=== PATIENT | female | born 1980 | race Caucasian/White ===

== ENCOUNTER 2016-06-03 19:12 | Emergency (ER) | payer OTHER ==
[~2016-06-03] VITALS: Ht 167.6 cm; Wt 104.8 kg
[~2016-06-03 19:12] MED LIST: CIPR-255 PO; PREN-83 PO
[2016-06-03 19:28] VITALS: TEMP 37; Ht 167.6 cm; Wt 104.8 kg
[2016-06-03] MEDS ORDERED: KETOROLAC TROMETHAMINE 30 MG/ML VIAL IV STA (19:43)
[2016-06-03] MEDS ORDERED: SODIUM CHLORIDE 0.9% 1000ML 1,000 ML IV STA (19:43)
[2016-06-03] MEDS ORDERED: HYDROmorphone INJ 1 MG/ML SYR IV STA (19:43)
[2016-06-03] MEDS ORDERED: ONDANSETRON INJ 2 MG/ML 2 ML VIAL IV STA ×2 (19:43→23:02)
--- NOTE | 2016-06-03 19:45 | EMERGENCY ROOM VISIT NOTE ---
History Report prepared by Renan: Sal Davis Under the Supervision of: Dr. David Mason M.D. First contact with patient: 19:36 Chief Complaint: PELVIC PAIN Stated Complaint: PELVIC PAIN History of Present Illness The patient is a 35 year old female who presents to the Emergency Room with complaints of waxing and waning pelvic pain that began 2 hours ago. She rates her pain a 7/10 in severity. She states that "she feels like shit." The patient' s menstrual cycle ended four days ago. She has a past medical history of a tubal ligation, 3 c-sections, an appendectomy, and a cholecystectomy. Due to the pain, the patient is nauseated. She denies any other abnormal symptoms. Source of History: patient Onset: 2 hours ago Position: other (pelvis) Symptom Intensity: 7/10 Quality: sharp Timing: waxes/wanes Associated Symptoms: + nausea Note: She denies any other abnormal symptoms. Review of Systems See HPI for pertinent positives & negatives. A total of 10 systems reviewed and were otherwise negative. Past Medical & Surgical Medical Problems: (1) 35 weeks gestation of (2) Abdominal pain (3) Corneal abrasion (4) Cough (5) Diarrhea (6) Diarrhea (7) Gastroenteritis (8) Gestational diabetes (9) Gestational hypertension w/o significant proteinuria in 3rd trimester (10) Hamstring muscle strain (11) Headache (12) Hematuria (13) Hematuria (14) Hypomagnesemia (15) Insulin controlled gestational diabetes mellitus during (16) Left flank pain (17) Maternal care for (suspected) abnormality and damage, unspecified, fetus 1 (18) Mild pre-eclampsia in third trimester (19) Mild preeclampsia (20) Rectal prolapse (21) Rectal prolapse (22) Right flank pain (23) Sinusitis, acute (24) Supervision of high risk in third trimester (25) Tachycardia (26) Urinary tract infection (27) Vomiting (28) Vomiting during Surgical Problems: (1) Appendectomy (2) section (3) Cholecystectomy (4) H/O: section (5) History of appendectomy (6) Previous delivery, antepartum condition or complication (7) Previous section Family History Diabetes mellitus FH: cancer FH: heart disease Hypertension Kidney disease Kidney stones Social History Smoking Status: Never Smoker Alcohol Use: none Drug Use: none Marital Status: Occupation Status: employed Current/Historical Medications Scheduled Bupropion Hcl (Bupropion Hcl Xl), 150 MG PO DAILY Lisdexamfetamine Dimesylate (Vyvanse), 40 MG PO DAILY Vit W/ Ferrous Fumara (), 1 TAB PO QAM Scheduled PRN Oxycodone/Acetaminophen 5MG/325MG (Percocet 5MG/325MG), 1-2 TAB PO Q4H PRN for Pain Allergies Coded Allergies: Penicillins (Verified Allergy, Severe, ANAPHYLAXIS, 09/09/15) Codeine (Unverified Allergy, Unknown, FULL BODY ITCHING, 09/09/15) Promethazine (Verified Allergy, Unknown, TORTICOLIS, 09/09/15) Cefaclor (Verified Adverse Reaction, Mild, N,V,D, 09/09/15) Physical Exam Vital Signs Date Time Temp Pulse Resp B/P Pulse Ox O2 Delivery O2 Flow Rate FiO2 06/04/16 01:05 68 18 118/81 98 06/03/16 23:14 65 18 123/76 96 Room Air 06/03/16 22:14 71 18 153/91 97 Room Air 06/03/16 21:39 68 06/03/16 21:14 76 18 135/86 97 Room Air 06/03/16 19:28 37.0 118 18 134/93 99 Room Air Physical Exam GENERAL: Patient is a healthy-appearing well-nourished HEAD: Normocephalic atraumatic EYES: Ocular movements intact pupils equal and react to light OROPHARYNX mucous membranes are moist no exudates present no erythema or edema present NECK: Supple no nuchal rigidity CHEST: Good equal expansion LUNGS: Clear and equal to auscultation CARDIAC: Normal S1 and S2 ABDOMEN: Soft, tenderness to the right suprapubic area, no guarding BACK: No CVA tenderness EXTREMITIES: No pain upon palpation normal muscle strength in all groups no clubbing cyanosis or edema NEURO: Patient is following commands is answering questions appropriately. Alert and oriented x3 Cranial Nerves 2-12 grossly intact Medical Decision & Procedures ER Provider Diagnostic Interpretation: Radiology results as stated below per my review and radiologist interpretation: US PELVIC/ENDOVA mm endometrial stripe Left ovary within limits with small follicles and evidence of vascular flow Right ovary not identified No evidence of adnexal mass or free fluid Radiologist: Carl Fox M.D. CT ABDOMEN & PELVIS: Comparison 09/10/2015 A few small punctate nonobstructing intrarenal stones Symmetric nephrograms without hydronephrosis or perinephric stranding Other solid organs appear within limits Status post cholecystectomy No bowel dilation or free air Suggestion 1.7 cm cyst right ovary axial 362 No free fluid No evidence of ureteral or bladder stone Radiologist: Carl Fox M.D. Laboratory Results 06/03/16 20:20 Red Blood Count 4.55, Mean Corpuscular Volume 85.1, Mean Corpuscular Hemoglobin 29.7, Mean Corpuscular Hemoglobin Concent 34.9, Mean Platelet Volume 10.4, Neutrophils (%) (Auto) 52.5, Lymphocytes (%) (Auto) 41.2, Monocytes (%) (Auto) 4.4, Eosinophils (%) (Auto) 1.6, Basophils (%) (Auto) 0.2, Neutrophils # (Auto) 5.35, Lymphocytes # (Auto) 4.19, Monocytes # (Auto) 0.45, Eosinophils # (Auto) 0.16, Basophils # (Auto) 0.02 06/03/16 20:20 Test 06/03/16 19:57 06/03/16 20:20 Urine Color YELLOW Urine Appearance CLEAR (CLEAR) Urine pH 5.0 (4.5-7.5) Urine Specific Center 1.024 (1.000-1.030) Urine Protein NEG (NEG) Urine Glucose (UA) NEG (NEG) Urine Ketones NEG (NEG) Urine Occult Blood NEG (NEG) Urine Nitrite NEG (NEG) Urine Bilirubin NEG (NEG) Urine Urobilinogen NEG (NEG) Urine Leukocyte Esterase NEG (NEG) Urine Test NEG (NEG) White Blood Count 10.18 K/uL (4.8-10.8) Red Blood Count 4.55 M/uL (4.2-5.4) Hemoglobin 13.5 g/dL (12.0-16.0) Hematocrit 38.7 % (37-47) Mean Corpuscular Volume 85.1 fL (80-100) Mean Corpuscular Hemoglobin 29.7 pg (25-34) Mean Corpuscular Hemoglobin Concent 34.9 g/dl (32-36) Platelet Count 239 K/uL (130-400) Mean Platelet Volume 10.4 fL (7.4-10.4) Neutrophils (%) (Auto) 52.5 % Lymphocytes (%) (Auto) 41.2 % Monocytes (%) (Auto) 4.4 % Eosinophils (%) (Auto) 1.6 % Basophils (%) (Auto) 0.2 % Neutrophils # (Auto) 5.35 K/uL (1.4-6.5) Lymphocytes # (Auto) 4.19 K/uL (1.2-3.4) Monocytes # (Auto) 0.45 K/uL (0.11-0.59) Eosinophils # (Auto) 0.16 K/uL (0-0.5) Basophils # (Auto) 0.02 K/uL (0-0.2) RDW Standard Deviation 40.4 fL (36.4-46.3) RDW Coefficient of Variation 13.0 % (11.5-14.5) Immature Granulocyte % (Auto) 0.1 % Immature Granulocyte # (Auto) 0.01 K/uL (0.00-0.02) Anion Gap 10.0 mmol/L (3-11) Est Creatinine Clear Calc Drug Dose 138.5 ml/min Estimated GFR () 131.0 Estimated GFR (Non- 113.0 BUN/Creatinine Ratio 27.3 (10-20) Calcium Level 9.2 mg/dl (8.5-10.1) Total Bilirubin 0.2 mg/dl (0.2-1) Direct Bilirubin < 0.1 mg/dl (0-0.2) Aspartate Amino Transf (AST/SGOT) 13 U/L (15-37) Alanine Aminotransferase (ALT/SGPT) 42 U/L (12-78) Alkaline Phosphatase 86 U/L (45-117) Total Protein 7.3 gm/dl (6.4-8.2) Albumin 3.7 gm/dl (3.4-5.0) Lipase 114 U/L (73-393) Labs reviewed by ED physician. Medications Administered Medications (Trade) Dose Ordered Sig/Tasia Route Start Time Stop Time Status Last Admin Dose Admin Sodium Chloride (Nss 1000ml) 1,000 ml @ 999 mls/hr Q1H1M STAT IV 06/03/16 19:43 06/03/16 20:43 DC 06/03/16 21:07 999 MLS/HR Ketorolac Tromethamine (Toradol Inj) 30 mg NOW STAT IV 06/03/16 19:43 06/03/16 19:46 DC 06/03/16 21:10 30 MG Hydromorphone HCl (Dilaudid Inj) 1 mg NOW STAT IV 06/03/16 19:43 06/03/16 19:47 DC 06/03/16 21:13 1 MG Ondansetron HCl (Zofran Inj) 4 mg NOW STAT IV 06/03/16 19:43 06/03/16 19:47 DC 06/03/16 21:08 4 MG Ondansetron HCl (Zofran Inj) 4 mg NOW STAT IV 06/03/16 23:02 06/03/16 23:03 DC 06/03/16 23:15 4 MG Oxycodone/ Acetaminophen (Percocet 5/ 325MG Home Pack) 1 homepack UD ONCE PO 06/04/16 01:00 06/04/16 01:01 DC 06/04/16 00:58 1 HOMEPACK ED Course 1936: Past medical records reviewed. The patient was evaluated in room C10. A complete history and physical examination was performed. 1943: Zofran Inj 4 mg IV, Dilaudid Inj 1 mg IV, Toradol Inj 30 mg IV, Sodium Chloride 1000 ml @ 999 mls/hr IV 2302: Zofran Inj 4 mg IV 0100: Oxycodone/ Acetaminophen 1 homepack PO 0105: Upon reexamination the patient is resting. I discussed results and treatment plan with the patient. She verbalizes agreement and understanding. The patient is ready for discharge. Medical Decision Differential diagnosis: Etiologies such as appendicitis, diverticulitis, PUD, biliary pathology, UTI, pancreatitis, obstruction, mesenteric ischemia, aortic pathology, infections, inflammatory bowel disease, renal colic, as well as others were entertained. This is a 35-year-old female who presents emergency department complaining of right lower quadrant abdominal pain. Serial abdominal examinations were performed on the patient she department and at no time did she exhibit a surgical abdomen. An IV was established, patient given normal saline bolus, Toradol, Dilaudid, Zofran. The patient had a reaction to the Dilaudid and requested not to have it again. Ultrasound does not show the right ovary. I will back to discuss this with the patient and using shared medical decision- making the patient would like us to get a CAT scan of the abdomen and pelvis. The CAT scan does show a right ovarian cyst. The patient is much more comfortable now and I feel she can be safely discharged home for follow-up with gynecology. Impression Primary Impression: RLQ abdominal pain Additional Impression: Ovarian cyst Scribe Attestation The scribe's documentation has been prepared under my direction and personally reviewed by me in its entirety. I confirm that the note above accurately reflects all work, treatment, procedures, and medical decision making performed by me. Departure Information Dispostion Home / Self-Care Prescriptions Oxycodone/Acetaminophen 5MG/325MG (PERCOCET 5MG/325MG) Tab 1-2 TAB PO Q4H Y for Pain, #14 TAB Prov: David Mason MD 06/04/16 Referrals Cammy Sue D.OMaximilian (PCP) Josie Heller MD Forms HOME CARE DOCUMENTATION FORM, IMPORTANT VISIT INFORMATION, WORK / SCHOOL INSTRUCTIONS Patient Instructions ED Cyst Ovarian, ED Pelvic Pain [facility], [facility] Additional Instructions Follow up with DR Heller's office You received narcotic or benzodiazepene medication while in the emergency room today. Do not drive, operate heavy machinery, or drink alcohol under the influence of this medication. Take 600 mg Ibuprofen every 6 hours Take Percocet for breakthrough pain You have been examined and treated today on an emergency basis only. This is not a substitute for, or an effort to provide, complete comprehensive medical care. It is impossible to recognize and treat all injuries or illnesses in a single emergency department visit. It is therefore important that you follow up closely with Dr Sue. Call as soon as possible for an appointment. Thank you for your time and consideration. I look forward to speaking with you again soon. Please don't hesitate to call us if you have any questions. Problem Qualifiers Additional Impression: Ovarian cyst Laterality: right Qualified Codes: N83.201 - Unspecified ovarian cyst, right side
[2016-06-03 20:13] LABS: URINE APPEARANCE CLEAR (CLEAR); URINE BILIRUBIN NEG (NEG); URINE COLOR YELLOW; URINE NITRITE NEG (NEG); URINE SPECIFIC GRAVITY 1.024 (1.000-1.030); UROBILINOGEN NEG (NEG)
[2016-06-03 20:14] LABS: MANUAL MICROSCOPIC REQUIRED? NO; REVIEW REQ? NO
[2016-06-03 20:34] LABS: BASO % 0.2 %; BASO ABS # 0.02 K/uL (0-0.2); COMPLETE YES; EOS % 1.6 %; HEMATOCRIT 38.7 % (37-47); IG% 0.1 %; LYMPH % 41.2 %; LYMPH ABS # 4.19 K/uL (1.2-3.4); MEAN CELL VOLUME 85.1 fL (80-100); MEAN CORPUSCULAR HEMOGLOBIN 29.7 pg (25-34); MEAN CORPUSCULAR HGB CONC 34.9 g/dl (32-36); MEAN PLATELET VOLUME 10.4 fL (7.4-10.4); MONO % 4.4 %; NEUT % 52.5 %; PLATELET COUNT 239 K/uL (130-400); RED BLOOD COUNT 4.55 M/uL (4.2-5.4); WHITE BLOOD COUNT 10.18 K/uL (4.8-10.8)
[2016-06-03 20:58] LABS: ALT/SGPT 42 U/L (12-78); AST/SGOT 13 U/L (15-37); BLOOD UREA NITROGEN 19 mg/dl (7-18); BUN/CREATININE RATIO 27.3 (10-20); CALCIUM 9.2 mg/dl (8.5-10.1); CARBON DIOXIDE 25 mmol/L (21-32); CHLORIDE 108 mmol/L (98-107); GLUCOSE 107 mg/dl (70-99); POTASSIUM 3.8 mmol/L (3.5-5.1); SODIUM 143 mmol/L (136-145)
[2016-06-03 21:01] LABS: ALKALINE PHOSPHATASE 86 U/L (45-117)
[2016-06-03] MEDS ORDERED: LISD40CA PO (21:58)
[2016-06-04] MEDS ORDERED: OPTIRAY 320 IV PRN
[2016-06-04] MEDS ORDERED: OXYC-57 PO (00:50)
[2016-06-04] MEDS ORDERED: PERCOCET HOME PACK PO ONE (01:00)
[2016-06-04 01:05] VITALS: BP 118/81; PULSE 68; O2SAT 98
--- NOTE | 2016-06-04 06:35 | DIAGNOSTIC IMAGING REPORT ---
PELVIC ULTRASOUND CLINICAL HISTORY: Right-sided suprapubic pain. COMPARISON STUDY: CT of the abdomen and pelvis September 10, 2015. TECHNIQUE: Transabdominal and transvaginal sonography of the pelvis was performed. FINDINGS: The uterus measures 9.2 x 3.4 x 4.9 cm. The endometrium measures 9 mm in thickness. The right ovary was not visualized. The left ovary measures 2.9 x 2 x 2.1 cm. There is color flow within the left ovary. Several follicles within the left ovary were noted. There was no free fluid. IMPRESSION: 1. Unremarkable sonographic appearance of the uterus and left ovary. 2. Nonvisualization of the right ovary. 3. No free fluid. Electronically signed by: Eric Vogel M.D. 06/04/2016 6:34 AM Dictated Date/Time: 06/04/2016 6:31 AM
--- NOTE | 2016-06-04 06:48 | DIAGNOSTIC IMAGING REPORT ---
CT OF THE ABDOMEN AND PELVIS WITH CONTRAST CLINICAL HISTORY: Right lower quadrant abdominal pain. COMPARISON STUDY: CT of the abdomen and pelvis September 10, 2015 and pelvic ultrasound June 03, 2016. TECHNIQUE: Following IV administration of 92 mL of Optiray-320, axial images of the abdomen and pelvis were obtained from the lung bases to the proximal femurs. Images were reviewed in the axial, sagittal, and coronal planes. IV contrast was administered without complication. CT DOSE: 1394.51 mGy.cm FINDINGS: Borderline splenomegaly is unchanged. The gallbladder is surgically absent. The adrenal glands and pancreas are normal. There are small bilateral renal calculi which measure up to 3 mm. There are no ureteral calculi. There is no hydronephrosis. The appendix is surgically absent. The ovaries are not enlarged. There is no free fluid. There is no lymphadenopathy. Skeletal structures are unremarkable. The caliber and wall thickness of small and large bowel are normal. IMPRESSION: 1. No acute process within the abdomen or pelvis. 2. Bilateral nephrolithiasis. No ureteral calculi. 3. No bowel obstruction. Electronically signed by: Eric Vogel M.D. 06/04/2016 6:46 AM Dictated Date/Time: 06/04/2016 6:41 AM
[2017-01-09] MEDS ORDERED: LISD50CA4 PO (12:41)
== END 2016-06-04 01:05 | disposition home or self-care (01) ==
LOC: C.EDB 19:13 → C.EDC 06-04 01:05
DX: R10.31 Right lower quadrant pain (principal); N83.201 Unspecified ovarian cyst, right side; Z90.89 Acquired absence of other organs; Z90.49 Acquired absence of other specified parts of digestive tract; Z83.3 Family history of diabetes mellitus; Z80.9 Family history of malignant neoplasm, unspecified; Z82.49 Family history of ischemic heart disease and other diseases of the circulatory system; Z84.1 Family history of disorders of kidney and ureter; Z88.1 Allergy status to other antibiotic agents; Z88.5 Allergy status to narcotic agent

== ENCOUNTER 2016-09-15 12:21 | Emergency (ER) | payer OTHER ==
[~2016-09-15] VITALS: Ht 167.6 cm; Wt 102.0 kg
[~2016-09-15 12:21] MED LIST changes: -CIPR-255 PO; +LISD40CA PO; +OXYC-57 PO
[2016-09-15 12:26] VITALS: TEMP 36.8; Ht 167.6 cm; Wt 102.0 kg
--- NOTE | 2016-09-15 12:52 | EMERGENCY ROOM VISIT NOTE ---
History Report prepared by Renan: Yonas Milton Under the Supervision of: Dr. Laura Higuera D.O. First contact with patient: 12:42 Chief Complaint: BACK PAIN Stated Complaint: BACK PAIN History of Present Illness The patient is a 35 year old female who presents to the Emergency Room with complaints of persistent lower back pain s/p fall just prior to arrival. The patient was working upstairs on the floors when the injury occurred. She tripped over the cord from a patient's computer. She grabbed onto the table as she was falling which led to her twisting and injuring the lower back. She did not actually hit the ground. She denies baseline back problems. The patient also has some pain in her hips and she is feeling nauseated. The patient denies and numbness, tingling, or incontinence. The patient had Motrin earlier this morning for menstrual cramps. The patient is on Wellbutrin and Vivants. Source of History: patient Onset: just PRODUCT DEVELOPMENT CONSULTANT Position: back (lower) Quality: other (s/p fall) Timing: other (persistent) Associated Symptoms: + nausea, No numbness Review of Systems See HPI for pertinent positives & negatives. A total of 10 systems reviewed and were otherwise negative. Past Medical & Surgical Medical Problems: (1) 35 weeks gestation of (2) Abdominal pain (3) Corneal abrasion (4) Cough (5) Diarrhea (6) Diarrhea (7) Gastroenteritis (8) Gestational diabetes (9) Gestational hypertension w/o significant proteinuria in 3rd trimester (10) Hamstring muscle strain (11) Headache (12) Hematuria (13) Hematuria (14) Hypomagnesemia (15) Insulin controlled gestational diabetes mellitus during (16) Left flank pain (17) Maternal care for (suspected) abnormality and damage, unspecified, fetus 1 (18) Mild pre-eclampsia in third trimester (19) Mild preeclampsia (20) Rectal prolapse (21) Rectal prolapse (22) Right flank pain (23) Sinusitis, acute (24) Supervision of high risk in third trimester (25) Tachycardia (26) Urinary tract infection (27) Vomiting (28) Vomiting during Surgical Problems: (1) Appendectomy (2) section (3) Cholecystectomy (4) H/O: section (5) History of appendectomy (6) Previous delivery, antepartum condition or complication (7) Previous section Family History Diabetes mellitus FH: cancer FH: heart disease Hypertension Kidney disease Kidney stones Social History Smoking Status: Never Smoker Alcohol Use: none Drug Use: none Marital Status: Occupation Status: employed Current/Historical Medications Scheduled Bupropion Hcl (Bupropion Hcl Xl), 150 MG PO DAILY Lidocaine (Lidoderm Patch 5%), 1 PATCH TD DAILY Lisdexamfetamine Dimesylate (Vyvanse), 50 MG PO DAILY Scheduled PRN Cyclobenzaprine Hcl (Flexeril), 10 MG PO TID PRN for Muscle Spasms Oxycodone/Acetaminophen 5MG/325MG (Percocet 5MG/325MG), 1-2 TABS PO Q4H PRN for Pain Allergies Coded Allergies: Penicillins (Verified Allergy, Severe, ANAPHYLAXIS, 09/15/16) Codeine (Unverified Allergy, Unknown, FULL BODY ITCHING, 09/15/16) Promethazine (Verified Allergy, Unknown, TORTICOLIS, 09/15/16) Cefaclor (Verified Adverse Reaction, Mild, N,V,D, 09/15/16) Physical Exam Vital Signs Date Time Temp Pulse Resp B/P (MAP) Pulse Ox O2 Delivery O2 Flow Rate FiO2 09/15/16 16:44 87 18 139/95 96 09/15/16 15:30 90 22 96 09/15/16 12:26 36.8 98 20 137/90 99 Room Air Physical Exam GENERAL: alert, well appearing, well nourished, tearful, non-toxic EYE EXAM: normal conjunctiva. OROPHARYNX: no exudate, no erythema, lips, buccal mucosa, and tongue normal and mucous membranes are moist NECK: supple, no nuchal rigidity, no adenopathy, non-tender LUNGS: Clear to auscultation. Normal chest wall mechanics HEART: no murmurs, S1 normal and S2 normal ABDOMEN: abdomen soft, non-tender, normo-active bowel sounds, no masses, no rebound or guarding. BACK: Pain over midline lumbar spine, no stepoff. No CVA tenderness. SKIN: no rashes and no bruising UPPER EXTREMITIES: upper extremities are grossly normal. LOWER EXTREMITIES: No pitting edema. 1/4 patellar reflexes bilaterally. Decreased range of motion secondary to pain. Sensation intact. NEURO EXAM: Normal sensorium, cranial nerves II-XII grossly intact, normal speech, no gross weakness of arms, no gross weakness of legs. Gross sensation intact. Medical Decision & Procedures Medications Administered Medications (Trade) Dose Ordered Sig/Tasia Route Start Time Stop Time Status Last Admin Dose Admin Oxycodone/ Acetaminophen (Percocet 5-325mg Tab) 1 tab NOW ONCE PO 09/15/16 13:00 09/15/16 13:01 DC 09/15/16 13:11 1 TAB Lidocaine (Lidoderm Patch 5%) 1 patch NOW STAT TD 09/15/16 12:56 09/15/16 12:59 DC 09/15/16 13:11 1 PATCH Cyclobenzaprine HCl (Flexeril Tab) 10 mg STK-MED ONCE .ROUTE 09/15/16 13:07 09/15/16 13:08 DC 09/15/16 13:07 10 MG Ondansetron HCl (Zofran Odt) 4 mg STK-MED ONCE .ROUTE 09/15/16 13:09 09/15/16 13:10 DC 09/15/16 13:09 4 MG Oxycodone/ Acetaminophen (Percocet 5-325mg Tab) 1 tab NOW ONCE PO 09/15/16 16:30 09/15/16 16:32 DC 09/15/16 16:20 1 TAB ED Course 1246: The patient was evaluated in room B4b. A complete history and physical exam was performed. 1256: Lidocaine 5% Patch TD, Flexeril 10 mg PO. 1300: Percocet 5/325 mg PO. 1412: Checked on the patient. 1630: Percocet 5/325 mg PO. 1600: Reassessed the patient. Discussed the discharge instructions with her. She verbalized understanding and agreement. The patient is ready for discharge. Medical Decision Differential diagnoses includes but is not limited to lumbar radiculopathy, muscle strain, facture, cauda equina, mass, and disc herniation. Blood pressure screening: Patient was found to have an elevated blood pressure and was referred to their primary doctor for recheck and further treatment. Medication Reconciliation: I attest that I have personally reviewed the patient' s current medication list. No direct trauma, no fevers, no hx of malignancy, doubt pathology, doubt gi or vascular pathology with referred pain into back, no symptoms to suggest cauda equina, no risk factors for epidural abscess/hematoma, doubt discitis. Pt improved with meds. Discussed f/u with PCP, rahulx to watch/return for, she verbalized understanding and was agreeable with plan. Impression Primary Impression: Strain of lumbar region Scribe Attestation The scribe's documentation has been prepared under my direction and personally reviewed by me in its entirety. I confirm that the note above accurately reflects all work, treatment, procedures, and medical decision making performed by me. Departure Information Dispostion Home / Self-Care Prescriptions Lidocaine (Lidoderm Patch 5%) 1 Ea Tdsy 1 PATCH TD DAILY for Pain, #1 BOX Prov: Laura Higuera, DO 09/15/16 Oxycodone/Acetaminophen 5MG/325MG (PERCOCET 5MG/325MG) Tab 1-2 TABS PO Q4H Y for Pain, #15 TAB Prov: Laura Higuera, DO 09/15/16 Cyclobenzaprine Hcl (FLEXERIL) 10 Mg Tab 10 MG PO TID Y for Muscle Spasms, #20 TAB Prov: Laura Higuera, DO 09/15/16 Referrals Cammy Sue D.O. (PCP) Forms HOME CARE DOCUMENTATION FORM, IMPORTANT VISIT INFORMATION Patient Instructions [facility] Additional Instructions Please rest and avoid any strenuous activity or heavy lifting until you're feeling better. You may continue taking anti-inflammatories [id number] such as Advil/Motrin/Aleve. Please use the muscle relaxer and other pain medication as prescribed. Do not take them and drive. Please monitor for constipation from the pain medication. If you have any worsening pain, feel the pain is moving into your but her legs, develop numbness or tingling, noticed a change in her difficulty with bowel or bladder function, develop fevers, you've any other new concerns, please return the emergency room. Problem Qualifiers Primary Impression: Strain of lumbar region Encounter type: initial encounter Qualified Codes: S39.012A - Strain of muscle, fascia and tendon of lower back, initial encounter
[2016-09-15] MEDS ORDERED: LIDODERM (LIDOCAINE) PATCH 5% TD STA (12:56)
[2016-09-15] MEDS ORDERED: CYCLOBENZAPRINE HCL 5 MG TAB PO STA (12:56)
[2016-09-15] MEDS ORDERED: OXYCODONE/ACETAMINOPHEN 5-325 TAB PO ONE ×2 (13:00→16:30)
[2016-09-15] MEDS: CYCLOBENZAPRINE HCL 10 MG TAB ONE ×2 (13:07→13:11)
[2016-09-15] MEDS ORDERED: ONDANSETRON 4MG OD TAB ONE (13:09)
[2016-09-15] MEDS ORDERED: OXYC-57 PO (13:56)
[2016-09-15] MEDS ORDERED: NF656 TD (13:56)
[2016-09-15] MEDS ORDERED: CYCL10TA6 PO (13:56)
[2016-09-15 16:44] VITALS: BP 139/95; PULSE 87; O2SAT 96
[2017-01-09] MEDS ORDERED: LISD50CA4 PO (12:41)
== END 2016-09-15 16:40 | disposition home or self-care (01) ==
LOC: C.EDB 12:22
DX: S39.012A Strain of muscle, fascia and tendon of lower back, initial encounter (principal); W18.40XA Slipping, tripping and stumbling without falling, unspecified, initial encounter; Y92.239 Unspecified place in hospital as the place of occurrence of the external cause; Y99.0 Civilian activity done for income or pay; Z83.3 Family history of diabetes mellitus; Z82.49 Family history of ischemic heart disease and other diseases of the circulatory system; Z84.1 Family history of disorders of kidney and ureter

== ENCOUNTER → 2016-10-16 | Outpatient (CLI) | payer OTHER ==
[~2016-10-16] MED LIST changes: +ACET-1256 PO; +BUPR150T5 PO; +CYCL5TAB PO; +IBUP-1050 PO; -LISD40CA PO; +LISD50CA4 PO; +NF656 TD; +OXYC1TAB3 PO; -PREN-83 PO
--- NOTE | 2016-10-16 21:08 | DIAGNOSTIC IMAGING REPORT ---
MRI OF THE LUMBAR SPINE WITHOUT CONTRAST CLINICAL HISTORY: Lumbar spine pain following injury. COMPARISON STUDY: No previous studies for comparison. TECHNIQUE: Utilizing a 1.5 Janelle magnet and dedicated coil, multiplanar, multiecho imaging of the lumbar spine was performed without IV contrast. FINDINGS: For purposes of numbering on this exam, the L5-S1 disc space is assigned to axial image 27 of 30. Alignment of lumbar spine is anatomic. Vertebral body heights are maintained. The conus terminates at the upper L2 level. There is no intracanalicular mass or fluid collection. Paravertebral soft tissues are unremarkable. L1-2: The central canal and neural foramen are patent. L2-3: The central canal and neural foramen are patent L3-4: The central canal and neural foramen are patent. L4-5: The central canal and neural foramen are patent. L5-S1: The central canal and neural foramen are patent. IMPRESSION: Unremarkable MRI of the lumbar spine. No disc herniations. Patent central canal and neural foramen. Electronically signed by: Eric Vogel M.D. 10/16/2016 9:07 PM Dictated Date/Time: 10/16/2016 9:04 PM
== END | disposition home or self-care (01) ==
LOC: C.MRI 16:57
PROVIDERS: ATTEND Orthopaedic Surgery Orthopaedic Surgery of the Spine
DX: M51.06 Intervertebral disc disorders with myelopathy, lumbar region (principal)

== ENCOUNTER 2016-11-26 15:52 | Emergency (ER) | payer OTHER ==
[~2016-11-26] VITALS: Ht 167.6 cm; Wt 105.9 kg
[~2016-11-26 15:52] MED LIST changes: -ACET-1256 PO; -BUPR150T5 PO; -CYCL5TAB PO; -IBUP-1050 PO; -LISD50CA4 PO; -OXYC1TAB3 PO
[2016-11-26 16:00] VITALS: TEMP 36.6; Ht 167.6 cm; Wt 105.9 kg
[2016-11-26] MEDS ORDERED: KETOROLAC TROMETHAMINE 30 MG/ML VIAL IV STA (16:15)
[2016-11-26] MEDS ORDERED: SODIUM CHLORIDE 0.9% 1000ML 1,000 ML IV STA (16:15)
[2016-11-26] MEDS ORDERED: ONDANSETRON INJ 2 MG/ML 2 ML VIAL IV STA (16:15)
[2016-11-26 16:49] LABS: BASO % 0.3 %; BASO ABS # 0.03 K/uL (0-0.2); COMPLETE YES; EOS % 1.4 %; HEMATOCRIT 40.9 % (37-47); IG% 0.2 %; LYMPH % 30.4 %; LYMPH ABS # 3.09 K/uL (1.2-3.4); MEAN CORPUSCULAR HEMOGLOBIN 30.1 pg (25-34); MEAN CORPUSCULAR HGB CONC 35.5 g/dl (32-36); MEAN PLATELET VOLUME 10.1 fL (7.4-10.4); MONO % 5.7 %; PLATELET COUNT 245 K/uL (130-400); RED BLOOD COUNT 4.81 M/uL (4.2-5.4); WHITE BLOOD COUNT 10.18 K/uL (4.8-10.8)
[2016-11-26 16:59] LABS: INR 0.9 (0.9-1.1)
[2016-11-26 17:02] LABS: URINE APPEARANCE CLEAR (CLEAR); URINE BILIRUBIN NEG (NEG); URINE COLOR YELLOW; URINE NITRITE NEG (NEG); URINE SPECIFIC GRAVITY 1.027 (1.000-1.030); UROBILINOGEN NEG (NEG); ZZUR CULT IF INDIC CLEAN CATCH NO
[2016-11-26 17:13] LABS: MANUAL MICROSCOPIC REQUIRED? NO; REVIEW REQ? NO
[2016-11-26 17:17] LABS: ALKALINE PHOSPHATASE 78 U/L (45-117); ALT/SGPT 61 U/L (12-78); AST/SGOT 16 U/L (15-37)
--- NOTE | 2016-11-26 17:45 | DIAGNOSTIC IMAGING REPORT ---
ABDOMEN 2VIEW W/PA CHEST RTN CLINICAL HISTORY: abd cramping, nausea pain. Nausea. COMPARISON STUDY: 2013 FINDINGS: The soft tissues, psoas shadows, renal outlines and intestinal gas pattern appear normal. There is no evidence for bowel obstruction. There is no evidence for free intraperitoneal air. No abnormal abdominal calcifications are seen. A frontal view of the chest was performed and is unremarkable. IMPRESSION: Normal study. Prior cholecystectomy The above report was generated using voice recognition software. It may contain grammatical, syntax or spelling errors. Electronically signed by: Mingo Holland M.D. 11/26/2016 5:44 PM Dictated Date/Time: 11/26/2016 5:43 PM
[2016-11-26 17:53] LABS: BUN/CREATININE RATIO 23.3 (10-20); CALCIUM 8.6 mg/dl (8.5-10.1); CREATININE 1.1 mg/dl (0.60-1.20); POTASSIUM 4.1 mmol/L (3.5-5.1)
[2016-11-26 18:16] VITALS: BP 120/82; PULSE 85; O2SAT 98
--- NOTE | 2016-11-26 18:30 | EMERGENCY ROOM VISIT NOTE ---
History Report prepared by Renan: Heydi Bradley Under the Supervision of: Dr. Ranjana Olguin M.D. First contact with patient: 16:06 Chief Complaint: LETHARGIC Stated Complaint: NAUSEA - STOMACH PAIN - LETHARGY History of Present Illness The patient is a 36 year old female who presents to the Emergency Room with complaints of persistent generalized illness starting three days ago. The patient states that she has been having tightness in her abdomen, as well as has been feeling weak, nauseous and tired. The patient also states she has been having a hard time eating and drinking. She also states that she has had constipation which is for her and it made her hemorrhoid bleed today. The patient notes that she had a bowel movement just prior to arrival which was normal. She denies urine symptoms, cough or fever. The patient was treated for strep a week ago. She also notes an 18 day period that ended 9 days ago. The patient had a baby 16 months ago. She also notes that she has an upcoming appointment with Dr. Heller. Source of History: patient Onset: 3 days ago Position: other (generalized) Quality: other Timing: other (persistent) Associated Symptoms: + nausea, + fatigue, + weakness, No fevers, No cough, No urinary symptoms Note: Pt states she has been having tightness in her abdomen and constipation. The patient also states she has been having a hard time eating and drinking. Review of Systems See HPI for pertinent positives & negatives. A total of 10 systems reviewed and were otherwise negative. Past Medical & Surgical Medical Problems: (1) 35 weeks gestation of (2) Abdominal pain (3) Corneal abrasion (4) Cough (5) Diarrhea (6) Diarrhea (7) Gastroenteritis (8) Gestational diabetes (9) Gestational hypertension w/o significant proteinuria in 3rd trimester (10) Hamstring muscle strain (11) Headache (12) Hematuria (13) Hematuria (14) Hypomagnesemia (15) Insulin controlled gestational diabetes mellitus during (16) Left flank pain (17) Maternal care for (suspected) abnormality and damage, unspecified, fetus 1 (18) Mild pre-eclampsia in third trimester (19) Mild preeclampsia (20) Rectal prolapse (21) Rectal prolapse (22) Right flank pain (23) Sinusitis, acute (24) Supervision of high risk in third trimester (25) Tachycardia (26) Urinary tract infection (27) Vomiting (28) Vomiting during Surgical Problems: (1) Appendectomy (2) section (3) Cholecystectomy (4) H/O: section (5) History of appendectomy (6) Previous delivery, antepartum condition or complication (7) Previous section Family History Diabetes mellitus FH: cancer FH: heart disease Hypertension Kidney disease Kidney stones Social History Smoking Status: Never Smoker Alcohol Use: none Drug Use: none Marital Status: Occupation Status: employed Current/Historical Medications Scheduled Bupropion Hcl (Bupropion Hcl Xl), 150 MG PO DAILY Lisdexamfetamine Dimesylate (Vyvanse), 50 MG PO DAILY Allergies Coded Allergies: Penicillins (Verified Allergy, Severe, ANAPHYLAXIS, 11/26/16) Codeine (Unverified Allergy, Unknown, FULL BODY ITCHING, 11/26/16) Promethazine (Verified Allergy, Unknown, TORTICOLIS, 11/26/16) Cefaclor (Verified Adverse Reaction, Mild, N,V,D, 11/26/16) Physical Exam Vital Signs Date Time Temp Pulse Resp B/P (MAP) Pulse Ox O2 Delivery O2 Flow Rate FiO2 11/26/16 18:16 85 16 120/82 98 Room Air 11/26/16 16:53 88 11/26/16 16:00 36.6 109 20 132/91 99 Room Air Physical Exam Vital signs reviewed. General: Well-appearing female, in no significant distress. HEENT: No scleral icterus, PERRLA, neck supple. Atraumatic. Tympanic membrane clear. Posterior oral pharynx clear. Cardiovascular: Regular rate and rhythm, no extra sounds. Pulmonary: Clear to auscultation bilaterally, normal work of breathing. Abdomen: Soft, nontender, nondistended, positive bowel sounds. Obese. Musculoskeletal: Atraumatic, no peripheral edema. No CVA tenderness Neurologic: Patient awake alert and oriented x 3 Skin: Warm, dry, no rash Medical Decision & Procedures ER Provider Diagnostic Interpretation: Radiology results as stated below per my review and radiologist interpretation: ABDOMEN 2VIEW W/PA CHEST RTN FINDINGS: The soft tissues, psoas shadows, renal outlines and intestinal gas pattern appear normal. There is no evidence for bowel obstruction. There is no evidence for free intraperitoneal air. No abnormal abdominal calcifications are seen. A frontal view of the chest was performed and is unremarkable. IMPRESSION: Normal study. Prior cholecystectomy The above report was generated using voice recognition software. It may contain grammatical, syntax or spelling errors. Electronically signed by: Mingo Holland M.D. Laboratory Results 11/26/16 16:35 Red Blood Count 4.81, Mean Corpuscular Volume 85.0, Mean Corpuscular Hemoglobin 30.1, Mean Corpuscular Hemoglobin Concent 35.5, Mean Platelet Volume 10.1, Neutrophils (%) (Auto) 62.0, Lymphocytes (%) (Auto) 30.4, Monocytes (%) (Auto) 5.7, Eosinophils (%) (Auto) 1.4, Basophils (%) (Auto) 0.3, Neutrophils # (Auto) 6.32, Lymphocytes # (Auto) 3.09, Monocytes # (Auto) 0.58, Eosinophils # (Auto) 0.14, Basophils # (Auto) 0.03 11/26/16 16:35 Test 11/26/16 16:35 11/26/16 16:39 White Blood Count 10.18 K/uL (4.8-10.8) Red Blood Count 4.81 M/uL (4.2-5.4) Hemoglobin 14.5 g/dL (12.0-16.0) Hematocrit 40.9 % (37-47) Mean Corpuscular Volume 85.0 fL (80-100) Mean Corpuscular Hemoglobin 30.1 pg (25-34) Mean Corpuscular Hemoglobin Concent 35.5 g/dl (32-36) Platelet Count 245 K/uL (130-400) Mean Platelet Volume 10.1 fL (7.4-10.4) Neutrophils (%) (Auto) 62.0 % Lymphocytes (%) (Auto) 30.4 % Monocytes (%) (Auto) 5.7 % Eosinophils (%) (Auto) 1.4 % Basophils (%) (Auto) 0.3 % Neutrophils # (Auto) 6.32 K/uL (1.4-6.5) Lymphocytes # (Auto) 3.09 K/uL (1.2-3.4) Monocytes # (Auto) 0.58 K/uL (0.11-0.59) Eosinophils # (Auto) 0.14 K/uL (0-0.5) Basophils # (Auto) 0.03 K/uL (0-0.2) RDW Standard Deviation 40.1 fL (36.4-46.3) RDW Coefficient of Variation 13.0 % (11.5-14.5) Immature Granulocyte % (Auto) 0.2 % Immature Granulocyte # (Auto) 0.02 K/uL (0.00-0.02) Prothrombin Time 10.0 SECONDS (9.0-12.0) Prothromb Time International Ratio 0.9 (0.9-1.1) Anion Gap 8.0 mmol/L (3-11) Est Creatinine Clear Calc Drug Dose 87.8 ml/min Estimated GFR () 75.3 Estimated GFR (Non- 65.0 BUN/Creatinine Ratio 23.3 (10-20) Calcium Level 8.6 mg/dl (8.5-10.1) Magnesium Level 2.0 mg/dl (1.8-2.4) Total Bilirubin 0.5 mg/dl (0.2-1) Direct Bilirubin < 0.1 mg/dl (0-0.2) Aspartate Amino Transf (AST/SGOT) 16 U/L (15-37) Alanine Aminotransferase (ALT/SGPT) 61 U/L (12-78) Alkaline Phosphatase 78 U/L (45-117) Total Protein 7.7 gm/dl (6.4-8.2) Albumin 3.7 gm/dl (3.4-5.0) Lipase 135 U/L (73-393) Thyroid Stimulating Hormone (TSH) 1.870 uIu/ml (0.300-4.500) Urine Color YELLOW Urine Appearance CLEAR (CLEAR) Urine pH 7.0 (4.5-7.5) Urine Specific [place] 1.027 (1.000-1.030) Urine Protein NEG (NEG) Urine Glucose (UA) NEG (NEG) Urine Ketones NEG (NEG) Urine Occult Blood NEG (NEG) Urine Nitrite NEG (NEG) Urine Bilirubin NEG (NEG) Urine Urobilinogen NEG (NEG) Urine Leukocyte Esterase NEG (NEG) Urine Test NEG (NEG) Laboratory results per my review. Medications Administered Medications (Trade) Dose Ordered Sig/Tasia Route Start Time Stop Time Status Last Admin Dose Admin Sodium Chloride 1,000 ml @ 999 mls/hr Q1H1M STAT IV 8/15/17 16:15 11/26/16 17:15 DC 11/26/16 16:33 999 MLS/HR Ketorolac Tromethamine (Toradol Inj) 30 mg NOW STAT IV 11/26/16 16:15 11/26/16 16:16 DC 11/26/16 16:34 30 MG Ondansetron HCl (Zofran Inj) 4 mg NOW STAT IV 11/26/16 16:15 11/26/16 16:16 DC 11/26/16 16:33 4 MG ED Course 1610: Past medical records reviewed. The patient was evaluated in room B5. A complete history and physical examination was performed. 1615: Zofran Inj 4 mg IV, Toradol Inj 30 mg IV, Sodium Chloride 1000 ml @ 999 mls/hr IV 1700: Upon reevaluation, the patient appeared to have improvement of her symptoms. I discussed findings with the patient. She verbalized agreement of the treatment plan. The patient was discharged home Medical Decision Differential diagnosis: Etiologies such as metabolic, infection, hypo/hyperglycemia, electrolyte abnormalities, cardiac sources, intracerebral event, toxicologic, neurologic, as well as others were entertained. This pt was evaluated and appeared to be in no distress. IV access was obtained and lab work was drawn. Pt was placed on the talcer. Lab work is fairly unrevealing, UA is negative. Preg test is neg. Pt was feeling improved after IVF, IV toradol and IV zofran. She was d/c to f.u with PCP for continued symptoms. She will return to the ED for worsening of symptoms or any medical concerns. Medication Reconcilliation Current Medication List: was personally reviewed by me Blood Pressure Screening Patient's blood pressure: Normal blood pressure Blood pressure disposition: Did not require urgent referral Impression Primary Impression: Viral syndrome Scribe Attestation The scribe's documentation has been prepared under my direction and personally reviewed by me in its entirety. I confirm that the note above accurately reflects all work, treatment, procedures, and medical decision making performed by me. Departure Information Dispostion Home / Self-Care Referrals Cammy Sue D.O. (PCP) Forms HOME CARE DOCUMENTATION FORM, IMPORTANT VISIT INFORMATION, WORK / SCHOOL INSTRUCTIONS Patient Instructions My [facility] Additional Instructions Diagnosis: Viral syndrome Drink plenty of fluids. Pepcid 20 mg twice daily as needed for nausea, gastritis. Follow up with your doctor this week for worsening of symptoms or any medical concerns. Return to the ED for worsening of symptoms or any medical concerns.
[2017-01-09] MEDS ORDERED: LISD50CA4 PO (12:41)
== END 2016-11-26 18:49 | disposition home or self-care (01) ==
LOC: C.EDB 15:53
DX: B34.9 Viral infection, unspecified (principal); R53.83 Other fatigue; Z79.899 Other long term (current) drug therapy; Z87.19 Personal history of other diseases of the digestive system; Z87.440 Personal history of urinary (tract) infections; Z87.448 Personal history of other diseases of urinary system; Z87.898 Personal history of other specified conditions; Z82.49 Family history of ischemic heart disease and other diseases of the circulatory system; Z83.3 Family history of diabetes mellitus; Z84.1 Family history of disorders of kidney and ureter

== ENCOUNTER 2016-12-28 15:08 | Emergency (ER) | payer OTHER ==
[~2016-12-28] VITALS: Ht 167.6 cm; Wt 110.0 kg
[2016-12-28 15:10] VITALS: TEMP 36.6; Ht 167.6 cm; Wt 110.0 kg
[2016-12-28] MEDS ORDERED: SODIUM CHLORIDE 0.9% 1000ML 1,000 ML IV STA (15:25)
--- NOTE | 2016-12-28 15:40 | EMERGENCY ROOM VISIT NOTE ---
History First contact with patient: 15:14 Chief Complaint: NEURO SYMPTOMS Stated Complaint: RT SIDED FACE NUMBNESS/TINGLING X 1 HR History of Present Illness The patient is a 36 year old female who presents to the Emergency Room with complaints of right-sided facial numbness and tingling that started about 12:45 PM today. Patient states that she was driving home from a conference in [place] when her symptoms started. She states that she initially had a numbness and tingling feeling in the entire right face as well as the right arm. She states the numbness and tingling in her right arm lasted about 45 minutes and fully resolved, she denies any notable weakness in any of her extremities. She has had persistent numbness/tingling in the face since onset. She states about an hour after her symptoms started, she had a gradual onset of a mild right-sided headache, which she reports as constant, aching, 5/10. She did not take any medications for the headache. She denies any associated symptoms of vision changes, difficulty swallowing, neck pain or stiffness, confusion/disorientation, dizziness or syncope, nausea, vomiting, photo or phonophobia. She does report a history of migraines in the past, but states she has not had one for several years. She denies any associated chest pain, shortness of breath, abdominal pain, recent fevers or chills or other illness, urinary symptoms. Review of Systems A complete 10 point review of systems was reviewed with the patient with pertinent positives and negatives as per history of present illness. All else were negative. Past Medical/Surgical History Medical Problems: (1) 35 weeks gestation of (2) Abdominal pain (3) Corneal abrasion (4) Cough (5) Diarrhea (6) Diarrhea (7) Gastroenteritis (8) Gestational diabetes (9) Gestational hypertension w/o significant proteinuria in 3rd trimester (10) Hamstring muscle strain (11) Headache (12) Hematuria (13) Hematuria (14) Hypomagnesemia (15) Insulin controlled gestational diabetes mellitus during (16) Left flank pain (17) Maternal care for (suspected) abnormality and damage, unspecified, fetus 1 (18) Mild pre-eclampsia in third trimester (19) Mild preeclampsia (20) Rectal prolapse (21) Rectal prolapse (22) Right flank pain (23) Sinusitis, acute (24) Supervision of high risk in third trimester (25) Tachycardia (26) Urinary tract infection (27) Vomiting (28) Vomiting during Surgical Problems: (1) Appendectomy (2) section (3) Cholecystectomy (4) H/O: section (5) History of appendectomy (6) Previous delivery, antepartum condition or complication (7) Previous section Family History Diabetes mellitus FH: cancer FH: heart disease Hypertension Kidney disease Kidney stones Social History Smoking Status: Never Smoker Alcohol Use: none Drug Use: none Marital Status: Occupation Status: employed Current/Historical Medications Scheduled Bupropion Hcl (Bupropion Hcl Xl), 150 MG PO QAM Lisdexamfetamine Dimesylate (Vyvanse), 50 MG PO QAM Physical Exam Vital Signs Date Time Temp Pulse Resp B/P (MAP) Pulse Ox O2 Delivery O2 Flow Rate FiO2 12/28/16 19:22 68 20 132/75 97 12/28/16 18:00 76 18 126/73 98 Room Air 12/28/16 15:57 80 12/28/16 15:10 36.6 103 18 146/105 95 Physical Exam CONSTITUTIONAL: No acute distress. Well appearing and well nourished. Alert and oriented X 4 with normal affect. HEENT: Normocephalic, atraumatic. Pupils equal, round and reactive to light, EOMI. TMs normal. Pharynx normal. Moist mucous membranes. NECK: Supple, full active range of motion without discomfort. RESPIRATORY: Clear to auscultation bilaterally with no wheezing, crackles, rhonchi or stridor. Equal expansion bilaterally. CARDIOVASCULAR: Regular rate and rhythm with no murmurs, rubs or gallops. Normal peripheral perfusion. No edema. GASTROINTESTINAL: Soft, nontender, nondistended. Bowel sounds present in all quadrants. MUSCULOSKELETAL: Full range of motion of all joints without discomfort. INTEGUMENTARY: No rash or other significant dermatologic conditions noted. NEUROLOGIC: Cranial nerves II-XII grossly intact. No focal neurologic deficits noted. There is subjective diminished sensation right face involving the forehead, cheek, and chin. Sensation intact to light touch of the bilateral face, she is able to feel both sharp and dull. No sensory deficits noted to any of the extremities, full normal strength of all extremities, normal coordination including negative Romberg and normal [id number] testing, normal balance and gait, normal speech. Medical Decision & Procedures ER Provider Diagnostic Interpretation: CT HEAD WITHOUT CONTRAST (CT) CLINICAL HISTORY: Headache. Right facial numbness and tingling. COMPARISON STUDY: No previous studies for comparison. TECHNIQUE: Axial CT of the brain is performed from the vertex to the skull base. IV contrast was not administered for this examination. A dose lowering technique was utilized adhering to the principles of ALARA. CT DOSE: 601.98 mGy.cm FINDINGS: No intra or extra-axial mass lesions are visualized. There is no CT evidence of acute cortical infarction. There is no evidence of midline shift. There is no acute hemorrhage. No calvarial fractures are visualized. There is no evidence of pathologic ventricular dilatation. There is no evidence of acute sinusitis IMPRESSION: No acute intracranial findings Laboratory Results 12/28/16 16:00 Red Blood Count 4.43, Mean Corpuscular Volume 86.0, Mean Corpuscular Hemoglobin 29.3, Mean Corpuscular Hemoglobin Concent 34.1, Mean Platelet Volume 10.0, Neutrophils (%) (Auto) 57.6, Lymphocytes (%) (Auto) 34.8, Monocytes (%) (Auto) 5.5, Eosinophils (%) (Auto) 1.7, Basophils (%) (Auto) 0.2, Neutrophils # (Auto) 6.92, Lymphocytes # (Auto) 4.19, Monocytes # (Auto) 0.66, Eosinophils # (Auto) 0.21, Basophils # (Auto) 0.03 12/28/16 16:00 Test 12/28/16 15:45 12/28/16 15:56 12/28/16 16:00 Urine Color YELLOW Urine Appearance CLEAR (CLEAR) Urine pH 5.0 (4.5-7.5) Urine Specific [place] 1.025 (1.000-1.030) Urine Protein NEG (NEG) Urine Glucose (UA) NEG (NEG) Urine Ketones NEG (NEG) Urine Occult Blood NEG (NEG) Urine Nitrite NEG (NEG) Urine Bilirubin NEG (NEG) Urine Urobilinogen NEG (NEG) Urine Leukocyte Esterase NEG (NEG) Urine Test NEG (NEG) Bedside Glucose 93 mg/dl (70-90) White Blood Count 12.04 K/uL (4.8-10.8) Red Blood Count 4.43 M/uL (4.2-5.4) Hemoglobin 13.0 g/dL (12.0-16.0) Hematocrit 38.1 % (37-47) Mean Corpuscular Volume 86.0 fL (80-100) Mean Corpuscular Hemoglobin 29.3 pg (25-34) Mean Corpuscular Hemoglobin Concent 34.1 g/dl (32-36) Platelet Count 195 K/uL (130-400) Mean Platelet Volume 10.0 fL (7.4-10.4) Neutrophils (%) (Auto) 57.6 % Lymphocytes (%) (Auto) 34.8 % Monocytes (%) (Auto) 5.5 % Eosinophils (%) (Auto) 1.7 % Basophils (%) (Auto) 0.2 % Neutrophils # (Auto) 6.92 K/uL (1.4-6.5) Lymphocytes # (Auto) 4.19 K/uL (1.2-3.4) Monocytes # (Auto) 0.66 K/uL (0.11-0.59) Eosinophils # (Auto) 0.21 K/uL (0-0.5) Basophils # (Auto) 0.03 K/uL (0-0.2) RDW Standard Deviation 41.3 fL (36.4-46.3) RDW Coefficient of Variation 13.1 % (11.5-14.5) Immature Granulocyte % (Auto) 0.2 % Immature Granulocyte # (Auto) 0.03 K/uL (0.00-0.02) Prothrombin Time 10.2 SECONDS (9.0-12.0) Prothromb Time International Ratio 1.0 (0.9-1.1) Activated Partial Thromboplast Time 26.2 SECONDS (21.0-31.0) Partial Thromboplastin Ratio 1.0 Anion Gap 7.0 mmol/L (3-11) Est Creatinine Clear Calc Drug Dose 117.4 ml/min Estimated GFR () 104.4 Estimated GFR (Non- 90.0 BUN/Creatinine Ratio 24.0 (10-20) Calcium Level 8.7 mg/dl (8.5-10.1) Medications Administered Medications (Trade) Dose Ordered Sig/Tasia Route Start Time Stop Time Status Last Admin Dose Admin Sodium Chloride 1,000 ml @ 999 mls/hr Q1H1M STAT IV 12/28/16 15:25 9/16/17 16:25 DC 12/28/16 15:59 999 MLS/HR Ketorolac Tromethamine (Toradol Inj) 15 mg NOW STAT IV 12/28/16 18:04 12/28/16 18:05 DC 12/28/16 18:15 15 MG Metoclopramide HCl (Reglan Inj) 10 mg NOW STAT IV 12/28/16 18:07 12/28/16 18:09 DC 12/28/16 18:15 10 MG Medical Decision CC: Patient presenting with complaint of right-sided facial numbness and headache Interpretation of Labs: Mild leukocytosis, no anemia, no significant electrolyte imbalance, normal renal function, UA negative, negative urine . Differential Diagnosis: Includes, but not limited to complex migraine, tension headache, TIA, CVA, ICH, dehydration, among others. Medication Reconciliation: I attest that I have personally reviewed the patient' s current medication list. Vital signs review: I reviewed the patient's vital signs and interpret them as follows: T: Afebrile; BP: Hypertensive; HR: Tachycardic; RR: Within normal limits; Pulse Ox: Within normal limits on room air. Summary: Patient was evaluated at bedside, history of physical exam performed. Patient is alert and oriented, in no acute distress, resting calmly in the stretcher. Her neurologic exam is normal and without focal deficit, with the exception of subjective diminished sensation in the right side of the face. There is no facial droop noted. There is no neck pain or stiffness on exam. Based on the patient's exam at this time, I do not believe that she meets criteria for a stroke alert. Patient discussed with Dr. Ortega, who agrees with my assessment and plan. He did recommend doing an MRI combo of the brain to definitively rule out any stroke, and to avoid radiation with a CT at this time. Orders were placed for labs, UA and urine , IV fluids for hydration, MRI of the brain with and without contrast to definitively rule out stroke. Labs reviewed as above, no significant abnormalities. Negative urine . Nursing notified me that patient was over at MRI, and has been unable to tolerate the study due to severe claustrophobia and anxiety. I spoke with the patient and offered treating her anxiety with Ativan to help her tolerate the study, however she does not want to have any sedating medications and prefers not to have an MRI today. She also notes that her facial numbness and tingling has fully resolved since 4 PM, and her only persistent complaint is her headache which is still 5/10, and she now also has some associated nausea. I discussed with Dr. Ortega, he agrees with CT noncontrast of the head, and we will treat the headache with migraine cocktail. MRI canceled per patient request. I discussed with the patient and explained the plan, she verbalized understanding and was comfortable with this plan. Patient reports history of a dystonic reaction to Phenergan in the past, but states she has had Reglan before without a problem. She requested Toradol for the headache. After review of head CT, which is read a negative, Toradol and Reglan were ordered for treatment of headache. Patient reassessed multiple times throughout ED stay, she is much improved after medications, stating full resolution of her headache and nausea. Tachycardia resolved after IV fluid bolus. Hypertension also resolved. I suspect patient may have a complex migraine, reassured by full resolution of symptoms and negative head CT. She may benefit from future MRI studies if she has persistent headaches or return of symptoms. However, I believe her to be very low risk for stroke at this time. She was instructed to follow up closely with her PCP, and to consider evaluation by a neurologist. She verbalized understanding. She was also given return precautions should her symptoms return or worsen in any way, she verbalized understanding. The patient was discharged home in stable condition and ambulatory. Head Trauma GCS Score: 15 Medication Reconcilliation Current Medication List: was personally reviewed by me Blood Pressure Screening Patient's blood pressure: Elevated blood pressure Blood pressure disposition: Elevated BP felt to be situational Impression Primary Impression: Numbness and tingling of right face Additional Impression: Headache Departure Information Dispostion Home / Self-Care Condition GOOD Referrals Cammy Sue D.O. (PCP) Yousif Mott M.D. Patient Instructions ED Headache Migraine, My [facility] Additional Instructions You were treated in the emergency department today for your headache. CT imaging of your brain was normal. Rest today in a quiet, peaceful, dark environment and get a full 8-10 hrs of sleep tonight. Avoid loud noises, smoke/smoking, alcohol, bright lights, stress, or physical exertion today to minimize the chance the headache may return. Continue current medications as prescribed. Ibuprofen(Motrin, Advil) may be used for fever or pain. Use 600mg every 6-8 hours as needed. Take with food. Avoid using more than 2400mg in a 24 hour period. Do not use 2400mg per day for more than three consecutive days without physician direction. Prolonged inappropriate use can lead to stomach upset or ulcers. (AND/OR) Acetaminophen(Tylenol) may be used for fever or pain. Use 1000mg every 8 hours as needed. Avoid using more than 3000 mg in a 24 hour period. Return to the ER for passing out, worsening headache, vision problems, neck stiffness/pain, fevers, vomiting, worsening of your condition, or as needed. Follow up with your primary physician in 2-3 days for a recheck of your current condition. You may also benefit from being evaluated by a neurologist, you may call Dr. Mott's office for an appointment as needed. Problem Qualifiers Additional Impression: Headache Headache type: unspecified Headache chronicity pattern: acute headache Intractability: not intractable Qualified Codes: R51 - Headache
[2016-12-28 16:08] LABS: BASO % 0.2 %; BASO ABS # 0.03 K/uL (0-0.2); COMPLETE YES; EOS % 1.7 %; HEMATOCRIT 38.1 % (37-47); IG% 0.2 %; LYMPH % 34.8 %; LYMPH ABS # 4.19 K/uL (1.2-3.4); MEAN CORPUSCULAR HEMOGLOBIN 29.3 pg (25-34); MEAN CORPUSCULAR HGB CONC 34.1 g/dl (32-36); MONO % 5.5 %; NEUT % 57.6 %; PLATELET COUNT 195 K/uL (130-400); RED BLOOD COUNT 4.43 M/uL (4.2-5.4); WHITE BLOOD COUNT 12.04 K/uL (4.8-10.8)
[2016-12-28 16:10] LABS: URINE APPEARANCE CLEAR (CLEAR); URINE BILIRUBIN NEG (NEG); URINE COLOR YELLOW; URINE NITRITE NEG (NEG); URINE SPECIFIC GRAVITY 1.025 (1.000-1.030); UROBILINOGEN NEG (NEG)
[2016-12-28 16:14] LABS: MANUAL MICROSCOPIC REQUIRED? NO; REVIEW REQ? NO
[2016-12-28 16:25] LABS: PROTHROMBIN TIME (PATIENT) 10.2 SECONDS (9.0-12.0)
[2016-12-28 16:26] LABS: CALCIUM 8.7 mg/dl (8.5-10.1); CREATININE 0.84 mg/dl (0.60-1.20); POTASSIUM 3.9 mmol/L (3.5-5.1)
[2016-12-28 16:38] LABS: PREG INTERNAL NEGATIVE QC NEG CLEAR BACKGROUND; PREG INTERNAL POSITIVE QC POS CONTROL LINE
--- NOTE | 2016-12-28 17:40 | DIAGNOSTIC IMAGING REPORT ---
CT HEAD WITHOUT CONTRAST (CT) CLINICAL HISTORY: Headache. Right facial numbness and tingling. COMPARISON STUDY: No previous studies for comparison. TECHNIQUE: Axial CT of the brain is performed from the vertex to the skull base. IV contrast was not administered for this examination. A dose lowering technique was utilized adhering to the principles of ALARA. CT DOSE: 601.98 mGy.cm FINDINGS: No intra or extra-axial mass lesions are visualized. There is no CT evidence of acute cortical infarction. There is no evidence of midline shift. There is no acute hemorrhage. No calvarial fractures are visualized. There is no evidence of pathologic ventricular dilatation. There is no evidence of acute sinusitis IMPRESSION: No acute intracranial findings Electronically signed by: Keven Colon M.D. 12/28/2016 5:30 PM Dictated Date/Time: 12/28/2016 5:29 PM
[2016-12-28] MEDS ORDERED: KETOROLAC TROMETHAMINE 30 MG/ML VIAL IV STA (18:04)
[2016-12-28] MEDS ORDERED: METOCLOPRAMIDE HCL INJ 5 MG/ML 2 ML VIAL IV STA (18:07)
[2016-12-28 19:22] VITALS: BP 132/75; PULSE 68; O2SAT 97
--- NOTE | 2016-12-28 21:37 | EMERGENCY ROOM VISIT NOTE ---
ED Visit Note First contact with patient: 15:14 I have personally evaluated this patient examined her and reviewed the pertinent labs and data. I have discussed the case with Yudy Dhillon, the physician electrical assistant and agree with the plan. Please refer to the PA note. This patient comes in after having tingling in her right face and arm tingling and now has a mild headache. Right now she does have some mild tingling her right face. She has a normal neurologic exam. Her headache is mild. There has been no trauma. She's no fever or chills. CAT scan of her head is unremarkable. She has a normal neurologic exam was unremarkable. She some subjective tingling in her right face. Most likely this is a related to a migraine. Her blood work up was unremarkable. We did order a MRI of her brain to rule out other acute intracranial processes however she could not tolerate this. She declined any sedation and just wants to go home at this is reasonable with follow up with her doctor. She should return if she has recurrence of symptoms, worsening symptoms, fever or chills, any new problems or concerns.
[2017-01-09] MEDS ORDERED: LISD50CA4 PO (12:41)
== END 2016-12-28 19:24 | disposition home or self-care (01) ==
LOC: C.EDB 15:09 → C.EDC 19:24
DX: R20.0 Anesthesia of skin (principal); R20.2 Paresthesia of skin; R51 Headache; R00.0 Tachycardia, unspecified; Z83.3 Family history of diabetes mellitus; Z82.49 Family history of ischemic heart disease and other diseases of the circulatory system; Z84.1 Family history of disorders of kidney and ureter

== ENCOUNTER 2017-01-09 19:20 | Emergency (ER) | payer OTHER ==
[~2017-01-09] VITALS: Ht 167.6 cm; Wt 109.7 kg
[~2017-01-09 19:20] MED LIST changes: +LISD50CA4 PO; -NF656 TD; -OXYC-57 PO
[2017-01-09 19:30] VITALS: BP 136/99; PULSE 99; TEMP 36.8; O2SAT 98; Ht 167.6 cm; Wt 109.7 kg
[2017-01-09] MEDS ORDERED: ACET-1256 PO (19:48)
[2017-01-09] MEDS ORDERED: IBUP-1050 PO (19:48)
[2017-01-09] MEDS ORDERED: OXYCODONE HCL IR 5 MG TAB (IMMEDIATE RELEASE) PO STA (19:52)
[2017-01-09] MEDS ORDERED: FLEXERIL HOME PACK 10 MG VIAL PO STA (19:52)
[2017-01-09] MEDS ORDERED: CYCLOBENZAPRINE HCL 10 MG TAB PO STA (19:52)
[2017-01-09] MEDS ORDERED: OXYCODONE IR HOME PACK PO STA (19:52)
[2017-01-09] MEDS ORDERED: OXYC1TAB3 PO (19:55)
[2017-01-09] MEDS ORDERED: CYCL5TAB PO (19:55)
--- NOTE | 2017-01-09 19:56 | EMERGENCY ROOM VISIT NOTE ---
ED Visit Note First contact with patient: 19:34 CHIEF COMPLAINT: "Right-sided back pain". HISTORY OF PRESENT ILLNESS: This 36-year-old female patient presents to the emergency department via private vehicle complaining of pain in the low back which began this morning upon awakening from sleep. The pain was gradual in onset, is now constant and worse with movement. The patient notes the pain as sharp and a 8/10. The patient has taken Tylenol and ibuprofen without relief of the pain. The patient denies any loss of control of their bowel or bladder functions. There has been no leg numbness or weakness, and no change in sensation. No nausea or vomiting or abdominal pain. No chest pain or shortness of breath. The patient has had prior back injuries. No dysuria or increased urinary frequency. REVIEW OF SYSTEMS: A review of systems was performed with positives and pertinent negatives listed in the history of present illness. All other systems were reviewed and are negative. ALLERGIES: As noted below MEDICATIONS: As noted below PMH: Previous back injury SOCIAL HISTORY: Patient lives and is employed locally. PHYSICAL EXAM: VITALS: Vitals are noted on the nurse's note and reviewed by myself. Vital signs stable. GENERAL: 36-year-old female, in no acute distress, nondiaphoretic, well- developed well-nourished. SKIN: The skin was without rashes, erythema, edema, or bruising. NECK: Supple without nuchal rigidity. No cervical spine tenderness. No paraspinous muscle tenderness. HEART: Regular rate and rhythm without murmurs gallops or rubs. LUNGS: Clear to auscultation bilaterally without wheezes, rales or rhonchi. ABDOMEN: Soft, nontender, without masses or organomegaly. MUSCULOSKELETAL: No muscle atrophy, erythema, or edema noted of the back. There is no tenderness over the lumbar spinous processes. There is is tenderness over the paraspinous muscles of the right inferior lumbar region. There is no tenderness over the thoracic spine paraspinous muscles. There are no muscle spasms present. The patient is slow to move around with maximum tenderness with leftward torso bending and leftward flexion at the hip. NEURO: Strength 5/5 and equal in the bilateral lower extremities. Full range of motion of the lower extremities. No neurovascular deficits. EMERGENCY DEPARTMENT COURSE: Patient was seen and evaluated as above. She presents to us today with right paraspinous musculature pain of the lumbar spine. There is been no trauma or injury. No abdominal pain. No cauda equina syndrome symptoms. She is well on exam. I believe she is expressing a muscle spasm of the right paraspinous musculature at the location of the lumbar region. She'll be treated with Flexeril, and oxycodone. She was seen here not long ago and had done well with the Flexeril. I cautioned her that this can increase risk of serotonin syndrome, and she is only to take this as needed. No red flags in the PDMP. She is to follow with her family doctor. She was given oxycodone as well as Flexeril here, and a short prescription. She is to return with worsening. She was educated upon worrisome symptoms which to return , had questions answered prior to discharge, and was discharged home in good condition. In evaluation treatment this patient the following differential diagnoses were entertained: Lumbar strain, sprain, fracture, dislocation, abdominal etiology, among others. Problem List Medical Problems: (1) 35 weeks gestation of Status: Resolved (2) Abdominal pain Status: Resolved (3) Corneal abrasion Status: Resolved (4) Cough Status: Resolved (5) Diarrhea Status: Resolved (6) Diarrhea Status: Resolved (7) Gastroenteritis Status: Resolved (8) Gestational diabetes Status: Resolved (9) Gestational hypertension w/o significant proteinuria in 3rd trimester Status: Resolved (10) Hamstring muscle strain Status: Resolved (11) Headache Status: Resolved (12) Hematuria Status: Resolved (13) Hematuria Status: Resolved (14) Hypomagnesemia Status: Resolved (15) Left flank pain Status: Resolved (16) Mild preeclampsia Status: Resolved (17) Rectal prolapse Status: Resolved (18) Rectal prolapse Status: Resolved (19) Right flank pain Status: Resolved (20) Sinusitis, acute Status: Resolved (21) Tachycardia Status: Resolved (22) Urinary tract infection Status: Resolved (23) Vomiting Status: Resolved (24) Vomiting during Status: Resolved Surgical Problems: (1) Appendectomy Status: Resolved (2) section Status: Resolved (3) Cholecystectomy Status: Resolved (4) H/O: section Status: Resolved (5) History of appendectomy Status: Resolved (6) Previous section Status: Resolved Current/Historical Medications Scheduled Acetaminophen (Tylenol), 1,000 MG PO PRN UD Bupropion Hcl (Bupropion Hcl Xl), 150 MG PO QAM Cyclobenzaprine Hcl (Flexeril), 5 MG PO TID Lisdexamfetamine Dimesylate (Vyvanse), 50 MG PO QAM Scheduled PRN Ibuprofen (Advil), 800 MG PO TID PRN for Pain Oxycodone Ir (Roxicodone Ir), 1-2 TAB PO Q4H PRN for Pain Allergies Coded Allergies: Penicillins (Verified Allergy, Severe, ANAPHYLAXIS, 12/28/16) Codeine (Verified Allergy, Unknown, FULL BODY ITCHING, 12/28/16) Promethazine (Verified Allergy, Unknown, TORTICOLIS, 12/28/16) Cefaclor (Verified Adverse Reaction, Mild, N,V,D, 12/28/16) Vital Signs Date Time Temp Pulse Resp B/P (MAP) Pulse Ox O2 Delivery O2 Flow Rate FiO2 01/09/17 19:30 36.8 99 16 136/99 98 Room Air Medications Administered Medications (Trade) Dose Ordered Sig/Tasia Route Start Time Stop Time Status Last Admin Dose Admin Oxycodone HCl (Roxicodone Immediate Rel Tab) 5 mg NOW STAT PO 01/09/17 19:52 01/09/17 19:54 DC 01/09/17 20:07 5 MG Oxycodone HCl (Roxicodone Immediate Rel 5MG Home Pack) 1 homepack UD STAT PO 01/09/17 19:52 01/09/17 19:54 DC 01/09/17 20:07 1 HOMEPACK Cyclobenzaprine HCl (FLEXERIL 10MG Home Pack) 1 homepack UD STAT PO 01/09/17 19:52 01/09/17 19:54 DC 01/09/17 20:07 1 HOMEPACK Cyclobenzaprine HCl (Flexeril Tab) 10 mg NOW STAT PO 01/09/17 19:52 01/09/17 19:54 DC 01/09/17 20:06 10 MG Departure Information Impression Primary Impression: Strain of lumbar region Dispostion Home / Self-Care Condition GOOD Prescriptions Oxycodone Ir (Roxicodone Ir) 5 Mg Tab 1-2 TAB PO Q4H Y for Pain, #15 TAB For Initial Treatment Prov: Quentin Flower, PA-C 01/09/17 Cyclobenzaprine Hcl (FLEXERIL) 5 Mg Tab 5 MG PO TID for 5 Days, #15 TAB PRN Prov: Quentin Flowre, MOHAN-Mike 01/09/17 Referrals Cammy Sue D.O. (PCP) Patient Instructions My [facility] Additional Instructions You have been treated in the Emergency Department for Back Pain. You have received pain medicine in the emergency department which impairs your ability to operate a vehicle. It is illegal for you to drive after receiving these medicines. You have been prescribed Oxy IR to be used for pain control. This is a narcotic medication. You cannot drive or consume alcohol while on this medicine. This medicine should only be used for pain that cannot be controlled with over-the- counter pain medicines. You have been prescribed Flexeril (cyclobenzaprine) 1-2 tabs orally, three times per day. Do NOT exceed 30 mg (6 tabs) per day. Take your first dose at bedtime as it can make you drowsy. Always take all medications as prescribed. For pain control, you can use the following [id number] medicines (if >12 yo): - Regular strength (325mg/tab) Tylenol (acetaminophen) 2 tabs every 4-6 hours as needed. Do not exceed 12 tablets in a 24 hour period. Avoid taking more than 3 grams (3000 mg) of Tylenol per day. This includes any other sources of acetaminophen you may take on a regular basis. - Regular strength (200 mg/tab) Advil (ibuprofen) 1-2 tabs every 4-6 hours as needed. Do not exceed a dose of 3200 mg per day. If this is an acute injury, ice can be applied to the area of pain for the first 3 days to help decrease pain and inflammation. After the first 3 days, a heating pad can be used over the area for continued soothing relief. You should schedule a follow-up appointment in 2-3 days with your Primary Care Provider for further evaluation and treatment of your back pain. Return to the Emergency Department if your current symptoms worsen despite treatment course outlined above, or if you develop any of the following symptoms : intractable pain despite aforementioned treatment course, loss of control of your bowel or bladder, numbness or tingling in your groin, or development of a fever.
[2017-01-09] MEDS ORDERED: BUPR150T5 PO (21:58)
== END 2017-01-09 20:27 | disposition home or self-care (01) ==
LOC: C.EDB 19:22 → C.EDD 20:27
DX: S39.012A Strain of muscle, fascia and tendon of lower back, initial encounter (principal); X58.XXXA Exposure to other specified factors, initial encounter

== ENCOUNTER → 2017-01-29 | Outpatient (CLI) | payer OTHER ==
[~2017-01-29] MED LIST changes: +ACET-1256 PO; +BUPR150T5 PO; +IBUP-1050 PO; +OXYC1TAB3 PO
--- NOTE | 2017-01-30 07:47 | MAMMOGRAPHY REPORT ---
BILATERAL DIGITAL DIAGNOSTIC MAMMOGRAM TOMOSYNTHESIS WITH CAD AND TARGETED RIGHT ULTRASOUND: 01/30/20 17 CLINICAL HISTORY: The patient reports a palpable right breast lump at approximately 2-3 months. TECHNIQUE: Breast tomosynthesis in addition to standard 2D mammography was performed. Current study was also evaluated with a Computer Aided Detection (CAD) system. Bilateral CC and MLO 2-D and tomosy nthesis images were obtained. COMPARISON: No prior exams were available for comparison. BREAST COMPOSITION: There are scattered areas of fibroglandular density in both breasts. FINDINGS: A triangle marker patino the site of the palpable lump in the right lower inner quadrant. N o suspicious masses or other suspicious mammographic abnormalities are noted at the site of the palpa ble lump. The remainder of both breasts are negative, without suspicious masses, calcifications, or areas of architectural distortion noted. Targeted ultrasound was performed the area of the palpable lump pointed out by the patient, in the ri ght breast at approximately 4:00, 5 cm from the nipple. Sonographically normal tissue is seen in thi s region, without evidence of a mass or other suspicious sonographic abnormality. Normal fat lobules are seen in this region, which likely account for the palpable finding. IMPRESSION: ACR BI-RADS CATEGORY 2: BENIGN, TARGETED ULTRASOUND ACR BI-RADS CATEGORY 2: BENIGN No suspicious mammographic or sonographic abnormality at the site of the palpable right breast lump. There is no mammographic or targeted sonographic evidence of malignancy. Recommend clinical follow- up for the right breast lump, and recommend routine bilateral screening mammograms starting at the ag e of 40 unless otherwise clinically indicated. The patient has been verbally notified of the results. Approximately 10% of breast cancers are not detected with mammography. A negative mammographic report should not delay biopsy if a clinically suggestive mass is present. Anila Matt M.D. /:01/29/2017 09:21:11 Cuff Turner: Shawanda GUERRERO)(Betsey), [facility] letter sent: Normal 1/2 BI-RADS Code: ACR BI-RADS Category 2: Benign Ultrasound BI-RADS: ACR BI-RADS Category 2: Benign
== END | disposition home or self-care (01) ==
LOC: C.MAMM 08:51
PROVIDERS: ATTEND Family Medicine
DX: N63.10 Unspecified lump in the right breast, unspecified quadrant (principal)

== ENCOUNTER 2018-06-25 12:21 | Observation (INO) ==
[2018-06-25] MEDS ORDERED: ONDANSETRON INJ 2 MG/ML 2 ML VIAL IV STA ×2 (13:22→15:38)
[2018-06-25] MEDS ORDERED: KETOROLAC TROMETHAMINE 15 MG/ML VIAL IV STA (13:22)
[2018-06-25] MEDS ORDERED: cefTRIAXone SODIUM 1,000 MG/50 ML BAG IV STA (13:23)
[2018-06-25] MEDS ORDERED: SODIUM CHLORIDE 0.9% 1000ML 2,000 ML IV SCH (13:30)
[2018-06-25 14:23] LABS: Basophils # (auto) 0.01 K/uL (0-0.2); Basophils % (auto) 0.1 %; Eosinophils % (auto) 1.4 %; Hematocrit (blood only) 39.8 % (37-47); Hemoglobin 13.7 g/dL (12.0-16.0); Immature Granulocytes # (auto) 0.02 K/uL (0.00-0.02); Immature Granulocytes % (auto) 0.3 %; Lymphocytes # (auto) 1.42 K/uL (1.2-3.4); Lymphocytes % (auto) 19.2 %; Mean Corpuscular Hgb Conc 34.4 g/dL (32-36); Mean Corpuscular Volume 87.3 fL (80-100); Mean Platelet Volume 10.3 fL (7.4-10.4); Monocytes % (auto) 4.1 %; Neutrophils # (auto) 5.54 K/uL (1.4-6.5); Neutrophils % (auto) 74.9 %; Platelet Count 175 K/uL (130-400); RDW Coefficient of Variation 13.6 % (11.5-14.5); RDW Standard Deviation 42.7 fL (36.4-46.3); Red Blood Count 4.56 M/uL (4.2-5.4); White Blood Count 7.39 K/uL (4.8-10.8)
[2018-06-25 14:33] LABS: INR 0.9 (0.9-1.1); Prothrombin Time 9.7 Seconds (9.0-12.0)
[2018-06-25 14:39] LABS: Albumin Level 3.4 gm/dl (3.4-5.0); BUN Creatinine Ratio 20.8 (10-20); Calcium 7.9 mg/dl (8.5-10.1); Creatinine Clr Calc Pharmacy 108.7 ml/min; Est GFR (African American) 99.3; Est GFR (Non-African American) 85.7; Potassium 3.5 mmol/L (3.5-5.1)
[2018-06-25 14:41] LABS: Albumin Globulin Ratio 0.9 (0.9-2); Bilirubin,Total 0.3 mg/dl (0.2-1); Total Protein 7.4 gm/dl (6.4-8.2)
[2018-06-25 14:59] LABS: Appearance Urine Clear (Clear); Bilirubin Urine Negative (Negative); Blood Urine Negative (Negative); Color Urine Yellow; Glucose Urine UA Negative (Negative); Ketones Urine Trace (Negative); Leukocyte Esterase Urine Negative (Negative); Nitrite Urine Negative (Negative); Protein Urine Negative (Negative); Specific Gravity Urine 1.032 (1.000-1.030); Urobilinogen Urine Negative (Negative)
[2018-06-25] MEDS ORDERED: IOVERSOL 100ml IV PRN (15:20)
[2018-06-25] MEDS ORDERED: MoRPHine SULFATE 4 MG/ML 1 ML CARP\\VIAL IV STA (15:27)
--- NOTE | 2018-06-25 15:30 | CT Scan Report ---
CT OF THE ABDOMEN AND PELVIS WITH CONTRAST CLINICAL HISTORY: Mid abdominal pain. COMPARISON STUDY: CT of the abdomen and pelvis January 19, 2018. Renal ultrasound June 23, 2018. TECHNIQUE: Following IV administration of 93 mL of Optiray-320, axial images of the abdomen and pelvi s were obtained from the lung bases to the proximal femurs. Images were reviewed in the axial, sagitt al, and coronal planes. IV contrast was administered without complication. Automated exposure contro l was utilized for the study. A dose lowering technique was utilized adhering to the principles of A ELSIE. CT DOSE: 1332.41 mGy.cm FINDINGS: Mild splenomegaly is noted. A right cardiophrenic angle pericardial cyst is noted. There is probable fatty infiltration of the liver. There is no biliary ductal dilatation status post cholecys tectomy. There are small bilateral renal calculi. There is no hydronephrosis. No ureteral calculi are present. Mild mesenteric infiltration is noted with small associated mesenteric lymph nodes. Hyperde nse material along the appendix is noted. There is no evidence for acute appendicitis.. There is no e vidence for a small bowel obstruction. Small bowel is fluid-filled. Intrauterine device is appropriat conor positioned. Note is made of a 5.8 cm suspected left ovarian cyst. No pneumatosis, free air or por marcella venous gas is present. IMPRESSION: 1. Fluid-filled small bowel which may reflect an enteritis. No evidence for a bowel obstruction. 2. Mild mesenteric infiltration with small mesenteric lymph nodes. This is of doubtful significance. 3. Bilateral nephrolithiasis. No ureteral calculi or hydronephrosis. 4. 5.8 cm suspected left ovarian cyst. A follow-up pelvic ultrasound in 6 weeks to ensure resolution is recommended. Electronically signed by: Eric Vogel M.D. 06/25/2018 3:29 PM
--- NOTE | 2018-06-25 17:48 | History & Physical Report ---
Date of Service June 25, 2018 Assessment & Plan (1) Pyelonephritis: (2) Recurrent UTI: Pt with hx recurrent UTI's. Hx pyelonephritis Presented with 4 days hx dysuria, urinary frequency, fever 2 days ago, R flank pain, malaise and nausea. Had self started macrobid 4 days ago without signific ant relief. Seen in ER 06/23/18 and started on bactrim. Still with symptoms. Today in ER afebrile, vitals stable. WBC: 7, BUN: 18, Cr: 0.8, Lactate: 0.7. negative urine . UA: unremarkable CT ABD/PELVIS: 1. Fluid-filled small bowel which may reflect an enteritis. No evidence for a bowel obstruction. 2. Mild mesenteric infiltration with small mesenteric lymph nodes. This is of doubtful significance. 3. Bilateral nephrolithiasis. No ureteral calculi or hydronephrosis. 4. 5.8 cm suspected left ovarian cyst. A follow-up pelvic ultrasound in 6 weeks to ensure resolution is recommended. Possible Pyelonephritis -pending blood cultures (were drawn after antibiotics given) -pending urine culture, however pt has been on oral antibiotics for several days -Pt with PCN allergy, however has tolerated Rocephin during previous hosptializations. Will continue Rocephin for now -IVF -pain control with toradol, morphine prn -antiemetics -monitor CBC, BMP (3) Depression: (4) ADHD: -continue bupropion, vyvanse, dextroamphetamine (5) Ovarian cyst: CT ABD/PELVIS: 5.8 cm suspected left ovarian cyst. A follow-up pelvic ultrasound in 6 weeks to ensure resolution is recommended. -recommend follow up outpatient for pelvic ultrasound DVT Prophylaxis -low risk - ambulate Follows with Dr Green for routine care Pt was seen with Dr Langley. See addendum History of Present Illness Chief Complaint: Dysuria, R flank pain Primary Care Provider: Ema Green Pt is 37 y/o F with PMH depression, anxiety, ADHD, recurrent UTI's presented to ER with c/o dysuria and R flank pain x couple of days. Hx hospitalization for pyelonephritis in 02/2018. Pt states 4 days ago started with dysuria, urinary frequency and urgency. Then started with some R flank discomfort. Pt states has macrobid from urologist (Dr Quintero) to use when has UTI symptoms which she started couple of days ago with some relief of dysuria and frequency but continued R flank aching. 2 days ago reports fever 100.5F. Was seen in ER on 06/23/18 and changed to bactrim. Pt has had 4 doses without relief. Pt states has generalized malaise. Has been having nausea without vomiting. Decreased oral intake. Today lightheaded with standing and checked her BP at home with wrist machine and reports was 80/50. She returned to ER today. Pt states has mirena and had intermittent vaginal spotting which has since resolved and hasn't had regular menses since placement. Denies further fever, GARIBAY, syncope, vision changes, neck pain, CP, SOB, cough, sore throat, other abdominal pain, hematuria, vaginal discharge, diarrhea, constipation, paresthesias, extremity edema, rashes. Allergies Allergy/AdvReac Type Severity Reaction Status Date / Time Penicillins Allergy Severe ANAPHYLAXIS Verified 06/25/18 14:21 cefaclor Allergy Intermediate Hives Verified 06/25/18 14:21 codeine Allergy Unknown FULL BODY Verified 06/25/18 14:21 ITCHING promethazine Allergy Unknown TORTICOLIS Verified 06/25/18 14:21 Home Medications Home Medications Medication Instructions Recorded Confirmed Type Vitamin 1 tab PO DAILY 01/19/18 06/25/18 History Vyvanse 70 mg PO QAM 01/19/18 06/25/18 History bupropion HCl 150 mg PO QAM 01/19/18 06/25/18 History dextroamphetamine 10 mg PO DAILY 01/19/18 06/25/18 History sulfamethoxazole-trimethoprim 1 tab PO Q12H 10 Days #20 tab 06/23/18 06/25/18 Rx [Bactrim DS] lorazepam 1 tab PO BID PRN 06/25/18 06/25/18 History prazosin 1 tab PO HS 06/25/18 06/25/18 History Past Med/Surg History Medical History ADHD (Chronic) Recurrent UTI (Chronic) Urinary retention (Resolved) Depression (Chronic) Kidney stone (Resolved) Insulin controlled gestational diabetes mellitus during (Resolved) Mild pre-eclampsia in third trimester (Resolved) Maternal care for (suspected) abnormality and damage, unspecified, fetus 1 (Resolved) Surgical History History of cholecystectomy (Chronic) History of appendectomy (Chronic) Hx of section (Chronic) H/O tubal ligation (Chronic) Social History Preferred Language: Yakut Beliefs That Will Affect Care: None Current Living Situation: Family Other Information That Helps Us Care for You: No Feels Safe at Home: Yes Smoking Status: Never smoker Hx Alcohol Use: Yes Hx Substance Use: No Review of Systems All systems reviewed & are unremarkable except as noted in HPI & below Physical Exam Vital Signs (Past 24 Hours): Last Vital Signs Temp 36.8 C 06/25/18 12:26 Pulse 78 06/25/18 16:30 Resp 16 06/25/18 16:30 BP 108/74 06/25/18 16:30 Pulse Ox 96 06/25/18 16:30 Physical Exam: General: no acute distress, obese Head: normocephalic, atraumatic Eyes: PERRL, EOM's intact, conjunctiva non-injected, anicteric ENT: normal inspection external ears, nose, mucous membranes dry Neck: supple, trachea midline, non-tender Lungs: clear, no respiratory distress, no wheezing/rhonchi/rales CV: RRR, no murmur, no pretibial edema Abd: normal BS, soft, +R CVA and flank tenderness, RLQ tenderness to palpation, otherwise abdomen non-tender Ext: no cyanosis, no erythema Neuro: A&O x 3, no focal deficits noted, normal affect Skin: warm, dry Results & Data Laboratory Results Short CBC 06/25/18 Range/Units 13:51 WBC 7.39 (4.8-10.8) K/uL Hgb 13.7 (12.0-16.0) g/dL Hct 39.8 (37-47) % Plt Count 175 (130-400) K/uL BMP 06/25/18 13:51 Sodium 137 Potassium 3.5 Chloride 105 Carbon Dioxide 27 BUN 18 Creatinine 0.87 Glucose 95 Calcium 7.9 L Liver Function 06/25/18 Range/Units 13:51 Total Bilirubin 0.3 (0.2-1) mg/dl AST 13 L (15-37) U/L ALT 34 (12-78) U/L Alkaline Phosphatase 74 (45-117) U/L Albumin 3.4 (3.4-5.0) gm/dl Urine 06/25/18 Range/Units 13:37 Urine Color Yellow Urine Appearance Clear (Clear) Urine pH 6.0 (4.5-7.5) Ur Specific [place] 1.032 H (1.000-1.030) Urine Protein Negative (Negative) Urine Glucose (UA) Negative (Negative) Diagnostic Findings CT ABD/PELVIS: IMPRESSION: 1. Fluid-filled small bowel which may reflect an enteritis. No evidence for a bowel obstruction. 2. Mild mesenteric infiltration with small mesenteric lymph nodes. This is of doubtful significance. 3. Bilateral nephrolithiasis. No ureteral calculi or hydronephrosis. 4. 5.8 cm suspected left ovarian cyst. A follow-up pelvic ultrasound in 6 weeks to ensure resolution is recommended. Supervising Physician Co-Signing Physician Notes Care coordinated with Mirna TERRAZAS. Agree with above note. Patient seen and examined. Please refer to her notes for full details. Vital signs reviewed. Physical exam: General exam: Alert and oriented. Not in acute distress. CVS: S1 and S2 heard, regular rate and rhythm, no murmurs. RS: Clear to auscultation, no wheezing or crackles. ABD: no distention mild right CVA tenderness. EXT: No edema, no erythema. Labs: Reviewed. Assessment and plan: recurrent UTI Hx of pyelonephritis follows with urology failed out patinet tx with macrobid and bactrim started on rocephin follow cx Mesenetric infiltration non specific finding on ct scan followup Ovarian cyst Left 5.8cm needs followup Other diagnosis and plan of care as per []. Sd ames MD.
[2018-06-25] MEDS: SODIUM CHLORIDE 0.9% 1000ML 1,000 ML IV SCH (19:22)
[2018-06-25] MEDS: ACETAMINOPHEN 325 MG TAB PO PRN (19:27)
--- NOTE | 2018-06-25 19:42 | Emergency Department Note ---
Entered by Marielena Grimm acting as a scribe for oBb Wood DO History of Present Illness General Chief complaint: Abdominal Pain Stated complaint: DIZZY, NAUSEATED, ABD PAIN Time Seen by Provider: 06/25/18 12:41 Source: patient History of Present Illness Provider complaint: abdominal pain Onset (ago): week(s) (last week) Location: abdomen Maximum Pain Intensity: 5 Quality: + other (pain) Associated symptoms: + fever/chills (fevers), + nausea/vomiting (nausea, no vomiting) and + other (dizziness, orthostatic hypotension) Treatments prior to arrival: other (Macrobid) The patient is a 37 year old female who presents to the Emergency Room with complaints of abdominal pain beginning last week. She states that she has a history of UTIs and urinary retention. She states that she started Macrobid and stated that this took away the burning and pain with urination. The patient states that she was started on Bactrim for a kidney infection after being seen in the ED yesterday morning. She also reports that she has had orthostatic hypotension, dizziness, and fevers. The patient states that she was febrile around 100 but states that her fevers did not get above 100.4. She reports feeling nauseous but denies vomiting. She reports a history of 3 C-sections and an appendectomy. Home Medications Home Medications Medication Instructions Recorded Confirmed Type Vitamin 1 tab PO DAILY 01/19/18 06/25/18 History Vyvanse 70 mg PO QAM 01/19/18 06/25/18 History bupropion HCl 150 mg PO QAM 01/19/18 06/25/18 History dextroamphetamine 10 mg PO DAILY 01/19/18 06/25/18 History sulfamethoxazole-trimethoprim 1 tab PO Q12H 10 Days #20 tab 06/23/18 06/25/18 Rx [Bactrim DS] lorazepam 1 tab PO BID PRN 06/25/18 06/25/18 History prazosin 1 tab PO HS 06/25/18 06/25/18 History Allergies Allergy/AdvReac Type Severity Reaction Status Date / Time Penicillins Allergy Severe ANAPHYLAXIS Verified 06/25/18 14:21 cefaclor Allergy Intermediate Hives Verified 06/25/18 14:21 codeine Allergy Unknown FULL BODY Verified 06/25/18 14:21 ITCHING promethazine Allergy Unknown TORTICOLIS Verified 06/25/18 14:21 Past Med/Surg History Medical History ADHD (Chronic) Recurrent UTI (Chronic) Urinary retention (Resolved) Depression (Chronic) Kidney stone (Resolved) Insulin controlled gestational diabetes mellitus during (Resolved) Mild pre-eclampsia in third trimester (Resolved) Maternal care for (suspected) abnormality and damage, unspecified, fetus 1 (Resolved) Surgical History History of cholecystectomy (Chronic) History of appendectomy (Chronic) Hx of section (Chronic) H/O tubal ligation (Chronic) Social History Preferred Language: Persian Beliefs That Will Affect Care: None Current Living Situation: Family Other Information That Helps Us Care for You: No Feels Safe at Home: Yes Smoking Status: Never smoker Hx Alcohol Use: Yes Hx Substance Use: No Review of Systems See HPI for pertinent positives & negatives. and A total of 10 systems reviewed and were otherwise negative Physical Exam Vital Signs Vital Signs - 24 hr 06/25/18 12:26 06/25/18 14:02 06/25/18 15:26 Temperature 36.8 C Temperature Source Oral Sepsis Recent Fever Within 48 Hours No Sepsis New/Unexplained Change in Mental Status No Sepsis Action Taken by Nursing No Action Required Pulse Rate 112 H Pulse Rate [Apical] 68 86 Pulse Rhythm Regular Pulse Rhythm [Apical] Regular Pulse Strength Normal Pulse Strength [Apical] Normal Respiratory Rate 18 23 18 Respiratory Effort / Characteristics Non-Labored Spontaneous Non-Labored Spontaneous Respiratory Depth Normal Normal Respiratory Pattern Regular Blood Pressure 105/58 L Blood Pressure [Right Arm] 100/57 L 100/57 L Blood Pressure Mean 73 Blood Pressure Mean [Right Arm] 71 71 Blood Pressure Position [Right Arm] Pulse Oximetry 97 97 98 Oxygen Delivery Method Room Air Room Air Room Air 06/25/18 16:30 06/25/18 18:26 06/25/18 19:41 Temperature 36.8 C Temperature Source Oral Sepsis Recent Fever Within 48 Hours Sepsis New/Unexplained Change in Mental Status Sepsis Action Taken by Nursing Pulse Rate 90 Pulse Rate [Apical] 78 75 Pulse Rhythm Pulse Rhythm [Apical] Pulse Strength Pulse Strength [Apical] Respiratory Rate 16 18 16 Respiratory Effort / Characteristics Respiratory Depth Respiratory Pattern Blood Pressure 116/79 Blood Pressure [Right Arm] 108/74 113/80 Blood Pressure Mean Blood Pressure Mean [Right Arm] 85 91 Blood Pressure Position [Right Arm] Lying Pulse Oximetry 96 98 96 Oxygen Delivery Method Room Air Room Air Room Air GENERAL: Sitting up in bed, disheveled, alert, well appearing, well nourished, no acute distress, non-toxic EYE EXAM: normal conjunctiva. OROPHARYNX: no exudate, no erythema, lips, buccal mucosa, and tongue normal and mucous membranes are moist NECK: supple, no nuchal rigidity, no adenopathy, non-tender LUNGS: Clear to auscultation. Normal chest wall mechanics HEART: no murmurs, S1 normal and S2 normal ABDOMEN: abdomen soft, non-tender, normo-active bowel, sounds, no masses, no rebound or guarding. BACK: Back is symmetrical on inspection and there is no deformity, no midline tenderness, no CVA tenderness. SKIN: no rashes and no bruising UPPER EXTREMITIES: upper extremities are grossly normal. LOWER EXTREMITIES: No pitting edema. NEURO EXAM: Normal sensorium, cranial nerves II-XII grossly intact, normal speech, no gross weakness of arms, no gross weakness of legs. Course ED COURSE: Vital signs were reviewed and were normal. The patients medical record was reviewed The above diagnostic studies were performed and reviewed. ED treatments and interventions as stated above. 1312: The patient was evaluated in room A8. A complete history and physical examination was performed. 1522: I checked on the patient. She was given more pain medications. 1628: I discussed the patient's case with Dr. DugganUrologamrit who said to either bring her in or start her on Cipro as an outpatient. 1631: I updated the patient. She stated that she would like to stay and verbalized agreement and understanding of the treatment plan. 1637: I discussed the patient's case with Mirna Kim who will evaluate the patient for further management. Consultations Consultation #1: Dr. Ko Time: 16:28 Consultation #2: Mirna Kim Time: 16:37 Administered Medications Acetaminophen (Tylenol) 650 mg PO Q4H PRN PRN Reason: pain/fever Stop: 07/25/18 18:38 Last Admin: 06/25/18 19:27 Dose: 650 mg Documented by: [id number] Sodium Chloride (Nss 1000ml) 1,000 mls @ 125 mls/hr IV .Q8H GLENN Stop: 06/26/18 10:59 Last Admin: 06/25/18 19:22 Dose: 125 mls/hr Documented by: [id number] Discontinued Medications Sodium Chloride (Nss 1000ml) 2,000 mls @ 999 mls/hr IV .Q2H1M GLENN Stop: 06/25/18 15:30 Last Infusion: 06/25/18 16:35 Dose: 0 mls/hr Documented by: [id number] Admin: 06/25/18 13:55 Dose: 999 mls/hr Documented by: [id number] Ceftriaxone Sodium (Rocephin) 1,000 mg in 50 mls @ 100 mls/hr IV NOW STA Stop: 06/25/18 13:52 Last Infusion: 06/25/18 14:29 Dose: 0 mls/hr Documented by: [id number] Admin: 06/25/18 13:59 Dose: 100 mls/hr Documented by: [id number] Ioversol (Optiray 320 100ml) 93 ml IV ONCE PRN PRN Reason: Interaction Checking Stop: 06/29/18 15:19 Last Admin: 06/25/18 15:21 Dose: 93 ml Documented by: [id number] Ketorolac Tromethamine (Toradol) 15 mg IV NOW STA Stop: 06/25/18 13:23 Last Admin: 06/25/18 13:57 Dose: 15 mg Documented by: [id number] Morphine Sulfate (Morphine Sulfate) 4 mg IV NOW STA Stop: 06/25/18 15:28 Last Admin: 06/25/18 15:33 Dose: 4 mg Documented by: [id number] Ondansetron HCl (Zofran) 4 mg IV NOW STA Stop: 06/25/18 13:23 Last Admin: 06/25/18 13:56 Dose: 4 mg Documented by: [id number] Ondansetron HCl (Zofran) 4 mg IV NOW STA Stop: 06/25/18 15:39 Last Admin: 06/25/18 15:41 Dose: 4 mg Documented by: [id number] Medical Decision Making Differential Diagnosis Differential diagnoses includes but is not limited to gastritis, peptic ulcer disease, GERD, gallbladder disease, pancreatitis, small bowel obstruction, acute coronary syndrome, pericarditis, ischemic bowel, irritable bowel disease, irritable bowel syndrome, appendicitis, diverticulitis, malignancy, hernia, urinary tract infection, torsion, /ectopic , perforation, trauma, infectious. Medical Records Attestation: I reviewed the patient's medical records. Home Medications Current Medication List: was personally reviewed by me Laboratory Data Attestation: I reviewed the patient's lab results. Result diagrams: 06/25/18 13:51 06/25/18 13:51 Lab Results 06/25/18 06/25/18 06/25/18 Range/Units 13:37 13:37 13:51 WBC 7.39 (4.8-10.8) K/uL RBC 4.56 (4.2-5.4) M/uL Hgb 13.7 (12.0-16.0) g/dL Hct 39.8 (37-47) % MCV 87.3 (80-100) fL MCH 30.0 (25-34) pg MCHC 34.4 (32-36) g/dL RDW Std Deviation 42.7 (36.4-46.3) fL RDW Coeff of Dylan 13.6 (11.5-14.5) % Plt Count 175 (130-400) K/uL MPV 10.3 (7.4-10.4) fL Immature Gran % (Auto) 0.3 % Neut % (Auto) 74.9 % Lymph % (Auto) 19.2 % [place] % (Auto) 4.1 % Eos % (Auto) 1.4 % Baso % (Auto) 0.1 % Immature Gran # (Auto) 0.02 (0.00-0.02) K/uL Neut # (Auto) 5.54 (1.4-6.5) K/uL Lymph # (Auto) 1.42 (1.2-3.4) K/uL [place] # (Auto) 0.30 (0.11-0.59) K/uL Eos # (Auto) 0.10 (0-0.5) K/uL Baso # (Auto) 0.01 (0-0.2) K/uL PT (9.0-12.0) Seconds INR (0.9-1.1) Sodium (136-145) mmol/L Potassium (3.5-5.1) mmol/L Chloride (98-107) mmol/L Carbon Dioxide (21-32) mmol/L Anion Gap (3-11) BUN (7-18) mg/dl Creatinine (0.6-1.2) mg/dl Est Cr Clr Drug Dosing ml/min Est GFR ( Amer) Est GFR (Non-Af Amer) BUN/Creatinine Ratio (10-20) Glucose (70-99) mg/dl Lactate (0.4-2.0) mmol/L Calcium (8.5-10.1) mg/dl Total Bilirubin (0.2-1) mg/dl AST (15-37) U/L ALT (12-78) U/L Alkaline Phosphatase (45-117) U/L Total Protein (6.4-8.2) gm/dl Albumin (3.4-5.0) gm/dl Globulin (2.5-4.0) gm/dl Albumin/Globulin Ratio (0.9-2) Lipase (73-393) U/L Urine Color Yellow Urine Appearance Clear (Clear) Urine pH 6.0 (4.5-7.5) Ur Specific Normal 1.032 H (1.000-1.030) Urine Protein Negative (Negative) Urine Glucose (UA) Negative (Negative) Urine Ketones Trace H (Negative) Urine Blood Negative (Negative) Urine Nitrite Negative (Negative) Urine Bilirubin Negative (Negative) Urine Urobilinogen Negative (Negative) Ur Leukocyte Esterase Negative (Negative) POC Ur Test NEG (NEG) 06/25/18 06/25/18 06/25/18 Range/Units 13:51 13:51 13:51 WBC (4.8-10.8) K/uL RBC (4.2-5.4) M/uL Hgb (12.0-16.0) g/dL Hct (37-47) % MCV (80-100) fL MCH (25-34) pg MCHC (32-36) g/dL RDW Std Deviation (36.4-46.3) fL RDW Coeff of Dylan (11.5-14.5) % Plt Count (130-400) K/uL MPV (7.4-10.4) fL Immature Gran % (Auto) % Neut % (Auto) % Lymph % (Auto) % [place] % (Auto) % Eos % (Auto) % Baso % (Auto) % Immature Gran # (Auto) (0.00-0.02) K/uL Neut # (Auto) (1.4-6.5) K/uL Lymph # (Auto) (1.2-3.4) K/uL [place] # (Auto) (0.11-0.59) K/uL Eos # (Auto) (0-0.5) K/uL Baso # (Auto) (0-0.2) K/uL PT 9.7 (9.0-12.0) Seconds INR 0.9 (0.9-1.1) Sodium 137 (136-145) mmol/L Potassium 3.5 (3.5-5.1) mmol/L Chloride 105 (98-107) mmol/L Carbon Dioxide 27 (21-32) mmol/L Anion Gap 5.0 (3-11) BUN 18 (7-18) mg/dl Creatinine 0.87 (0.6-1.2) mg/dl Est Cr Clr Drug Dosing 108.7 ml/min Est GFR ( Amer) 99.3 Est GFR (Non-Af Amer) 85.7 BUN/Creatinine Ratio 20.8 H (10-20) Glucose 95 (70-99) mg/dl Lactate 0.7 (0.4-2.0) mmol/L Calcium 7.9 L (8.5-10.1) mg/dl Total Bilirubin 0.3 (0.2-1) mg/dl AST 13 L (15-37) U/L ALT 34 (12-78) U/L Alkaline Phosphatase 74 (45-117) U/L Total Protein 7.4 (6.4-8.2) gm/dl Albumin 3.4 (3.4-5.0) gm/dl Globulin 4.0 (2.5-4.0) gm/dl Albumin/Globulin Ratio 0.9 (0.9-2) Lipase 89 (73-393) U/L Urine Color Urine Appearance (Clear) Urine pH (4.5-7.5) Ur Specific Normal (1.000-1.030) Urine Protein (Negative) Urine Glucose (UA) (Negative) Urine Ketones (Negative) Urine Blood (Negative) Urine Nitrite (Negative) Urine Bilirubin (Negative) Urine Urobilinogen (Negative) Ur Leukocyte Esterase (Negative) POC Ur Test (NEG) Imaging Data Radiologist's Impression: Radiology results as stated below per my review and the radiologist's interpretation: CT OF THE ABDOMEN AND PELVIS WITH CONTRAST CLINICAL HISTORY: Mid abdominal pain. COMPARISON STUDY: CT of the abdomen and pelvis January 19, 2018. Renal ultrasound June 23, 2018. TECHNIQUE: Following IV administration of 93 mL of Optiray-320, axial images of the abdomen and pelvis were obtained from the lung bases to the proximal femurs. Images were reviewed in the axial, sagittal, and coronal planes. IV contrast was administered without complication. Automated exposure control was utilized for the study. A dose lowering technique was utilized adhering to the principles of ALARA. CT DOSE: 1332.41 mGy.cm FINDINGS: Mild splenomegaly is noted. A right cardiophrenic angle pericardial cyst is noted. There is probable fatty infiltration of the liver. There is no biliary ductal dilatation status post cholecystectomy. There are small bilateral renal calculi. There is no hydronephrosis. No ureteral calculi are present. Mild mesenteric infiltration is noted with small associated mesenteric lymph nodes. Hyperdense material along the appendix is noted. There is no evidence for acute appendicitis.. There is no evidence for a small bowel obstruction. Small bowel is fluid-filled. Intrauterine device is appropriately positioned. Note is made of a 5.8 cm suspected left ovarian cyst. No pneumatosis, free air or portal venous gas is present. IMPRESSION: 1. Fluid-filled small bowel which may reflect an enteritis. No evidence for a bowel obstruction. 2. Mild mesenteric infiltration with small mesenteric lymph nodes. This is of doubtful significance. 3. Bilateral nephrolithiasis. No ureteral calculi or hydronephrosis. 4. 5.8 cm suspected left ovarian cyst. A follow-up pelvic ultrasound in 6 weeks to ensure resolution is recommended. Electronically signed by: Eric Vogel M.D. 06/25/2018 3:29 PM Blood Pressure Blood Pressure Findings: Normal blood pressure MDM Narrative Patient is a 37-year-old female who presents the ER who has frequent UTIs. She started Macrobid at home and then presented to the ER and saw Dr. Jordan. At that time patient blood work was fairly unremarkable and had a renal ultrasound which I did review. Patient was switched to Bactrim and sent home. She presents today for feeling very weak and run down. She notes that she feels worse. She was checking her blood pressures at home and they are in the 80s when she was checking orthostatics. Patient was given IV fluids Zofran, Toradol and morphine. CT abdomen pelvis was unremarkable. Labs show no significant leukocytosis or anemia. BMP is unremarkable. LFTs bilirubin lipase is unremarkable. UA was negative. was negative. Patient was given IV Rocephin. Patient was updated bedside with urology in the hospitalist for further workup. Impression & Plan UTI (urinary tract infection) Discharge Plan Visit Data *Final* Discharge Date/Time: 06/25/18 18:26 Chief Complaint: Abdominal Pain Stated Complaint: DIZZY, NAUSEATED, ABD PAIN ED Provider: Bob Wood Discharge Problem: UTI (urinary tract infection) Patient Disposition: Admitted As Inpatient Discharge Instructions Interventions: ED Discharge Assessment Last Done: 06/25/18 18:26 Discharge Problem: UTI (urinary tract infection) Qualifiers: Urinary tract infection type: site unspecified Hematuria presence: without hematuria Qualified Code(s): N39.0 - Urinary tract infection, site not specified The scribe's documentation has been prepared under my direction and personally reviewed by me in its entirety. I confirm that the note above accurately reflects all work, treatment, procedures, and medical decision making performed by me.
[2018-06-25] MEDS: PRAZOSIN HCL 1 MG CAP PO SCH (20:47)
[2018-06-25] MEDS: ONDANSETRON INJ 2 MG/ML 2 ML VIAL IV PRN (20:50)
[2018-06-25] MEDS: KETOROLAC TROMETHAMINE 15 MG/ML VIAL IV PRN (20:51)
[2018-06-26] MEDS: MoRPHine SULFATE 4 MG/ML 1 ML CARP\\VIAL IV PRN ×4 (00:26→20:48)
[2018-06-26] MEDS: SODIUM CHLORIDE 0.9% 1000ML 1,000 ML IV SCH (03:36)
[2018-06-26] MEDS: KETOROLAC TROMETHAMINE 15 MG/ML VIAL IV PRN ×2 (06:00→12:59)
[2018-06-26] MEDS: ONDANSETRON INJ 2 MG/ML 2 ML VIAL IV PRN ×3 (06:50→20:31)
[2018-06-26 07:58] LABS: Hemoglobin 11.7 g/dL (12.0-16.0); Mean Corpuscular Hgb Conc 35.5 g/dL (32-36); Mean Corpuscular Volume 86.8 fL (80-100); Mean Platelet Volume 10.4 fL (7.4-10.4); Platelet Count 132 K/uL (130-400); RDW Coefficient of Variation 13.6 % (11.5-14.5); RDW Standard Deviation 43.1 fL (36.4-46.3); White Blood Count 5.04 K/uL (4.8-10.8)
[2018-06-26 08:19] LABS: BUN Creatinine Ratio 22.8 (10-20); Calcium 6.9 mg/dl (8.5-10.1); Creatinine Clr Calc Pharmacy 157.6 ml/min; Est GFR (African American) 135.9; Est GFR (Non-African American) 117.3; Potassium 3.7 mmol/L (3.5-5.1)
[2018-06-26] MEDS: BuPROPion XL 150 MG TABCR PO SCH (09:30)
[2018-06-26] MEDS: cefTRIAXone SODIUM 1,000 MG in DEXTROSE 5% 50 ML IV SCH (09:43)
[2018-06-26] MEDS: PATIENT'S OWN CONTROLLED MED PO SCH ×2 (09:57→15:31)
[2018-06-26] MEDS: VYVANSE PO SCH (09:58)
[2018-06-26] MEDS: DEXTROAMPHETAMINE PO SCH (15:31)
[2018-06-26] MEDS: ACETAMINOPHEN 325 MG TAB PO PRN (15:32)
[2018-06-26] MEDS ORDERED: PROCHLORPERAZINE 5 MG in SYRINGE 4 ML IV PRN (16:26)
--- NOTE | 2018-06-26 18:40 | Hospitalist Progress Note ---
Date of Service June 26, 2018 Assessment & Plan (1) Pyelonephritis: (2) Recurrent UTI: Pt with hx recurrent UTI's. Hx pyelonephritis Presented with 4 days hx dysuria, urinary frequency, fever 2 days ago, R flank pain, malaise and nausea. Had self started macrobid 4 days ago without signific ant relief. Seen in ER 06/23/18 and started on bactrim. Still with symptoms. Today in ER afebrile, vitals stable. WBC: 7, BUN: 18, Cr: 0.8, Lactate: 0.7. negative urine . UA: unremarkable CT ABD/PELVIS: 1. Fluid-filled small bowel which may reflect an enteritis. No evidence for a bowel obstruction. 2. Mild mesenteric infiltration with small mesenteric lymph nodes. This is of doubtful significance. 3. Bilateral nephrolithiasis. No ureteral calculi or hydronephrosis. 4. 5.8 cm suspected left ovarian cyst. A follow-up pelvic ultrasound in 6 weeks to ensure resolution is recommended. Possible Pyelonephritis Urine cultures pending Blood cultures pending Afebrile, no leukocytosis Right flank pain and CVA tenderness improving Possible partially treated pyelonephritis, UTI Continue empiric ceftriaxone IV day #2 Start gentle IV fluids Continue as needed morphine, Toradol Antiemetics (3) Depression: (4) ADHD: -continue bupropion, vyvanse, dextroamphetamine (5) Ovarian cyst: CT ABD/PELVIS: 5.8 cm suspected left ovarian cyst. A follow-up pelvic ultrasound in 6 weeks to ensure resolution is recommended. -recommend follow up outpatient for pelvic ultrasound DVT Prophylaxis -low risk - ambulate Follows with Dr Green for routine care Disposition pending Anticipate discharge home medically stable Subjective Seen in follow-up for possible pyelonephritis Seen resting in bed, not in distress States right flank pain is improved compared to yesterday Denies any urinary symptoms, fevers or chills Does have some nausea but no vomiting Positive BMs No other symptoms Physical Exam Vital Signs (Past 24 Hours): Last Vital Signs Temp 36.9 C 06/26/18 15:42 Pulse 83 06/26/18 15:42 Resp 18 06/26/18 15:42 BP 135/94 06/26/18 15:42 Pulse Ox 97 06/26/18 15:42 Physical Exam: General- oriented x 3, not in distress, speaks in sentences with no effort or accessory muscle use Eyes- anicteric Neck- no JVD Lungs- clear breath sounds bilaterally, no rales/wheezes Heart- normal rate, regular rhythm; no murmurs Abdomen- normal bowel sounds, nondistended, soft, nontender Positive CVA tenderness on the right Extremities- no pretibial edema, no calf tenderness Neuro- alert, oriented x 3; no gross focal neurologic deficits Skin- warm & dry Results & Data Laboratory Results Laboratory Results - last 24 hr 06/26/18 06/26/18 07:26 07:26 WBC 5.04 RBC 3.80 L Hgb 11.7 L Hct 33.0 L MCV 86.8 MCH 30.8 MCHC 35.5 RDW Std Deviation 43.1 RDW Coeff of Dylan 13.6 Plt Count 132 MPV 10.4 Sodium 141 Potassium 3.7 Chloride 113 H Carbon Dioxide 23 Anion Gap 6.0 BUN 14 Creatinine 0.60 Est Cr Clr Drug Dosing 157.6 Est GFR ( Amer) 135.9 Est GFR (Non-Af Amer) 117.3 BUN/Creatinine Ratio 22.8 H Glucose 103 H Calcium 6.9 L
[2018-06-26] MEDS: PRAZOSIN HCL 1 MG CAP PO SCH (20:49)
[2018-06-26] MEDS ORDERED: NSS + 20MEQ KCL 20 MEQ/1,000 ML BAG IV SCH (21:30)
[2018-06-27 00:29] VITALS: TEMP 98.2
[2018-06-27] MEDS: TRAMADOL HCL 50 MG TABLET PO PRN ×3 (00:32→21:14)
[2018-06-27] MEDS: cefTRIAXone SODIUM 1,000 MG in DEXTROSE 5% 50 ML IV SCH (08:38)
[2018-06-27] MEDS: VYVANSE PO SCH (08:39)
[2018-06-27] MEDS: PATIENT'S OWN CONTROLLED MED PO SCH ×2 (08:39→15:52)
[2018-06-27] MEDS: ENOXAPARIN INJ 40 MG/0.4 ML SYR SQ SCH (08:40)
[2018-06-27] MEDS: BuPROPion XL 150 MG TABCR PO SCH (08:41)
[2018-06-27] MEDS: MoRPHine SULFATE 4 MG/ML 1 ML CARP\\VIAL IV PRN (13:00)
[2018-06-27] MEDS: ONDANSETRON INJ 2 MG/ML 2 ML VIAL IV PRN ×2 (13:01→21:46)
[2018-06-27] MEDS ORDERED: HYDROmorphone INJ 0.5 MG/0.5 ML SYR IV STA (13:18)
[2018-06-27] MEDS ORDERED: HYDROmorphone INJ 0.5 MG/0.5 ML SYR ONE (13:22)
[2018-06-27] MEDS: KETOROLAC TROMETHAMINE 15 MG/ML VIAL IV PRN ×2 (13:33→21:39)
[2018-06-27] MEDS: SODIUM CHLORIDE 0.9% 1000ML 1,000 ML IV SCH ×2 (13:45→21:50)
--- NOTE | 2018-06-27 13:53 | Hospitalist Progress Note ---
Date of Service June 27, 2018 Assessment & Plan (1) Pyelonephritis: (2) Recurrent UTI: Pt with hx recurrent UTI's. Hx pyelonephritis Presented with 4 days hx dysuria, urinary frequency, fever 2 days ago, R flank pain, malaise and nausea. Had self started macrobid 4 days ago without signific ant relief. Seen in ER 06/23/18 and started on bactrim. Still with symptoms. Today in ER afebrile, vitals stable. WBC: 7, BUN: 18, Cr: 0.8, Lactate: 0.7. negative urine . UA: unremarkable CT ABD/PELVIS: 1. Fluid-filled small bowel which may reflect an enteritis. No evidence for a bowel obstruction. 2. Mild mesenteric infiltration with small mesenteric lymph nodes. This is of doubtful significance. 3. Bilateral nephrolithiasis. No ureteral calculi or hydronephrosis. 4. 5.8 cm suspected left ovarian cyst. A follow-up pelvic ultrasound in 6 weeks to ensure resolution is recommended. Possible Pyelonephritis Urine cultures pending Blood cultures pending Afebrile, no leukocytosis Positive sharp right flank pain radiating to the suprapubic area Repeat CT abdomen: Positive small nephrolithiasis Discussed with Dr. Claudio Continue IV fluids, Flomax, Pyridium as needed, Dilaudid. Continue empiric ceftriaxone IV day #3 Monitor (3) Depression: (4) ADHD: -continue bupropion, vyvanse, dextroamphetamine (5) Ovarian cyst: CT ABD/PELVIS: 5.8 cm suspected left ovarian cyst. A follow-up pelvic ultrasound in 6 weeks to ensure resolution is recommended. -recommend follow up outpatient for pelvic ultrasound DVT Prophylaxis -low risk - ambulate Follows with Dr Green for routine care Disposition pending Anticipate discharge home medically stable Subjective Follow-up for possible pyelonephritis Patient was feeling better this morning but in the afternoon had some right flank pain, followed by passing sand like particles. Blood clots Seen laying in bed, tearful States pain is slightly improved with morphine, Dilaudid being given Denies fever/chills Reports dysuria, mild nausea No other symptoms Physical Exam Vital Signs (Past 24 Hours): Last Vital Signs Temp 36.8 C 06/27/18 07:51 Pulse 60 06/27/18 07:51 Resp 18 06/27/18 07:51 BP 126/84 06/27/18 07:51 Pulse Ox 97 06/27/18 07:51 Physical Exam: General- oriented x 3, secondary to pain, speaks in sentences with no effort or accessory muscle use Eyes- anicteric Neck- no JVD Lungs- clear breath sounds bilaterally Heart- normal rate, regular rhythm; no murmurs Abdomen- normal bowel sounds, nondistended, soft, nontender Extremities- no pretibial edema, no calf tenderness Neuro- alert, oriented x 3; no gross focal neurologic deficits Skin- warm & dry Results & Data Laboratory Results Laboratory Results - last 24 hr 06/27/18 06/27/18 13:49 13:49 WBC 5.83 RBC 4.19 L Hgb 12.7 Hct 35.9 L MCV 85.7 MCH 30.3 MCHC 35.4 RDW Std Deviation 40.6 RDW Coeff of Dylan 13.3 Plt Count 162 MPV 9.9 Immature Gran % (Auto) 0.2 Neut % (Auto) 55.9 Lymph % (Auto) 34.8 [place] % (Auto) 6.5 Eos % (Auto) 2.4 Baso % (Auto) 0.2 Immature Gran # (Auto) 0.01 Neut # (Auto) 3.26 Lymph # (Auto) 2.03 [place] # (Auto) 0.38 Eos # (Auto) 0.14 Baso # (Auto) 0.01 Sodium 138 Potassium 4.3 D Chloride 108 H Carbon Dioxide 28 Anion Gap 2.0 L BUN 11 Creatinine 0.72 Est Cr Clr Drug Dosing 131.3 Est GFR ( Amer) 124.9 Est GFR (Non-Af Amer) 107.7 BUN/Creatinine Ratio 14.7 Glucose 113 H Calcium 8.1 L D
[2018-06-27 13:59] LABS: Basophils # (auto) 0.01 K/uL (0-0.2); Basophils % (auto) 0.2 %; Eosinophils # (auto) 0.14 K/uL (0-0.5); Eosinophils % (auto) 2.4 %; Hematocrit (blood only) 35.9 % (37-47); Hemoglobin 12.7 g/dL (12.0-16.0); Immature Granulocytes # (auto) 0.01 K/uL (0.00-0.02); Immature Granulocytes % (auto) 0.2 %; Lymphocytes # (auto) 2.03 K/uL (1.2-3.4); Lymphocytes % (auto) 34.8 %; Mean Corpuscular Hgb Conc 35.4 g/dL (32-36); Mean Corpuscular Volume 85.7 fL (80-100); Mean Platelet Volume 9.9 fL (7.4-10.4); Monocytes # (auto) 0.38 K/uL (0.11-0.59); Monocytes % (auto) 6.5 %; Neutrophils # (auto) 3.26 K/uL (1.4-6.5); Neutrophils % (auto) 55.9 %; Platelet Count 162 K/uL (130-400); RDW Coefficient of Variation 13.3 % (11.5-14.5); RDW Standard Deviation 40.6 fL (36.4-46.3); Red Blood Count 4.19 M/uL (4.2-5.4); White Blood Count 5.83 K/uL (4.8-10.8)
[2018-06-27 14:25] LABS: BUN Creatinine Ratio 14.7 (10-20); Calcium 8.1 mg/dl (8.5-10.1); Creatinine Clr Calc Pharmacy 131.3 ml/min; Est GFR (African American) 124.9; Est GFR (Non-African American) 107.7; Potassium 4.3 mmol/L (3.5-5.1)
--- NOTE | 2018-06-27 14:58 | CT Scan Report ---
CT SCAN OF THE ABDOMEN AND PELVIS WITHOUT IV CONTRAST CLINICAL HISTORY: Right flank pain. Hematuria. COMPARISON STUDY: Abdominal CT dated 06/25/2018 and 03/22/2014. TECHNIQUE: CT scan of the abdomen and pelvis is performed from the lung bases to the proximal femora. Images are reviewed in the axial, sagittal, and coronal planes. IV contrast was not administered for this examination as per the referring clinician. Note that the examination was performed in suboptim al fashion without oral and IV contrast. A dose lowering technique was utilized adhering to the [facility] CT DOSE: 1225.57 mGy.cm FINDINGS: Lung bases: The heart is normal in size and without pericardial effusion. The lung bases are clear. Liver: The unenhanced liver is enlarged, measuring 21.8 cm in length. The liver is otherwise normal i n contour and Attenuation. There is no intrahepatic biliary ductal dilatation. Gallbladder: Surgically absent noting clips in the gallbladder fossa. Spleen: The spleen is mildly enlarged, measuring 14.8 cm in length. Pancreas: The unenhanced pancreas is normal as imaged. Adrenal glands: Unremarkable. Kidneys: The unenhanced kidneys are normal in size and without hydronephrosis. There are at least 3 n onobstructing right renal calculi measuring up to 4 mm. There are at least 2 nonobstructing left or a calculi measuring up to 3 mm. A 1.4 cm complex/hyperdense cyst is noted in the left kidney on image #189. There is no evidence of contour deforming renal mass lesion. Abdominal vasculature: The abdominal aorta is normal in course and caliber. Bowel: No bowel obstruction is identified. There is moderate colonic fecal retention. There is a smal l appendiceal remnant. The majority of the appendix is surgically absent. Peritoneum: There is no intraperitoneal free air or abdominal ascites. There is a small fat-containin g umbilical hernia. A midline surgical scar is noted. Lymphadenopathy: There are numerous prominent mesenteric lymph nodes which measure up to 9 mm short a xis. There is no retroperitoneal, pelvic sidewall, or inguinal lymphadenopathy. Pelvic viscera: There is mild circumferential bladder wall thickening. The uterus is normal as imaged noting an intrauterine device in place. There is a 5.4 cm simple cyst seen in the left ovary. Additi onal smaller follicles are seen bilaterally. There is a small fat-containing right inguinal hernia. Skeletal structures: No lytic or blastic lesions are seen. IMPRESSION: 1. Question mild circumferential bladder wall thickening. Correlation with clinical findings and urin alysis will be required. 2. Bilateral nonobstructing renal calculi. 3. Mild hepatosplenomegaly. 4. There are numerous prominent mesenteric lymph nodes. These are nonspecific and may be on a reactiv e basis. Clinical correlation will be required. 5. Moderate colonic fecal retention. 6. There is a 5.4 cm simple appearing cyst identified in the left ovary. This was also seen on the st udy performed 2 days previously. 7. Additional findings as above. Electronically signed by: Mayo Beltran M.D. 06/27/2018 2:55 PM
[2018-06-27] MEDS: TAMSULOSIN HCL 0.4 MG CAP PO SCH (15:48)
[2018-06-27] MEDS: HYDROmorphone INJ 0.5 MG/0.5 ML SYR IV PRN ×2 (15:49→21:36)
[2018-06-27] MEDS: DEXTROAMPHETAMINE PO SCH (15:52)
[2018-06-27] MEDS: PHENAZOPYRIDINE HCL 200 MG TAB PO PRN (16:28)
--- NOTE | 2018-06-27 16:33 | Urology Consultation ---
Date of Consultation June 27, 2018 Assessment & Plan (1) UTI (urinary tract infection): - no obstructing stones - cultures have not identified pathogen yet, but hx sounds like UTI (had been on macrobid and bactrim prior to culture) - reviewed her hx and current issues PLAN: - abx and supportive care - no indication for intervention now History of Present Illness Attending Physician: Checo Reyes MD History of Present Illness pt with hx of recurrent UTIs, prior pyelo, known renal stones - admitted recently with suspected UTI - imaged on arrival - renal stones, no hydro - severe flank pain earlier today - repeat CT - no ureteral stones or hydro - pain is somewhat improved now - feels she is emptying her bladder well, but does not feel she is appropriately sensing the need to void Allergies Allergy/AdvReac Type Severity Reaction Status Date / Time Penicillins Allergy Severe ANAPHYLAXIS Verified 06/25/18 14:21 cefaclor Allergy Intermediate Hives Verified 06/25/18 14:21 codeine Allergy Unknown FULL BODY Verified 06/25/18 14:21 ITCHING promethazine Allergy Unknown TORTICOLIS Verified 06/25/18 14:21 Home Medications Home Medications Medication Instructions Recorded Confirmed Type Vitamin 1 tab PO DAILY 01/19/18 06/25/18 History Vyvanse 70 mg PO QAM 01/19/18 06/25/18 History bupropion HCl 150 mg PO QAM 01/19/18 06/25/18 History dextroamphetamine 10 mg PO DAILY 01/19/18 06/25/18 History sulfamethoxazole-trimethoprim 1 tab PO Q12H 10 Days #20 tab 06/23/18 06/25/18 Rx [Bactrim DS] lorazepam 1 tab PO BID PRN 06/25/18 06/25/18 History prazosin 1 tab PO HS 06/25/18 06/25/18 History Patient History Medical History ADHD (Chronic) Recurrent UTI (Chronic) Urinary retention (Resolved) Depression (Chronic) Kidney stone (Resolved) Insulin controlled gestational diabetes mellitus during (Resolved) Mild pre-eclampsia in third trimester (Resolved) Maternal care for (suspected) abnormality and damage, unspecified, fetus 1 (Resolved) Surgical History History of cholecystectomy (Chronic) History of appendectomy (Chronic) Hx of section (Chronic) H/O tubal ligation (Chronic) Family History Other Cancer Diabetes Hypertension Social History Preferred Language: Portuguese Beliefs That Will Affect Care: None Current Living Situation: Family Other Information That Helps Us Care for You: No Feels Safe at Home: Yes Smoking Status: Never smoker Hx Alcohol Use: Yes Hx Substance Use: No Review of Systems Constitutional: as per Subjective / HPI and + body aches; no fever and no chills Respiratory: no cough and no dyspnea Cardiovascular: no chest pain and no dyspnea Gastrointestinal: no abdominal pain and no nausea Genitourinary (Female): as per Subjective / HPI, + difficulty urinating, + urinary frequency, + urinary hesitancy and + flank pain Musculoskeletal: no back pain and no neck pain Integumentary: no rash Endocrine: no fatigue Physical Exam Vital Signs (Past 24 Hours): Last Vital Signs Temp 36.8 C 06/27/18 15:39 Pulse 68 06/27/18 15:39 Resp 18 06/27/18 15:39 BP 135/85 06/27/18 15:39 Pulse Ox 97 06/27/18 15:39 Physical Exam: NAD AAOx3 no resp distress RRR abd soft - mod CVA and suprapubic tenderness no edema no rash no adenopathy (1) UTI (urinary tract infection) Hematuria presence: without hematuria Urinary tract infection type: site unspecified Qualified Code(s): N39.0 - Urinary tract infection, site not specified
[2018-06-27] MEDS: PRAZOSIN HCL 1 MG CAP PO SCH (21:15)
[2018-06-28] MEDS: MoRPHine SULFATE 4 MG/ML 1 ML CARP\\VIAL IV PRN (01:00)
[2018-06-28] MEDS: ACETAMINOPHEN 325 MG TAB PO PRN ×2 (01:01→07:45)
[2018-06-28] MEDS: SODIUM CHLORIDE 0.9% 1000ML 1,000 ML IV SCH (05:54)
[2018-06-28] MEDS: KETOROLAC TROMETHAMINE 15 MG/ML VIAL IV PRN ×2 (05:55→10:48)
[2018-06-28 06:11] LABS: Basophils # (auto) 0.01 K/uL (0-0.2); Basophils % (auto) 0.2 %; Eosinophils # (auto) 0.18 K/uL (0-0.5); Hemoglobin 12.6 g/dL (12.0-16.0); Immature Granulocytes # (auto) 0.01 K/uL (0.00-0.02); Immature Granulocytes % (auto) 0.2 %; Lymphocytes # (auto) 2.72 K/uL (1.2-3.4); Lymphocytes % (auto) 45.3 %; Mean Corpuscular Volume 86.5 fL (80-100); Mean Platelet Volume 10.1 fL (7.4-10.4); Monocytes # (auto) 0.43 K/uL (0.11-0.59); Monocytes % (auto) 7.2 %; Neutrophils # (auto) 2.65 K/uL (1.4-6.5); Neutrophils % (auto) 44.1 %; Platelet Count 174 K/uL (130-400); RDW Coefficient of Variation 13.4 % (11.5-14.5); RDW Standard Deviation 42.2 fL (36.4-46.3); Red Blood Count 4.16 M/uL (4.2-5.4)
[2018-06-28 06:39] LABS: BUN Creatinine Ratio 19.9 (10-20); Calcium 7.8 mg/dl (8.5-10.1); Creatinine Clr Calc Pharmacy 129.5 ml/min; Est GFR (African American) 122.8
[2018-06-28] MEDS: TAMSULOSIN HCL 0.4 MG CAP PO SCH (07:46)
[2018-06-28] MEDS: PATIENT'S OWN CONTROLLED MED PO SCH (07:46)
[2018-06-28] MEDS: VYVANSE PO SCH (07:46)
[2018-06-28] MEDS: ENOXAPARIN INJ 40 MG/0.4 ML SYR SQ SCH (07:47)
[2018-06-28] MEDS: BuPROPion XL 150 MG TABCR PO SCH (07:47)
[2018-06-28 08:38] VITALS: BP 110/75; O2SAT 98
[2018-06-28] MEDS: PHENAZOPYRIDINE HCL 200 MG TAB PO PRN (08:53)
[2018-06-28] MEDS: TRAMADOL HCL 50 MG TABLET PO PRN (08:56)
[2018-06-28] MEDS: cefTRIAXone SODIUM 1,000 MG in DEXTROSE 5% 50 ML IV SCH (08:57)
--- NOTE | 2018-06-28 09:23 | Urology Progress Note ---
Date of Service June 28, 2018 Assessment & Plan (1) UTI (urinary tract infection): prior cultures with enterobacter and then staph current culture not growing definitive pathogens (had been on abx prior to culture) both prior cultures were sx to bactrim - consider d/c home on 01-25d total treatment of bactrim we will arrange outpt f/u Subjective subjectively improved minimal flank pain now passed some granular stone debris overnight Physical Exam Vital Signs (Past 24 Hours): Last Vital Signs Temp 36.8 C 06/28/18 08:00 Pulse 64 06/28/18 08:00 Resp 18 06/28/18 08:00 BP 110/75 06/28/18 08:00 Pulse Ox 98 06/28/18 08:00 Physical Exam: AFVSS NAD AAOx3 no resp distress no CVA tenderness
--- NOTE | 2018-06-28 09:36 | Hospitalist Progress Note ---
Date of Service June 28, 2018 Assessment & Plan (1) Pyelonephritis: (2) Recurrent UTI: Pt with hx recurrent UTI's. Hx pyelonephritis Presented with 4 days hx dysuria, urinary frequency, fever 2 days ago, R flank pain, malaise and nausea. Had self started macrobid 4 days ago without signific ant relief. Seen in ER 06/23/18 and started on bactrim. Still with symptoms. Today in ER afebrile, vitals stable. WBC: 7, BUN: 18, Cr: 0.8, Lactate: 0.7. negative urine . UA: unremarkable CT ABD/PELVIS: 1. Fluid-filled small bowel which may reflect an enteritis. No evidence for a bowel obstruction. 2. Mild mesenteric infiltration with small mesenteric lymph nodes. This is of doubtful significance. 3. Bilateral nephrolithiasis. No ureteral calculi or hydronephrosis. 4. 5.8 cm suspected left ovarian cyst. A follow-up pelvic ultrasound in 6 weeks to ensure resolution is recommended. Possible Pyelonephritis Urine cultures negative Blood cultures negative so far Afebrile, no leukocytosis Repeat CT abdomen: Positive small nephrolithiasis Discussed with Dr. Haleigh mccord for dc today Bactrim x 7 days PRN Pyridium, Ruth, Ibuprofen emphasized to drink plenty of fluids, stay well hydrated call Urologist or return to ER immediately if with worsening (3) Depression: (4) ADHD: -continue bupropion, vyvanse, dextroamphetamine (5) Ovarian cyst: CT ABD/PELVIS: 5.8 cm suspected left ovarian cyst. A follow-up pelvic ultrasound in 6 weeks to ensure resolution is recommended. -recommend follow up outpatient for pelvic ultrasound DVT Prophylaxis -low risk - ambulate Follows with Dr Green for routine care Disposition d/c home today ff up with PCP 3-5 days ff up with Urologist in 1 week Subjective ff up for pyelonephritis seen resting in bed, comfortable, in good spirits r flank/abdominal pain is much better no nausea, fever/chills did pass some sand like particles again last night, with small blood clots no other symptoms states she is ready and would like to be discharged today Physical Exam Vital Signs (Past 24 Hours): Last Vital Signs Temp 36.8 C 06/28/18 08:00 Pulse 64 06/28/18 08:00 Resp 18 06/28/18 08:00 BP 110/75 06/28/18 08:00 Pulse Ox 98 06/28/18 08:00 Physical Exam: General- oriented x 3, not in distress, speaks in sentences with no effort or accessory muscle use Eyes- anicteric Neck- no JVD Lungs- clear breath sounds bilaterally Heart- normal rate, regular rhythm; no murmurs Abdomen- normal bowel sounds, nondistended, soft, nontender no CVA tenderness Extremities- no pretibial edema, no calf tenderness Neuro- alert, oriented x 3; no gross focal neurologic deficits Skin- warm & dry Results & Data Laboratory Results Laboratory Results - last 24 hr 06/27/18 06/27/18 06/28/18 13:49 13:49 05:28 WBC 5.83 6.00 RBC 4.19 L 4.16 L Hgb 12.7 12.6 Hct 35.9 L 36.0 L MCV 85.7 86.5 MCH 30.3 30.3 MCHC 35.4 35.0 RDW Std Deviation 40.6 42.2 RDW Coeff of Dylan 13.3 13.4 Plt Count 162 174 MPV 9.9 10.1 Immature Gran % (Auto) 0.2 0.2 Neut % (Auto) 55.9 44.1 Lymph % (Auto) 34.8 45.3 [place] % (Auto) 6.5 7.2 Eos % (Auto) 2.4 3.0 Baso % (Auto) 0.2 0.2 Immature Gran # (Auto) 0.01 0.01 Neut # (Auto) 3.26 2.65 Lymph # (Auto) 2.03 2.72 [place] # (Auto) 0.38 0.43 Eos # (Auto) 0.14 0.18 Baso # (Auto) 0.01 0.01 Sodium 138 Potassium 4.3 D Chloride 108 H Carbon Dioxide 28 Anion Gap 2.0 L BUN 11 Creatinine 0.72 Est Cr Clr Drug Dosing 131.3 Est GFR ( Amer) 124.9 Est GFR (Non-Af Amer) 107.7 BUN/Creatinine Ratio 14.7 Glucose 113 H Calcium 8.1 L D 06/28/18 05:28 WBC RBC Hgb Hct MCV MCH MCHC RDW Std Deviation RDW Coeff of Dylan Plt Count MPV Immature Gran % (Auto) Neut % (Auto) Lymph % (Auto) [place] % (Auto) Eos % (Auto) Baso % (Auto) Immature Gran # (Auto) Neut # (Auto) Lymph # (Auto) [place] # (Auto) Eos # (Auto) Baso # (Auto) Sodium 139 Potassium 4.0 Chloride 108 H Carbon Dioxide 28 Anion Gap 3.0 BUN 15 Creatinine 0.73 Est Cr Clr Drug Dosing 129.5 Est GFR ( Amer) 122.8 Est GFR (Non-Af Amer) 106.0 BUN/Creatinine Ratio 19.9 Glucose 90 Calcium 7.8 L
--- NOTE | 2018-06-28 09:54 | Hospitalist Progress Note ---
Date of Service June 28, 2018 Subjective SIR/ERINAM: PATIENT [] WAS ADMITTED TO [facility] FOR EVALUATION AND MANAGEMENT FROM [] TO [] . PATIENT IS ADVISED TO REST AT HOME AND FOLLOW UP WITH THE PRIMARY CARE PHYSICIAN FIRST PRIOR TO RETURNING TO WORK. THANK YOU. SINCERELY, DALI PICHARDO MD ATTENDING PHYSICIAN Physical Exam Vital Signs (Past 24 Hours): Last Vital Signs Temp 36.8 C 06/28/18 08:00 Pulse 64 06/28/18 08:00 Resp 18 06/28/18 08:00 BP 110/75 06/28/18 08:00 Pulse Ox 98 06/28/18 08:00
--- NOTE | 2018-06-28 10:00 | Discharge Summary ---
Date of Service June 28, 2018 Admission HPI Per Admitting Provider Pt is 37 y/o F with PMH depression, anxiety, ADHD, recurrent UTI's presented to ER with c/o dysuria and R flank pain x couple of days. Hx hospitalization for pyelonephritis in 02/2018. Pt states 4 days ago started with dysuria, urinary frequency and urgency. Then started with some R flank discomfort. Pt states has macrobid from urologist (Dr Quintero) to use when has UTI symptoms which she started couple of days ago with some relief of dysuria and frequency but continued R flank aching. 2 days ago reports fever 100.5F. Was seen in ER on 06/23/18 and changed to bactrim. Pt has had 4 doses without relief. Pt states has generalized malaise. Has been having nausea without vomiting. Decreased oral intake. Today lightheaded with standing and checked her BP at home with wrist machine and reports was 80/50. She returned to ER today. Pt states has mirena and had intermittent vaginal spotting which has since resolved and hasn't had regular menses since placement. Denies further fever, GAR[place]AY, syncope, vision changes, neck pain, CP, SOB, cough, sore throat, other abdominal pain, hematuria, vaginal discharge, diarrhea, constipation, paresthesias, extremity edema, rashes. Admission Exam Per Admitting Provider Vital Signs (Past 24 Hours): Last Vital Signs Temp 36.8 C 06/25/18 12:26 Pulse 78 06/25/18 16:30 Resp 16 06/25/18 16:30 BP 108/74 06/25/18 16:30 Pulse Ox 96 06/25/18 16:30 Physical Exam: General: no acute distress, obese Head: normocephalic, atraumatic Eyes: PERRL, EOM's intact, conjunctiva non-injected, anicteric ENT: normal inspection external ears, nose, mucous membranes dry Neck: supple, trachea midline, non-tender Lungs: clear, no respiratory distress, no wheezing/rhonchi/rales CV: RRR, no murmur, no pretibial edema Abd: normal BS, soft, +R CVA and flank tenderness, RLQ tenderness to palpation, otherwise abdomen non-tender Ext: no cyanosis, no erythema Neuro: A&O x 3, no focal deficits noted, normal affect Skin: warm, dry Principal Diagnosis PYELONEPHRITIS Discharge Exam Vital Signs (Past 24 Hours): Last Vital Signs Temp 36.8 C 06/28/18 08:00 Pulse 64 06/28/18 08:00 Resp 18 06/28/18 08:00 BP 110/75 06/28/18 08:00 Pulse Ox 98 06/28/18 08:00 Physical Exam: General- oriented x 3, not in distress, speaks in sentences with no effort or accessory muscle use Eyes- anicteric Neck- no JVD Lungs- clear breath sounds bilaterally Heart- normal rate, regular rhythm; no murmurs Abdomen- normal bowel sounds, nondistended, soft, nontender no CVA tenderness Extremities- no pretibial edema, no calf tenderness Neuro- alert, oriented x 3; no gross focal neurologic deficits Skin- warm & dry Discharge Data Allergies Allergy/AdvReac Type Severity Reaction Status Date / Time Penicillins Allergy Severe ANAPHYLAXIS Verified 06/25/18 14:21 cefaclor Allergy Intermediate Hives Verified 06/25/18 14:21 codeine Allergy Unknown FULL BODY Verified 06/25/18 14:21 ITCHING promethazine Allergy Unknown TORTICOLIS Verified 06/25/18 14:21 Consultations 06/25/18 16:51 ED Decision to Admit Stat 06/27/18 13:37 Consult Urology Routine Ordered Studies 06/25/18 13:22 CT abd pelvis IV con only Stat CT OF THE ABDOMEN AND PELVIS WITH CONTRAST CLINICAL HISTORY: Mid abdominal pain. COMPARISON STUDY: CT of the abdomen and pelvis January 19, 2018. Renal ultrasound June 23, 2018. TECHNIQUE: Following IV administration of 93 mL of Optiray-320, axial images of the abdomen and pelvis were obtained from the lung bases to the proximal femurs. Images were reviewed in the axial, sagittal, and coronal planes. IV contrast was administered without complication. Automated exposure control was utilized for the study. A dose lowering technique was utilized adhering to the principles of [place]. CT DOSE: 1332.41 mGy.cm FINDINGS: Mild splenomegaly is noted. A right cardiophrenic angle pericardial cyst is noted. There is probable fatty infiltration of the liver. There is no biliary ductal dilatation status post cholecystectomy. There are small bilateral renal calculi. There is no hydronephrosis. No ureteral calculi are present. Mild mesenteric infiltration is noted with small associated mesenteric lymph nodes. Hyperdense material along the appendix is noted. There is no evidence for acute appendicitis.. There is no evidence for a small bowel obstruction. Small bowel is fluid-filled. Intrauterine device is appropriately positioned. Note is made of a 5.8 cm suspected left ovarian cyst. No pneumatosis, free air or portal venous gas is present. IMPRESSION: 1. Fluid-filled small bowel which may reflect an enteritis. No evidence for a bowel obstruction. 2. Mild mesenteric infiltration with small mesenteric lymph nodes. This is of doubtful significance. 3. Bilateral nephrolithiasis. No ureteral calculi or hydronephrosis. 4. 5.8 cm suspected left ovarian cyst. A follow-up pelvic ultrasound in 6 weeks to ensure resolution is recommended. Electronically signed by: Eric Vogel M.D. 06/25/2018 3:29 PM 06/27/18 13:40 CT abd pelvis wo con Stat CT SCAN OF THE ABDOMEN AND PELVIS WITHOUT IV CONTRAST CLINICAL HISTORY: Right flank pain. Hematuria. COMPARISON STUDY: Abdominal CT dated 06/25/2018 and 03/22/2014. TECHNIQUE: CT scan of the abdomen and pelvis is performed from the lung bases to the proximal femora. Images are reviewed in the axial, sagittal, and coronal planes. IV contrast was not administered for this examination as per the referring clinician. Note that the examination was performed in suboptimal fashion without oral and IV contrast. A dose lowering technique was utilized adhering to the principles of ALARA. CT DOSE: 1225.57 mGy.cm FINDINGS: Lung bases: The heart is normal in size and without pericardial effusion. The lung bases are clear. Liver: The unenhanced liver is enlarged, measuring 21.8 cm in length. The liver is otherwise normal in contour and Attenuation. There is no intrahepatic biliary ductal dilatation. Gallbladder: Surgically absent noting clips in the gallbladder fossa. Spleen: The spleen is mildly enlarged, measuring 14.8 cm in length. Pancreas: The unenhanced pancreas is normal as imaged. Adrenal glands: Unremarkable. Kidneys: The unenhanced kidneys are normal in size and without hydronephrosis. There are at least 3 nonobstructing right renal calculi measuring up to 4 mm. There are at least 2 nonobstructing left or a calculi measuring up to 3 mm. A 1.4 cm complex/hyperdense cyst is noted in the left kidney on image #189. There is no evidence of contour deforming renal mass lesion. Abdominal vasculature: The abdominal aorta is normal in course and caliber. Bowel: No bowel obstruction is identified. There is moderate colonic fecal retention. There is a small appendiceal remnant. The majority of the appendix is surgically absent. Peritoneum: There is no intraperitoneal free air or abdominal ascites. There is a small fat-containing umbilical hernia. A midline surgical scar is noted. Lymphadenopathy: There are numerous prominent mesenteric lymph nodes which measure up to 9 mm short axis. There is no retroperitoneal, pelvic sidewall, or inguinal lymphadenopathy. Pelvic viscera: There is mild circumferential bladder wall thickening. The uterus is normal as imaged noting an intrauterine device in place. There is a 5.4 cm simple cyst seen in the left ovary. Additional smaller follicles are seen bilaterally. There is a small fat-containing right inguinal hernia. Skeletal structures: No lytic or blastic lesions are seen. IMPRESSION: 1. Question mild circumferential bladder wall thickening. Correlation with clinical findings and urinalysis will be required. 2. Bilateral nonobstructing renal calculi. 3. Mild hepatosplenomegaly. 4. There are numerous prominent mesenteric lymph nodes. These are nonspecific and may be on a reactive basis. Clinical correlation will be required. 5. Moderate colonic fecal retention. 6. There is a 5.4 cm simple appearing cyst identified in the left ovary. This was also seen on the study performed 2 days previously. 7. Additional findings as above. Electronically signed by: Mayo Beltran M.D. 06/27/2018 2:55 PM Hospital Course (1) Pyelonephritis: (2) Recurrent UTI: Pt with hx recurrent UTI's. Hx pyelonephritis Presented with 4 days hx dysuria, urinary frequency, fever 2 days ago, R flank pain, malaise and nausea. Had self started macrobid 4 days ago without significant relief. Seen in ER 06/23/18 and started on bactrim. Still with symptoms. Today in ER afebrile, vitals stable. WBC: 7, BUN: 18, Cr: 0.8, Lactate: 0.7. negative urine . UA: unremarkable CT ABD/PELVIS: 1. Fluid-filled small bowel which may reflect an enteritis. No evidence for a bowel obstruction. 2. Mild mesenteric infiltration with small mesenteric lymph nodes. This is of doubtful significance. 3. Bilateral nephrolithiasis. No ureteral calculi or hydronephrosis. 4. 5.8 cm suspected left ovarian cyst. A follow-up pelvic ultrasound in 6 weeks to ensure resolution is recommended. Possible Pyelonephritis Urine cultures negative Blood cultures negative so far Afebrile, no leukocytosis Repeat CT abdomen: Positive small nephrolithiasis Discussed with Dr. Haleigh mccord for dc today Bactrim x 7 days PRN Pyridium, [place], Ibuprofen emphasized to drink plenty of fluids, stay well hydrated call Urologist or return to ER immediately if with worsening (3) Depression: (4) ADHD: -continue bupropion, vyvanse, dextroamphetamine (5) Ovarian cyst: CT ABD/PELVIS: 5.8 cm suspected left ovarian cyst. A follow-up pelvic ultrasound in 6 weeks to ensure resolution is recommended. -recommend follow up outpatient for pelvic ultrasound DVT Prophylaxis -low risk - ambulate Follows with Dr Green for routine care Disposition d/c home today ff up with PCP 3-5 days ff up with Urologist in 1 week Total Time Total Time Spent Total Time Spent (In Minutes): 35 MINUTES Discharge Plan Discharge Items Patient Disposition: Home - Self-Care Reason For Visit: POSSIBLE PYELONEPHRITIS Discharge Diagnosis: PYELONEPHRITIS Discharge Goals: Diagnostic testing Activity: As commented below Activity Comment: RESUME ACTIVITY GRADUALLY TOLERATED Driving/Machine Use Comment: NO DRIVING PLEASE WHILE TAKING [place] Non-emergency contact: Primary Care Provider and Urologist Call non-emergency contact if: you have any medication questions, your symptoms worsen, your pain is not controlled, your pain is worsening, your pain is unusual for you, your pain is concerning for you and you have a fever Follow-up/Referrals: Ema Green [Primary Care Provider] - Diet: Regular Addtl Provider Instructions: ALWAYS DRINK PLENTY OF FLUIDS, STAY WELL HYDRATED. DO NOT TAKE MORE THAN 3,000MG OF ACETAMINOPHEN PER DAY. FOLLOW UP WITH PRIMARY CARE PHYSICIAN IN 3-5 DAYS. SCHEDULING OFFICE IS CLOSED TODAY, THE CLINIC WILL BE CALLING YOU FOR THE APPOINTMENT SOON. FOLLOW UP WITH UROLOGIST IN 1 WEEK. Prescriptions: New phenazopyridine [Pyridium] 200 mg Tablet 200 mg PO TID PRN (Reason: DYSURIA) Qty: 15 RF: 0 ondansetron HCl [Zofran] 4 mg tablet 4 mg PO Q8H PRN (Reason: nausea and vomiting) 7 Days Qty: 15 RF: 0 hydrocodone-acetaminophen [[place]] 5-325 mg tablet 1 tab PO Q4H Qty: 10 RF: 0 Continued Vyvanse 70 mg Capsule 70 mg PO QAM RF: 0 bupropion HCl 150 mg tablet extended release 24 hr 150 mg PO QAM RF: 0 dextroamphetamine 10 mg tablet 10 mg PO DAILY RF: 0 Vitamin 27 mg iron- 0.8 mg Tablet 1 tab PO DAILY RF: 0 prazosin 1 mg capsule 1 tab PO HS RF: 0 lorazepam 1 mg tablet 1 tab PO BID PRN (Reason: Anxiety) RF: 0 sulfamethoxazole-trimethoprim [Bactrim DS] 800-160 mg tablet 1 tab PO Q12H 7 Days Qty: 20 RF: 0 Stand-Alone Forms: [facility], Work/School Release (Inpt) Discharge Orders: Discharge Order (Routine); Ordered 06/28/18 Ordered By: Checo Reyes Admission Data Admit Date/Time: 06/25/18 17:44 Attending Provider: Checo Reyes Admit Provider: Sd Langley Primary Care Provider: Ema Green Other Providers: Sd Langley ; Jordan Peralta ; Mitchell Sanabria ; Pillo Marrufo I. ; Adonis Ricardo ; Aleja Helms ; Joe Quintero II ; Ledy Zamarripa Service: Medical
[2018-06-28 10:07] VITALS: PULSE 68
== END 2018-06-28 13:04 | disposition home or self-care (01) ==
LOC: ED 12:21 → 4E 12:21

== ENCOUNTER 2019-07-28 15:00 | Observation (INO) ==
[2019-07-28] MEDS ORDERED: fentaNYL citrate 100 MCG/2 ML VIAL IV STA (15:24)
[2019-07-28] MEDS ORDERED: ALBUT/IPRATROP 3MG/0.5MG NEB 3 ML VIAL NEB STA (15:28)
--- NOTE | 2019-07-28 15:28 | Emergency Department Note ---
Impression & Plan Acute dyspnea, Headache, Viral syndrome, Hypomagnesemia ED Provider Note Provider: Ramess Monzon MD DATE OF SERVICE: 07/28/2019 CHIEF COMPLAINT: Shortness of breath HISTORY OF PRESENT ILLNESS: Patient is a 38-year-old female history of rib fracture presented today with a complaint of shortness of breath. Reports fever headache shortness of breath since Friday with fatigue. Patient reports that she was swabbed for COVID at [facility] earlier today. Patient noted to be tachycardic and tachypneic in triage. Patient states that she worked this weekend but was not caring for any persons under investigation. This been no other travel other than [place] today. No other sick contacts. Patient states headache with some shortness of breath over the last several day as well as fatigue but significantly worsened over the last 2 to 3 hours. Patient denies significant chest pain but does endorse significant shortness of breath and work of breathing. Denies nausea vomiting or diarrhea. Denies neck pain. Denies sinus congestion. No OCP usage, patient has a Mirena and prior tubal according to her. No significant leg swelling. No trauma reported. Patient states regular usage of Tylenol and Motrin last about 2 hours prior to arrival. Pain is been fairly constant in her head. No other neurological symptoms reported. REVIEW OF SYSTEMS: A total of 10 review of systems was obtained and negative except as stated above in the HPI. PAST MEDICAL HISTORY: As noted above MEDICATIONS: Vyvanse, Wellbutrin, vitamins SOCIAL HISTORY: Non-smoker. 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 PERRL NECK: Trachea midline. Supple. ENT: Mucous membranes pink and moist. LUNGS: Airway patent. Patient with increased work of breathing quite tachypneic. Unable to speak in full sentences. HEART: Tachycardic rate and rhythm. No chest wall tenderness ABDOMEN: Soft and non-tender, without guarding or rebound. SKIN: Acyanotic, warm, dry, without rashes EXTREMITIES: Without swelling, tenderness or deformity NEUROLOGICAL: No focal deficits. No aphasia. No facial droop or slurred speech. Moves all extremities. EKG: Sinus tachycardia at 106 bpm. No PVC. No acute ST segment elevation or depression. QTC of 464. CONTINUOUS CARDIAC MONITORING: was ordered and showed a heart rate of 92 bpm in normal sinus rhythm Patient's hypertension was referred to the hospitalist [facility] COURSE: 151 Patient was first seen and H&P performed. 171 Patient reassessed and updated. Patient was removed from BiPAP for evaluation. Patient states her symptoms have improved some but she still with some shortness of breath. Denies any anxiety type symptoms although states she did not really enjoy the BiPAP mask. Denies any paresthesias. States the fentanyl made her a little drowsy but has not significant changed other pain. Sent with a discussed with her over approximately 15 minutes options at this time. 173 [facility] Patient's laboratory studies and imaging reviewed. Differential includes Reactive airway disease, pneumonia, pneumothorax, COPD, CHF, infections, cardiac ischemia, pulmonary embolism, musculoskeletal, gastrointestinal, as well as other pathologies. IMPRESSION/MEDICAL DECISION MAKING: Patient presents and is severely tachypneic and short of breath upon arrival. Not hypoxic or tachycardic. Coronavirus testing swab at outpatient site was sent earlier today. Patient reports headache but does not appear frankly meningitic. Benign abdomen. No signs of lower extremity swelling, no OCP usage, no significant travel given her tachypnea did send a d-dimer in discussion with her to evaluate possibly for PE. Was maintained in airborne precautions. Bio fire testing was sent in addition to basic lab work. EKG was sent. Given some small amount of fentanyl initially for pain control received a little bit of Zofran with this she states she has had some reaction the past with opioids. DuoNeb ordered. Given her significant work of breathing discussed with patient and proceeded with BiPAP. There is no trauma and I doubt this represents acute CVA or intracranial hemorrhage. Laboratory studies without significant leukocytosis or anemia. Slight lympho- predominance is noted. Slightly alkalotic with a pH of 7.52 and a CO2 of 24. Chest x-ray is clear. Slight hypomagnesemia. Electrolytes otherwise without significant finding. Renal function stable. D-dimer is not significantly elevated. Given this along with her lack of hypoxia with lower suspicion for PE. Doubt dissection. Negative . Lactate mildly elevated 2.5. Troponin undetectable and doubt ACS. No evidence of fluid overload or new onset heart failure. Doubt myocarditis. No evidence of hepatitis. I doubt this represents meningitis. Could be a viral syndrome. Procalcitonin is undetectable. RVP panel without detection. Seems somewhat atypical for coronavirus but other than work of breathing/tachypnea not having objective laboratory findings. Discussed with the patient options. Discussed given that she still having significant work of breathing and tachypnea in the 20s further observation versus a trial of outpatient therapy. Patient states during our discussion last for short amount of time she gets to feel that her breathing is starting to worsen some. Discussed and risks and benefits of both options. Ordered some magnesium and Toradol. Given this discussed with [facility] hospitalist further observation here in the hospital given her WOB/tachypnea. DIAGNOSIS: Acute dyspnea, headaches, viral syndrome, hypomagnesemia DISPOSITION: Hospitalist will evaluate Patient was agreeable with this plan. Past Med/Surg History Social History Preferred Language: Yoruba Communication Ability: Effective Visual Impairment: No Limitations Hearing Ability: [place] Sanitarian Required: No Beliefs That Will Affect Care: None Current Living Situation: Family Feels Safe at Home: Yes Smoking Status: Never smoker Second Hand Exposure: No ; Hx Alcohol Use: Yes Alcohol type: wine Hx Substance Use: No Allergies Allergies Allergy/AdvReac Type Severity Reaction Status Date / Time Penicillins Allergy Severe ANAPHYLAXIS Verified 07/28/19 16:52 cefaclor Allergy Intermediate Hives,nausea,vomiting Verified 07/28/19 16:52 diarrhea codeine Allergy Unknown FULL BODY Verified 07/28/19 16:52 ITCHING promethazine Allergy Unknown TORTICOLIS Verified 07/28/19 16:52 Home Meds Home Medications Medication Instructions Recorded Confirmed acetaminophen [Tylenol] 650 mg PO QID PRN 05/02/19 07/28/19 bupropion HCl 150 mg PO QAM 05/02/19 07/28/19 lisdexamfetamine [Vyvanse] 70 mg PO QAM 05/02/19 07/28/19 multivitamin 1 tab PO QAM 07/28/19 07/28/19 Results & Data (ED) Vital Signs Vital Signs - 24 hr 07/28/19 15:00 07/28/19 15:03 07/28/19 15:11 Temperature 37.1 C Temperature Source Oral Pulse Rate 111 H Pulse Rate [Right Radial] Pulse Rate from SpO2 Sensor Respiratory Rate 32 H Respiratory Effort / Characteristics Labored Labored Respiratory Depth Shallow Respiratory Pattern Tachypnea Blood Pressure 172/118 H Blood Pressure Mean 136 Pulse Oximetry 99 99 Oxygen Delivery Method Room Air Room Air Oxymask Oxygen Flow Rate 6 Fraction of Inspired Oxygen Sepsis Recent Fever Within 48 Hours Yes Sepsis New/Unexplained Change in Mental Status No Sepsis Action Taken by Nursing Physician Notified 07/28/19 15:17 07/28/19 15:39 07/28/19 15:40 Temperature Temperature Source Pulse Rate 104 H 97 H 101 H Pulse Rate [Right Radial] Pulse Rate from SpO2 Sensor 104 H 98 H 100 H Respiratory Rate 40 H 33 H 36 H Respiratory Effort / Characteristics Respiratory Depth Respiratory Pattern Blood Pressure 138/106 H Blood Pressure Mean 111 Pulse Oximetry 98 99 98 Oxygen Delivery Method Oxygen Flow Rate Fraction of Inspired Oxygen Sepsis Recent Fever Within 48 Hours Sepsis New/Unexplained Change in Mental Status Sepsis Action Taken by Nursing 07/28/19 15:50 07/28/19 16:00 07/28/19 16:10 Temperature Temperature Source Pulse Rate 97 H 88 90 Pulse Rate [Right Radial] Pulse Rate from SpO2 Sensor 99 H 89 88 Respiratory Rate 37 H 36 H 17 Respiratory Effort / Characteristics Non-Labored Spontaneous Short of Breath Respiratory Depth Normal Respiratory Pattern Tachypnea Blood Pressure Blood Pressure Mean Pulse Oximetry 98 100 100 Oxygen Delivery Method Oxygen Flow Rate Fraction of Inspired Oxygen 100 Sepsis Recent Fever Within 48 Hours Sepsis New/Unexplained Change in Mental Status Sepsis Action Taken by Nursing 07/28/19 16:15 07/28/19 16:20 07/28/19 16:23 Temperature Temperature Source Pulse Rate 91 H 93 H Pulse Rate [Right Radial] 80 Pulse Rate from SpO2 Sensor 92 H 93 H Respiratory Rate 28 H 19 23 Respiratory Effort / Characteristics Non-Labored Spontaneous Short of Breath Respiratory Depth Respiratory Pattern Blood Pressure 140/93 Blood Pressure Mean 108 Pulse Oximetry 99 100 100 Oxygen Delivery Method BiPAP Oxygen Flow Rate Fraction of Inspired Oxygen 100 Sepsis Recent Fever Within 48 Hours Sepsis New/Unexplained Change in Mental Status Sepsis Action Taken by Nursing 07/28/19 16:30 07/28/19 16:40 07/28/19 16:45 Temperature Temperature Source Pulse Rate 94 H 86 89 Pulse Rate [Right Radial] Pulse Rate from SpO2 Sensor 91 H 87 88 Respiratory Rate 22 26 H 23 Respiratory Effort / Characteristics Respiratory Depth Respiratory Pattern Blood Pressure 134/96 143/97 H Blood Pressure Mean 109 114 Pulse Oximetry 100 100 100 Oxygen Delivery Method Oxygen Flow Rate Fraction of Inspired Oxygen Sepsis Recent Fever Within 48 Hours Sepsis New/Unexplained Change in Mental Status Sepsis Action Taken by Nursing 07/28/19 16:50 07/28/19 17:00 07/28/19 17:10 Temperature Temperature Source Pulse Rate 99 H 94 H 98 H Pulse Rate [Right Radial] Pulse Rate from SpO2 Sensor 99 H 94 H 101 H Respiratory Rate 23 20 24 Respiratory Effort / Characteristics Respiratory Depth Respiratory Pattern Blood Pressure 149/89 H Blood Pressure Mean 115 Pulse Oximetry 100 100 100 Oxygen Delivery Method Oxygen Flow Rate Fraction of Inspired Oxygen Sepsis Recent Fever Within 48 Hours Sepsis New/Unexplained Change in Mental Status Sepsis Action Taken by Nursing 07/28/19 17:15 07/28/19 17:20 07/28/19 17:30 Temperature Temperature Source Pulse Rate 100 H 90 91 H Pulse Rate [Right Radial] Pulse Rate from SpO2 Sensor 98 H 89 90 Respiratory Rate 22 25 H 31 H Respiratory Effort / Characteristics Respiratory Depth Respiratory Pattern Blood Pressure 140/103 H 152/116 H Blood Pressure Mean 111 121 Pulse Oximetry 99 99 95 Oxygen Delivery Method Oxygen Flow Rate Fraction of Inspired Oxygen Sepsis Recent Fever Within 48 Hours Sepsis New/Unexplained Change in Mental Status Sepsis Action Taken by Nursing 07/28/19 17:40 07/28/19 17:45 07/28/19 17:50 Temperature Temperature Source Pulse Rate 90 94 H 94 H Pulse Rate [Right Radial] Pulse Rate from SpO2 Sensor 91 H 97 H 96 H Respiratory Rate 20 22 38 H Respiratory Effort / Characteristics Respiratory Depth Respiratory Pattern Blood Pressure 158/120 H Blood Pressure Mean 127 Pulse Oximetry 99 98 100 Oxygen Delivery Method Oxygen Flow Rate Fraction of Inspired Oxygen Sepsis Recent Fever Within 48 Hours Sepsis New/Unexplained Change in Mental Status Sepsis Action Taken by Nursing 07/28/19 18:00 07/28/19 18:01 07/28/19 18:10 Temperature Temperature Source Pulse Rate 91 H 87 90 Pulse Rate [Right Radial] Pulse Rate from SpO2 Sensor 95 H 86 91 H Respiratory Rate 18 28 H 24 Respiratory Effort / Characteristics Respiratory Depth Respiratory Pattern Blood Pressure 139/98 Blood Pressure Mean 122 Pulse Oximetry 99 100 98 Oxygen Delivery Method Oxygen Flow Rate Fraction of Inspired Oxygen Sepsis Recent Fever Within 48 Hours Sepsis New/Unexplained Change in Mental Status Sepsis Action Taken by Nursing 07/28/19 18:15 07/28/19 18:20 07/28/19 18:30 Temperature Temperature Source Pulse Rate 97 H 99 H 98 H Pulse Rate [Right Radial] Pulse Rate from SpO2 Sensor 97 H 102 H Respiratory Rate 32 H 24 23 Respiratory Effort / Characteristics Respiratory Depth Respiratory Pattern Blood Pressure 145/104 H 128/91 Blood Pressure Mean 112 107 Pulse Oximetry 98 98 Oxygen Delivery Method Oxygen Flow Rate Fraction of Inspired Oxygen Sepsis Recent Fever Within 48 Hours Sepsis New/Unexplained Change in Mental Status Sepsis Action Taken by Nursing 07/28/19 18:40 Temperature Temperature Source Pulse Rate 93 H Pulse Rate [Right Radial] Pulse Rate from SpO2 Sensor 92 H Respiratory Rate 26 H Respiratory Effort / Characteristics Respiratory Depth Respiratory Pattern Blood Pressure Blood Pressure Mean Pulse Oximetry 95 Oxygen Delivery Method Oxygen Flow Rate Fraction of Inspired Oxygen Sepsis Recent Fever Within 48 Hours Sepsis New/Unexplained Change in Mental Status Sepsis Action Taken by Nursing Laboratory Data Result diagrams: 07/28/19 15:39 07/28/19 15:39 Lab Results 07/28/19 07/28/19 07/28/19 Range/Units 15:36 15:39 15:39 WBC 8.86 (4.8-10.8) K/uL RBC 4.81 (4.2-5.4) M/uL Hgb 14.8 (12.0-16.0) g/dL Hct 40.9 (37-47) % MCV 85.0 (80-100) fL MCH 30.8 (25-34) pg MCHC 36.2 H (32-36) g/dL RDW Std Deviation 38.2 (36.4-46.3) fL RDW Coeff of Dylan 12.3 (11.5-14.5) % Plt Count 256 (130-400) K/uL MPV 10.3 (7.4-10.4) fL Immature Gran % (Auto) 0.1 % Neut % (Auto) 51.7 % Lymph % (Auto) 41.8 % Imperial % (Auto) 4.7 % Eos % (Auto) 1.4 % Baso % (Auto) 0.3 % Immature Gran # (Auto) 0.01 (0.00-0.02) K/uL Neut # (Auto) 4.58 (1.4-6.5) K/uL Lymph # (Auto) 3.70 H (1.2-3.4) K/uL Imperial # (Auto) 0.42 (0.11-0.59) K/uL Eos # (Auto) 0.12 (0-0.5) K/uL Baso # (Auto) 0.03 (0-0.2) K/uL ESR (0-21) mm/hr PT 10.3 (9.0-12.0) Seconds INR 1.0 (0.9-1.1) APTT 25.1 (21.0-31.0) Seconds PTT Ratio 0.9 D-Dimer 250 (0-500) ug/L FEU VBG pH 7.52 H (7.36-7.41) VBG pCO2 24 L (38-50) mmHg VBG pO2 48 mmHg VBG HCO3 19 mmol/L VBG O2 Saturation 87.5 % VBG Base Excess -2.2 mEq/L Barometric Pressure 729.2 mm/Hg Sodium (136-145) mmol/L Potassium (3.5-5.1) mmol/L Chloride (98-107) mmol/L Carbon Dioxide (21-32) mmol/L Anion Gap (3-11) BUN (7-18) mg/dl Creatinine (0.6-1.2) mg/dl Est Cr Clr Drug Dosing ml/min Est GFR ( Amer) Est GFR (Non-Af Amer) BUN/Creatinine Ratio (10-20) Glucose (70-99) mg/dl Lactate (0.4-2.0) mmol/L Calcium (8.5-10.1) mg/dl Magnesium (1.8-2.4) mg/dl Ferritin (8-388) ng/ml Total Bilirubin (0.2-1) mg/dl AST (15-37) U/L ALT (12-78) U/L Alkaline Phosphatase (45-117) U/L Lactate Dehydrogenase (84-246) U/L Total Creatine Kinase (26-192) U/L Troponin I (0-0.045) ng/ml C-Reactive Protein (0-0.29) mg/dl Total Protein (6.4-8.2) gm/dl Albumin (3.4-5.0) gm/dl Globulin (2.5-4.0) gm/dl Albumin/Globulin Ratio (0.9-2) Procalcitonin (0-0.5) ng/ml HCG, Qual (Negative) Adenovirus (PCR) (NotDetected) B. pertussis DNA (PCR) (NotDetected) B.parapertussis DNA PCR (NotDetected) C. pneumoniae DNA (PCR) (NotDetected) Coronavirus OC43 (PCR) (NotDetected) Coronavirus HKU1 (PCR) (NotDetected) Coronavirus 229E (PCR) (NotDetected) Coronavirus NL63 (PCR) (NotDetected) Human Metapneumovir PCR (NotDetected) Influenza Type A (PCR) (Neg) Influenza Type B (PCR) (Neg) M. pneumoniae (PCR) (NotDetected) Parainfluenza 1 (PCR) (NotDetected) Parainfluenza 2 (PCR) (NotDetected) Parainfluenza 3 (PCR) (NotDetected) Parainfluenza 4 (PCR) (NotDetected) RSV (PCR) (NotDetected) Entero/Rhino (PCR) (NotDetected) 07/28/19 07/28/19 07/28/19 Range/Units 15:39 15:39 15:39 WBC (4.8-10.8) K/uL RBC (4.2-5.4) M/uL Hgb (12.0-16.0) g/dL Hct (37-47) % MCV (80-100) fL MCH (25-34) pg MCHC (32-36) g/dL RDW Std Deviation (36.4-46.3) fL RDW Coeff of Dylan (11.5-14.5) % Plt Count (130-400) K/uL MPV (7.4-10.4) fL Immature Gran % (Auto) % Neut % (Auto) % Lymph % (Auto) % [place] % (Auto) % Eos % (Auto) % Baso % (Auto) % Immature Gran # (Auto) (0.00-0.02) K/uL Neut # (Auto) (1.4-6.5) K/uL Lymph # (Auto) (1.2-3.4) K/uL Imperial # (Auto) (0.11-0.59) K/uL Eos # (Auto) (0-0.5) K/uL Baso # (Auto) (0-0.2) K/uL ESR (0-21) mm/hr PT (9.0-12.0) Seconds INR (0.9-1.1) APTT (21.0-31.0) Seconds PTT Ratio D-Dimer (0-500) ug/L FEU VBG pH (7.36-7.41) VBG pCO2 (38-50) mmHg VBG pO2 mmHg VBG HCO3 mmol/L VBG O2 Saturation % VBG Base Excess mEq/L Barometric Pressure mm/Hg Sodium 139 (136-145) mmol/L Potassium 3.6 (3.5-5.1) mmol/L Chloride 109 H (98-107) mmol/L Carbon Dioxide 22 (21-32) mmol/L Anion Gap 8.0 (3-11) BUN 18 (7-18) mg/dl Creatinine 0.86 (0.6-1.2) mg/dl Est Cr Clr Drug Dosing 117.4 ml/min Est GFR ( Amer) 100.0 Est GFR (Non-Af Amer) 86.3 BUN/Creatinine Ratio 20.7 H (10-20) Glucose 100 H (70-99) mg/dl Lactate 2.5 H* (0.4-2.0) mmol/L Calcium 9.6 (8.5-10.1) mg/dl Magnesium 1.7 L (1.8-2.4) mg/dl Ferritin (8-388) ng/ml Total Bilirubin 0.3 (0.2-1) mg/dl AST 21 (15-37) U/L ALT 77 (12-78) U/L Alkaline Phosphatase 77 (45-117) U/L Lactate Dehydrogenase (84-246) U/L Total Creatine Kinase (26-192) U/L Troponin I < 0.015 (0-0.045) ng/ml C-Reactive Protein (0-0.29) mg/dl Total Protein 7.9 (6.4-8.2) gm/dl Albumin 3.7 (3.4-5.0) gm/dl Globulin 4.2 H (2.5-4.0) gm/dl Albumin/Globulin Ratio 0.9 (0.9-2) Procalcitonin < 0.05 (0-0.5) ng/ml HCG, Qual Negative (Negative) Adenovirus (PCR) (NotDetected) B. pertussis DNA (PCR) (NotDetected) B.parapertussis DNA PCR (NotDetected) C. pneumoniae DNA (PCR) (NotDetected) Coronavirus OC43 (PCR) (NotDetected) Coronavirus HKU1 (PCR) (NotDetected) Coronavirus 229E (PCR) (NotDetected) Coronavirus NL63 (PCR) (NotDetected) Human Metapneumovir PCR (NotDetected) Influenza Type A (PCR) (Neg) Influenza Type B (PCR) (Neg) M. pneumoniae (PCR) (NotDetected) Parainfluenza 1 (PCR) (NotDetected) Parainfluenza 2 (PCR) (NotDetected) Parainfluenza 3 (PCR) (NotDetected) Parainfluenza 4 (PCR) (NotDetected) RSV (PCR) (NotDetected) Entero/Rhino (PCR) (NotDetected) 07/28/19 07/28/19 07/28/19 Range/Units 15:39 15:39 15:39 WBC (4.8-10.8) K/uL RBC (4.2-5.4) M/uL Hgb (12.0-16.0) g/dL Hct (37-47) % MCV (80-100) fL MCH (25-34) pg MCHC (32-36) g/dL RDW Std Deviation (36.4-46.3) fL RDW Coeff of Dylan (11.5-14.5) % Plt Count (130-400) K/uL MPV (7.4-10.4) fL Immature Gran % (Auto) % Neut % (Auto) % Lymph % (Auto) % [place] % (Auto) % Eos % (Auto) % Baso % (Auto) % Immature Gran # (Auto) (0.00-0.02) K/uL Neut # (Auto) (1.4-6.5) K/uL Lymph # (Auto) (1.2-3.4) K/uL [place] # (Auto) (0.11-0.59) K/uL Eos # (Auto) (0-0.5) K/uL Baso # (Auto) (0-0.2) K/uL ESR 43 H (0-21) mm/hr PT (9.0-12.0) Seconds INR (0.9-1.1) APTT (21.0-31.0) Seconds PTT Ratio D-Dimer (0-500) ug/L FEU VBG pH (7.36-7.41) VBG pCO2 (38-50) mmHg VBG pO2 mmHg VBG HCO3 mmol/L VBG O2 Saturation % VBG Base Excess mEq/L Barometric Pressure mm/Hg Sodium (136-145) mmol/L Potassium (3.5-5.1) mmol/L Chloride (98-107) mmol/L Carbon Dioxide (21-32) mmol/L Anion Gap (3-11) BUN (7-18) mg/dl Creatinine (0.6-1.2) mg/dl Est Cr Clr Drug Dosing ml/min Est GFR ( Amer) Est GFR (Non-Af Amer) BUN/Creatinine Ratio (10-20) Glucose (70-99) mg/dl Lactate (0.4-2.0) mmol/L Calcium (8.5-10.1) mg/dl Magnesium (1.8-2.4) mg/dl Ferritin 73.2 (8-388) ng/ml Total Bilirubin (0.2-1) mg/dl AST (15-37) U/L ALT (12-78) U/L Alkaline Phosphatase (45-117) U/L Lactate Dehydrogenase 194 (84-246) U/L Total Creatine Kinase 102 (26-192) U/L Troponin I (0-0.045) ng/ml C-Reactive Protein 0.72 H (0-0.29) mg/dl Total Protein (6.4-8.2) gm/dl Albumin (3.4-5.0) gm/dl Globulin (2.5-4.0) gm/dl Albumin/Globulin Ratio (0.9-2) Procalcitonin (0-0.5) ng/ml HCG, Qual (Negative) Adenovirus (PCR) (NotDetected) B. pertussis DNA (PCR) (NotDetected) B.parapertussis DNA PCR (NotDetected) C. pneumoniae DNA (PCR) (NotDetected) Coronavirus OC43 (PCR) (NotDetected) Coronavirus HKU1 (PCR) (NotDetected) Coronavirus 229E (PCR) (NotDetected) Coronavirus NL63 (PCR) (NotDetected) Human Metapneumovir PCR (NotDetected) Influenza Type A (PCR) (Neg) Influenza Type B (PCR) (Neg) M. pneumoniae (PCR) (NotDetected) Parainfluenza 1 (PCR) (NotDetected) Parainfluenza 2 (PCR) (NotDetected) Parainfluenza 3 (PCR) (NotDetected) Parainfluenza 4 (PCR) (NotDetected) RSV (PCR) (NotDetected) Entero/Rhino (PCR) (NotDetected) 07/28/19 07/28/19 07/28/19 Range/Units 15:59 15:59 17:53 WBC (4.8-10.8) K/uL RBC (4.2-5.4) M/uL Hgb (12.0-16.0) g/dL Hct (37-47) % MCV (80-100) fL MCH (25-34) pg MCHC (32-36) g/dL RDW Std Deviation (36.4-46.3) fL RDW Coeff of Dylan (11.5-14.5) % Plt Count (130-400) K/uL MPV (7.4-10.4) fL Immature Gran % (Auto) % Neut % (Auto) % Lymph % (Auto) % Imperial % (Auto) % Eos % (Auto) % Baso % (Auto) % Immature Gran # (Auto) (0.00-0.02) K/uL Neut # (Auto) (1.4-6.5) K/uL Lymph # (Auto) (1.2-3.4) K/uL Imperial # (Auto) (0.11-0.59) K/uL Eos # (Auto) (0-0.5) K/uL Baso # (Auto) (0-0.2) K/uL ESR (0-21) mm/hr PT (9.0-12.0) Seconds INR (0.9-1.1) APTT (21.0-31.0) Seconds PTT Ratio D-Dimer (0-500) ug/L FEU VBG pH (7.36-7.41) VBG pCO2 (38-50) mmHg VBG pO2 mmHg VBG HCO3 mmol/L VBG O2 Saturation % VBG Base Excess mEq/L Barometric Pressure mm/Hg Sodium (136-145) mmol/L Potassium (3.5-5.1) mmol/L Chloride (98-107) mmol/L Carbon Dioxide (21-32) mmol/L Anion Gap (3-11) BUN (7-18) mg/dl Creatinine (0.6-1.2) mg/dl Est Cr Clr Drug Dosing ml/min Est GFR ( Amer) Est GFR (Non-Af Amer) BUN/Creatinine Ratio (10-20) Glucose (70-99) mg/dl Lactate 2.9 H* (0.4-2.0) mmol/L Calcium (8.5-10.1) mg/dl Magnesium (1.8-2.4) mg/dl Ferritin (8-388) ng/ml Total Bilirubin (0.2-1) mg/dl AST (15-37) U/L ALT (12-78) U/L Alkaline Phosphatase (45-117) U/L Lactate Dehydrogenase (84-246) U/L Total Creatine Kinase (26-192) U/L Troponin I (0-0.045) ng/ml C-Reactive Protein (0-0.29) mg/dl Total Protein (6.4-8.2) gm/dl Albumin (3.4-5.0) gm/dl Globulin (2.5-4.0) gm/dl Albumin/Globulin Ratio (0.9-2) Procalcitonin (0-0.5) ng/ml HCG, Qual (Negative) Adenovirus (PCR) Not Detected (NotDetected) B. pertussis DNA (PCR) Not Detected (NotDetected) B.parapertussis DNA PCR Not Detected (NotDetected) C. pneumoniae DNA (PCR) Not Detected (NotDetected) Coronavirus OC43 (PCR) Not Detected (NotDetected) Coronavirus HKU1 (PCR) Not Detected (NotDetected) Coronavirus 229E (PCR) Not Detected (NotDetected) Coronavirus NL63 (PCR) Not Detected (NotDetected) Human Metapneumovir PCR Not Detected (NotDetected) Influenza Type A (PCR) Neg for Influ A Not Detected (Neg) Influenza Type B (PCR) Neg for Influ B Not Detected (Neg) M. pneumoniae (PCR) Not Detected (NotDetected) Parainfluenza 1 (PCR) Not Detected (NotDetected) Parainfluenza 2 (PCR) Not Detected (NotDetected) Parainfluenza 3 (PCR) Not Detected (NotDetected) Parainfluenza 4 (PCR) Not Detected (NotDetected) RSV (PCR) Not Detected (NotDetected) Entero/Rhino (PCR) Not Detected (NotDetected) Administered Medications Discontinued Medications Albuterol (Duoneb) 3 ml NEB NOW STA Stop: 07/28/19 15:29 Last Admin: 07/28/19 16:10 Dose: 3 ml Documented by: [id number] Fentanyl Citrate (Fentanyl Citrate) 25 mcg IV NOW STA Stop: 07/28/19 15:25 Last Admin: 07/28/19 15:38 Dose: 25 mcg Documented by: [id number] Magnesium Sulfate/Dextrose (Magnesium Sulfate / D5w) 1 gm in 100 mls @ 100 mls/hr IV ONE ONE Stop: 07/28/19 18:37 Last Admin: 07/28/19 17:59 Dose: 100 mls/hr Documented by: [id number] Ketorolac Tromethamine (Toradol) 15 mg IV NOW STA Stop: 07/28/19 17:39 Last Admin: 07/28/19 17:59 Dose: 15 mg Documented by: [id number] Ondansetron HCl (Zofran) Confirm Administered Dose 4 mg .ROUTE .STK-MED ONE Stop: 07/28/19 15:49 Last Admin: 07/28/19 15:50 Dose: 4 mg Documented by: [id number] Ondansetron HCl (Zofran) 4 mg IV NOW STA Stop: 07/28/19 16:33 Last Admin: 07/28/19 16:36 Dose: Not Given Documented by: [id number] Discharge Plan Visit Data Chief Complaint: Shortness of Breath/Dyspnea Stated Complaint: SOB ED Provider: Ramses Monzon Discharge Problem: Acute dyspnea, Headache, Viral syndrome, Hypomagnesemia Patient Disposition: Being Evaluated by Hospitalist Forms Stand Alone Forms: [facility] Prescriptions Prescriptions: No Action acetaminophen [Tylenol] 325 mg Tablet 650 mg PO QID PRN (Reason: Pain) RF: 0 bupropion HCl 150 mg tablet extended release 24 hr 150 mg PO QAM RF: 0 Vyvanse 70 mg capsule 70 mg PO QAM RF: 0 multivitamin Tablet 1 tab PO QAM RF: 0 Referrals Referrals: Ema Green DO [Primary Care Provider] - Discharge Problem: Headache Qualifiers: Headache type: unspecified Headache chronicity pattern: acute headache Intractability: intractable Qualified Code(s): R51 - Headache
[2019-07-28] MEDS ORDERED: ONDANSETRON INJ 2 MG/ML 2 ML VIAL ONE (15:48)
[2019-07-28 15:51] LABS: Basophils # (auto) 0.03 K/uL (0-0.2); Basophils % (auto) 0.3 %; Eosinophils # (auto) 0.12 K/uL (0-0.5); Eosinophils % (auto) 1.4 %; Hematocrit (blood only) 40.9 % (37-47); Hemoglobin 14.8 g/dL (12.0-16.0); Immature Granulocytes # (auto) 0.01 K/uL (0.00-0.02); Immature Granulocytes % (auto) 0.1 %; Lymphocytes % (auto) 41.8 %; Mean Corpuscular Hemoglobin 30.8 pg (25-34); Mean Corpuscular Hgb Conc 36.2 g/dL (32-36); Mean Platelet Volume 10.3 fL (7.4-10.4); Monocytes # (auto) 0.42 K/uL (0.11-0.59); Monocytes % (auto) 4.7 %; Neutrophils # (auto) 4.58 K/uL (1.4-6.5); Neutrophils % (auto) 51.7 %; Platelet Count 256 K/uL (130-400); RDW Coefficient of Variation 12.3 % (11.5-14.5); RDW Standard Deviation 38.2 fL (36.4-46.3); Red Blood Count 4.81 M/uL (4.2-5.4); White Blood Count 8.86 K/uL (4.8-10.8)
[2019-07-28 15:55] LABS: Base Excess VBG -2.2 mEq/L; Oxygen Saturation VBG 87.5 %; pH VBG 7.52 (7.36-7.41)
[2019-07-28 16:06] LABS: D Dimer 250 ug/L FEU (0-500); Partial Thromboplastin Ratio 0.9; Partial Thromboplastin Time 25.1 Seconds (21.0-31.0); Prothrombin Time 10.3 Seconds (9.0-12.0)
--- NOTE | 2019-07-28 16:07 | XRay Report ---
XR chest 1V portable CLINICAL HISTORY: Dyspnea dyspnea COMPARISON STUDY: 05/03/2019 FINDINGS: The bones soft tissues and hemidiaphragms are normal. The cardiomediastinal silhouette is n ormal. The lungs are clear. The pulmonary vasculature is normal. IMPRESSION: Negative chest. ACT 112: Negative or not required by law. The above report was generated using voice recognition software. It may contain grammatical, syntax or spelling errors. Electronically signed by: Mingo Holland M.D. 07/28/2019 4:06 PM
[2019-07-28 16:11] LABS: Pregnancy Test, Serum Negative (Negative)
[2019-07-28 16:12] LABS: Alanine Aminotransferase 77 U/L (12-78); Albumin Level 3.7 gm/dl (3.4-5.0); Aspartate Aminotransferase 21 U/L (15-37); BUN Creatinine Ratio 20.7 (10-20); Blood Urea Nitrogen 18 mg/dl (7-18); Calcium 9.6 mg/dl (8.5-10.1); Carbon Dioxide 22 mmol/L (21-32); Chloride 109 mmol/L (98-107); Creatinine Clr Calc Pharmacy 117.4 ml/min; Est GFR (Non-African American) 86.3; Glucose 100 mg/dl (70-99); Magnesium 1.7 mg/dl (1.8-2.4); Potassium 3.6 mmol/L (3.5-5.1); Sodium 139 mmol/L (136-145)
[2019-07-28 16:17] LABS: Albumin Globulin Ratio 0.9 (0.9-2); Alkaline Phosphatase 77 U/L (45-117); Bilirubin,Total 0.3 mg/dl (0.2-1); Globulin 4.2 gm/dl (2.5-4.0); Total Protein 7.9 gm/dl (6.4-8.2); Troponin I < 0.015 ng/ml (0-0.045)
[2019-07-28] MEDS ORDERED: ONDANSETRON INJ 2 MG/ML 2 ML VIAL IV STA (16:32)
[2019-07-28 16:34] LABS: Procalcitonin < 0.05 ng/ml (0-0.5)
[2019-07-28 16:40] LABS: Influenza A virus by PCR Neg for Influ A (Neg); Influenza B virus by PCR Neg for Influ B (Neg)
--- NOTE | 2019-07-28 16:42 | Electrocardiogram Report ---
Test Reason : Blood Pressure : / mmHG Vent. Rate : 106 BPM Atrial Rate : 106 BPM P-R Int : 180 ms QRS Dur : 092 ms QT Int : 350 ms P-R-T Axes : 039 -14 041 degrees QTc Int : 464 ms Sinus tachycardia Cannot rule out Inferior infarct , age undetermined Abnormal ECG When compared with ECG of 16-JUL-2015 16:34, Minimal criteria for Inferior infarct are now Present Confirmed by Jaspreet Marie ([id number]) on 07/28/2019 4:42:19 PM Referred By: Confirmed By:Jaspreet Marie
[2019-07-28 17:07] LABS: Adenovirus PCR Not Detected (NotDetected); Bordetella parapertussis PCR Not Detected (NotDetected); Bordetella pertussis PCR Not Detected (NotDetected); Chlamydia pneumoniae PCR Not Detected (NotDetected); Coronavirus 229E PCR Not Detected (NotDetected); Coronavirus HKU1 PCR Not Detected (NotDetected); Coronavirus NL63 PCR Not Detected (NotDetected); Coronavirus OC43PCR Not Detected (NotDetected); Human Metapneumovirus PCR Not Detected (NotDetected); Influenza A PCR Not Detected (NotDetected); Influenza B PCR Not Detected (NotDetected); Parainfluenza Virus 1 PCR Not Detected (NotDetected); Parainfluenza Virus 2 PCR Not Detected (NotDetected); Parainfluenza Virus 3 PCR Not Detected (NotDetected); Parainfluenza Virus 4 PCR Not Detected (NotDetected); Respiratory Syncytial VirusPCR Not Detected (NotDetected); Rhinovirus/Enterovirus PCR Not Detected (NotDetected)
[2019-07-28 17:08] LABS: Mycoplasma pneumoniae PCR Not Detected (NotDetected)
[2019-07-28] MEDS ORDERED: MAGNESIUM SULFATE / D5W 1 GM/100 ML BAG IV ONE (17:38)
[2019-07-28] MEDS ORDERED: KETOROLAC TROMETHAMINE 15 MG/ML VIAL IV STA (17:38)
[2019-07-28 18:30] LABS: C Reactive Protein 0.72 mg/dl (0-0.29); Ferritin 73.2 ng/ml (8-388)
[2019-07-28] MEDS ORDERED: PIPERACILLIN/TAZOBACTAM 3.375 GM in DEXTROSE 5% 100 ML/100 ML BAG IV STA (18:30)
[2019-07-28] MEDS ORDERED: PIPERACILL/TAZOBAC CONSULT ACTIVE PRN (18:30)
[2019-07-28] MEDS ORDERED: SODIUM CHLORIDE 0.9% 1000ML 1,000 ML IV ONE (18:39)
--- NOTE | 2019-07-28 18:43 | History & Physical Report ---
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 Denies leg swelling. denies personal history of cardiac disease or strokes but does have FAMILY HISTORY: of cardiac disease and strokes. no abdomen pain. no vomiting. no changes in urination or with bowel movements. denies working in hospital rooms of any suspected COVID-19 workup up patients. she went to outpatient clinic to obtain COVID-19 testing with results pending but came to the hospital because of shortness of breath. Patient did not have hypoxia but because of tachypnea or labored breathing, emergency room physician started trial of BIPAP. When Emergency room doctor made decision to have patient go to hospitalist team under observation status, hospitalist saw patient on room air and she was able to cooperate on physical exam and gave her medical history without acute distress -D-dimer negative, procalcitonin negative, no infiltrates on admission CXR. normal CK, normal LDH -monitor on telemetry in airborne/contact isolation as patient as pending outpatient COVID lab results Elevated Lactic acid -ED lactic acid of 2.5 and then to 2.9. 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 Denies leg swelling. denies personal history of cardiac disease or strokes but does have FAMILY HISTORY: of cardiac disease and strokes. no abdomen pain. no vomiting. no changes in urination or with bowel movements. denies working in hospital rooms of any suspected COVID-19 workup up patients. she went to outpatient clinic to obtain COVID-19 testing with results pending but came to the hospital because of shortness of breath. Patient did not have hypoxia but because of tachypnea or labored breathing, emergency room physician started trial of BIPAP. When Emergency room doctor made decision to have patient go to hospitalist team under observation status, hospitalist saw patient on room air and she was able to cooperate on physical exam and gave her medical history without acute distress Family History: cardiac disease and strokes Primary Care Provider: Ema Green DO Allergies Allergy/AdvReac Type Severity Reaction Status Date / Time Penicillins Allergy Severe ANAPHYLAXIS Verified 07/28/19 16:52 cefaclor Allergy Intermediate Hives,nausea,vomiting Verified 07/28/19 16:52 diarrhea codeine Allergy Unknown FULL BODY Verified 07/28/19 16:52 ITCHING promethazine Allergy Unknown TORTICOLIS Verified 07/28/19 16:52 Home Medications Home Medications Medication Instructions Recorded Confirmed Type acetaminophen [Tylenol] 650 mg PO QID PRN 05/02/19 07/28/19 History bupropion HCl 150 mg PO QAM 05/02/19 07/28/19 History lisdexamfetamine [Vyvanse] 70 mg PO QAM 05/02/19 07/28/19 History multivitamin 1 tab PO QAM 07/28/19 07/28/19 History Past Med/Surg History Social History Preferred Language: [place]ib[place]ian Communication Ability: Effective Visual Impairment: No Limitations Hearing Ability: Normal 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 Beliefs That Will Affect Care: None Current Living Situation: Family Feels Safe at Home: Yes Smoking Status: Never smoker Second Hand Exposure: No ; Hx Alcohol Use: Yes Alcohol type: wine Hx Substance Use: No Review of Systems Review of Systems: All systems reviewed & are unremarkable except as noted in HPI & below Physical Exam Constitutional: + obese Eyes: PERRL, conjunctivae normal, anicteric sclerae EOM intact bilaterally ENMT: external ear and nose normal, oropharynx normal Neck: normal visual inspection Respiratory: normal respiratory effort, lungs clear to auscultation Cardiovascular: Rate/Rhythm: regular rate and regular rhythm Gastrointestinal (Abdomen): normal bowel sounds, soft, nontender, no hepatosplenomegaly Musculoskeletal: Head/Neck/Chest: normocephalic Neurologic: PERRL, EOMI, accommodation nl, no face palsy, no dysarthria CN's II-XI intact bilaterally Psychiatric: A+Ox3, euthymic affect Results & Data Results & Data ([facility]) Vital Signs (Past 12 Hours) Vital Signs Temp Pulse Pulse Resp BP Pulse Ox 07/28/19 18:20 99 H 24 98 07/28/19 18:15 97 H 32 H 145/104 H 98 07/28/19 18:10 90 24 98 07/28/19 18:01 87 28 H 139/98 100 07/28/19 18:00 91 H 18 99 07/28/19 17:50 94 H 38 H 100 07/28/19 17:45 94 H 22 158/120 H 98 07/28/19 17:40 90 20 99 07/28/19 17:30 91 H 31 H 152/116 H 95 07/28/19 17:20 90 25 H 99 07/28/19 17:15 100 H 22 140/103 H 99 07/28/19 17:10 98 H 24 100 07/28/19 17:00 94 H 20 149/89 H 100 07/28/19 16:50 99 H 23 100 07/28/19 16:45 89 23 143/97 H 100 07/28/19 16:40 86 26 H 100 07/28/19 16:30 94 H 22 134/96 100 07/28/19 16:23 93 H 23 140/93 100 07/28/19 16:20 91 H 19 100 07/28/19 16:15 80 28 H 99 07/28/19 16:10 90 17 100 07/28/19 16:00 88 36 H 100 07/28/19 15:50 97 H 37 H 98 07/28/19 15:40 101 H 36 H 98 07/28/19 15:39 97 H 33 H 99 07/28/19 15:17 104 H 40 H 138/106 H 98 07/28/19 15:11 99 07/28/19 15:03 37.1 C 111 H 32 H 172/118 H 99 Code Status & VTE Plan VTE Prophylaxis Plan VTE Prophylaxis will be ordered: Yes
[2019-07-28] MEDS ORDERED: PIPERACILLIN/TAZOBACTAM 4.5 GM/120ML D5W ONE (19:01)
[2019-07-28] MEDS ORDERED: ALBUTEROL 0.5% NEB SOLN 2.5 MG/0.5 ML VIAL NEB PRN (20:00)
[2019-07-28 20:06] VITALS: BP 157/98; TEMP 98.2; O2SAT 100
[2019-07-28] MEDS ORDERED: LEVOFLOXACIN CONSULT ACTIVE PRN (20:18)
[2019-07-28] MEDS ORDERED: LEVOFLOXACIN/D5W 750 MG/150 ML BAG IV SCH (21:00)
[2019-07-28] MEDS ORDERED: ACETAMINOPHEN 325 MG TAB PO STA (21:27)
--- NOTE | 2019-07-28 23:45 | Hospitalist Progress Note ---
Date of Service July 28, 2019 Assessment & Plan Admission and Anticipated Discharge Date Admission Date: July 28, 2019 Subjective Patient signed out AMA. Explained to the patient the risk of symptoms becoming worse, sepsis/septic shock, ICU admission or even but patient declined to stay in the hospital. Agreed to come back if symptoms worsens. Results & Data Results & Data ([facility]) Vital Signs (Past 12 Hours) Vital Signs Temp Pulse Pulse Resp BP BP Pulse Ox 07/28/19 22:05 96 H 07/28/19 21:39 89 24 100 07/28/19 20:05 36.8 C 90 22 157/98 H 100 07/28/19 19:42 82 16 150/111 H 98 07/28/19 18:40 93 H 26 H 95 07/28/19 18:30 98 H 23 128/91 07/28/19 18:20 99 H 24 98 07/28/19 18:15 97 H 32 H 145/104 H 98 07/28/19 18:10 90 24 98 07/28/19 18:01 87 28 H 139/98 100 07/28/19 18:00 91 H 18 99 07/28/19 17:50 94 H 38 H 100 07/28/19 17:45 94 H 22 158/120 H 98 07/28/19 17:40 90 20 99 07/28/19 17:30 91 H 31 H 152/116 H 95 07/28/19 17:20 90 25 H 99 07/28/19 17:15 100 H 22 140/103 H 99 07/28/19 17:10 98 H 24 100 07/28/19 17:00 94 H 20 149/89 H 100 07/28/19 16:50 99 H 23 100 07/28/19 16:45 89 23 143/97 H 100 07/28/19 16:40 86 26 H 100 07/28/19 16:30 94 H 22 134/96 100 07/28/19 16:23 93 H 23 140/93 100 07/28/19 16:20 91 H 19 100 07/28/19 16:15 80 28 H 99 07/28/19 16:10 90 17 100 07/28/19 16:00 88 36 H 100 07/28/19 15:50 97 H 37 H 98 07/28/19 15:40 101 H 36 H 98 07/28/19 15:39 97 H 33 H 99 07/28/19 15:17 104 H 40 H 138/106 H 98 07/28/19 15:11 99 07/28/19 15:03 37.1 C 111 H 32 H 172/118 H 99
[2019-07-29 00:44] VITALS: PULSE 89
[2019-07-29] MEDS ORDERED: BuPROPion XL 150 MG TABCR PO SCH (09:00)
--- NOTE | 2019-07-30 06:27 | Discharge Summary ---
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 Denies leg swelling. denies personal history of cardiac disease or strokes but does have FAMILY HISTORY: of cardiac disease and strokes. no abdomen pain. no vomiting. no changes in urination or with bowel movements. denies working in hospital rooms of any suspected COVID-19 workup up patients. she went to outpatient clinic to obtain COVID-19 testing with results pending but came to the hospital because of shortness of breath. Patient did not have hypoxia but because of tachypnea or labored breathing, emergency room physician started trial of BIPAP. When Emergency room doctor made decision to have patient go to hospitalist team under observation status, hospitalist saw patient on room air and she was able to cooperate on physical exam and gave her medical history without acute distress Family History: cardiac disease and strokes Admission Exam Per Admitting Provider Constitutional: + obese Eyes: PERRL, conjunctivae normal, anicteric sclerae EOM intact bilaterally ENMT: external ear and nose normal, oropharynx normal Neck: normal visual inspection Respiratory: normal respiratory effort, lungs clear to auscultation Cardiovascular: Rate/Rhythm: regular rate and regular rhythm Gastrointestinal (Abdomen): normal bowel sounds, soft, nontender, no hepatosplenomegaly Musculoskeletal: Head/Neck/Chest: normocephalic Neurologic: PERRL, EOMI, accommodation nl, no face palsy, no dysarthria CN's II-XI intact bilaterally Psychiatric: A+Ox3, euthymic affect Principal Diagnosis Acute Dyspnea Fever Elevated Lactic Acid Attention Deficit Disorder Discharge Data Allergies Allergy/AdvReac Type Severity Reaction Status Date / Time Penicillins Allergy Severe ANAPHYLAXIS Verified 07/28/19 16:52 cefaclor Allergy Intermediate Hives,nausea,vomiting Verified 07/28/19 16:52 diarrhea codeine Allergy Unknown FULL BODY Verified 07/28/19 16:52 ITCHING promethazine Allergy Unknown TORTICOLIS Verified 07/28/19 16:52 levofloxacin [From Levaquin] Allergy Hives Verified 07/28/19 22:19 Consultations 07/28/19 18:04 ED Decision to Admit Stat Hospital Course (1) Acute dyspnea: Admission H and P "Acute Dyspnea -38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 Denies leg swelling. denies personal history of cardiac disease or strokes but does have FAMILY HISTORY: of cardiac disease and strokes. no abdomen pain. no vomiting. no changes in urination or with bowel movements. denies working in hospital rooms of any suspected COVID-19 workup up patients. she went to outpatient clinic to obtain COVID-19 testing with results pending but came to the hospital because of shortness of breath. Patient did not have hypoxia but because of tachypnea or labored breathing, emergency room physician started trial of BIPAP. When Emergency room doctor made decision to have patient go to hospitalist team under observation status, hospitalist saw patient on room air and she was able to cooperate on physical exam and gave her medical history without acute distress -D-dimer negative, procalcitonin negative, no infiltrates on admission CXR. normal CK, normal LDH -monitor on telemetry in airborne/contact isolation as patient as pending outpatient COVID lab results Elevated Lactic acid -ED lactic acid of 2.5 and then to 2.9. Hospitalist ordered 1 liter of IV fluids ands plans to repeat lactic acid with ABG Fevers -given that patient has reported symptoms of fevers, will start Zosyn empirically while awaiting results of blood cultures -does have elevated ESR of 43 suggesting some inflammatory process -no dysuria symptoms but there is bacteria in urine, await urine culture results -await outpatient COVID test results Attention Deficit Disorder -on lisdexamfetamine at home, also on bupropion, can continue DVT ppx SCDs Full Code" PATIENT THEN SIGNED OUT AGAINST MEDICAL ADVICE (AMA) at night time of 07/28/2019 when under night time hospitalist Dr. Langley's shift as medical doctor. Dr Langley noted that at the time patient signed out the patient's COVID-19 screening test from [facility] laboratory returned as negative for COVID-19 07/29/2019 Patient was notified by telephone of outpatient COVID-19 test as negative by myself, , but she expressed concerned that the outpatient test result could be false negative because she thought the swab was not put in place long enough at outpatient testing center compared to nasal swab done on 07/28/2019 emergency room visit at [facility]. Patient's 07/28/2019 specimen sample sent for ER visit for which other respiratory virus were run was still present in microbiology lab. Hospitalist notified micro lab to send out this sample for COVID-19 testing 07/30/2019: The send out test results from 07/28/2019 are not available yet as of the AM of 07/30/2019 and the blood cultures from 07/28/2019 with no growth to date Total Time Total Time Spent Total Time Spent (In Minutes): 10 minutes Total Time Includes: Communication With Other Providers and Other Discharge Plan Discharge Items Patient Disposition: Against Medical Advice Reason For Visit: FEVER,CHILLS,SHORTNESS OF BREATH,HAD COVID-19 TEST Discharge Diagnosis: sob Activity: As commented below Activity Comment: signed out ama Non-emergency contact: Primary Care Provider Call non-emergency contact if: you have any medication questions Follow-up/Referrals: Ema Green, [Primary Care Provider] - Diet: Regular Addtl Attending Provider Instructions: signed out ama Pending Studies at Discharge: Yes Studies:: covid 19 test results Stand-Alone Forms: [facility], Smoking Cessation Medications and DC Order Prescriptions: Continued bupropion HCl 150 mg tablet extended release 24 hr 150 mg PO QAM RF: 0 Vyvanse 70 mg capsule 70 mg PO QAM RF: 0 multivitamin Tablet 1 tab PO QAM RF: 0 Discontinued acetaminophen [Tylenol] 325 mg Tablet 650 mg PO QID PRN (Reason: Pain) RF: 0 Discharge Orders: Left Against Medical Advice (Routine); Ordered 07/29/19 Ordered By: Sd Langley Admission Data Admit Date/Time: 07/28/19 18:31 Attending Provider: Elijah Conti Admit Provider: Elijah Conti Primary Care Provider: Ema Green Other Providers: Elijah Conti Other Interventions: Discharge Summary Assessment (RN) Last Done: 07/29/19 00:42 DC Date/Time DO NOT enter until pt leaves facility: 07/28/19 23:40
[2019-07-31 04:19] LABS: SARS CoV2 RNA (COVID-19) NOT DETECTED (NOT DETECTED)
== END 2019-07-28 23:40 | disposition left against medical advice (07) ==
LOC: ED 15:00 → 2N 15:00

== ENCOUNTER 2020-05-22 16:48 | Observation (INO) ==
[2020-05-22] MEDS ORDERED: HYDROmorphone INJ 0.5 MG/0.5 ML SYR IV STA ×3 (17:10→19:38)
[2020-05-22] MEDS ORDERED: ONDANSETRON INJ 2 MG/ML 2 ML VIAL IV STA ×2 (17:10→19:58)
[2020-05-22] MEDS ORDERED: KETOROLAC TROMETHAMINE 15 MG/ML VIAL IV ONE (17:10)
[2020-05-22] MEDS ORDERED: SODIUM CHLORIDE 0.9% 1000ML 2,000 ML IV ONE (17:11)
[2020-05-22 17:20] LABS: Basophils # (auto) 0.02 K/uL (0-0.2); Basophils % (auto) 0.2 %; Eosinophils # (auto) 0.11 K/uL (0-0.5); Hemoglobin 15.2 g/dL (12.0-16.0); Immature Granulocytes # (auto) 0.02 K/uL (0.00-0.02); Immature Granulocytes % (auto) 0.2 %; Lymphocytes # (auto) 3.38 K/uL (1.2-3.4); Mean Corpuscular Hemoglobin 30.4 pg (25-34); Mean Corpuscular Hgb Conc 33.8 g/dL (32-36); Mean Platelet Volume 10.9 fL (7.4-10.4); Monocytes # (auto) 0.52 K/uL (0.11-0.59); Monocytes % (auto) 4.8 %; Neutrophils # (auto) 6.86 K/uL (1.4-6.5); Neutrophils % (auto) 62.8 %; Platelet Count 240 K/uL (130-400); RDW Coefficient of Variation 13.2 % (11.5-14.5); RDW Standard Deviation 42.5 fL (36.4-46.3); White Blood Count 10.91 K/uL (4.8-10.8)
--- NOTE | 2020-05-22 17:28 | Emergency Department Note ---
Impression & Plan Renal colic, Hydronephrosis, Acute flank pain ED Provider Note NAME: LENARD BAGLEY AGE: 39 SEX: F : 1980 ARRIVES VIA: Walk-In INFORMANT: Patient ED PROVIDER(S): Bob Wood DO CHIEF COMPLAINT: Flank left flank pain HPI: Patient is a 39-year-old female who presents the ER for left flank pain. This started about 130 with pain in the left flank. She notes its severe sharp and stabbing. Denies any nausea or vomiting. No dysuria, urgency, or frequ ency. She has never had a kidney stone before in the past. Previous history of appendectomy, cholecystectomy and gastric sleeve surgery which was performed about 6 months ago. Her tubes are also tied. She notes that she just cannot get comfortable. Pain is a 9 out of 10. ROS: See above HPI for pertinent positives & negatives. A total of 10 systems reviewed and were otherwise negative. PAST MEDICAL HISTORY:See Below PAST SURGICAL HISTORY:See Below FAMILY HISTORY:See Below SOCIAL HISTORY:See Below HOME MEDICATIONS:See Below ALLERGIES:See Below VITALS:See Below PHYSICAL EXAMINATION: GENERAL: Sitting up in bed, alert, moderate distress holding left flank EYE EXAM: normal conjunctiva. OROPHARYNX: no exudate, no erythema, lips, buccal mucosa, and tongue normal and mucous membranes are moist LUNGS: Clear to auscultation. Normal chest wall mechanics HEART: no murmurs, S1 normal and S2 normal ABDOMEN: abdomen soft, non-tender, normo-active bowel sounds, no masses, no rebound or guarding. BACK: Back is symmetrical on inspection and there is no deformity, no midline tenderness, no CVA tenderness. UPPER EXTREMITIES: upper extremities are grossly normal. LOWER EXTREMITIES: No pitting edema. NEURO EXAM: Normal sensorium, cranial nerves II-XII grossly intact, normal speech, no gross weakness of arms, no gross weakness of legs. MEDICAL DECISION MAKING: Patient is a 39-year-old female who presents the ER for severe left flank pain. IV was established blood was obtained. She had a mild leukocytosis 11,000. No significant anemia. BMP with LFTs bilirubin and lipase was unremarkable. UA was contaminated. CT abdomen pelvis was performed and showed proximal left renal stone. She was given 3 doses of IV Dilaudid. She given IV Toradol. She continued to have persistent pain was updated bedside discussed with hospitalist for further observation. Triage Nursing notes reviewed. Limited review of prior medical records performed Vital Signs: reviewed and remarkable for no significant abnormalities Differential diagnosis: Differential diagnoses includes but is not limited to gastritis, peptic ulcer disease, GERD, gallbladder disease, pancreatitis, small bowel obstruction, acute coronary syndrome, pericarditis, ischemic bowel, irritable bowel disease, irritable bowel syndrome, appendicitis, diverticulitis, malignancy, hernia, urinary tract infection, torsion, /ectopic (if female), perforation, trauma, infectious. ER treatment provided: See below Diagnostics interpreted by me: ECG: none Cardiac Monitoring: An order was placed for continuous cardiac monitoring. The monitor shows a rate of 68 with sinus rhythm. Laboratory studies: As stated above and show below. Imaging studies: CT abdomen pelvis shows left renal stone with hydronephrosis Consultation(s): Discussed with hospitalist for further evaluation Procedures: none Critical Care: None Past Med/Surg History Medical History (Updated 05/22/20 @ 20:16 by Bob Wood DO) ADHD Depression Insulin controlled gestational diabetes mellitus during Kidney stone Maternal care for (suspected) abnormality and damage, unspecified, fetus 1 Mild pre-eclampsia in third trimester Recurrent UTI Urinary retention Surgical History (Updated 12/29/19 @ 00:03 by Shanna Fox) H/O tubal ligation History of appendectomy History of cholecystectomy Hx of section Family History Other Cancer Diabetes Hypertension Social History Smoking Status: Never smoker Second Hand Exposure: No; Hx Alcohol Use: No Hx Substance Use: No Preferred Language: Wolof Communication Ability: Effective Visual Impairment: No Limitations Hearing Ability: Normal Instructor Industrial Design Required: No Beliefs That Will Affect Care: None Current Living Situation: Family Feels Safe at Home: Yes Assistive Devices: Contacts Allergies Allergies Allergy/AdvReac Type Severity Reaction Status Date / Time Penicillins Allergy Severe ANAPHYLAXIS Verified 05/22/20 20:14 cefaclor Allergy Intermediate Hives,nausea,vomiting Verified 05/22/20 20:14 diarrhea codeine Allergy Unknown FULL BODY Verified 05/22/20 20:14 ITCHING promethazine Allergy Unknown TORTICOLIS Verified 05/22/20 20:14 levofloxacin [From Levaquin] Allergy Hives Verified 05/22/20 20:14 Home Meds Home Medications Medication Instructions Recorded Confirmed acetaminophen [Tylenol] 650 mg PO QID PRN 05/02/19 07/28/19 bupropion HCl 150 mg PO QAM 05/02/19 07/28/19 lisdexamfetamine [Vyvanse] 70 mg PO QAM 05/02/19 07/28/19 multivitamin 1 tab PO QAM 07/28/19 07/28/19 Results & Data (ED) Vital Signs Vital Signs - 24 hr 05/22/20 16:49 05/22/20 17:48 05/22/20 18:49 Temperature 36.8 C Temperature Source Temporal Artery Scan Pulse Rate 102 H Pulse Rate [Left Finger] 66 Respiratory Rate 18 18 Blood Pressure 145/99 H Blood Pressure [Left Arm] 135/98 Blood Pressure Mean 114 Blood Pressure Mean [Left Arm] 110 Blood Pressure Position Sitting Pulse Oximetry 100 98 99 Oxygen Delivery Method Room Air Room Air Room Air Sepsis Recent Fever Within 48 Hours No Sepsis New/Unexplained Change in Mental Status N/A Sepsis Action Taken by Nursing No Action Required Laboratory Data Result diagrams: 05/22/20 16:58 05/22/20 16:58 Lab Results 05/22/20 05/22/20 05/22/20 Range/Units 16:58 16:58 17:35 WBC 10.91 H (4.8-10.8) K/uL RBC 5.00 (4.2-5.4) M/uL Hgb 15.2 (12.0-16.0) g/dL Hct 45.0 (37-47) % MCV 90.0 (80-100) fL MCH 30.4 (25-34) pg MCHC 33.8 (32-36) g/dL RDW Std Deviation 42.5 (36.4-46.3) fL RDW Coeff of Dylan 13.2 (11.5-14.5) % Plt Count 240 (130-400) K/uL MPV 10.9 H (7.4-10.4) fL Immature Gran % (Auto) 0.2 % Neut % (Auto) 62.8 % Lymph % (Auto) 31.0 % [place] % (Auto) 4.8 % Eos % (Auto) 1.0 % Baso % (Auto) 0.2 % Neut # (Auto) 6.86 H (1.4-6.5) K/uL Lymph # (Auto) 3.38 (1.2-3.4) K/uL [place] # (Auto) 0.52 (0.11-0.59) K/uL Eos # (Auto) 0.11 (0-0.5) K/uL Baso # (Auto) 0.02 (0-0.2) K/uL Immature Gran # (Auto) 0.02 (0.00-0.02) K/uL Sodium 143 (136-145) mmol/L Potassium 4.1 (3.5-5.1) mmol/L Chloride 107 (98-107) mmol/L Carbon Dioxide 28 (21-32) mmol/L Anion Gap 8.0 (3-11) BUN 14 (7-18) mg/dl Creatinine 0.89 (0.6-1.2) mg/dl Est Cr Clr Drug Dosing 97.0 ml/min Est GFR ( Amer) 95.3 Est GFR (Non-Af Amer) 82.2 BUN/Creatinine Ratio 15.3 (10-20) Glucose 86 (70-99) mg/dl Calcium 10.1 (8.5-10.1) mg/dl Total Bilirubin 0.6 (0.2-1) mg/dl AST 17 (15-37) U/L ALT 40 (12-78) U/L Alkaline Phosphatase 104 (45-117) U/L Total Protein 7.9 (6.4-8.2) gm/dl Albumin 4.4 (3.4-5.0) gm/dl Globulin 3.5 (2.5-4.0) gm/dl Albumin/Globulin Ratio 1.2 (0.9-2) Lipase 91 (73-393) U/L Urine Color Dark Yellow Urine Appearance Turbid A (Clear) Urine pH 6.0 (4.5-7.5) Ur Specific [place] 1.028 (1.000-1.030) Urine Protein 2+ H (Negative) Urine Glucose (UA) Negative (Negative) Urine Ketones Trace H (Negative) Urine Blood 3+ H (Negative) Urine Nitrite Negative (Negative) Urine Bilirubin 1+ H (Negative) Urine Urobilinogen Negative (Negative) Ur Leukocyte Esterase 1+ H (Negative) Urine WBC (Auto) 10-30 H (0-5) /hpf Urine RBC (Auto) >30 H (0-4) /hpf U Hyaline Cast (Auto) 1-5 (0-5) /lpf U Epithel Cells (Auto) >30 H (0-5) /lpf Urine Bacteria (Auto) Negative (Negative) Calcium Oxalate Crystal Present A (None Prsent) Urine Mucus Present A (None Prsent) 05/22/20 Range/Units 19:15 WBC (4.8-10.8) K/uL RBC (4.2-5.4) M/uL Hgb (12.0-16.0) g/dL Hct (37-47) % MCV (80-100) fL MCH (25-34) pg MCHC (32-36) g/dL RDW Std Deviation (36.4-46.3) fL RDW Coeff of Dylan (11.5-14.5) % Plt Count (130-400) K/uL MPV (7.4-10.4) fL Immature Gran % (Auto) % Neut % (Auto) % Lymph % (Auto) % [place] % (Auto) % Eos % (Auto) % Baso % (Auto) % Neut # (Auto) (1.4-6.5) K/uL Lymph # (Auto) (1.2-3.4) K/uL [place] # (Auto) (0.11-0.59) K/uL Eos # (Auto) (0-0.5) K/uL Baso # (Auto) (0-0.2) K/uL Immature Gran # (Auto) (0.00-0.02) K/uL Sodium (136-145) mmol/L Potassium (3.5-5.1) mmol/L Chloride (98-107) mmol/L Carbon Dioxide (21-32) mmol/L Anion Gap (3-11) BUN (7-18) mg/dl Creatinine (0.6-1.2) mg/dl Est Cr Clr Drug Dosing ml/min Est GFR ( Amer) Est GFR (Non-Af Amer) BUN/Creatinine Ratio (10-20) Glucose (70-99) mg/dl Calcium (8.5-10.1) mg/dl Total Bilirubin (0.2-1) mg/dl AST (15-37) U/L ALT (12-78) U/L Alkaline Phosphatase (45-117) U/L Total Protein (6.4-8.2) gm/dl Albumin (3.4-5.0) gm/dl Globulin (2.5-4.0) gm/dl Albumin/Globulin Ratio (0.9-2) Lipase (73-393) U/L Urine Color Dark Yellow Urine Appearance Cloudy A (Clear) Urine pH 6.0 (4.5-7.5) Ur Specific [place] 1.025 (1.000-1.030) Urine Protein 1+ H (Negative) Urine Glucose (UA) Negative (Negative) Urine Ketones 1+ H (Negative) Urine Blood 3+ H (Negative) Urine Nitrite Negative (Negative) Urine Bilirubin 1+ H (Negative) Urine Urobilinogen Negative (Negative) Ur Leukocyte Esterase Trace H (Negative) Urine WBC (Auto) 5-10 H (0-5) /hpf Urine RBC (Auto) 10-30 H (0-4) /hpf U Hyaline Cast (Auto) 1-5 (0-5) /lpf U Epithel Cells (Auto) 20-30 H (0-5) /lpf Urine Bacteria (Auto) Negative (Negative) Calcium Oxalate Crystal Present A (None Prsent) Urine Mucus Present A (None Prsent) Administered Medications Discontinued Medications Hydromorphone HCl (Hydromorphone Inj 0.5 Mg/0.5 Ml Syr) 0.5 mg IV NOW STA Stop: 05/22/20 17:11 Last Admin: 05/22/20 17:34 Dose: 0.5 mg Documented by: [id number] Hydromorphone HCl (Hydromorphone Inj 0.5 Mg/0.5 Ml Syr) 0.5 mg IV NOW STA Stop: 05/22/20 18:30 Last Admin: 05/22/20 18:40 Dose: 0.5 mg Documented by: [id number] Hydromorphone HCl (Hydromorphone Inj 0.5 Mg/0.5 Ml Syr) 0.5 mg IV NOW STA Stop: 05/22/20 19:39 Last Admin: 05/22/20 19:41 Dose: 0.5 mg Documented by: [id number] Sodium Chloride (Nss 1000ml) 2,000 mls @ 999 mls/hr IV .Q2H1M ONE Stop: 05/22/20 19:11 Last Infusion: 05/22/20 18:58 Dose: 0 mls/hr Documented by: [id number] Admin: 05/22/20 17:34 Dose: 999 mls/hr Documented by: [id number] Ketorolac Tromethamine (Ketorolac Tromethamine 15 Mg/Ml Vial) 15 mg IV NOW ONE Stop: 05/22/20 17:11 Last Admin: 05/22/20 17:34 Dose: 15 mg Documented by: [id number] Ondansetron HCl (Ondansetron Inj 2 Mg/Ml 2 Ml Vial) 4 mg IV NOW STA Stop: 05/22/20 17:11 Last Admin: 05/22/20 17:34 Dose: 4 mg Documented by: [id number] Ondansetron HCl (Ondansetron Inj 2 Mg/Ml 2 Ml Vial) 4 mg IV NOW STA Stop: 05/22/20 19:59 Last Admin: 05/22/20 20:08 Dose: 4 mg Documented by: [id number] Discharge Plan Visit Data Chief Complaint: Kidney Stone Stated Complaint: Kidney stone ED Provider: Bob Wood Discharge Problem: Renal colic, Hydronephrosis, Acute flank pain Forms Stand Alone Forms: [employer] [facility] [employer] Prescriptions Prescriptions: No Action bupropion HCl 150 mg tablet extended release 24 hr 150 mg PO QAM RF: 0 multivitamin Tablet 1 tab PO QAM RF: 0 pantoprazole 40 mg tablet,delayed release (DR/EC) 40 mg PO QAM RF: 0 Vyvanse 60 mg capsule 60 mg PO QAM RF: 0 cholecalciferol (vitamin D3) [Vitamin D3] 25 mcg (1,000 unit) Capsule 25 mcg PO QAM RF: 0 Discharge Problem: Hydronephrosis Qualifiers: Hydronephrosis type: unspecified Qualified Code(s): N13.30 - Unspecified hydronephrosis
[2020-05-22 17:30] LABS: Albumin Level 4.4 gm/dl (3.4-5.0); BUN Creatinine Ratio 15.3 (10-20); Calcium 10.1 mg/dl (8.5-10.1); Est GFR (African American) 95.3; Est GFR (Non-African American) 82.2; Potassium 4.1 mmol/L (3.5-5.1)
[2020-05-22 17:33] LABS: Albumin Globulin Ratio 1.2 (0.9-2); Bilirubin,Total 0.6 mg/dl (0.2-1); Globulin 3.5 gm/dl (2.5-4.0); Total Protein 7.9 gm/dl (6.4-8.2)
--- NOTE | 2020-05-22 17:56 | CT Scan Report ---
CT SCAN OF THE ABDOMEN AND PELVIS WITHOUT CONTRAST CLINICAL HISTORY: Left flank pain COMPARISON STUDY: 05/02/2019 TECHNIQUE: CT scan of the abdomen and pelvis was performed from the lung bases to the proximal femurs . Images are reviewed in the axial, sagittal, and coronal planes. IV contrast was not administered fo r this examination. A dose lowering technique was utilized adhering to the principles of ALARA. CT DOSE: 752.82 mGy.cm FINDINGS: Lower chest: The heart is normal in size and configuration, without pericardial effusion. The lung ba ses and pleural spaces are clear. Liver: Borderline enlarged. No focal masses identified on this noncontrast study Gallbladder: Surgically absent Spleen: Normal in size and attenuation. Pancreas: Unremarkable. Adrenal glands: Unremarkable. Kidneys: There are multiple tiny bilateral renal calculi. There is a stable hyperdense 1 cm left isaias l lesion possibly representing a hyperdense cyst. There are 2 tangential proximal left ureteral calcu li measuring 4 mm in aggregate there is mild secondary fullness of the left renal collecting system. Bowel: Postsurgical changes involve the stomach. There are no transition zones to indicate bowel obst ruction. The appendix appears surgically absent. There is no acute diverticulitis. Peritoneum: There is no intraperitoneal free air or abdominal ascites. Vasculature: The abdominal aorta is normal in course and caliber. Adenopathy: None. Pelvic viscera: There is an indwelling IUD. Skeletal structures: No destructive osseous lesions are seen. IMPRESSION: 1. No evidence of bowel obstruction. No evidence of free air 2. Bilateral nephrolithiasis 3. 2 tangential proximal left ureteral calculi measuring 4 mm in aggregate. There is mild secondary f ullness of the left renal collecting system 4. Stable 1 cm hyperdense left renal lesion possibly representing a hyperdense cyst ACT 112: Negative or not required by law. Electronically signed by: Keven Colon M.D. 05/22/2020 5:54 PM
[2020-05-22 18:05] LABS: Appearance Urine Turbid (Clear); Bacteria Urine Automated Negative (Negative); Blood Urine 3+ (Negative); Color Urine Dark Yellow; Epithelial Cell Urine Auto >30 /lpf (0-5); Glucose Urine UA Negative (Negative); Ketones Urine Trace (Negative); Leukocyte Esterase Urine 1+ (Negative); Nitrite Urine Negative (Negative); Protein Urine 2+ (Negative); RBC Urine Automated >30 /hpf (0-4); Specific Gravity Urine 1.028 (1.000-1.030); Urobilinogen Urine Negative (Negative)
[2020-05-22 18:06] LABS: Bilirubin Urine 1+ (Negative)
[2020-05-22 18:46] LABS: Calcium Oxalate Crystals Urine Present (None Prsent); Mucus Urine Present (None Prsent)
[2020-05-22 19:37] LABS: Appearance Urine Cloudy (Clear); Bacteria Urine Automated Negative (Negative); Blood Urine 3+ (Negative); Color Urine Dark Yellow; Epithelial Cell Urine Auto 20-30 /lpf (0-5); Glucose Urine UA Negative (Negative); Ketones Urine 1+ (Negative); Leukocyte Esterase Urine Trace (Negative); Nitrite Urine Negative (Negative); Protein Urine 1+ (Negative); Specific Gravity Urine 1.025 (1.000-1.030); Urobilinogen Urine Negative (Negative)
[2020-05-22 19:44] LABS: Bilirubin Urine 1+ (Negative)
[2020-05-22 19:59] LABS: Calcium Oxalate Crystals Urine Present (None Prsent); Mucus Urine Present (None Prsent)
[2020-05-22] MEDS ORDERED: TAMSULOSIN HCL 0.4 MG CAP PO SCH (22:13)
[2020-05-22] MEDS: HYDROmorphone INJ 0.5 MG/0.5 ML SYR IV PRN (22:51)
[2020-05-22] MEDS: D5W AND NSS 1,000 ML IV SCH (22:58)
--- NOTE | 2020-05-22 23:14 | History and Physical Report ---
DATE OF ADMISSION: 05/22/2020 CHIEF COMPLAINT: Left flank pain. HISTORY OF PRESENT ILLNESS: A 39-year-old female with past medical history significant for recurrent depression, generalized anxiety disorder, history of systolic murmur, who presents with left flank pain that started in the afternoon when she was painting in the house. The pain was severe, so she has come to the ER, and nauseous. Required pain medication in the ER. The urine looks tea-colored. No other complaints. Currently hemodynamically stable. Denies any chest pain, no shortness of breath, no cough, no headache, no dizziness, no blurred visions, no earache, no runny nose, no sore throat, no cough, no difficulty swallowing. Appetite is okay. No shortness of breath, no chest pain, no other abdominal pain, no diarrhea or constipation, no blood in stool or black stools. No rash. ALLERGIES: PENICILLIN, CEFACLOR, CODEINE, PROMETHAZINE, LEVAQUIN. PAST MEDICAL HISTORY: As mentioned above. PAST SURGICAL HISTORY: induced by D and C, , dental surgery, laparoscopic cholecystectomy, liver biopsy, removal of appendix. MEDICATIONS: The patient is on bupropion 150 mg p.o. AM, vitamin D 25 mcg p.o. a.m.,Vyvanse 60 mg p.o. a.m., multivitamin 1 tablet p.o. a.m., Protonix 40 mg p.o. a.m. FAMILY HISTORY: Significant for father had cholangioma, diabetes, heart disorder, hypertension. Maternal grandmother had breast cancer, diabetes, heart disorder, hypertension. Maternal grandfather had aortic aneurysm, diabetes. SOCIAL HISTORY: . No smoking. Alcohol occasional. No drug use. REVIEW OF SYSTEMS: As per HPI. Rest of the review of systems negative. PHYSICAL EXAMINATION: GENERAL: The patient is obese, not in acute distress. VITAL SIGNS: Temperature 36.8, pulse 66, respiratory rate 16, blood pressure 138/94, oxygen 98% on room air. HEENT: Pupils are equal, round, and reactive to light. Oral mucosa moist. NECK: Supple, no neck masses seen. CARDIOVASCULAR: S1, S2 heard. Regular rate and rhythm. No murmur, no gallop. RESPIRATORY SYSTEM: Normal AP diameter. No accessory muscle use. No wheezing, no crackles. ABDOMEN: Soft, bowel sounds present. No CVA tenderness, no guarding, no rigidity. CENTRAL NERVOUS SYSTEM: Cranial nerves II through XII grossly intact, nonfocal. EXTREMITIES: No edema, no erythema. LABORATORY DATA: WBC 10.9, hemoglobin 15.2, hematocrit 45, platelets 240. Sodium 143, potassium 4.1, chloride 107, bicarbonate 28, BUN 14, creatinine 0.8, serum glucose 86, calcium 10.1, total bilirubin 0.6, AST 17, ALT 40, alkaline phosphatase 104, lipase 91. Urinalysis, cloudy, +3 blood, +1 ketones, trace leukocyte esterase, bacteria is negative. IMAGING DATA: CT of abdomen and pelvis shows no evidence of bowel obstruction, no evidence of free air, bilateral nephrolithiasis, two tangential proximal left ureteral calculi measuring 4 mm in aggregate. There is mild secondary fullness of the left renal collecting system, stable 1 cm hypodense left renal lesion, possibly representing hypodense cyst. ASSESSMENT AND PLAN: This is a 39-year-old female who presents with renal colic. 1. Renal colic: Two stones, aggregate of 4 mm on the left renal system causing mild secondary fullness in the left renal collecting system. We will admit to medical floor. We will give IV fluids, IV antiemetics p.r.n., IV pain meds p.r.n., and Flomax, and strain the urine and consult urology in the a.m. We will keep her n.p.o. after midnight until seen by urology. 2. Depression, anxiety: Continue her bupropion. 3. Deep venous thrombosis prophylaxis: Sequential compression devices for now. DISPOSITION: Admit to medical floor. Expect to discharge home and follow with family doctor. ETELVINA
[2020-05-23] MEDS: KETOROLAC TROMETHAMINE 15 MG/ML VIAL IV PRN ×2 (03:02→09:21)
[2020-05-23] MEDS: HYDROmorphone INJ 0.5 MG/0.5 ML SYR IV PRN (03:02)
[2020-05-23] MEDS ORDERED: HYDROmorphone INJ 0.5 MG/0.5 ML SYR IV STA (03:22)
[2020-05-23] MEDS: ONDANSETRON INJ 2 MG/ML 2 ML VIAL IV PRN ×2 (03:33→13:12)
[2020-05-23] MEDS ORDERED: KETOROLAC TROMETHAMINE 15 MG/ML VIAL IV ONE (03:45)
[2020-05-23] MEDS ORDERED: HYDROmorphone INJ 1 MG/ML SYRINGE IV STA (04:07)
[2020-05-23] MEDS ORDERED: HYDROmorphone INJ 1 MG/ML SYRINGE IV PRN (04:08)
[2020-05-23] MEDS: D5W AND NSS 1,000 ML IV SCH ×2 (06:14→14:20)
[2020-05-23 06:47] LABS: Basophils # (auto) 0.02 K/uL (0-0.2); Basophils % (auto) 0.3 %; Eosinophils # (auto) 0.14 K/uL (0-0.5); Eosinophils % (auto) 2.1 %; Hematocrit (blood only) 34.9 % (37-47); Hemoglobin 11.9 g/dL (12.0-16.0); Immature Granulocytes # (auto) 0.01 K/uL (0.00-0.02); Immature Granulocytes % (auto) 0.1 %; Lymphocytes # (auto) 2.02 K/uL (1.2-3.4); Lymphocytes % (auto) 29.7 %; Mean Corpuscular Hemoglobin 30.4 pg (25-34); Mean Corpuscular Hgb Conc 34.1 g/dL (32-36); Mean Corpuscular Volume 89.3 fL (80-100); Mean Platelet Volume 10.9 fL (7.4-10.4); Monocytes # (auto) 0.42 K/uL (0.11-0.59); Monocytes % (auto) 6.2 %; Neutrophils % (auto) 61.6 %; Platelet Count 178 K/uL (130-400); RDW Coefficient of Variation 13.2 % (11.5-14.5); RDW Standard Deviation 42.1 fL (36.4-46.3); Red Blood Count 3.91 M/uL (4.2-5.4); White Blood Count 6.81 K/uL (4.8-10.8)
[2020-05-23 07:21] LABS: BUN Creatinine Ratio 19.2 (10-20); Calcium 8.4 mg/dl (8.5-10.1); Creatinine Clr Calc Pharmacy 123.3 ml/min; Est GFR (African American) 127.4; Est GFR (Non-African American) 109.9; Magnesium 1.9 mg/dl (1.8-2.4); Potassium 3.5 mmol/L (3.5-5.1)
--- NOTE | 2020-05-23 08:16 | Urology Consultation ---
Date of Consultation May 23, 2020 Assessment & Plan (1) Calculus of proximal left ureter: 39 yo F admitted for left flank pain secondary to left proximal ureteral calculi, mild fullness of left renal pelvis. - Afebrile, VSS, lab work reviewed - no leukocytosis, creatinine within normal limits - Continues to be symptomatic with left flank pain and nausea - UC&S pending - Reviewed options for stone management including observation, max medical therapy, and pain management vs left ureteral stent placement today. Discussed stone would require treatment at later date after stent placement. - After lengthy discussion, she does not desire stent placement now without stone treatment - Will reassess later this morning with physician mechanical applications engineer - Keep NPO for now - Strain all urine - Bladder scan now and prn Patient reassessed at [address] Ricardo. Pt currently comfortable and f eeling better. After reviewing options, she elects to proceed with trial of passage with max medical therapy. No intervention planned today. Okay to give diet. Okay to d/c from perspective. Recommend continue Flomax and pain management. Will arrange outpatient follow-up with our service to discuss definitive stone management. Thank you for allowing us to participate in the acute care of Ms. Ibarra. Please reconsult us with additional questions, concerns or changes in patient status. History of Present Illness Reason for Consultation: Left kidney stone Requesting Physician: Dr. Langley Attending Physician: Marilyn Davey MD History of Present Illness 39 yo F admitted for left flank pain secondary to left proximal ureteral calculi, mild hydronephrosis. PMHx of recurrent UTI, urinary retention, ADHD, depression. Patient known to our service for history of recurrent UTI, pyelonephritis. She presented to [facility] ED on 05/22/20 with severe left flank pain that started earlier in the day. Afebrile on arrival. Lab work: creatinine 0.89, WBC 10.91, UA showed 5-10 WBCs, 10-30 RBCs, negative for nitrates and bacteria. Urine culture collected. CT AP showed bilateral nephrolithiasis, 2 tangential proximal left ureteral calculi measuring 4 mm in aggregate, mild secondary fullness of the left renal collecting system. Stable 1 cm hyperdense left renal lesion possibly representing a hyperdense cyst. She was treated with IV fluids and pain management in ED. She was admitted for further evaluation and management. Our service is consulted for left proximal stone. Chart review: Afebrile Creatinine 0.70 WBC 6.81 UC&S pending VS- BP 108/70, HR 70, Resp 16, Temp 36.4 C, O2 100% on RA Patient examined at bedside this AM. Awake and alert. Ambulating out of bathroom at time of arrival. Denies stone passage. She reports ongoing left flank pain. Utilizing Ketorolac and Hydromorphone for pain, last doses approximately 0400. Providing moderate relief, although she feels like pain is starting to return at time of visit. Nausea, no vomiting. Reports some dry heaves overnight. No fever or chills. Voiding spontaneously. Reports urine is dark, but no gross hematuria. No dysuria. She reports urethral spasms and feels she is not emptying her bladder completely this morning. She is NPO since midnight. No additional concerns today. Allergies Allergy/AdvReac Type Severity Reaction Status Date / Time Penicillins Allergy Severe ANAPHYLAXIS Verified 05/22/20 20:14 cefaclor Allergy Intermediate Hives,nausea,vomiting Verified 05/22/20 20:14 diarrhea codeine Allergy Unknown FULL BODY Verified 05/22/20 20:14 ITCHING promethazine Allergy Unknown TORTICOLIS Verified 05/22/20 20:14 levofloxacin [From Levaquin] Allergy Hives Verified 05/22/20 20:14 Home Medications Medication Instructions Recorded Confirmed Type bupropion HCl 150 mg PO QAM 05/02/19 05/22/20 History multivitamin 1 tab PO QAM 07/28/19 05/22/20 History cholecalciferol (vitamin D3) 25 mcg PO QAM 05/22/20 05/22/20 History [Vitamin D3] lisdexamfetamine [Vyvanse] 60 mg PO QAM 05/22/20 05/22/20 History pantoprazole 40 mg PO QAM 05/22/20 05/22/20 History Patient History Medical History ADHD Depression Insulin controlled gestational diabetes mellitus during Kidney stone Maternal care for (suspected) abnormality and damage, unspecified, fetus 1 Mild pre-eclampsia in third trimester Recurrent UTI Urinary retention Surgical History H/O tubal ligation History of appendectomy History of cholecystectomy Hx of section Family History Other Cancer Diabetes Hypertension Social History Smoking Status: Never smoker Second Hand Exposure: No; Do You Dip or Chew Tobacco: No; Tobacco Cessation Education Requested by Patient: No Hx Alcohol Use: Yes Alcohol type: wine Hx Substance Use: No Preferred Language: Syriac Communication Ability: Effective Visual Impairment: No Limitations Hearing Ability: Normal Press Operator Automatic Required: No Beliefs That Will Affect Care: None Current Living Situation: Significant Other and Other Current Living Situation Comment: at home with sig other /children Other Information That Helps Us Care for You: No Feels Safe at Home: Yes Safety Concerns: Feels Safe At This Time Assistive Devices: None Review of Systems Constitutional: as per Subjective / HPI Gastrointestinal: as per Subjective / HPI Genitourinary: as per Subjective / HPI Physical Exam Constitutional: well developed and well nourished; no acute distress and not ill appearing nontoxic appearance Respiratory: normal respiratory effort and able to speak in complete sentences; no respiratory distress and no labored breathing Cardiovascular: Extremities: no pedal edema Gastrointestinal (Abdomen): Inspection/Auscultation: abdomen normal to inspection; abdomen not distended Musculoskeletal: Head/Neck/Chest: normocephalic and head atraumatic Extremities: extremities normal to inspection Gait: normal gait Skin: no rashes, warm and dry Neurologic: moves all extremities and awake Psychiatric: Orientation: alert and oriented x 3 tearful during exam Genitourinary: voiding spontaneously, no urine to assess during exam Results & Data ([facility]) Vital Signs (Past 12 Hours) Vital Signs Temp Pulse Resp BP Pulse Ox 05/23/20 07:30 36.4 C L 58 L 16 108/70 100 05/22/20 22:12 36.6 C 67 16 130/89 97 05/22/20 21:14 64 16 127/81 99 05/22/20 20:20 16 138/94 98 PG Care Time/CCT Total # of Minutes Spent Total Time Spent with Patient: Total time spent is greater than 50% in coordination of care (as documented) at patient's floor/unit and/or counseling patient: Coding Level of Care Code 36808 Inpt Consult Level 3 Diagnoses Calculus of proximal left ureter N20.1
[2020-05-23] MEDS ORDERED: MULTIVITAMIN TAB PO SCH (09:00)
[2020-05-23] MEDS ORDERED: buPROPion XL 150 MG TABCR PO SCH (09:00)
[2020-05-23] MEDS ORDERED: CHOLECALCIFEROL 1,000 UNITS 25 MCG TAB PO SCH (09:00)
[2020-05-23] MEDS ORDERED: PANTOprazole 40 MG TAB PO SCH (09:00)
--- NOTE | 2020-05-23 13:08 | Hospitalist Progress Note ---
Date of Service May 23, 2020 Assessment & Plan (1) Calculus of proximal left ureter: Has bilateral nephrolithiasis CT Abd/Pelvis::IMPRESSION: 1. No evidence of bowel obstruction. No evidence of free air 2. Bilateral nephrolithiasis 3. 2 tangential proximal left ureteral calculi measuring 4 mm in aggregate. There is mild secondary fullness of the left renal collecting system 4. Stable 1 cm hyperdense left renal lesion possibly representing a hyperdense cyst No evidence of UTI and/or hydronephrosis With left proximal ureteric calculi which is causing colicky pain Appreciate urology input and recommendation Intravenous fluid and increase oral intake She is planning to go for conservative management for now Pain medications and tamsulosin will be prescribed if she goes home (2) Renal colic: As above (3) Depression: History of depression without any acute delirium (4) Kidney stone: Has bilateral nephrolithiasis as above DVT prophylaxis SCDs and increase ambulation CODE STATUS Full If the pain is controlled she will be discharged home this evening Admission and Anticipated Discharge Date Admission Date: May 22, 2020 Subjective 05/23/2020 The patient was seen and examined in medical floor She was admitted with ureteric stone and ureteric/renal colic She was seen by the urologist but refused to go for any procedure and try conservative management Still complains to have colicky pain involving the left flank and groin area Denies any fever and/or chills or hematuria Review of Systems Review of Systems: All systems reviewed and are unremarkable except as noted below Gastrointestinal: No CVA tenderness Physical Exam Physical Exam: Lying in bed with moderate distress secondary to pain Constitutional: well developed, well nourished, + ill appearing and + obese Eyes: PERRL, conjunctivae normal, anicteric sclerae ENMT: external ear and nose normal, oropharynx normal Neck: trachea midline, no thyromegaly Respiratory: no respiratory distress Auscultation: lungs clear to auscultation bilaterally Cardiovascular: Rate/Rhythm: regular rate and regular rhythm Heart Sounds: no murmur Extremities: no edema Gastrointestinal (Abdomen): Inspection/Auscultation: normal bowel sounds; abdomen not distended Percussion/Palpation: abdomen soft; abdomen nontender (No tenderness involving the bilateral CVAs and no hypogastric tenderness) Musculoskeletal: No acute arthritis in any joint Neurologic: Alert, awake and oriented x3. No focal sensory no motor deficit appreciated Psychiatric: A+Ox3, euthymic affect Lymphatic: no cervical or axillary lymphadenopathy Results & Data Results & Data ([facility]) Vital Signs (Past 12 Hours) Vital Signs Temp Pulse Resp BP Pulse Ox 05/23/20 07:30 36.4 C L 58 L 16 108/70 100 Laboratory Results Short CBC 05/22/20 05/23/20 Range/Units 16:58 05:46 WBC 10.91 H 6.81 (4.8-10.8) K/uL Hgb 15.2 11.9 L D (12.0-16.0) g/dL Hct 45.0 34.9 L (37-47) % Plt Count 240 178 (130-400) K/uL BMP 05/22/20 05/23/20 16:58 05:46 Sodium 143 143 Potassium 4.1 3.5 Chloride 107 111 H Carbon Dioxide 28 27 BUN 14 13 Creatinine 0.89 0.70 Glucose 86 140 H Calcium 10.1 8.4 L D Liver Function 05/22/20 Range/Units 16:58 Total Bilirubin 0.6 (0.2-1) mg/dl AST 17 (15-37) U/L ALT 40 (12-78) U/L Alkaline Phosphatase 104 (45-117) U/L Albumin 4.4 (3.4-5.0) gm/dl Urine 05/22/20 05/22/20 Range/Units 17:35 19:15 Urine Color Dark Yellow Dark Yellow Urine Appearance Turbid A Cloudy A (Clear) Urine pH 6.0 6.0 (4.5-7.5) Ur Specific [place] 1.028 1.025 (1.000-1.030) Urine Protein 2+ H 1+ H (Negative) Urine Glucose (UA) Negative Negative (Negative) Medications Administered Current Inpatient Medications Bupropion HCl (Bupropion Xl 150 Mg Tabcr) 150 mg PO QAM [facility] Stop: 06/22/20 08:59 Last Admin: 05/23/20 09:16 Dose: 150 mg Documented by: Hydromorphone HCl (Hydromorphone Inj 1 Mg/Ml Syringe) 1 mg IV Q3H PRN PRN Reason: Pain Stop: 06/05/20 22:12 Dextrose/Sodium Chloride (D5w And Nss) 1,000 mls @ 150 mls/hr IV .Q6H40M [facility] Stop: 06/21/20 22:12 Last Infusion: 05/23/20 12:08 Dose: 150 mls/hr Documented by: Ketorolac Tromethamine (Ketorolac Tromethamine 15 Mg/Ml Vial) 15 mg IV Q6H PRN PRN Reason: Pain Stop: 05/27/20 23:22 Last Admin: 05/23/20 09:21 Dose: 15 mg Documented by: Miscellaneous (Vyvanse~Order Awaiting Action) 1 ea N/A QS [facility] Stop: 06/22/20 07:59 Last Admin: 05/23/20 09:15 Dose: Not Given Documented by: Multivitamins (Multivitamin Tab) 1 tab PO [facility] Stop: 06/22/20 08:59 Last Admin: 05/23/20 09:16 Dose: 1 tab Documented by: Ondansetron HCl (Ondansetron Inj 2 Mg/Ml 2 Ml Vial) 4 mg IV Q6H PRN PRN Reason: Nausea Stop: 06/21/20 23:22 Last Admin: 05/23/20 03:33 Dose: 4 mg Documented by: Pantoprazole Sodium (Pantoprazole 40 Mg Tab) 40 mg PO [facility] Stop: 06/22/20 08:59 Last Admin: 05/23/20 09:16 Dose: 40 mg Documented by: Tamsulosin HCl (Tamsulosin Hcl 0.4 Mg Cap) 0.4 mg PO [facility] Stop: 06/21/20 22:12 Last Admin: 05/22/20 22:58 Dose: 0.4 mg Documented by: Vitamin D (Cholecalciferol 1,000 Units 25 Mcg Tab) 1,000 units PO [facility] Stop: 06/22/20 08:59 Last Admin: 05/23/20 09:17 Dose: 1,000 units Documented by:
--- NOTE | 2020-05-24 08:47 | Discharge Summary ---
Date of Service May 24, 2020 Admission HPI Per Admitting Provider DICTATED BY: Sd Langley MD DATE OF ADMISSION: 05/22/2020 CHIEF COMPLAINT: Left flank pain. HISTORY OF PRESENT ILLNESS: A 39-year-old female with past medical history significant for recurrent depression, generalized anxiety disorder, history of systolic murmur, who presents with left flank pain that started in the afternoon when she was painting in the house. The pain was severe, so she has come to the ER, and nauseous. Required pain medication in the ER. The urine looks tea-colored. No other complaints. Currently hemodynamically stable. Denies any chest pain, no shortness of breath, no cough, no headache, no dizziness, no blurred visions, no earache, no runny nose, no sore throat, no cough, no difficulty swallowing. Appetite is okay. No shortness of breath, no chest pain, no other abdominal pain, no diarrhea or constipation, no blood in stool or black stools. No rash. Admission Exam Per Admitting Provider GENERAL: The patient is obese, not in acute distress. VITAL SIGNS: Temperature 36.8, pulse 66, respiratory rate 16, blood pressure 138/94, oxygen 98% on room air. HEENT: Pupils are equal, round, and reactive to light. Oral mucosa moist. NECK: Supple, no neck masses seen. CARDIOVASCULAR: S1, S2 heard. Regular rate and rhythm. No murmur, no gallop. RESPIRATORY SYSTEM: Normal AP diameter. No accessory muscle use. No wheezing, no crackles. ABDOMEN: Soft, bowel sounds present. No CVA tenderness, no guarding, no rigidity. CENTRAL NERVOUS SYSTEM: Cranial nerves II through XII grossly intact, nonfocal. EXTREMITIES: No edema, no erythema. Principal Diagnosis Ureteric stone with colic,Nephrolithiasis Discharge Exam Constitutional well developed, well nourished, + ill appearing and + obese Eyes PERRL, conjunctivae normal, anicteric sclerae ENMT external ear and nose normal, oropharynx normal Neck trachea midline, no thyromegaly Respiratory no respiratory distress Auscultation: lungs clear to auscultation bilaterally Cardiovascular Rate/Rhythm: regular rate and regular rhythm Heart Sounds: no murmur Extremities: no edema Gastrointestinal (Abdomen) Inspection/Auscultation: normal bowel sounds; abdomen not distended Percussion/Palpation: abdomen soft; abdomen nontender (No tenderness involving the bilateral CVAs and no hypogastric tenderness) Psychiatric A+Ox3, euthymic affect Lymphatic no cervical or axillary lymphadenopathy Discharge Data Allergies Allergy/AdvReac Type Severity Reaction Status Date / Time Penicillins Allergy Severe ANAPHYLAXIS Verified 05/22/20 20:14 cefaclor Allergy Intermediate Hives,nausea,vomiting Verified 05/22/20 20:14 diarrhea codeine Allergy Unknown FULL BODY Verified 05/22/20 20:14 ITCHING promethazine Allergy Unknown TORTICOLIS Verified 05/22/20 20:14 levofloxacin [From Levaquin] Allergy Hives Verified 05/22/20 20:14 Consultations 05/22/20 19:58 ED Decision to Admit Stat 05/23/20 08:00 Consult Urology Routine Ordered Studies 05/22/20 17:11 CT abd pelvis wo con Stat Hospital Course (1) Calculus of proximal left ureter: Has bilateral nephrolithiasis CT Abd/Pelvis::IMPRESSION: 1. No evidence of bowel obstruction. No evidence of free air 2. Bilateral nephrolithiasis 3. 2 tangential proximal left ureteral calculi measuring 4 mm in aggregate. There is mild secondary fullness of the left renal collecting system 4. Stable 1 cm hyperdense left renal lesion possibly representing a hyperdense cyst No evidence of UTI and/or hydronephrosis With left proximal ureteric calculi which is causing colicky pain Appreciate urology input and recommendation Intravenous fluid and increase oral intake She is planning to go for conservative management for now Pain medications and tamsulosin will be prescribed if she goes home (2) Renal colic: As above (3) Depression: History of depression without any acute delirium (4) Kidney stone: Has bilateral nephrolithiasis as above DVT prophylaxis SCDs and increase ambulation CODE STATUS Full If the pain is controlled she will be discharged home this evening Total Time Total Time Spent Total Time Spent (In Minutes): 35 minutes Total Time Includes: Examination of the Patient, Discharge Planning, Medication Reconciliation and Communication With Other Providers Discharge Plan Discharge Items Patient Disposition: Home - Self-Care Reason For Visit: KIDNEY STONE Discharge Diagnosis: Ureteric stone with colic,Nephrolithiasis Condition on Discharge: Good Activity: Resume your previous activity Non-emergency contact: Primary Care Provider Call non-emergency contact if: you have any medication questions and your symptoms worsen Follow-up/Referrals: Ema Green, DO [Primary Care Provider] - (Your doctor's office will call you with an appointment within 10 days) Diet: Regular Fluids: 2000ml (8 cups) Addtl Attending Provider Instructions: Drink plenty of fluid Contact the Urologist office for any more pain or Urinary symptoms Pending Studies at Discharge: No Stand-Alone Forms: [facility], Smoking Cessation Medications and DC Order Prescriptions: New tamsulosin 0.4 mg Capsule 0.4 mg PO HS 30 Days Qty: 30 RF: 0 Continued bupropion HCl 150 mg tablet extended release 24 hr 150 mg PO QAM RF: 0 multivitamin Tablet 1 tab PO QAM RF: 0 pantoprazole 40 mg tablet,delayed release (DR/EC) 40 mg PO QAM RF: 0 Vyvanse 60 mg capsule 60 mg PO QAM RF: 0 cholecalciferol (vitamin D3) [Vitamin D3] 25 mcg (1,000 unit) Capsule 25 mcg PO QAM RF: 0 Discharge Orders: Discharge Order (Routine); Ordered 05/23/20 Ordered By: Marilyn Huitron/Other Patient Handouts: Understanding Kidney Stones, Treating Kidney Stones ..., Treating Kidney Stones ... Admission Data Admit Date/Time: 05/22/20 20:56 Attending Provider: Marilyn Davey Admit Provider: Sd Langley Primary Care Provider: Ema Green Other Providers: Sd Langley ; Jordan Peralta ; Mitchell Sanabria ; Adonis Ricardo ; Aleja Helms ; Yesi Riley ; Joe Quintero ; Christina Iniguez ; Cheryl Arnold ; Jenny Seay ; Dawood Riuz ; Kelsey Hsu ; Ashleigh Paredes Other Interventions: Discharge Summary Assessment (RN) Last Done: 05/23/20 19:15
== END 2020-05-23 19:15 | disposition home or self-care (01) ==
LOC: ED 16:48 → 2N 20:56 → INTOOBSV 20:56 → 3W 22:10

== ENCOUNTER 2020-05-26 05:11 | Inpatient (IN) ==
[2020-05-26] MEDS ORDERED: KETOROLAC 30 MG/ML VIAL IV STA (05:26)
[2020-05-26] MEDS ORDERED: HYDROmorphone INJ 1 MG/ML SYRINGE IV STA (05:26)
[2020-05-26] MEDS ORDERED: ONDANSETRON INJ 2 MG/ML 2 ML VIAL IV STA ×2 (05:26→07:17)
[2020-05-26] MEDS ORDERED: ACETAMINOPHEN 1,000 MG/100 ML VIAL IV STA (05:26)
[2020-05-26] MEDS ORDERED: SODIUM CHLORIDE 0.9% 1000ML 1,000 ML IV SCH ×2 (05:30→08:07)
[2020-05-26 06:15] LABS: Basophils # (auto) 0.01 K/uL (0-0.2); Basophils % (auto) 0.1 %; Eosinophils % (auto) 1.2 %; Hematocrit (blood only) 37.7 % (37-47); Hemoglobin 12.8 g/dL (12.0-16.0); Immature Granulocytes # (auto) 0.01 K/uL (0.00-0.02); Immature Granulocytes % (auto) 0.1 %; Lymphocytes # (auto) 2.34 K/uL (1.2-3.4); Lymphocytes % (auto) 27.2 %; Mean Corpuscular Hemoglobin 29.9 pg (25-34); Mean Corpuscular Volume 88.1 fL (80-100); Mean Platelet Volume 10.8 fL (7.4-10.4); Monocytes # (auto) 0.48 K/uL (0.11-0.59); Monocytes % (auto) 5.6 %; Neutrophils # (auto) 5.66 K/uL (1.4-6.5); Neutrophils % (auto) 65.8 %; Platelet Count 193 K/uL (130-400); RDW Standard Deviation 41.6 fL (36.4-46.3); Red Blood Count 4.28 M/uL (4.2-5.4)
[2020-05-26 06:36] LABS: Albumin Level 3.2 gm/dl (3.4-5.0); BUN Creatinine Ratio 22.9 (10-20); Bilirubin,Total 0.5 mg/dl (0.2-1); Calcium 9.3 mg/dl (8.5-10.1); Creatinine Clr Calc Pharmacy 95.4 ml/min; Est GFR (African American) 91.5; Globulin 3.3 gm/dl (2.5-4.0); Total Protein 6.5 gm/dl (6.4-8.2)
--- NOTE | 2020-05-26 06:44 | Emergency Department Note ---
History of Present Illness General Chief complaint: Flank Pain Stated complaint: L-FLANK PAIN + KIDNEY STONE Time Seen by Provider: 05/26/20 05:20 History of Present Illness Maximum Pain Intensity: 8 This is a 39-year-old female presenting to the emergency department for evaluation of left flank pain worsening over the past few hours. The patient was recently seen and evaluated at this facility for similar discomfort, where CT scan did show two left-sided ureteral calculi measuring 4 mm in aggregate. At that time the stones were proximal and the patient did require large doses of pain medication to remain comfortable. She was admitted and ultimately discharged to follow with urology. She has not followed with urology as an outpatient. She states that she awoke with pain this morning, and attempted to take Tylenol and Motrin, but immediately vomited because of the pain. She has not had fevers or chills. She has been able to use the bathroom through this process. She rates her current discomfort an 8/10. Home Medications Medication Instructions Recorded Confirmed Type bupropion HCl 150 mg PO QAM 05/02/19 05/26/20 History multivitamin 1 tab PO QAM 07/28/19 05/26/20 History Vyvanse 60 mg PO QAM 05/22/20 05/26/20 History cholecalciferol (vitamin D3) 25 mcg PO QAM 05/22/20 05/26/20 History [Vitamin D3] pantoprazole 40 mg PO QAM 05/22/20 05/26/20 History tamsulosin 0.4 mg PO HS 30 Days #30 cap 05/23/20 05/26/20 Rx ondansetron 4 mg PO Q6H PRN #12 tab 05/26/20 Rx oxycodone 5 - 10 mg PO Q6H #15 tab 05/26/20 Rx Allergies Allergy/AdvReac Type Severity Reaction Status Date / Time Penicillins Allergy Severe ANAPHYLAXIS Verified 05/26/20 05:44 cefaclor Allergy Intermediate Hives,nausea,vomiting Verified 05/26/20 05:44 diarrhea codeine Allergy Intermediate FULL BODY Verified 05/26/20 05:44 ITCHING levofloxacin [From Levaquin] Allergy Intermediate Hives Verified 05/26/20 05:44 promethazine Allergy Intermediate TORTICOLLIS Verified 05/26/20 05:44 Past Med/Surg History Medical History ADHD Depression Insulin controlled gestational diabetes mellitus during Kidney stone Maternal care for (suspected) abnormality and damage, unspecified, fetus 1 Mild pre-eclampsia in third trimester Recurrent UTI Urinary retention Surgical History H/O tubal ligation History of appendectomy History of cholecystectomy Hx of section Family History Other Cancer Diabetes Hypertension Social History Smoking Status: Never smoker Second Hand Exposure: No; Hx Alcohol Use: Yes Alcohol type: wine Hx Substance Use: No Preferred Language: Bulgarian Communication Ability: Effective Visual Impairment: No Limitations Hearing Ability: Normal 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 Beliefs That Will Affect Care: None Current Living Situation: Significant Other and Other Current Living Situation Comment: at home with sig other /children Feels Safe at Home: Yes Assistive Devices: None Review of Systems A total of 10 systems reviewed and were otherwise negative Physical Exam Vital Signs Vital Signs - 24 hr 05/26/20 05:17 05/26/20 06:24 05/26/20 07:09 Temperature 36 C L Temperature Source Temporal Artery Scan Pulse Rate 85 Pulse Rate [Right Finger] 53 L 61 Respiratory Rate 22 12 16 Respiratory Effort / Characteristics Non-Labored Spontaneous Respiratory Depth Normal Blood Pressure 140/99 Blood Pressure [Right Arm] 142/97 H 151/96 H Blood Pressure Mean 112 Blood Pressure Mean [Right Arm] 112 114 Pulse Oximetry 97 92 100 Oxygen Delivery Method Room Air Room Air Room Air Sepsis Recent Fever Within 48 Hours No Sepsis New/Unexplained Change in Mental Status No Sepsis Action Taken by Nursing No Action Required VITALS: Vitals are noted on the nurse's note and reviewed by myself. Vital signs stable. GENERAL: Well-developed, well-nourished, white female who appears in moderate discomfort secondary to her stated complaint.Patient is cooperative with the examination. HEAD: Normocephalic atraumatic. HEART: Regular rate and rhythm without murmurs gallops or rubs. LUNGS: Clear to auscultation bilaterally without wheezes, rales or rhonchi. No retractions or accessory muscle use. ABDOMEN: Positive normal bowel sounds x 4. Soft, nontender, without masses or organomegaly. No guarding or rebound tenderness. MUSCULOSKELETAL: No muscle atrophy, erythema, or edema noted. Full range of motion in all extremities. NEURO: Patient was alert and oriented to person place and time. CN II through XII grossly intact. Course Administered Medications Discontinued Medications Hydromorphone HCl (Hydromorphone Inj 1 Mg/Ml Syringe) 1 mg IV NOW STA Stop: 05/26/20 05:27 Last Admin: 05/26/20 05:49 Dose: 1 mg Documented by: [id number] Sodium Chloride (Nss 1000ml) 1,000 mls @ 999 mls/hr IV .Q1H1M [facility] Stop: 05/26/20 06:30 Last Infusion: 05/26/20 06:41 Dose: 0 mls/hr Documented by: [id number] Admin: 05/26/20 05:49 Dose: 999 mls/hr Documented by: [id number] Acetaminophen (Ofirmev) 1,000 mg in 100 mls @ 400 mls/hr IV NOW STA Stop: 05/26/20 05:40 Last Infusion: 05/26/20 06:25 Dose: 0 mls/hr Documented by: [id number] Admin: 05/26/20 05:49 Dose: 400 mls/hr Documented by: [id number] Ketorolac Tromethamine (Ketorolac 30 Mg/Ml Vial) 30 mg IV NOW STA Stop: 05/26/20 05:27 Last Admin: 05/26/20 05:49 Dose: 30 mg Documented by: [id number] Ondansetron HCl (Ondansetron Inj 2 Mg/Ml 2 Ml Vial) 4 mg IV NOW STA Stop: 05/26/20 05:27 Last Admin: 05/26/20 05:49 Dose: 4 mg Documented by: [id number] Ondansetron HCl (Ondansetron Inj 2 Mg/Ml 2 Ml Vial) 4 mg IV NOW STA Stop: 05/26/20 07:18 Last Admin: 05/26/20 07:23 Dose: 4 mg Documented by: [id number] Medical Decision Making Differential Diagnosis Differential diagnosis: Etiologies such as shingles, pyelonephritis/UTI, renal colic, appendicitis, diverticulitis, mesenteric ischemia, torsion, aortic pathology, infections, inflammatory bowel disease, bowel obstruction, PUD, biliary pathology, as well as others were entertained. Laboratory Data Result diagrams: 05/26/20 06:01 05/26/20 06:01 Lab Results 05/26/20 05/26/20 05/26/20 Range/Units 06:01 06:01 07:10 WBC 8.60 (4.8-10.8) K/uL RBC 4.28 (4.2-5.4) M/uL Hgb 12.8 (12.0-16.0) g/dL Hct 37.7 (37-47) % MCV 88.1 (80-100) fL MCH 29.9 (25-34) pg MCHC 34.0 (32-36) g/dL RDW Std Deviation 41.6 (36.4-46.3) fL RDW Coeff of Dylan 13.0 (11.5-14.5) % Plt Count 193 (130-400) K/uL MPV 10.8 H (7.4-10.4) fL Immature Gran % (Auto) 0.1 % Neut % (Auto) 65.8 % Lymph % (Auto) 27.2 % Crosby % (Auto) 5.6 % Eos % (Auto) 1.2 % Baso % (Auto) 0.1 % Neut # (Auto) 5.66 (1.4-6.5) K/uL Lymph # (Auto) 2.34 (1.2-3.4) K/uL Crosby # (Auto) 0.48 (0.11-0.59) K/uL Eos # (Auto) 0.10 (0-0.5) K/uL Baso # (Auto) 0.01 (0-0.2) K/uL Immature Gran # (Auto) 0.01 (0.00-0.02) K/uL Sodium 139 (136-145) mmol/L Potassium (3.5-5.1) mmol/L Chloride 105 (98-107) mmol/L Carbon Dioxide 27 (21-32) mmol/L Anion Gap 7.0 (3-11) BUN 21 H (7-18) mg/dl Creatinine 0.92 (0.6-1.2) mg/dl Est Cr Clr Drug Dosing 95.4 ml/min Est GFR ( Amer) 91.5 Est GFR (Non-Af Amer) 79.0 BUN/Creatinine Ratio 22.9 H (10-20) Glucose 99 (70-99) mg/dl Calcium 9.3 (8.5-10.1) mg/dl Total Bilirubin 0.5 (0.2-1) mg/dl AST (15-37) U/L ALT 35 (12-78) U/L Alkaline Phosphatase 78 (45-117) U/L Total Protein 6.5 (6.4-8.2) gm/dl Albumin 3.2 L (3.4-5.0) gm/dl Globulin 3.3 (2.5-4.0) gm/dl Albumin/Globulin Ratio 1.0 (0.9-2) Urine Color Yellow Urine Appearance Clear (Clear) Urine pH 6.5 (4.5-7.5) Ur Specific [place] 1.019 (1.000-1.030) Urine Protein Negative (Negative) Urine Glucose (UA) Negative (Negative) Urine Ketones Negative (Negative) Urine Blood 3+ H (Negative) Urine Nitrite Negative (Negative) Urine Bilirubin Negative (Negative) Urine Urobilinogen Negative (Negative) Ur Leukocyte Esterase Trace H (Negative) Urine WBC (Auto) 1-5 (0-5) /hpf Urine RBC (Auto) 5-10 H (0-4) /hpf U Hyaline Cast (Auto) 1-5 (0-5) /lpf U Epithel Cells (Auto) >30 H (0-5) /lpf Urine Bacteria (Auto) Negative (Negative) Imaging Data Radiologist's Impression: KUB CLINICAL HISTORY: left side kidney stones COMPARISON STUDY: CT of the abdomen and pelvis May 22, 2020. FINDINGS: A small calculus within lower pole the left kidney is noted. There is possible visualization of a 4 mm proximal left ureteral calculus. This may project over the left transverse process of L3. Intrauterine device is noted. There are cholecystectomy clips and a surgical staple line within the right lower quadrant. A left pelvic calcification represents a phlebolith. IMPRESSION: 1. Possible visualization of the 4 mm proximal left ureteral calculus. 2. Left-sided nephrolithiasis. MDM Narrative ThisPhysical exam and history were performed. Nursing notes, EMR, and Medication List were personally reviewed. Patient appears to have left-sided flank pain bringing her to the ER. She does have a known history of kidney stones and was recently discharged slowly. IV access was established and labs were obtained. She was hydrated normal saline given IV Toradol, IV Tylenol, IV Dilaudid, and IV Zofran. KUB was performed. The patient's blood work is as above and was reviewed. She does not have a significantly elevated white blood cell count, gross anemia, bandemia, or significant electrolyte imbalance. Transaminases are not diagnostic. KUB appears to show visualization of the 4 mm proximal left calculi per my and radiology review. Urine is without evidence of infection. On reevaluation the patient feels significantly improved, and would like to go home. This does seem reasonable as she does not appear to have infection. I did discuss options of care with the patient, and we will provide her a short course of OxyIR and Zofran. She is to contact her urology team today to make an appointment in the next few days. She was otherwise invited back to the ER with any new, worsening, or concerning symptoms. The chart was completed utilizing [employer] Speech Voice Recognition Software. Grammatical errors, random word insertions, pronoun errors, and incomplete sentences are an occasional consequence of this system due to software limitations, ambient noise, and hardware issues. Any formal questions or concerns about the content, text, or information contained within the body of this dictation should be directly addressed to the provider for clarification. . Impression & Plan Calculus of proximal left ureter, Kidney stone Discharge Plan Visit Data Chief Complaint: Flank Pain Stated Complaint: L-FLANK PAIN + KIDNEY STONE ED Provider: Natalie Torre ED Midlevel Provider: Martín Bach Discharge Problem: Calculus of proximal left ureter, Kidney stone Patient Disposition: Home - Self-Care Condition: Good Discharge Instructions Activity Restrictions/Additional Instructions: You were seen and evaluated today on an emergency basis only. This is not a substitute for, or an effort to provide, complete comprehensive medical care. It is not possible to recognize and treat all injuries or illnesses in a single emergency department visit. For this reason it is recommended that you followup with your urology team as so on as possible for ongoing care. Oxycodone (OxyIR) 5mg: Take ONE or TWO pills by mouth every SIX hours for breakthrough pain. Avoid alcohol, operating machinery or dangerous equipment, working on ladders or roofs, DRIVING, or situations where being under the influence may be dangerous. It is recommended to use an [id number] stool softener such as Colace, 100mg twice daily while taking this medication to avoid constipation. Zofran 4 mg ODT: Dissolve 1 tablet every 6 hrs as needed for nausea. You are welcome to return to the emergency department anytime with new, worsening, or concerning symptoms. Forms Stand Alone Forms: Work/School Release (ED), [facility], Virtual Emergency Department, Important Visit Information Prescriptions Prescriptions: New ondansetron 4 mg tablet,disintegrating 4 mg PO Q6H PRN (Reason: nausea and vomiting) Qty: 12 RF: 0 oxycodone 5 mg tablet 5 - 10 mg PO Q6H Qty: 15 RF: 0 No Action bupropion HCl 150 mg tablet extended release 24 hr 150 mg PO QAM RF: 0 multivitamin Tablet 1 tab PO QAM RF: 0 pantoprazole 40 mg tablet,delayed release (DR/EC) 40 mg PO QAM RF: 0 Vyvanse 60 mg capsule 60 mg PO QAM RF: 0 cholecalciferol (vitamin D3) [Vitamin D3] 25 mcg (1,000 unit) Capsule 25 mcg PO QAM RF: 0 tamsulosin 0.4 mg Capsule 0.4 mg PO HS 30 Days Qty: 30 RF: 0 Referrals Referrals: Ema Green, [Primary Care Provider] -
--- NOTE | 2020-05-26 07:03 | XRay Report ---
KUB CLINICAL HISTORY: left side kidney stones COMPARISON STUDY: CT of the abdomen and pelvis May 22, 2020. FINDINGS: A small calculus within lower pole the left kidney is noted. There is possible visualizatio n of a 4 mm proximal left ureteral calculus. This may project over the left transverse process of L3. Intrauterine device is noted. There are cholecystectomy clips and a surgical staple line within the right lower quadrant. A left pelvic calcification represents a phlebolith. IMPRESSION: 1. Possible visualization of the 4 mm proximal left ureteral calculus. 2. Left-sided nephrolithiasis. ACT 112: Negative or not required by law. Electronically signed by: Eric Vogel M.D. 05/26/2020 7:02 AM
[2020-05-26 07:31] LABS: Appearance Urine Clear (Clear); Bacteria Urine Automated Negative (Negative); Bilirubin Urine Negative (Negative); Blood Urine 3+ (Negative); Color Urine Yellow; Epithelial Cell Urine Auto >30 /lpf (0-5); Glucose Urine UA Negative (Negative); Ketones Urine Negative (Negative); Leukocyte Esterase Urine Trace (Negative); Nitrite Urine Negative (Negative); Protein Urine Negative (Negative); Specific Gravity Urine 1.019 (1.000-1.030); Urobilinogen Urine Negative (Negative); pH Urine 6.5 (4.5-7.5)
[2020-05-26] MEDS ORDERED: ONDANSETRON HOME PACK 4MG OD TAB PO ONE (07:36)
[2020-05-26] MEDS ORDERED: oxyCODONE IR HOME PACK PO ONE (07:36)
[2020-05-26] MEDS ORDERED: MoRPHine SULFATE 4 MG/ML 1 ML CARP\\VIAL IV STA (08:06)
--- NOTE | 2020-05-26 08:11 | Emergency Department Note ---
ED Visit Note ED COURSE: I was asked to reevaluate this patient by her primary nurse, after her initial practitioner, Martín Bach PA-C, had left for the day, as the patient had been prepared for discharge. Patient's ED visit and recent admission/EMR were reviewed. Patient had reported that her left flank pain had increased, and she did not feel that she could be safely discharged home. I reassessed the patient around 8:00. She is tearful, complaining of left flank pain. She does not like the way the Dilaudid makes her feel, she states it makes her feel very sleepy but does not really help with the pain, makes her nauseous, and dropped her oxygen saturation. She had also received IV acetaminophen and Toradol. Her prior admission and urology consultation was reviewed. Patient was agreeable to IV morphine 4 mg. Additional IV fluids were hung. Consultation was placed urology. The patient was reviewed with KEVYN Bañuelos with the urology team. Patient was reviewed with Dr. Ricardo, and the plan will be to take her for a stent this afternoon. [facility] Patient was reviewed with SEGUNDO Verdin with [facility]. Please refer to urology consult and admission H&P for further information. DIAGNOSIS: Intractable left flank pain, proximal left ureteral stones
--- NOTE | 2020-05-26 09:48 | History & Physical Report ---
Date of Service May 26, 2020 Assessment & Plan (1) Acute left flank pain: (2) Calculus of proximal left ureter: This is a 39yo F with a PMH of ureteral stones, ADHD and depression and history of sleeve gastrectomy 6 months ago who presents with worsening L flank pain since early this evening was found to have left ureteral stones. Progressive L flank pain over past few days in setting of two left-sided ureteral calculi measuring 4 mm in aggregate Afebrile and hemodynamically stable. No leukocytosis or evidence of kidney injury KUB shows 4 mm proximal left ureteral calculus Urology plans for left ureteral stent placement later this afternoon by Dr. Ricardo Admitted for continued IV fluids and pain control Will also initiate bowel regimen in setting of narcotics Avoid NSAIDs in setting of recent gastrectomy Keep NPO for now (3) Depression: Give missed dose of Wellbutrin this evening (4) ADHD: Okay to hold Vyvanse while admitted DVT Ppx: SCDs Code status: FULL PCP: Norma Dispo: Admitted to med/surg. Plan to return home once medically stable. Patient seen in collaboration with Dr. Reyes. Please see addendum. History of Present Illness Chief Complaint: L flank pain Primary Care Provider: Ema Green, This is a 39yo F with a PMH of ureteral stones, ADHD and depression and history of sleeve gastrectomy 6 months ago who presents with worsening L flank pain since early this evening. Was admitted to our service earlier this week for L renal colic in setting of two left-sided ureteral calculi measuring 4 mm in aggregate. Was managed conservatively with medication earlier this week and discharged with plans for outpatient urology follow-up. [place] better until last night around 0300 when colicky pain to left flank returned with radiation to groin. Took Tylenol and Motrin but then immediately vomited due to pain. Denies any fever chills. Denies any dysuria or hematuria. No issues with urination. In ED today, patient is afebrile and hemodynamically stable. Pain controlled with IV pain medication. KUB shows 4 mm proximal left ureteral calculus. was seen by urology in ED with plans for left ureteral stent placement later this afternoon by Dr. Ricardo. Will continue IV fluids and pain control as well as initiate a bowel regimen this evening. Denies any lightheadedness, headache, chest pain, shortness of breath or diarrhea. Allergies Allergy/AdvReac Type Severity Reaction Status Date / Time Penicillins Allergy Severe ANAPHYLAXIS Verified 05/26/20 05:44 cefaclor Allergy Intermediate Hives,nausea,vomiting Verified 05/26/20 05:44 diarrhea codeine Allergy Intermediate FULL BODY Verified 05/26/20 05:44 ITCHING levofloxacin [From Levaquin] Allergy Intermediate Hives Verified 05/26/20 05:44 promethazine Allergy Intermediate TORTICOLLIS Verified 05/26/20 05:44 Home Medications Medication Instructions Recorded Confirmed Type bupropion HCl 150 mg PO QAM 05/02/19 05/26/20 History multivitamin 1 tab PO QAM 07/28/19 05/26/20 History Vyvanse 60 mg PO QAM 05/22/20 05/26/20 History cholecalciferol (vitamin D3) 25 mcg PO QAM 05/22/20 05/26/20 History [Vitamin D3] pantoprazole 40 mg PO QAM 05/22/20 05/26/20 History tamsulosin 0.4 mg PO HS 30 Days #30 cap 05/23/20 05/26/20 Rx ondansetron 4 mg PO Q6H PRN #12 tab 05/26/20 Rx oxycodone 5 - 10 mg PO Q6H #15 tab 05/26/20 Rx Past Med/Surg History Medical History ADHD Depression Insulin controlled gestational diabetes mellitus during Maternal care for (suspected) abnormality and damage, unspecified, fetus 1 Mild pre-eclampsia in third trimester Recurrent UTI Urinary retention Surgical History H/O tubal ligation History of appendectomy History of cholecystectomy Hx of section Family History Other Cancer Diabetes Hypertension Social History Smoking Status: Never smoker Second Hand Exposure: No; Hx Alcohol Use: Yes Alcohol type: wine Hx Substance Use: No Preferred Language: Faroese Communication Ability: Effective Visual Impairment: No Limitations Hearing Ability: Normal Hot Knife Cutter Required: No Beliefs That Will Affect Care: None Current Living Situation: Significant Other and Other Current Living Situation Comment: at home with sig other /children Other Information That Helps Us Care for You: No Feels Safe at Home: Yes Safety Concerns: Feels Safe At This Time Assistive Devices: Contacts and Glasses Review of Systems Review of Systems: At least ten systems reviewed and negative except as noted in the HPI. Physical Exam Physical Exam: General Appearance: WD/WN, vitals as above, NAD, sitting up in bed, pleasant, conversing easily Head: normocephalic, atraumatic Eyes: normal inspection, PERRL, conjunctivae normal, anicteric sclerae ENT: external ear and nose normal, oropharynx normal Neck: normal visual inspection, trachea midline, no thyromegaly Respiratory: normal respiratory effort, lungs clear to auscultation, no wheeze, rales, rhonchi. No accessory muscle use Cardiovascular: regular rate, rhythm, no murmur, normal peripheral pulses, no BLE edema. Vessels: no JVD Chest: normal inspection of chest Abdomen/GI: normal bowel sounds, soft, nontender, no hepatosplenomegaly : L CVA TTP with suprapubic discomfort on L side Extremities/Musculoskeletal: no cyanosis or clubbing, extremities motor strength 5/5 Neurologic: PERRL, EOMI, accommodation nl, no face palsy, no dysarthria, CN's II-XI intact bilaterally and moves all extremities Psychiatric: A+Ox3, euthymic affect Skin: no rashes, normal color, warm/dry Results & Data Results & Data ([facility]) Vital Signs (Past 12 Hours) Vital Signs Temp Pulse Pulse Resp BP BP Pulse Ox 05/26/20 09:24 66 16 121/90 97 05/26/20 08:36 60 18 138/93 97 05/26/20 07:09 61 16 151/96 H 100 05/26/20 06:24 53 L 12 142/97 H 92 05/26/20 05:17 36 C L 85 22 140/99 97 Laboratory Results Short CBC 05/26/20 Range/Units 06:01 WBC 8.60 (4.8-10.8) K/uL Hgb 12.8 (12.0-16.0) g/dL Hct 37.7 (37-47) % Plt Count 193 (130-400) K/uL BMP 05/26/20 06:01 Sodium 139 Potassium Chloride 105 Carbon Dioxide 27 BUN 21 H Creatinine 0.92 Glucose 99 Calcium 9.3 Liver Function 05/26/20 Range/Units 06:01 Total Bilirubin 0.5 (0.2-1) mg/dl AST (15-37) U/L ALT 35 (12-78) U/L Alkaline Phosphatase 78 (45-117) U/L Albumin 3.2 L (3.4-5.0) gm/dl Urine 05/26/20 Range/Units 07:10 Urine Color Yellow Urine Appearance Clear (Clear) Urine pH 6.5 (4.5-7.5) Ur Specific Malin 1.019 (1.000-1.030) Urine Protein Negative (Negative) Urine Glucose (UA) Negative (Negative) Diagnostic Findings KUB: IMPRESSION: 1. Possible visualization of the 4 mm proximal left ureteral calculus. 2. Left-sided nephrolithiasis. Code Status & VTE Plan VTE Prophylaxis Plan VTE Prophylaxis will be ordered: Yes Supervising Physician Co-Signing Physician Notes Attending Addendum: care coordinated with MOHAN Waters please refer to her notes for full details, I agree with her notes patient seen and examined, records reviewed by myself as well on exam, patient Seen resting in bed, not in distress States pain is well controlled Has intermittent nausea Denies headache, chest pain, palpitations, shortness of breath No fevers or chills No other symptoms no other symptoms VS noted and reviewed oriented x 3 , not in distress, speaks in sentences with no effort nor accessory muscle use normal rate, regular rhythm, no murmurs clear breath sounds bilaterally non distended, soft, nontender no bipedal edema, erythema, warmth no neuro deficits WBC 8.6 Hg 12.8 Crea 0.92 ASSESSMENT AND PLAN Left ureteral stones Kidney function stable No signs of UTI As needed analgesics, antiemetics, IV fluids For cystoscopy and stent placement today other diagnoses and plan of care as per MOHAN Waters's notes Checo Reyes MD
[2020-05-26] MEDS: SODIUM CHLORIDE 0.9% 1000ML 1,000 ML IV SCH ×3 (10:26→17:39)
--- NOTE | 2020-05-26 12:14 | Urology Consultation ---
Date of Consultation May 26, 2020 Assessment & Plan (1) Calculus of proximal left ureter: (2) Acute left flank pain: 39yo F admitted with intractable left flank pain secondary to a proximal left ureteral calculus. - Afebrile, VSS, lab work reviewed - no leukocytosis, creatinine within normal limits - Continues to be symptomatic with left flank pain and nausea - Keep NPO - Strain all urine - Findings reviewed with - Given her intractable left flank pain in the context of an obstructing proximal left ureteral stone, will proceed with OR for Cystoscopy, Left retrograde pyelogram and Left stent placement. Risks and benefits to be reviewed with patient by . OR notified. CXR and EKG in chart. Will cover with IV Clindamycin preoperatively. - Patient agreeable to above plan, all questions were answered. History of Present Illness Reason for Consultation: L flank pain; L ureteral calculus Attending Physician: Checo Reyes MD History of Present Illness 39yo F admitted for intractable left flank pain with associated nausea and vomiting secondary to a 4mm left ureteral calculus. PMHx of recurrent UTI, urinary retention, ADHD, depression. Prior hospitalization notes and imaging reviewed. Pt presented to [facility] ED on 05/22/20 with severe left flank pain. A CT AP showed bilateral nephrolithiasis, 2 tangential proximal left ureteral calculi measuring 4 mm in aggregate, mild secondary fullness of the left renal collecting system. She was admitted for further evaluation and management. Pain was controlled and pt elected to proceed with trial of passage with max medical therapy as an outpatient and was discharged home. She was feeling better until last night when the L flank pain returned. She presented today to the ER today with worsening L flank pain and n/v. She states that she awoke with pain this morning, and attempted to take Tylenol and Motrin, but immediately vomited because of the pain. In ED today, patient was afebrile and hemodynamically stable. Pain controlled with IV pain medication. KUB shows 4 mm proximal left ureteral calculus. IV fluids and pain control as well as bowel regimen initiated. KUB IMPRESSION 05/26: 1. Possible visualization of the 4 mm proximal left ureteral calculus. 2. Left-sided nephrolithiasis. Chart review: BP 147/99, P 72 Afebrile Wbc 8.60 Hgb 12.8 Creatinine 0.92 Urine culture 05/22- negative Urinalysis today with blood, trace leuks, neg nitrite, neg bacteria Patient examined at bedside this afternoon. Awake and alert. Denies stone passage. She reports ongoing left flank pain, managing with IV pain medication. Denies hematuria/dysuria. Denies fevers or chills. Denies nausea/vomiting. Has been NPO. Voiding without difficulty. No additional concerns today. Allergies Allergy/AdvReac Type Severity Reaction Status Date / Time Penicillins Allergy Severe ANAPHYLAXIS Verified 05/26/20 05:44 cefaclor Allergy Intermediate Hives,nausea,vomiting Verified 05/26/20 05:44 diarrhea codeine Allergy Intermediate FULL BODY Verified 05/26/20 05:44 ITCHING levofloxacin [From Levaquin] Allergy Intermediate Hives Verified 05/26/20 05:44 promethazine Allergy Intermediate TORTICOLLIS Verified 05/26/20 05:44 Home Medications Medication Instructions Recorded Confirmed Type bupropion HCl 150 mg PO QAM 05/02/19 05/26/20 History multivitamin 1 tab PO QAM 07/28/19 05/26/20 History Vyvanse 60 mg PO QAM 05/22/20 05/26/20 History cholecalciferol (vitamin D3) 25 mcg PO QAM 05/22/20 05/26/20 History [Vitamin D3] pantoprazole 40 mg PO QAM 05/22/20 05/26/20 History tamsulosin 0.4 mg PO HS 30 Days #30 cap 05/23/20 05/26/20 Rx ondansetron 4 mg PO Q6H PRN #12 tab 05/26/20 Rx oxycodone 5 - 10 mg PO Q6H #15 tab 05/26/20 Rx Patient History Medical History (Updated 05/26/20 @ 13:30 by Ria Waters PA-C) ADHD Depression Insulin controlled gestational diabetes mellitus during Maternal care for (suspected) abnormality and damage, unspecified, fetus 1 Mild pre-eclampsia in third trimester Recurrent UTI Urinary retention Surgical History H/O tubal ligation History of appendectomy History of cholecystectomy Hx of section Family History Other Cancer Diabetes Hypertension Social History Smoking Status: Never smoker Second Hand Exposure: No; Hx Alcohol Use: Yes Alcohol type: wine Hx Substance Use: No Preferred Language: Emirati Communication Ability: Effective Visual Impairment: No Limitations Hearing Ability: Normal [place] Man Required: No Beliefs That Will Affect Care: None Current Living Situation: Significant Other and Other Current Living Situation Comment: at home with sig other /children Other Information That Helps Us Care for You: No Feels Safe at Home: Yes Safety Concerns: Feels Safe At This Time Assistive Devices: Contacts and Glasses Review of Systems Review of Systems: All systems reviewed & are unremarkable except as noted in HPI & below Physical Exam Constitutional: well developed and well nourished; no acute distress Respiratory: normal respiratory effort and able to speak in complete sentences Cardiovascular: Extremities: no calf tenderness Gastrointestinal (Abdomen): Inspection/Auscultation: abdomen normal to inspection; abdomen not distended Musculoskeletal: Head/Neck/Chest: normocephalic Skin: no rashes, warm and dry Neurologic: moves all extremities and awake; not confused Psychiatric: Orientation: alert, oriented x 3 and cooperative Results & Data ([place]) Vital Signs (Past 12 Hours) Vital Signs Temp Pulse Pulse Resp BP BP Pulse Ox 05/26/20 11:21 65 18 136/102 H 97 05/26/20 09:24 66 16 121/90 97 05/26/20 08:36 60 18 138/93 97 05/26/20 07:09 61 16 151/96 H 100 05/26/20 06:24 53 L 12 142/97 H 92 05/26/20 05:17 36 C L 85 22 140/99 97 PG Care Time/CCT Total # of Minutes Spent Total Time Spent with Patient: Total time spent is greater than 50% in coordination of care (as documented) at patient's floor/unit and/or counseling patient: Coding Level of Care Code 75691 Inpt Consult Level 4 Diagnoses Calculus of proximal left ureter N20.1 Acute left flank pain R10.9
[2020-05-26] MEDS: ONDANSETRON INJ 2 MG/ML 2 ML VIAL IV PRN (13:34)
[2020-05-26] MEDS: HYDROmorphone INJ 0.5 MG/0.5 ML SYR IV PRN ×2 (13:34→20:09)
[2020-05-26] MEDS ORDERED: CLINDAMYCIN 600 MG/54 ML D5W IV ONE (15:40)
--- NOTE | 2020-05-26 15:40 | Anesthesiology Consultation ---
Date of Service May 26, 2020 Assessment & Plan (1) Encounter for pre-operative examination: Chart Review Chart Review: Acceptable Risk for Surgery History Surgery Operation Date: 05/26/20 13:25 Proposed Procedures p Cystoscopy, Left Stent Placement - Adonis Ricardo MD Height/Weight Height: 5 ft 6 in Weight: 93.3 kg Allergies Allergy/AdvReac Type Severity Reaction Status Date / Time Penicillins Allergy Severe ANAPHYLAXIS Verified 05/26/20 05:44 cefaclor Allergy Intermediate Hives,nausea,vomiting Verified 05/26/20 05:44 diarrhea codeine Allergy Intermediate FULL BODY Verified 05/26/20 05:44 ITCHING levofloxacin [From Levaquin] Allergy Intermediate Hives Verified 05/26/20 05:44 promethazine Allergy Intermediate TORTICOLLIS Verified 05/26/20 05:44 Medications Home Medications Medication Instructions Recorded Confirmed Last Taken bupropion HCl 150 mg PO QAM 05/02/19 05/26/20 05/25/20 multivitamin 1 tab PO QAM 07/28/19 05/26/20 05/25/20 Vyvanse 60 mg PO QAM 05/22/20 05/26/20 05/25/20 cholecalciferol (vitamin D3) 25 mcg PO QAM 05/22/20 05/26/20 05/25/20 [Vitamin D3] pantoprazole 40 mg PO QAM 05/22/20 05/26/20 05/25/20 tamsulosin 0.4 mg PO HS 30 Days #30 cap 05/23/20 05/26/20 05/25/20 ondansetron 4 mg PO Q6H PRN #12 tab 05/26/20 Unknown oxycodone 5 - 10 mg PO Q6H #15 tab 05/26/20 Unknown Active Medications Generic Name Dose Route Start Last Admin Trade Name Freq PRN Reason Stop Dose Admin Hydromorphone HCl 0.5 mg 05/26/20 13:11 05/26/20 13:34 Hydromorphone Inj 0.5 Mg/0.5 Ml Syr IV 06/09/20 13:10 0.5 mg Q3H PRN Administration Pain Sodium Chloride 1,000 mls @ 150 mls/hr 05/26/20 08:15 05/26/20 13:33 Nss 1000ml IV 06/25/20 08:14 250 mls/hr .[id number] GLENN Administration Ondansetron HCl 4 mg 05/26/20 13:13 05/26/20 13:34 Ondansetron Inj 2 Mg/Ml 2 Ml Vial IV 06/25/20 13:12 4 mg Q6H PRN Administration Nausea Past Medical History Medical History ADHD Depression Insulin controlled gestational diabetes mellitus during Maternal care for (suspected) abnormality and damage, unspecified, fetus 1 Mild pre-eclampsia in third trimester Recurrent UTI Urinary retention Past Family History Family History Other Cancer Diabetes Hypertension Past Surgical History Surgical History H/O tubal ligation History of appendectomy History of cholecystectomy Hx of section Social History Smoking Status: Never smoker Hx Alcohol Use: Yes Alcohol type: wine alcohol intake frequency: a few times a week Hx Substance Use: No Physical Exam Vital Signs Last Vital Signs Temp 36.5 C 05/26/20 12:13 Pulse 72 05/26/20 12:13 Resp 16 05/26/20 12:13 BP 147/99 H 05/26/20 12:13 Pulse Ox 98 05/26/20 12:13 Testing Laboratory Results 05/26/20 06:01 05/26/20 06:01 Urine Color Yellow 05/26/20 07:10 Urine Appearance Clear (Clear) 05/26/20 07:10 Urine pH 6.5 (4.5-7.5) 05/26/20 07:10 Ur Specific Medon 1.019 (1.000-1.030) 05/26/20 07:10 Urine Protein Negative (Negative) 05/26/20 07:10 Urine Glucose (UA) Negative (Negative) 05/26/20 07:10 Urine Ketones Negative (Negative) 05/26/20 07:10 Urine Nitrite Negative (Negative) 05/26/20 07:10 Ur Leukocyte Esterase Trace (Negative) H 05/26/20 07:10 Urine WBC (Auto) 1-5 /hpf (0-5) 05/26/20 07:10 Urine RBC (Auto) 5-10 /hpf (0-4) H 05/26/20 07:10 U Hyaline Cast (Auto) 1-5 /lpf (0-5) 05/26/20 07:10 U Epithel Cells (Auto) >30 /lpf (0-5) H 05/26/20 07:10 Urine Bacteria (Auto) Negative (Negative) 05/26/20 07:10
[2020-05-26] MEDS ORDERED: fentaNYL citrate 100 MCG/2 ML VIAL ONE ×2 (15:41→16:49)
[2020-05-26] MEDS ORDERED: MIDAZOLAM HCL 1 MG/ML 2ML VIAL ONE (15:41)
[2020-05-26] MEDS ORDERED: CLINDAMYCIN 600 MG/54 ML BAG IV SCH (16:00)
[2020-05-26] MEDS ORDERED: PROPOFOL IV EMULSION 10 MG/ML 20 ML VIAL IV ONE (16:32)
[2020-05-26] MEDS ORDERED: ONDANSETRON INJ 2 MG/ML 2 ML VIAL ONE (16:32)
[2020-05-26] MEDS ORDERED: LIDOCAINE 2% 2 ML VIAL/AMP(20MG/ML) INFIL ONE (16:32)
--- NOTE | 2020-05-26 16:43 | Operative Report ---
PG Post Operative Report Pre & Post Diagnosis Operation Date: 05/26/20 13:25 Pre-Op Diagnosis: Left ureteral stone Post-Op Diagnosis: Left ureteral stone I identified the patient and participated in the time-out.: Yes Procedure Operation Date: 05/26/20 13:25 Actual Procedures p Cystoscopy, Left ureteral Stent Placement(Left) - Adonis Ricardo MD Surgeon Trung Ricardo MD Gas Engine Repairer none Estimated Blood Loss 0 Findings Consistent with Post-Op Diagnosis Specimens none Description of Procedure The patient was identified in the preoperative holding area, appropriate informed consents were reviewed and completed and the patient was transferred to the operative suite. Upon arrival, appropriate antibiotics and anesthesia were administered and the patient was placed in dorsal lithotomy position and prepped and draped in sterile fashion. To begin the case to pass a 22 Mosotho cystoscope with 30 degree lens. Inspection revealed healthy appearing bladder. Ureteral orifices were in orthotopic position. I cannulated the left UO with a sensor wire which advanced the kidney without difficulty. I then passed a 6 Mosotho by 24 cm double-J ureteral stent. I felt that the stent was slightly too short so I withdrew and replaced a 6 Mosotho by 2230 multilength stent. There was good curl in the kidney as well as the bladder. The case was subsequently concluded. Of note, there was some slightly purulent urine that drained after passage of the wire. She was reversed of anesthesia and taken to the recovery room in stable condition. She tolerated the procedure very well. I attest to the content of the Intraoperative Record and any orders documented therein. Any exceptions are noted below.
[2020-05-26] MEDS ORDERED: ONDANSETRON INJ 2 MG/ML 2 ML VIAL IV PRN (16:48)
[2020-05-26] MEDS ORDERED: ATROPINE SULFATE 0.1 MG/ML 10ML SYR IV PRN (16:48)
[2020-05-26] MEDS: fentaNYL citrate 100 MCG/2 ML VIAL IV PRN ×2 (16:49→16:54)
--- NOTE | 2020-05-26 17:04 | Anesthesiology Progress Note ---
Date of Service May 26, 2020 Anesthesia Post Procedure Vital Signs Vital Signs: Temp Pulse Pulse Pulse Resp BP BP 05/26/20 16:55 62 14 120/77 05/26/20 16:45 36.3 C L 60 14 130/89 05/26/20 15:37 36.7 C 63 18 126/86 05/26/20 12:13 36.5 C 72 16 147/99 H 05/26/20 11:21 65 18 136/102 H 05/26/20 09:24 66 16 121/90 05/26/20 08:36 60 18 138/93 05/26/20 07:09 61 16 151/96 H 05/26/20 06:24 53 L 12 142/97 H 05/26/20 05:17 36 C L 85 22 140/99 Pulse Ox 05/26/20 16:55 96 05/26/20 16:45 95 05/26/20 15:37 97 05/26/20 12:13 98 05/26/20 11:21 97 05/26/20 09:24 97 05/26/20 08:36 97 05/26/20 07:09 100 05/26/20 06:24 92 05/26/20 05:17 97 Pain Intensity Left Flank: Pain Intensity: 2 Transfer of Care Handoff Completed per policy Notes Mental Status: alert / awake / arousable Patient Amnestic to Procedure: Yes Nausea / Vomiting: adequately controlled Pain: adequately controlled Airway Patency, RR, SpO2: stable & adequate BP & HR: stable & adequate Hydration State: stable & adequate Anesthetic Complications: no major complications apparent and Pt Satisfied with anesthetic care
--- NOTE | 2020-05-26 17:09 | Fluoroscopy Report ---
[place] KUB CLINICAL HISTORY: LT CYSTO COMPARISON STUDY: 05/26/2020 FLUOROSCOPY TIME: 11 seconds. NUMBER OF FLUOROSCOPIC IMAGES: 1 FINDINGS: A single intraoperative fluoroscopic spot image demonstrates the proximal aspect of a left- sided nephroureteral stent. The proximal pigtail is not fully formed. IMPRESSION: Partial visualization of a left-sided nephroureteral stent. ACT 112: Negative or not required by law. Electronically signed by: Keven Colon M.D. 05/26/2020 5:08 PM
[2020-05-26] MEDS: ACETAMINOPHEN 1,000 MG/100 ML VIAL IV PRN (17:40)
[2020-05-26] MEDS ORDERED: PROCHLORPERAZINE 5 MG in SYRINGE 4 ML IV PRN (19:42)
[2020-05-26] MEDS: buPROPion XL 150 MG TABCR PO SCH (19:44)
[2020-05-26] MEDS ORDERED: OXYBUTYNIN CHLORIDE 5 MG TAB PO PRN (19:45)
[2020-05-26] MEDS ORDERED: POLYETHYLENE (MIRALAX) 17 GM PACK PO ONE (20:00)
[2020-05-26] MEDS: TAMSULOSIN HCL 0.4 MG CAP PO SCH (22:08)
[2020-05-26] MEDS: PHENAZOPYRIDINE HCL 100 MG TAB PO PRN (22:08)
[2020-05-26] MEDS: DOCUSATE SODIUM 100 MG CAP PO SCH (22:08)
[2020-05-26] MEDS ORDERED: POLYETHYLENE (MIRALAX) 17 GM PACK ONE (22:11)
[2020-05-26] MEDS: KETOROLAC 30 MG/ML VIAL IV PRN (22:59)
[2020-05-27] MEDS: SODIUM CHLORIDE 0.9% 1000ML 1,000 ML IV SCH ×4 (01:27→23:06)
[2020-05-27] MEDS: ONDANSETRON INJ 2 MG/ML 2 ML VIAL IV PRN ×3 (04:18→22:29)
[2020-05-27] MEDS: HYDROmorphone INJ 0.5 MG/0.5 ML SYR IV PRN ×3 (04:18→22:27)
[2020-05-27 06:16] LABS: Hemoglobin 11.4 g/dL (12.0-16.0); Mean Corpuscular Hemoglobin 30.3 pg (25-34); Mean Corpuscular Hgb Conc 33.5 g/dL (32-36); Mean Corpuscular Volume 90.4 fL (80-100); Mean Platelet Volume 11.1 fL (7.4-10.4); Platelet Count 216 K/uL (130-400); RDW Coefficient of Variation 13.3 % (11.5-14.5); RDW Standard Deviation 43.4 fL (36.4-46.3); Red Blood Count 3.76 M/uL (4.2-5.4); White Blood Count 7.43 K/uL (4.8-10.8)
[2020-05-27 06:54] LABS: BUN Creatinine Ratio 28.6 (10-20); Calcium 8.1 mg/dl (8.5-10.1); Creatinine Clr Calc Pharmacy 137.2 ml/min; Est GFR (African American) 131.2; Est GFR (Non-African American) 113.2; Potassium 4.1 mmol/L (3.5-5.1)
[2020-05-27] MEDS ORDERED: OXYBUTYNIN CHLORIDE 5 MG TAB PO PRN (07:54)
[2020-05-27] MEDS: PHENAZOPYRIDINE HCL 100 MG TAB PO PRN (08:04)
[2020-05-27] MEDS: PANTOprazole 40 MG TAB PO SCH (08:04)
[2020-05-27] MEDS: buPROPion XL 150 MG TABCR PO SCH (08:04)
[2020-05-27] MEDS: DOCUSATE SODIUM 100 MG CAP PO SCH ×2 (08:04→20:40)
[2020-05-27] MEDS: KETOROLAC 30 MG/ML VIAL IV PRN ×3 (08:09→23:09)
--- NOTE | 2020-05-27 08:47 | Urology Progress Note ---
Date of Service May 27, 2020 Assessment & Plan (1) Calculus of proximal left ureter: POD#1 s/p L ureteral stent placement - has now exchanged stone pain for stent pain - afvss - increase oxybutynin - cont pain control - I have added her to the OR schedule for tomorrow morning for URS/LL/stent exchange - NPO after MN Admission and Anticipated Discharge Date Admission Date: May 26, 2020 Subjective better than yesterday, but still with notable stent driven discomfort asked about increasing oxybutynin receiving toradol and tylenol no fevers/chills labs stable Physical Exam Constitutional: well developed and well nourished Respiratory: no respiratory distress Cardiovascular: Extremities: no pedal edema Gastrointestinal (Abdomen): Inspection/Auscultation: abdomen normal to inspection Results & Data ([facility]) Vital Signs (Past 12 Hours) Vital Signs Temp Pulse Resp BP Pulse Ox 05/27/20 07:33 36.4 C L 56 L 18 132/88 98 05/26/20 23:03 36.5 C 59 L 18 131/86 96 05/26/20 21:19 36.6 C 58 L 18 126/82 96 PG Care Time/CCT Total # of Minutes Spent Total Time Spent with Patient: Total time spent is greater than 50% in coordination of care (as documented) at patient's floor/unit and/or counseling patient: Coding Level of Care Code 11033 Subseq Hosp Care Lvl 2 Diagnoses Calculus of proximal left ureter N20.1
[2020-05-27] MEDS ORDERED: POLYETHYLENE (MIRALAX) 17 GM PACK PO SCH (09:00)
[2020-05-27] MEDS: ACETAMINOPHEN 1,000 MG/100 ML VIAL IV PRN (09:47)
[2020-05-27] MEDS: OXYBUTYNIN CHLORIDE 5 MG TAB PO SCH ×2 (09:49→20:41)
[2020-05-27] MEDS: CHOLECALCIFEROL 1,000 UNITS 25 MCG TAB PO SCH (09:50)
[2020-05-27] MEDS: MULTIVITAMIN TAB PO SCH (09:50)
[2020-05-27] MEDS ORDERED: MAGNESIUM HYDROXIDE SUSP 30 ML UDC PO PRN (09:51)
[2020-05-27] MEDS: ACETAMINOPHEN 1,000 MG/100 ML VIAL IV SCH ×2 (10:03→17:45)
[2020-05-27] MEDS ORDERED: LACTULOSE SYRUP 10 GM/15 ML BTL 960 ML PO PRN (10:10)
[2020-05-27 11:10] LABS: Appearance Urine Cloudy (Clear); Bacteria Urine Automated 4+ (Negative); Bilirubin Urine Negative (Negative); Blood Urine 3+ (Negative); Color Urine Orange; Epithelial Cell Urine Auto >30 /lpf (0-5); Glucose Urine UA Negative (Negative); Ketones Urine Negative (Negative); Leukocyte Esterase Urine 1+ (Negative); Nitrite Urine Positive (Negative); Protein Urine 2+ (Negative); RBC Urine Automated >30 /hpf (0-4); Specific Gravity Urine 1.015 (1.000-1.030); Urobilinogen Urine Negative (Negative); pH Urine 5.5 (4.5-7.5)
[2020-05-27] MEDS ORDERED: CEFEPIME CONSULT ACTIVE PRN (14:22)
[2020-05-27] MEDS: PHENAZOPYRIDINE HCL 100 MG TAB PO SCH ×2 (14:25→20:41)
[2020-05-27] MEDS: CEFEPIME 2,000 MG in SYRINGE 0 ML IV SCH ×2 (15:54→23:06)
--- NOTE | 2020-05-27 18:29 | Hospitalist Progress Note ---
Date of Service May 27, 2020 Assessment & Plan (1) Acute left flank pain: (2) Calculus of proximal left ureter: This is a 39yo F with a PMH of ureteral stones, ADHD and depression and history of sleeve gastrectomy 6 months ago who presents with worsening L flank pain since early this evening was found to have left ureteral stones. KUB shows 4 mm proximal left ureteral calculus s/p stent placement (+) increased pain today UA shows possible UTI no signs of Pyelo plan for stent exchange tomorrow Cefepime IV Day 1 started ff up urine cultures PRN analgesics, antiemetics (3) Depression: continue usual Welbutrin (4) ADHD: Okay to hold Vyvanse while admitted DVT Ppx: SCDs Code status: FULL PCP: Norma Dispo: pending Admission and Anticipated Discharge Date Admission Date: May 26, 2020 Subjective ff up for ureteral stones seen resting in bed, appears tired states she has increased Left LLQ/Inguinal pain also has difficulty voiding no flank pain, chills, nausea (+) constipation no other symptoms Review of Systems Review of Systems: All systems reviewed & are unremarkable except as noted in Subjective Physical Exam Physical Exam: General- oriented x 3, not in distress, speaks in sentences with no effort or accessory muscle use Eyes- anicteric Neck- no JVD Lungs- clear breath sounds bilaterally Heart- normal rate, regular rhythm; no murmurs Abdomen- normal bowel sounds, nondistended, soft, (+) mild RLQ tenderness Extremities- no pretibial edema, no calf tenderness Neuro- alert, oriented x 3; no gross focal neurologic deficits Skin- warm & dry Results & Data Results & Data ([facility]) Vital Signs (Past 12 Hours) Vital Signs Temp Pulse Resp BP Pulse Ox 05/27/20 16:24 36.7 C 58 L 18 146/94 H 94 05/27/20 07:33 36.4 C L 56 L 18 132/88 98 Laboratory Results Laboratory Results - last 24 hr 05/27/20 05/27/20 05/27/20 05:18 05:18 Unknown WBC 7.43 RBC 3.76 L Hgb 11.4 L Hct 34.0 L MCV 90.4 MCH 30.3 MCHC 33.5 RDW Std Deviation 43.4 RDW Coeff of Dylan 13.3 Plt Count 216 MPV 11.1 H Sodium 140 Potassium 4.1 Chloride 109 H Carbon Dioxide 26 Anion Gap 5.0 BUN 18 Creatinine 0.64 Est Cr Clr Drug Dosing 137.2 Est GFR ( Amer) 131.2 Est GFR (Non-Af Amer) 113.2 BUN/Creatinine Ratio 28.6 H Glucose 86 Calcium 8.1 L Urine Color [place] Urine Appearance Cloudy A Urine pH 5.5 Ur Specific [place] 1.015 Urine Protein 2+ H Urine Glucose (UA) Negative Urine Ketones Negative Urine Blood 3+ H Urine Nitrite Positive A Urine Bilirubin Negative Urine Urobilinogen Negative Ur Leukocyte Esterase 1+ H Urine WBC (Auto) 10-30 H Urine RBC (Auto) >30 H U Hyaline Cast (Auto) 1-5 U Epithel Cells (Auto) >30 H Urine Bacteria (Auto) 4+ H
[2020-05-27] MEDS: TAMSULOSIN HCL 0.4 MG CAP PO SCH (20:41)
[2020-05-27] MEDS: POLYETHYLENE (MIRALAX) 17 GM PACK PO SCH (20:52)
[2020-05-28] MEDS: ACETAMINOPHEN 1,000 MG/100 ML VIAL IV SCH ×3 (01:20→17:01)
[2020-05-28] MEDS: ONDANSETRON INJ 2 MG/ML 2 ML VIAL IV PRN ×2 (03:59→20:52)
[2020-05-28] MEDS: HYDROmorphone INJ 0.5 MG/0.5 ML SYR IV PRN ×5 (03:59→20:52)
[2020-05-28] MEDS: KETOROLAC 30 MG/ML VIAL IV PRN ×3 (04:29→15:24)
[2020-05-28] MEDS: SODIUM CHLORIDE 0.9% 1000ML 1,000 ML IV SCH ×3 (04:33→16:54)
[2020-05-28 06:09] LABS: Hematocrit (blood only) 33.2 % (37-47); Hemoglobin 11.2 g/dL (12.0-16.0); Mean Corpuscular Hemoglobin 30.2 pg (25-34); Mean Corpuscular Hgb Conc 33.7 g/dL (32-36); Mean Corpuscular Volume 89.5 fL (80-100); Mean Platelet Volume 10.7 fL (7.4-10.4); Platelet Count 189 K/uL (130-400); RDW Coefficient of Variation 13.2 % (11.5-14.5); RDW Standard Deviation 42.7 fL (36.4-46.3); Red Blood Count 3.71 M/uL (4.2-5.4); White Blood Count 7.73 K/uL (4.8-10.8)
[2020-05-28] MEDS ORDERED: fentaNYL citrate 100 MCG/2 ML VIAL ONE (06:48)
[2020-05-28 06:49] LABS: BUN Creatinine Ratio 15.5 (10-20); Calcium 8.6 mg/dl (8.5-10.1); Creatinine Clr Calc Pharmacy 129.1 ml/min; Est GFR (African American) 128.6; Potassium 3.9 mmol/L (3.5-5.1)
[2020-05-28] MEDS ORDERED: MIDAZOLAM HCL 1 MG/ML 2ML VIAL ONE (06:49)
--- NOTE | 2020-05-28 07:21 | Urology Progress Note ---
Date of Service May 28, 2020 Assessment & Plan (1) Calculus of proximal left ureter: Left ureteral calculus status post stent Plan for cystoscopy, ureteroscopy, laser lithotripsy today Risks, benefits, expectations discussed, consent on the chart Admission and Anticipated Discharge Date Admission Date: May 26, 2020 Subjective Did okay overnight She did develop some hematuria as would be expected She is still having some struggles with the stent and discomfort Plan for cystoscopy, ureteroscopy, laser lithotripsy today Physical Exam Constitutional: well developed and well nourished Neck: neck nontender Respiratory: normal respiratory effort; no respiratory distress and does not use accessory muscles Cardiovascular: Rate/Rhythm: regular rate Vessels: radial pulses present Extremities: no edema Gastrointestinal (Abdomen): Inspection/Auscultation: abdomen normal to inspection Percussion/Palpation: abdomen soft; abdomen nontender and no guarding Musculoskeletal: Head/Neck/Chest: normocephalic and head atraumatic Extremities: extremities normal to inspection Skin: no rashes and no lesions Trauma: no evidence of skin trauma Neurologic: awake; not obtunded Speech / Cognition: normal speech Motor/Sensory: no tremor Psychiatric: Orientation: alert and oriented x 3 Lymphatic: no lymphadenopathy Results & Data ([facility]) Vital Signs (Past 12 Hours) Vital Signs Temp Pulse Resp BP Pulse Ox 05/28/20 07:00 36.6 C 54 L 18 122/84 100 05/27/20 22:21 36.8 C 65 18 127/87 96 PG Care Time/CCT Total # of Minutes Spent Total Time Spent with Patient: Total time spent is greater than 50% in coordination of care (as documented) at patient's floor/unit and/or counseling patient: Coding Level of Care Code 28422 Subseq Hosp Care Lvl 2 Diagnoses Calculus of proximal left ureter N20.1
[2020-05-28] MEDS ORDERED: SCOPOLAMINE 1 MG TDSY TD ONE (07:28)
--- NOTE | 2020-05-28 07:32 | Anesthesiology Consultation ---
Date of Service May 28, 2020 Assessment & Plan (1) Encounter for pre-operative examination: Chart Review Chart Review: Acceptable Risk for Surgery History Surgery Operation Date: 05/26/20 13:25 Proposed Procedures p Cystoscopy, Left Stent Placement - Adonis Ricardo MD Operation Date: 05/28/20 07:30 Proposed Procedures p Laser Lithotripsy Holmium - Adonis Ricardo MD Height/Weight Height: 5 ft 6 in Weight: 93.3 kg Allergies Allergy/AdvReac Type Severity Reaction Status Date / Time Penicillins Allergy Severe ANAPHYLAXIS Verified 05/27/20 14:55 cefaclor Allergy Intermediate Hives,nausea,vomiting Verified 05/27/20 14:55 diarrhea codeine Allergy Intermediate FULL BODY Verified 05/26/20 05:44 ITCHING levofloxacin [From Levaquin] Allergy Intermediate Hives Verified 05/26/20 05:44 promethazine Allergy Intermediate TORTICOLLIS Verified 05/26/20 05:44 Medications Home Medications Medication Instructions Recorded Confirmed Last Taken bupropion HCl 150 mg PO QAM 05/02/19 05/26/20 05/25/20 multivitamin 1 tab PO QAM 07/28/19 05/26/20 05/25/20 Vyvanse 60 mg PO QAM 05/22/20 05/26/20 05/25/20 cholecalciferol (vitamin D3) 25 mcg PO QAM 05/22/20 05/26/20 05/25/20 [Vitamin D3] pantoprazole 40 mg PO QAM 05/22/20 05/26/20 05/25/20 tamsulosin 0.4 mg PO HS 30 Days #30 cap 05/23/20 05/26/20 05/25/20 ondansetron 4 mg PO Q6H PRN #12 tab 05/26/20 Unknown oxycodone 5 - 10 mg PO Q6H #15 tab 05/26/20 Unknown Active Medications Generic Name Dose Route Start Last Admin Trade Name Freq PRN Reason Stop Dose Admin Bupropion HCl 150 mg 05/26/20 21:00 05/27/20 08:04 Bupropion Xl 150 Mg Tabcr PO 06/25/20 20:59 150 mg QAM GLENN Administration Docusate Sodium 100 mg 05/26/20 21:00 05/27/20 20:40 Docusate Sodium 100 Mg Cap PO 06/25/20 20:59 100 mg BID GLENN Administration Hydromorphone HCl 0.5 mg 05/26/20 13:11 05/28/20 03:59 Hydromorphone Inj 0.5 Mg/0.5 Ml Syr IV 06/09/20 13:10 0.5 mg Q3H PRN Administration Pain Sodium Chloride 1,000 mls @ 150 mls/hr 05/26/20 08:15 05/28/20 04:33 Nss 1000ml IV 06/25/20 08:14 150 mls/hr .Q6H40M GLENN Administration Prochlorperazine 5 mg/ Syringe 5 mls @ 5 mls/min 05/26/20 19:42 05/26/20 20:08 IV 06/25/20 19:41 5 mls/min Q6H PRN Administration Nausea And Vomiting Acetaminophen 1,000 mg in 100 mls @ 400 mls/hr 05/27/20 10:00 05/28/20 01:37 Ofirmev IV 05/30/20 09:59 Infused Q8H GLENN Infusion Cefepime HCl 2,000 mg/ Syringe 20 mls @ 5 mls/min 05/27/20 15:15 05/27/20 23:06 IV 06/06/20 15:14 5 mls/min Q12 GLENN Administration Protocol Ketorolac Tromethamine 30 mg 05/26/20 19:42 05/28/20 04:29 Ketorolac 30 Mg/Ml Vial IV 05/31/20 19:41 30 mg Q6H PRN Administration Pain Multivitamins 1 tab 05/27/20 09:00 05/27/20 09:50 Multivitamin Tab PO 06/26/20 08:59 1 tab QAM GLENN Administration Ondansetron HCl 4 mg 05/26/20 13:13 05/28/20 03:59 Ondansetron Inj 2 Mg/Ml 2 Ml Vial IV 06/25/20 13:12 4 mg Q6H PRN Administration Nausea Oxybutynin Chloride 5 mg 05/27/20 09:00 05/27/20 20:41 Oxybutynin Chloride 5 Mg Tab PO 06/26/20 08:59 5 mg BID GLENN Administration Pantoprazole Sodium 40 mg 05/27/20 09:00 05/27/20 08:04 Pantoprazole 40 Mg Tab PO 06/26/20 08:59 40 mg QAM GLENN Administration Phenazopyridine HCl 100 mg 05/27/20 14:00 05/27/20 20:41 Phenazopyridine Hcl 100 Mg Tab PO 06/26/20 13:59 100 mg TID GLENN Administration Polyethylene Glycol 17 gm 05/27/20 21:00 05/27/20 20:52 Polyethylene (Miralax) 17 Gm Pack PO 06/26/20 20:59 17 gm BID GLENN Administration Tamsulosin HCl 0.4 mg 05/26/20 21:00 05/27/20 20:41 Tamsulosin Hcl 0.4 Mg Cap PO 06/25/20 20:59 0.4 mg HS GLENN Administration Vitamin D 1,000 units 05/27/20 09:00 05/27/20 09:50 Cholecalciferol 1,000 Units 25 Mcg Tab PO 06/26/20 08:59 1,000 units QAM GLENN Administration NPO Date Last Intake of Fluids: 05/27/20 Time Last Intake of Fluids: 23:59 Date Last Intake of Solids: 05/27/20 Time Last Intake of Solids: 20:00 Past Medical History Medical History ADHD Depression Insulin controlled gestational diabetes mellitus during Maternal care for (suspected) abnormality and damage, unspecified, fetus 1 Mild pre-eclampsia in third trimester Recurrent UTI Urinary retention Past Family History Family History Other Cancer Diabetes Hypertension Past Surgical History Surgical History H/O tubal ligation History of appendectomy History of cholecystectomy Hx of section Social History Smoking Status: Never smoker Hx Alcohol Use: Yes Alcohol type: wine alcohol intake frequency: a few times a week Hx Substance Use: No Physical Exam Vital Signs Last Vital Signs Temp 36.6 C 05/28/20 07:00 Pulse 54 L 05/28/20 07:00 Resp 18 05/28/20 07:00 BP 122/84 05/28/20 07:00 Pulse Ox 100 05/28/20 07:00 Testing Laboratory Results 05/28/20 05:38 05/28/20 05:38 Urine Color [place] 05/27/20 Unknown Urine Appearance Cloudy (Clear) A 05/27/20 Unknown Urine pH 5.5 (4.5-7.5) 05/27/20 Unknown Ur Specific [place] 1.015 (1.000-1.030) 05/27/20 Unknown Urine Protein 2+ (Negative) H 05/27/20 Unknown Urine Glucose (UA) Negative (Negative) 05/27/20 Unknown Urine Ketones Negative (Negative) 05/27/20 Unknown Urine Nitrite Positive (Negative) A 05/27/20 Unknown Ur Leukocyte Esterase 1+ (Negative) H 05/27/20 Unknown Urine WBC (Auto) 10-30 /hpf (0-5) H 05/27/20 Unknown Urine RBC (Auto) >30 /hpf (0-4) H 05/27/20 Unknown U Hyaline Cast (Auto) 1-5 /lpf (0-5) 05/27/20 Unknown U Epithel Cells (Auto) >30 /lpf (0-5) H 05/27/20 Unknown Urine Bacteria (Auto) 4+ (Negative) H 05/27/20 Unknown 05/27/20 Unknown Urine Culture - Preliminary Urine,Clean Catch Gram negative bacilli
[2020-05-28] MEDS ORDERED: ATROPINE SULFATE 0.1 MG/ML 10ML SYR IV PRN (07:33)
[2020-05-28] MEDS ORDERED: ONDANSETRON INJ 2 MG/ML 2 ML VIAL IV PRN (07:33)
[2020-05-28] MEDS ORDERED: METOCLOPRAMIDE HCL INJ 5 MG/ML 2 ML VIAL ONE (07:53)
[2020-05-28] MEDS ORDERED: DEXAMETHASONE SOD INJ 4 MG/ML VIAL ONE (07:53)
[2020-05-28] MEDS ORDERED: PROPOFOL IV EMULSION 10 MG/ML 20 ML VIAL IV ONE (07:53)
[2020-05-28] MEDS ORDERED: ONDANSETRON INJ 2 MG/ML 2 ML VIAL ONE (07:53)
[2020-05-28] MEDS ORDERED: LIDOCAINE 2% 2 ML VIAL/AMP(20MG/ML) INFIL ONE (07:53)
[2020-05-28] MEDS ORDERED: CLINDAMYCIN 600 MG/54 ML BAG IV SCH (08:00)
--- NOTE | 2020-05-28 08:11 | Operative Report ---
PG Post Operative Report Pre & Post Diagnosis Operation Date: 05/26/20 13:25 Pre-Op Diagnosis: Left ureteral stone Post-Op Diagnosis: Left ureteral stone Operation Date: 05/28/20 07:30 Pre-Op Diagnosis: Left Ureteral Stone Post-Op Diagnosis: Left Ureteral Stone I identified the patient and participated in the time-out.: Yes Procedure Operation Date: 05/26/20 13:25 Actual Procedures p Cystoscopy, Left ureteral Stent Placement(Left) - Adonis Ricardo MD Operation Date: 05/28/20 07:30 Actual Procedures p Cystoscopy, Left Ureteroscopy, Laser Lithotripsy, Left Stent Exchange - Adonis Ricardo MD Surgeon Trung Ricardo MD Manager Marketing Sales none Estimated Blood Loss 0 Findings Consistent with Post-Op Diagnosis Specimens none Description of Procedure The patient was identified in the preoperative holding area, appropriate informed consents were reviewed and completed and the patient was transferred to the operative suite. Upon arrival, appropriate antibiotics and anesthesia were administered and the patient was placed in dorsal lithotomy position and prepped and draped in sterile fashion. To begin the case to pass a 22 [place] cystoscope with 30 degree lens. Inspection revealed healthy appearing bladder with a stent protruding from the left orifice. There was some blood within the bladder. I grasped the distal aspect of the stent and withdrew it to the meatus. I intubated with a sensor wire which was advanced to the upper pole of the kidney. I then withdrew the stent entirely and reentered the bladder with a semirigid ureteroscope. I advanced it maximally. I was able to reach the UPJ, she has a somewhat bifid collecting system at the level of the kidney. I did not encounter any stones in this portion of the ureter. I suspect the stone had been pushed retrograde by the stent. I then placed a second wire through the scope and utilized one wire as a safety wire while advancing a flexible scope over the other wire. Full inspection of the upper mid and lower pole was conducted. I did confirm that she has a relatively bifid collecting system, there were no stones in the upper pole although she had several small Dilshad's plaques. I did treat these Dilshad's plaques with a 270 m laser fiber. In the lower pole of the kidney I encountered 2 stones. The stones were treated entirely and pulverized to sizes that were safer spontaneous passage. I treated several of the Dilshad's plaques throughout the kidney. I then performed a very careful exit ureteroscopy confirming no other stones within the ureter or kidney. I placed a 6 [place] by 26 cm looped ureteral stent. There was good curl the level of the renal pelvis as well as appropriate positioning in the bladder. The bladder was decompressed and the case concluded. There were no complications. She was reversed of anesthesia and taken to the recovery room in stable condition. I attest to the content of the Intraoperative Record and any orders documented therein. Any exceptions are noted below.
[2020-05-28] MEDS: fentaNYL citrate 100 MCG/2 ML VIAL IV PRN ×2 (08:33→08:38)
--- NOTE | 2020-05-28 09:35 | Anesthesiology Progress Note ---
Date of Service May 28, 2020 Anesthesia Post Procedure Vital Signs Vital Signs: Temp Pulse Pulse Resp BP Pulse Ox 05/28/20 09:28 36.6 C 59 L 14 141/92 H 91 05/28/20 09:00 36.5 C 69 14 133/89 90 05/28/20 08:55 37.1 C 73 15 133/89 98 05/28/20 08:45 64 13 126/81 96 05/28/20 08:35 62 18 138/91 100 05/28/20 08:25 70 14 131/90 99 05/28/20 08:19 37.1 C 91 H 24 141/79 H 97 05/28/20 07:00 36.6 C 54 L 18 122/84 100 05/27/20 22:21 36.8 C 65 18 127/87 96 05/27/20 16:24 36.7 C 58 L 18 146/94 H 94 Pain Intensity Left Flank: Pain Intensity: 5 Other: Pain Intensity: 3 Perineal: Pain Intensity: 8 Transfer of Care Handoff Completed per policy Notes Mental Status: alert / awake / arousable Patient Amnestic to Procedure: Yes Nausea / Vomiting: adequately controlled Pain: adequately controlled Airway Patency, RR, SpO2: stable & adequate BP & HR: stable & adequate Hydration State: stable & adequate Anesthetic Complications: no major complications apparent
--- NOTE | 2020-05-28 09:39 | Fluoroscopy Report ---
FL KUB CLINICAL HISTORY: LEFT SIDED LASER LITHOTRIPSY AND STENT EXCHANGE COMPARISON STUDY: May 26, 2020 FLUOROSCOPY TIME: 9 seconds. NUMBER OF FLUOROSCOPIC IMAGES: 1 FINDINGS: A single intraprocedural fluoroscopic spot images provided for interpretation. This demonst rates the proximal aspect of a left-sided nephroureteral stent. The proximal pigtail is not fully for med. IMPRESSION: 1. Partial visualization of a left-sided nephroureteral stent. ACT 112: Negative or not required by law. Electronically signed by: Keven Colon M.D. 05/28/2020 9:37 AM
[2020-05-28] MEDS: MULTIVITAMIN TAB PO SCH (09:43)
[2020-05-28] MEDS: buPROPion XL 150 MG TABCR PO SCH (09:44)
[2020-05-28] MEDS: CHOLECALCIFEROL 1,000 UNITS 25 MCG TAB PO SCH (09:44)
[2020-05-28] MEDS: PANTOprazole 40 MG TAB PO SCH (09:44)
[2020-05-28] MEDS: POLYETHYLENE (MIRALAX) 17 GM PACK PO SCH ×2 (09:45→20:51)
[2020-05-28] MEDS: PHENAZOPYRIDINE HCL 100 MG TAB PO SCH ×3 (09:46→21:00)
[2020-05-28] MEDS: DOCUSATE SODIUM 100 MG CAP PO SCH ×2 (09:46→21:34)
[2020-05-28] MEDS: OXYBUTYNIN CHLORIDE 5 MG TAB PO SCH ×2 (09:46→21:00)
[2020-05-28] MEDS: CEFEPIME 2,000 MG in SYRINGE 0 ML IV SCH ×2 (10:35→20:55)
--- NOTE | 2020-05-28 17:38 | Hospitalist Progress Note ---
Date of Service May 28, 2020 Assessment & Plan (1) Acute left flank pain: (2) Calculus of proximal left ureter: This is a 39yo F with a PMH of ureteral stones, ADHD and depression and history of sleeve gastrectomy 6 months ago who presents with worsening L flank pain since early this evening was found to have left ureteral stones. KUB shows 4 mm proximal left ureteral calculus s/p stent placement 05/27/2020 Status post stent exchange 05/28/2020 (+) increased right lower quadrant/inguinal region pain today UA negative of UTI Urine culture gram-negative bacilli no signs of Pyelo Creatinine stable Cefepime IV Day 2 ff up urine cultures PRN analgesics, antiemetics Constipation As needed stool softeners (3) Depression: continue usual Welbutrin (4) ADHD: Okay to hold Vyvanse while admitted DVT Ppx: SCDs in light of recent stent procedures Code status: FULL PCP: Norma Dispo: Anticipate discharge to home medically stable Admission and Anticipated Discharge Date Admission Date: May 26, 2020 Subjective Follow-up for ureteral stones, UTI, etc. Seen status post stent exchange today In bed, appears tired but not in distress Patient was having more left lower quadrant/inguinal pain today Still has some dysuria, in brown-tinged urine No fevers or chills, flank pain, nausea vomiting No other symptoms Review of Systems Review of Systems: All systems reviewed & are unremarkable except as noted in Subjective Physical Exam Physical Exam: General- oriented x 3, not in distress, speaks in sentences with no effort or accessory muscle use Eyes- anicteric Neck- no JVD Lungs- clear breath sounds bilaterally, no wheezing, no crackles Heart- normal rate, regular rhythm; no murmurs Abdomen- normal bowel sounds, nondistended, soft, moderate right lower quadrant tenderness, no CVA tenderness Extremities- no pretibial edema, no calf tenderness Neuro- alert, oriented x 3; no gross focal neurologic deficits Skin- warm & dry Results & Data Results & Data ([facility]) Vital Signs (Past 12 Hours) Vital Signs Temp Pulse Pulse Resp BP Pulse Ox 05/28/20 15:28 37.0 C 63 16 130/85 92 05/28/20 12:25 62 16 112/73 93 05/28/20 11:06 36.6 C 66 16 108/68 90 05/28/20 09:59 36.6 C 77 18 117/78 94 05/28/20 09:28 36.6 C 59 L 14 141/92 H 91 05/28/20 09:00 36.5 C 69 14 133/89 90 05/28/20 08:55 37.1 C 73 15 133/89 98 05/28/20 08:45 64 13 126/81 96 05/28/20 08:35 62 18 138/91 100 05/28/20 08:25 70 14 131/90 99 05/28/20 08:19 37.1 C 91 H 24 141/79 H 97 05/28/20 07:00 36.6 C 54 L 18 122/84 100 Laboratory Results Laboratory Results - last 24 hr 05/28/20 05/28/20 05:38 05:38 WBC 7.73 RBC 3.71 L Hgb 11.2 L Hct 33.2 L MCV 89.5 MCH 30.2 MCHC 33.7 RDW Std Deviation 42.7 RDW Coeff of Dylan 13.2 Plt Count 189 MPV 10.7 H Sodium 141 Potassium 3.9 Chloride 110 H Carbon Dioxide 24 Anion Gap 8.0 BUN 11 Creatinine 0.68 Est Cr Clr Drug Dosing 129.1 Est GFR ( Amer) 128.6 Est GFR (Non-Af Amer) 111.0 BUN/Creatinine Ratio 15.5 Glucose 89 Calcium 8.6
[2020-05-28] MEDS: HYDROmorphone INJ 0.5 MG/0.5 ML SYR IV STA ×2 (17:53→18:05)
[2020-05-28] MEDS: TAMSULOSIN HCL 0.4 MG CAP PO SCH (20:59)
[2020-05-29] MEDS: KETOROLAC 30 MG/ML VIAL IV PRN ×3 (00:16→23:26)
[2020-05-29] MEDS: ACETAMINOPHEN 1,000 MG/100 ML VIAL IV SCH ×3 (01:11→18:29)
[2020-05-29] MEDS: HYDROmorphone INJ 0.5 MG/0.5 ML SYR IV PRN ×4 (01:14→12:50)
[2020-05-29] MEDS: ONDANSETRON INJ 2 MG/ML 2 ML VIAL IV PRN (05:27)
[2020-05-29] MEDS: SODIUM CHLORIDE 0.9% 1000ML 1,000 ML IV SCH (08:10)
[2020-05-29] MEDS: PHENAZOPYRIDINE HCL 100 MG TAB PO SCH ×3 (08:13→20:00)
[2020-05-29] MEDS: DOCUSATE SODIUM 100 MG CAP PO SCH ×2 (08:13→20:00)
[2020-05-29] MEDS: buPROPion XL 150 MG TABCR PO SCH (08:13)
[2020-05-29] MEDS: PANTOprazole 40 MG TAB PO SCH (08:13)
[2020-05-29] MEDS: MULTIVITAMIN TAB PO SCH (08:14)
[2020-05-29] MEDS: OXYBUTYNIN CHLORIDE 5 MG TAB PO SCH ×2 (08:14→20:01)
[2020-05-29] MEDS: CHOLECALCIFEROL 1,000 UNITS 25 MCG TAB PO SCH (08:14)
[2020-05-29] MEDS: CEFEPIME 2,000 MG in SYRINGE 0 ML IV SCH (08:20)
[2020-05-29] MEDS: POLYETHYLENE (MIRALAX) 17 GM PACK PO SCH ×2 (08:20→20:03)
--- NOTE | 2020-05-29 09:16 | Urology Progress Note ---
Date of Service May 29, 2020 Assessment & Plan (1) Calculus of proximal left ureter: 39 yo F POD #1 s/p cystoscopy, left Ureteroscopy, laser lithotripsy, left stent exchange with Dr. Ricardo. - Afebrile, VSS, no new lab work today at time of visit, previous creatinine and WBC within normal limits. - Continues to have moderate discomfort from left ureteral stent. - Recommend transition to PO pain medication prior to discharge. - UC&S showed pansensitive E. coli on IV Ceftriaxone. Transition to course of PO antibiotics upon discharge. - Recommend Tamsulosin, prn oxybutynin, prn Pyridium, prn pain medication for stent discomfort upon discharge. - Expected clinical course reviewed, all questions answered. - Will arrange follow-up outpatient with our service for stent removal. - Thank you for allowing us to participate in the acute care of Ms. Ibarra. Please reconsult us with additional questions, concerns or changes in patient status. Admission and Anticipated Discharge Date Admission Date: May 26, 2020 Subjective 39 yo F POD #1 s/p cystoscopy, left Ureteroscopy, laser lithotripsy, left stent exchange with Dr. Ricardo. Pt seen and examined at bedside this AM. Awake, alert and sitting up in bed. No acute issues overnight. Continues to have moderate discomfort with left ureteral stent. Reports intermittent left flank pain, utilizing IV Dilaudid and Ketorolac with moderate relief. Voiding spontaneously. No dysuria. Reports brown colored urine. Reports spasm/left groin/left lower abdominal pain during voiding. Tolerating diet. No nausea or vomiting. Last BM 05/24. She has been given multiple bowel medications. +Flatus. No fever or chills. Chart review: Afebrile. VS - BP 113/73, HR 80, Resp 18, T 37.1, O2 96% RA. No new labs today. UC&S pansensitive E. coli. On IV Ceftriaxone. No additional concerns today. Review of Systems Constitutional: as per Subjective / HPI Gastrointestinal: as per Subjective / HPI Genitourinary: as per Subjective / HPI Physical Exam Constitutional: well developed and well nourished; no acute distress and not ill appearing Respiratory: normal respiratory effort and able to speak in complete sentences; no respiratory distress and no labored breathing Cardiovascular: Extremities: no pedal edema Gastrointestinal (Abdomen): Inspection/Auscultation: abdomen normal to inspection; abdomen not distended Percussion/Palpation: abdomen soft; abdomen nontender and no guarding Musculoskeletal: Head/Neck/Chest: normocephalic and head atraumatic Skin: no rashes, warm and dry Neurologic: moves all extremities and awake Psychiatric: A+Ox3, euthymic affect Genitourinary: no CVA tenderness Results & Data ([facility]) Vital Signs (Past 12 Hours) Vital Signs Temp Pulse Pulse Resp BP Pulse Ox 05/29/20 08:28 37.1 C 80 18 113/73 96 05/29/20 05:23 36.6 C 53 L 16 134/80 100 05/29/20 00:18 36.6 C 51 L 12 132/85 97 PG Care Time/CCT Total # of Minutes Spent Total Time Spent with Patient: Total time spent is greater than 50% in coordination of care (as documented) at patient's floor/unit and/or counseling patient: Coding Level of Care Code 11708 Subseq Hosp Care Lvl 2 Diagnoses Calculus of proximal left ureter N20.1
[2020-05-29] MEDS ORDERED: oxyCODONE HCL IR 5 MG TAB (IMMEDIATE RELEASE) PO PRN (12:44)
[2020-05-29] MEDS ORDERED: HYDROmorphone HCL 2 MG TAB PO PRN (12:44)
[2020-05-29] MEDS ORDERED: HYDROmorphone INJ 0.5 MG/0.5 ML SYR IV PRN (12:56)
--- NOTE | 2020-05-29 15:45 | Hospitalist Progress Note ---
Date of Service May 29, 2020 Assessment & Plan (1) Acute left flank pain: (2) Calculus of proximal left ureter: This is a 39yo F with a PMH of ureteral stones, ADHD and depression and history of sleeve gastrectomy 6 months ago who presents with worsening L flank pain since early this evening was found to have left ureteral stones. KUB shows 4 mm proximal left ureteral calculus s/p stent placement 05/27/2020 Status post stent exchange 05/28/2020 Improving left lower quadrant/inguinal region pain today Urine culture E. coli no signs of Pyelo Creatinine stable Cefepime IV Day 3--> change to Ceftriaxone IV will need total of 10 days antibiotic course PRN analgesics, antiemetics Constipation As needed stool softeners (3) Depression: continue usual Welbutrin (4) ADHD: Okay to hold Vyvanse while admitted DVT Ppx: SCDs in light of recent stent procedures Encouraged to ambulate Code status: FULL PCP: Norma Dispo: Anticipate discharge to home tomorrow when medically stable Admission and Anticipated Discharge Date Admission Date: May 26, 2020 Subjective Follow-up for ureter stones, UTI Seen sitting up in bed, not in distress, comfortable, appears tired States right lower quadrant pain is somewhat improved compared to yesterday Still having dysuria, positive straining with urination No fevers or chills, nausea vomiting, flank pain No shortness of breath, chest pain, palpitations, dizziness Positive constipation No other symptoms Review of Systems Review of Systems: All systems reviewed & are unremarkable except as noted in Subjective Physical Exam Physical Exam: General- oriented x 2, not in distress, speaks in sentences with no effort or accessory muscle use Eyes- anicteric Neck- no JVD Lungs- clear breath sounds bilaterally, no wheezing, no crackles Heart- normal rate, regular rhythm; no murmurs Abdomen- normal bowel sounds, nondistended, soft, positive left lower quadrant tenderness No CVA tenderness Extremities- no pretibial edema, no calf tenderness Neuro- alert, oriented x 3; no gross focal neurologic deficits Skin- warm & dry Results & Data Results & Data ([facility]) Vital Signs (Past 12 Hours) Vital Signs Temp Pulse Pulse Resp BP Pulse Ox 05/29/20 15:20 36.5 C 62 16 126/82 97 05/29/20 08:28 37.1 C 80 18 113/73 96 05/29/20 05:23 36.6 C 53 L 16 134/80 100
[2020-05-29] MEDS: HYDROmorphone HCL 2 MG TAB PO PRN ×2 (16:18→22:00)
[2020-05-29] MEDS: TAMSULOSIN HCL 0.4 MG CAP PO SCH (20:01)
[2020-05-29] MEDS ORDERED: cefTRIAXone SODIUM 2,000 MG in DEXTROSE 5% 50 ML IV SCH (21:00)
[2020-05-29] MEDS: oxyCODONE HCL IR 5 MG TAB (IMMEDIATE RELEASE) PO PRN (23:25)
[2020-05-30] MEDS: ACETAMINOPHEN 1,000 MG/100 ML VIAL IV SCH (02:01)
[2020-05-30] MEDS: oxyCODONE HCL IR 5 MG TAB (IMMEDIATE RELEASE) PO PRN ×2 (06:35→12:49)
[2020-05-30] MEDS: KETOROLAC 30 MG/ML VIAL IV PRN ×2 (06:36→11:32)
[2020-05-30] MEDS: POLYETHYLENE (MIRALAX) 17 GM PACK PO SCH (09:54)
[2020-05-30] MEDS: buPROPion XL 150 MG TABCR PO SCH (09:55)
[2020-05-30] MEDS: MULTIVITAMIN TAB PO SCH (09:55)
[2020-05-30] MEDS: OXYBUTYNIN CHLORIDE 5 MG TAB PO SCH (09:55)
[2020-05-30] MEDS: PANTOprazole 40 MG TAB PO SCH (09:55)
[2020-05-30] MEDS: CHOLECALCIFEROL 1,000 UNITS 25 MCG TAB PO SCH (09:55)
[2020-05-30] MEDS: PHENAZOPYRIDINE HCL 100 MG TAB PO SCH ×2 (09:55→14:20)
[2020-05-30] MEDS: DOCUSATE SODIUM 100 MG CAP PO SCH (09:55)
--- NOTE | 2020-05-30 12:03 | Urology Progress Note ---
Date of Service May 30, 2020 Assessment & Plan (1) Calculus of proximal left ureter: 39 yo F POD #2 s/p cystoscopy, left Ureteroscopy, laser lithotripsy, left stent exchange with Dr. Ricardo. - Afebrile, VSS, no new lab work today, previous creatinine and WBC within normal limits. - Continues to have moderate discomfort from left ureteral stent. - UC&S showed pansensitive E. coli on IV Ceftriaxone. - Transition to course of PO antibiotics upon discharge. - Recommend Tamsulosin, prn oxybutynin, prn Pyridium, prn pain medication for stent discomfort upon discharge. - Expected clinical course reviewed, all questions answered. - Outpatient follow-up for stent removal is scheduled for tomorrow. She is aware and agreeable to appointment. - Thank you for allowing us to participate in the acute care of Ms. Ibarra. Please reconsult us with additional questions, concerns or changes in patient status. Admission and Anticipated Discharge Date Admission Date: May 26, 2020 Subjective 39 yo F POD #2 s/p cystoscopy, left Ureteroscopy, laser lithotripsy, left stent exchange with Dr. Ricardo. Pt seen and examined at bedside this AM. Awake, alert and sitting up in bed. No acute issues overnight. Continues to have discomfort due to left ureteral stent. Reports intermittent left flank pain and spasms, utilizing IV Ketorolac and PO oxycodone 5 mg with moderate relief. Voiding spontaneously. Reports bladder and urethral spasm during voiding. No dysuria. Reports tea colored urine. Notes she is emptying her bladder fairly well but it takes her some time to do so. Tolerating diet. No nausea or vomiting. She had a BM yesterday. No fever or chills. Chart review: Afebrile. VS - BP 138/91, HR 59, Resp 18, T 36.6, O2 97% RA. No new labs today. UC&S pansensitive E. coli. On IV Ceftriaxone. No additional concerns today. Review of Systems Constitutional: as per Subjective / HPI Gastrointestinal: as per Subjective / HPI Genitourinary: as per Subjective / HPI Physical Exam Constitutional: well developed and well nourished; no acute distress and not ill appearing Respiratory: normal respiratory effort and able to speak in complete sentences; no respiratory distress and no labored breathing Gastrointestinal (Abdomen): Inspection/Auscultation: abdomen normal to inspection; abdomen not distended Neurologic: moves all extremities and awake Psychiatric: Orientation: alert and oriented x 3 Results & Data ([facility]) Vital Signs (Past 12 Hours) Vital Signs Temp Pulse Resp BP Pulse Ox 05/30/20 07:37 36.6 C 59 L 18 138/91 97 PG Care Time/CCT Total # of Minutes Spent Total Time Spent with Patient: Total time spent is greater than 50% in coordination of care (as documented) at patient's floor/unit and/or counseling patient: Coding Level of Care Code 65550 Subseq Hosp Care Lvl 2 Diagnoses Calculus of proximal left ureter N20.1
--- NOTE | 2020-05-30 14:08 | Hospitalist Progress Note ---
Date of Service delayed entry date of service noted below May 30, 2020 Assessment & Plan (1) Acute left flank pain: (2) Calculus of proximal left ureter: This is a 39yo F with a PMH of ureteral stones, ADHD and depression and history of sleeve gastrectomy 6 months ago who presents with worsening L flank pain since early this evening was found to have left ureteral stones. KUB shows 4 mm proximal left ureteral calculus s/p Ureteral stent placement 05/27/2020 Status post stent exchange 05/28/2020 Improving left lower quadrant/inguinal region pain Urine culture: (+) E. coli no signs of Pyelonephritis Creatinine stable Cefepime IV Day 3--> change to Ceftriaxone IV will need total of 10 days antibiotic course discharge on 7 days of Cefdinir 300mg BID PRN analgesics, antiemetics scheduled for Stent removal 05/31/20 Constipation As needed stool softeners (3) Depression: continue usual Welbutrin (4) ADHD: resume Vyvanse DVT Ppx: SCDs in light of recent stent procedures Encouraged to ambulate Code status: FULL PCP: Norma Dispo:d/c home ff up with PCP in 1 week ff up with Uroogist 05/31/20 Admission and Anticipated Discharge Date Admission Date: May 26, 2020 Subjective ff up for Ureteral Stones, UTI seen resting in bed, comfortable not in distress LLQ /inguinal pain and dysuria improved no fever/chills, flank pain, nausea, chest pain, dyspnea, palpitations no other symptoms states she is ready for discharge Review of Systems Review of Systems: All systems reviewed & are unremarkable except as noted in Subjective Physical Exam Physical Exam: General- oriented x 3, not in distress, speaks in sentences with no effort or accessory muscle use Eyes- anicteric Neck- no JVD Lungs- clear breath sounds bilaterally, no rales/wheezes Heart- normal rate, regular rhythm; no murmurs Abdomen- normal bowel sounds, nondistended, soft, nontender no CVA tenderness Extremities- no pretibial edema, no calf tenderness Neuro- alert, oriented x 3; no gross focal neurologic deficits Skin- warm & dry Results & Data Results & Data ([facility]) Vital Signs (Past 12 Hours) Vital Signs Temp Pulse Resp BP Pulse Ox 05/30/20 07:37 36.6 C 59 L 18 138/91 97
--- NOTE | 2020-05-31 10:19 | Discharge Summary ---
Date of Service May 31, 2020 Admission HPI Per Admitting Provider This is a 39yo F with a PMH of ureteral stones, ADHD and depression and history of sleeve gastrectomy 6 months ago who presents with worsening L flank pain since early this evening. Was admitted to our service earlier this week for L renal colic in setting of two left-sided ureteral calculi measuring 4 mm in aggregate. Was managed conservatively with medication earlier this week and discharged with plans for outpatient urology follow-up. Rarden better until last night around 0300 when colicky pain to left flank returned with radiation to groin. Took Tylenol and Motrin but then immediately vomited due to pain. Denies any fever chills. Denies any dysuria or hematuria. No issues with urination. In ED today, patient is afebrile and hemodynamically stable. Pain controlled with IV pain medication. KUB shows 4 mm proximal left ureteral calculus. was seen by urology in ED with plans for left ureteral stent placement later this afternoon by Dr. Ricardo. Will continue IV fluids and pain control as well as initiate a bowel regimen this evening. Denies any lightheadedness, headache, chest pain, shortness of breath or diarrhea. Admission Exam Per Admitting Provider General Appearance: WD/WN, vitals as above, NAD, sitting up in bed, pleasant, conversing easily Head: normocephalic, atraumatic Eyes: normal inspection, PERRL, conjunctivae normal, anicteric sclerae ENT: external ear and nose normal, oropharynx normal Neck: normal visual inspection, trachea midline, no thyromegaly Respiratory: normal respiratory effort, lungs clear to auscultation, no wheeze, rales, rhonchi. No accessory muscle use Cardiovascular: regular rate, rhythm, no murmur, normal peripheral pulses, no BLE edema. Vessels: no JVD Chest: normal inspection of chest Abdomen/GI: normal bowel sounds, soft, nontender, no hepatosplenomegaly : L CVA TTP with suprapubic discomfort on L side Extremities/Musculoskeletal: no cyanosis or clubbing, extremities motor strength 5/5 Neurologic: PERRL, EOMI, accommodation nl, no face palsy, no dysarthria, CN's II-XI intact bilaterally and moves all extremities Psychiatric: A+Ox3, euthymic affect Skin: no rashes, normal color, warm/dry Principal Diagnosis LEFT URETERAL STONES S/P URETERAL STENT PLACEMENT E COLI URINARY TRACT INFECTION Discharge Exam General- oriented x 3, not in distress, speaks in sentences with no effort or accessory muscle use Eyes- anicteric Neck- no JVD Lungs- clear breath sounds bilaterally, no rales/wheezes Heart- normal rate, regular rhythm; no murmurs Abdomen- normal bowel sounds, nondistended, soft, nontender no CVA tenderness Extremities- no pretibial edema, no calf tenderness Neuro- alert, oriented x 3; no gross focal neurologic deficits Skin- warm & dry Discharge Data Allergies Allergy/AdvReac Type Severity Reaction Status Date / Time Penicillins Allergy Severe ANAPHYLAXIS Verified 05/27/20 14:55 cefaclor Allergy Intermediate Hives,nausea,vomiting Verified 05/27/20 14:55 diarrhea codeine Allergy Intermediate FULL BODY Verified 05/26/20 05:44 ITCHING levofloxacin [From Levaquin] Allergy Intermediate Hives Verified 05/26/20 05:44 promethazine Allergy Intermediate TORTICOLLIS Verified 05/26/20 05:44 Consultations 05/26/20 09:35 ED Decision to Admit Stat 05/26/20 09:47 Consult Urology Routine Procedures Performed Operation Date: 05/26/20 13:25 Actual Procedures p Cystoscopy, Left ureteral Stent Placement(Left) - Adonis Ricardo MD Operation Date: 05/28/20 07:30 Actual Procedures p Cystoscopy, Left Ureteroscopy, Laser Lithotripsy, Left Stent Exchange(Left) - Adonis Ricardo MD Ordered Studies 05/26/20 FL fluoroscopy <1hr Routine 05/26/20 15:22 FL KUB Routine 05/28/20 07:30 FL KUB Routine FL fluoroscopy <1hr Routine Hospital Course (1) Acute left flank pain: (2) Calculus of proximal left ureter: This is a 39yo F with a PMH of ureteral stones, ADHD and depression and history of sleeve gastrectomy 6 months ago who presents with worsening L flank pain since early this evening was found to have left ureteral stones. KUB shows 4 mm proximal left ureteral calculus s/p Ureteral stent placement 05/27/2020 Status post stent exchange 05/28/2020 Improving left lower quadrant/inguinal region pain Urine culture: (+) E. coli no signs of Pyelonephritis Creatinine stable Cefepime IV Day 3--> change to Ceftriaxone IV will need total of 10 days antibiotic course discharge on 7 days of Cefdinir 300mg BID PRN analgesics, antiemetics scheduled for Stent removal 05/31/20 Constipation As needed stool softeners (3) Depression: continue usual Welbutrin (4) ADHD: resume Vyvanse DVT Ppx: SCDs in light of recent stent procedures Encouraged to ambulate Code status: FULL PCP: Norma Dispo:d/c home ff up with PCP in 1 week ff up with Uroogist 05/31/20 Total Time Total Time Spent Total Time Spent (In Minutes): > 30 MINUTES Discharge Plan Discharge Items Patient Disposition: Home - Self-Care Reason For Visit: L FLANK PAIN, URETERAL STONE Discharge Diagnosis: URETERAL STONE URINARY TRACT INFECTION Activity: Resume your previous activity Activity Comment: GRADUALLY TOLERATED Non-emergency contact: Primary Care Provider and Urologist Call non-emergency contact if: you have any medication questions, your symptoms worsen, your pain is not controlled, your pain is worsening, your pain is unusual for you, your pain is concerning for you and you have a fever Follow-up/Referrals: Adonis Ricardo MD [Physician] - Ema Green DO [Primary Care Provider] - (Date & Time 06/05/2020 11:20 AM Provider Ema Green DO Department [facility] ) Diet: Regular Addtl Attending Provider Instructions: PLEASE REVIEW YOUR NEW MEDICATION LIST AND FOLLOW INSTRUCTIONS CAREFULLY. TAKE A STOOL SOFTENER DAILY. DRINK PLENTY OF FLUIDS. CALL UROLOGIST OR RETURN TO THE ER IMMEDIATELY IF WITH WORSENING OF SYMPTOMS. FOLLOW UP WITH UROLOGIST TOMORROW SCHEDULED. FOLLOW UP WITH PCP OUTLINED ABOVE. From [facility] Urology: Your stent removal is scheduled for May 31 at 9:[address] Quintero. Location: [address] [place] [address]. . Pending Studies at Discharge: No Stand-Alone Forms: My [employer], Opioid Pain Management, Work/School Release (Inpt), Smoking Cessation Medications and DC Order Prescriptions: New oxycodone 5 mg tablet 5 - 10 mg PO Q6H Qty: 15 RF: 0 phenazopyridine [Pyridium] 100 mg Tablet 100 mg PO TID Qty: 21 RF: 0 oxybutynin chloride 5 mg Tablet 5 mg PO BID Qty: 30 RF: 0 cefdinir 300 mg capsule 300 mg PO Q12H 7 Days Qty: 14 RF: 0 Continued bupropion HCl 150 mg tablet extended release 24 hr 150 mg PO QAM RF: 0 multivitamin Tablet 1 tab PO QAM RF: 0 pantoprazole 40 mg tablet,delayed release (DR/EC) 40 mg PO QAM RF: 0 Vyvanse 60 mg capsule 60 mg PO QAM RF: 0 cholecalciferol (vitamin D3) [Vitamin D3] 25 mcg (1,000 unit) Capsule 25 mcg PO QAM RF: 0 tamsulosin 0.4 mg Capsule 0.4 mg PO HS 30 Days Qty: 30 RF: 0 Discharge Orders: Discharge Order (Routine); Ordered 05/30/20 Ordered By: Checo Huitron/Other Patient Handouts: Having a Ureteral Stent, Preventing Kidney Stones Admission Data Admit Date/Time: 05/26/20 09:47 Attending Provider: Checo Reyes Admit Provider: Checo Reyes Primary Care Provider: Ema Green Other Providers: Checo Reyes ; Adonis Ricardo Other Interventions: Discharge Summary Assessment (RN) Last Done: 05/30/20 14:35
== END 2020-05-30 15:47 | disposition home or self-care (01) | DRG 660 ==
LOC: ED 05:11 → 3N 09:07

== ENCOUNTER 2022-06-06 09:59 | Observation (INO) ==
[2022-06-06] MEDS ORDERED: MoRPHine SULFATE 10 MG/ML CARP/VIAL IV STA ×2 (10:17→10:29)
[2022-06-06] MEDS ORDERED: KETOROLAC TROMETHAMINE 60 MG/2 ML VIAL IM STA (10:17)
[2022-06-06] MEDS ORDERED: MoRPHine SULFATE 10 MG/ML CARP/VIAL IM STA (10:19)
[2022-06-06] MEDS ORDERED: ONDANSETRON INJ 2 MG/ML 2 ML VIAL IV STA (10:29)
[2022-06-06] MEDS ORDERED: KETOROLAC TROMETHAMINE 15 MG/ML VIAL IV ONE (10:29)
--- NOTE | 2022-06-06 10:29 | Emergency Department Note ---
Impression & Plan Back pain, Back muscle spasm ED Provider Note NAME: LENARD HERNANDEZ AGE: 41 SEX: F : 1980 ARRIVES VIA: Walk-In INFORMANT: Patient ED PROVIDER(S): Bob Wood DO CHIEF COMPLAINT:back pain HPI: Patient is a 41-year-old female who presents to the ER for mid back pain in the thoracic region just to the left. This has been present since she performed CPR on her family member back in April. It is located in the left upper back. Worse with twisting, turning, and bending. Worse with breathing and movement. She notes that she has to stay completely still so does not spasm as much. She notes that this has been getting worse since mid April. Significant worsened over the past 24 hours. She has seen the chiropractor. No other exacerbating or remitting factors. Denies weakness or numbness in the arms or legs. No fevers. PAST MEDICAL HISTORY:See Below PAST SURGICAL HISTORY:See Below FAMILY HISTORY:See Below SOCIAL HISTORY:See Below HOME MEDICATIONS:See Below ALLERGIES:See Below VITALS:See Below PHYSICAL EXAMINATION: GENERAL: Sitting up in bed, alert, crying EYE EXAM: normal conjunctiva. PERRL and EOM's grossly intact. OROPHARYNX: mucous membranes are moist NECK: Cervical spine without midline tenderness LUNGS: Clear to auscultation. Normal chest wall mechanics HEART: no murmurs, S1 normal and S2 normal ABDOMEN: abdomen soft, non-tender, normo-active bowel sounds, no masses, no rebound or guarding. BACK: Back is symmetrical on inspection and there is no deformity, tenderness in the left upper thoracic paraspinal region T 4-9 UPPER EXTREMITIES: upper extremities are grossly normal. LOWER EXTREMITIES: Flexion and extension of the hips, knees, ankles, and EHL 5/5 bilaterally. Gross sensation is intact. DPs are 2/4 bilateral. Patellar and Achilles reflexes are 2/4 bilateral NEURO EXAM: Normal sensorium, cranial nerves II-XII grossly intact, normal speech, no gross weakness of arms, no gross weakness of legs. MEDICAL DECISION MAKING: Patient is a 41-year-old female who presents ER for right upper back pain which has been present since early April when she did CPR compressions. Got significantly worse today. Patient has reproducible tenderness in the thoracic paraspinal region. Recommended x-rays. Did order IM Toradol and morphine. Patient was extremely upset and felt this was unreasonable to give meds IM due to her pain as the Toradol but have to go into large muscle group and that would be too much moving around for her pain. The nurse did notify me of that and meds were switched to IV. IV was established blood work was obtained. Labs show no significant leukocytosis or anemia. BMP was unremarkable. On repeat evaluation was notified patient was requesting additional pain medications. She notes that the morphine did not do anything for her pain. She requested something for muscle spasms. offered benzodiazepines but noted with this I probably would not combine additional narcotics due to the sedative effects and Pt was agreeable but still visibly frustrated and fixated on the previous order of IM medications. Offered admission at this time but she declined. On repeat evaluation following the first dose of Valium patient was still having a fair amount of pain and was eventually agreeable to admission. She was given an additional dose of Valium for total of 7 mg of Valium IV. This did help with the spasms and she was admitted with the hospitalist service. I spoke with Carolina for further evaluation and management. I ordered a CT angio and thoracic spine but angio was canceled by hospital service and they ordered a thoracic spine and lumbar spine. Triage Nursing notes reviewed. Limited review of prior medical records performed Vital Signs: reviewed and remarkable for no significant abnormalities Differential diagnosis: Differential diagnoses includes but is not limited to gastritis, peptic ulcer disease, GERD, gallbladder disease, pancreatitis, small bowel obstruction, appendicitis, diverticulitis, hernia, urinary tract infection, torsion, /ectopic (if female), perforation, trauma, infectious. ER treatment provided: See below Diagnostics interpreted by me include EKG and cardiac monitoring as listed below: -Cardiac Monitoring: An order was placed for continuous cardiac monitoring. The monitor shows a rate of 101 with sinus rhythm. -ECG: none -Laboratory studies:Interpreted by me as stated above in MDM and shown below. Imaging studies: Xrays: As interpreted by me: X-rays of the thoracic spine show no acute fracture or dislocation CTs show: none Consultation(s): As described in MDM Procedures:none Critical Care: None Past Med/Surg History Medical History Acid reflux ADHD Anxiety Depression Hx of pyelonephritis Insomnia SVT (supraventricular tachycardia) during ; (NSR per 12/14/2019 ECG) Surgical History H/O lithotripsy H/O tubal ligation H/O: hysterectomy 2021: Robotic TLH/Salp/Cysto for menorrhagia, retains ovaries History of anesthesia reaction urinary retention post op History of appendectomy History of cholecystectomy History of cystoscopy History of dilation and curettage History of gastric restrictive surgery gastric sleeve History of wisdom tooth extraction Hx of section x3 Nausea and vomiting after administration of anesthetic agent Family History Father Gallbladder cancer Diabetes Grandmother (Maternal) Breast cancer Family/Other Colorectal cancer maternal great aunt Other Cancer Hypertension No family history of adverse response to anesthesia Denies family history of Ovarian cancer Social History Smoking Status: Never smoker Second Hand Exposure: No; Hx Alcohol Use: Yes Alcohol type: wine Hx Substance Use: No Preferred Language: Khmer Communication Ability: Effective Visual Impairment: No Limitations Hearing Ability: Normal Supervising Bailiff Required: No Beliefs That Will Affect Care: None marital status: Current Living Situation: Spouse and Family Current Living Situation Comment: at home with sig other /children Feels Safe at Home: Yes Assistive Devices: Contacts and Glasses Allergies Allergies Allergy/AdvReac Type Severity Reaction Status Date / Time Penicillins Allergy Severe ANAPHYLAXIS Verified 06/06/22 12:16 promethazine Allergy Severe TORTICOLLIS Verified 06/06/22 12:16 cefaclor Allergy Intermediate Hives,nausea,vomiting Verified 06/06/22 12:16 diarrhea codeine Allergy Intermediate FULL BODY Verified 06/06/22 12:16 ITCHING latex Allergy Intermediate Itching Verified 06/06/22 12:16 levofloxacin [From Levaquin] Allergy Mild mild rash Verified 06/06/22 12:16 to extremity being infused on Home Meds Home Medications Medication Instructions Recorded Confirmed bupropion HCl 150 mg 24 hr tablet, 150 mg PO QAM 10/04/20 06/06/22 extended release (Wellbutrin XL) dextroamphetamine sulfate 10 mg 10 mg PO QAM PRN .. 10/04/20 06/06/22 tablet (Zenzedi) famotidine 20 mg tablet (Pepcid) 20 mg PO QAM PRN Acid Reflux 10/04/20 06/06/22 lisdexamfetamine 70 mg capsule 70 mg PO QAM 10/04/20 06/06/22 (Vyvanse) multivitamin 1 tab PO UD 10/04/20 06/06/22 escitalopram oxalate 5 mg tablet 5 mg PO QAM 09/26/21 06/06/22 omeprazole 20 mg delayed 20 mg PO QAM 09/26/21 06/06/22 release,disintegrating tablet trazodone 50 mg tablet 75 mg PO HS 09/26/21 06/06/22 Results & Data (ED) Vital Signs Vital Signs - 24 hr 06/06/22 10:05 06/06/22 11:59 06/06/22 14:07 Temperature 36.6 C Temperature Source Temporal Artery Scan Pulse Rate 108 H Pulse Rate [Finger] 67 77 Respiratory Rate 18 18 18 Respiratory Effort / Characteristics Non-Labored Spontaneous Respiratory Depth Normal Blood Pressure 116/75 Blood Pressure [Right Arm] 126/92 112/85 Blood Pressure Mean 88 Blood Pressure Mean [Right Arm] 103 94 Pulse Oximetry 99 97 100 Oxygen Delivery Method Room Air Room Air Room Air Sepsis Recent Fever Within 48 Hours No Sepsis New/Unexplained Change in Mental Status No Sepsis Action Taken by Nursing No Action Required Laboratory Data 06/06/22 10:50 06/06/22 10:50 Lab Results 06/06/22 06/06/22 06/06/22 Range/Units 10:50 10:50 13:10 WBC 8.45 (4.8-10.8) K/ul RBC 4.72 (4.20-5.40) M/uL Hgb 14.4 (12.0-16.0) g/dl Hct 41.0 (37.0-47.0) % MCV 86.9 (80.0-100.0) fL MCH 30.5 (25.0-34.0) pg MCHC 35.1 (32.0-36.0) g/dL RDW Std Deviation 37.2 (36.4-46.3) fL RDW Coeff of Dylan 11.8 (11.5-14.5) % Plt Count 224 (130-400) K/uL MPV 9.8 (9.4-12.4) fL Immature Gran % (Auto) 0.1 % Neut % (Auto) 60.4 % Lymph % (Auto) 29.8 % [place] % (Auto) 7.5 % Eos % (Auto) 1.8 % Baso % (Auto) 0.4 % Neut # (Auto) 5.11 (1.40-6.50) K/uL Lymph # (Auto) 2.52 (1.2-3.4) K/uL [place] # (Auto) 0.63 H (0.11-0.59) K/uL Eos # (Auto) 0.15 (0-0.50) K/uL Baso # (Auto) 0.03 (0-0.2) K/uL Immature Gran # (Auto) 0.01 (0.01-0.20) K/uL Sodium 137 (136-145) mmol/L Potassium 4.4 (3.5-5.1) mmol/L Chloride 104 (98-107) mmol/L Carbon Dioxide 28 (21-32) mmol/L Anion Gap 5 (3-11) BUN 32 H (6-23) mg/dl Creatinine 0.82 (0.6-1.2) mg/dl Est Cr Clr Drug Dosing 100.2 ml/min Est GFR ( Amer) 103.7 ml/min Est GFR (Non-Af Amer) 89.5 ml/min BUN/Creatinine Ratio 39.0 H (10-20) Glucose 121 H (70-99(Fasting)) mg/dl Calcium 9.8 (8.5-10.1) mg/dl SARS-CoV-2, RNA, NAAT NEGATIVE (NEGATIVE) Administered Medications Discontinued Medications Cyclobenzaprine HCl (Cyclobenzaprine Hcl 10 Mg Tab) 10 mg PO NOW STA Stop: 06/06/22 13:34 Last Admin: 06/06/22 14:06 Dose: 10 mg Documented By: NMS Diazepam (Diazepam 5 Mg/Ml Inj 10ml Vial) 2 mg IV NOW STA Stop: 06/06/22 11:53 Last Admin: 06/06/22 11:58 Dose: 2 mg Documented By: NMS Diazepam (Diazepam 5 Mg/Ml Inj 10ml Vial) 5 mg IV NOW STA Stop: 06/06/22 12:48 Last Admin: 06/06/22 13:11 Dose: 5 mg Documented By: RADHA Hydromorphone HCl (Hydromorphone Inj 0.5 Mg/0.5 Ml Syr) 0.5 mg IV NOW STA Stop: 06/06/22 13:41 Last Admin: 06/06/22 14:06 Dose: 0.5 mg Documented By: RADHA Acetaminophen (Ofirmev) 1,000 mg in 100 mls @ 400 mls/hr IV NOW STA Stop: 06/06/22 12:53 Last Infusion: 06/06/22 13:14 Dose: 0 mls/hr Documented By: Admin: 06/06/22 13:01 Dose: 400 mls/hr Documented By: RADHA Ketorolac Tromethamine (Ketorolac Tromethamine 60 Mg/2 Ml Vial) 60 mg IM NOW STA Stop: 06/06/22 10:18 Last Admin: 06/06/22 10:45 Dose: Not Given Documented By: RADHA Ketorolac Tromethamine (Ketorolac Tromethamine 15 Mg/Ml Vial) 10 mg IV NOW ONE Stop: 06/06/22 10:30 Last Admin: 06/06/22 10:51 Dose: 10 mg Documented By: RADHA Morphine Sulfate (Morphine Sulfate 10 Mg/Ml Carp/Vial) 8 mg IV NOW STA Stop: 06/06/22 10:18 Last Admin: 06/06/22 10:21 Dose: Not Given Documented By: RADHA Morphine Sulfate (Morphine Sulfate 10 Mg/Ml Carp/Vial) 8 mg IM NOW STA Stop: 06/06/22 10:20 Last Admin: 06/06/22 10:45 Dose: Not Given Documented By: RADHA Morphine Sulfate (Morphine Sulfate 10 Mg/Ml Carp/Vial) 6 mg IV NOW STA Stop: 06/06/22 10:30 Last Admin: 06/06/22 10:49 Dose: 6 mg Documented By: RAKESH Ondansetron HCl (Ondansetron Inj 2 Mg/Ml 2 Ml Vial) 4 mg IV NOW STA Stop: 06/06/22 10:30 Last Admin: 06/06/22 10:52 Dose: 4 mg Documented By: RADHA Imaging Data Radiologist's Impression: Thoracic Spine X-Ray 06/06/22 10:17 XR thoracic spine 3V routine CLINICAL HISTORY: mid back pain TECHNIQUE: 3 views of the thoracic spine were obtained. Comparison: Comparison is made to CT abdomen pelvis 10/25/2021 FINDINGS: Old T11 compression deformity is noted, unchanged from prior exam. Degenerative changes are seen in the thoracic spine. Alignment appears unremarkable. Prevertebral soft tissues are within normal limits. IMPRESSION: Degenerative changes as above without acute fracture or subluxation. Old T11 compression deformity. No acute fractures are seen. ACT 112: Negative or not required by law. Electronically signed by: Tyler Hernadez M.D. 06/06/2022 11:50 AM Discharge Plan Visit Data Chief Complaint: Back Injury/Pain Stated Complaint: BACK PAIN ED Provider: Bob Wood Discharge Problem: Back pain, Back muscle spasm Forms Stand Alone Forms: [facility] Prescriptions Prescriptions: No Action multivitamin Tablet 1 tab PO UD Rx Instructions: friday, , and friday only. dextroamphetamine sulfate [Zenzedi] 10 mg Tablet 10 mg PO QAM PRN (Reason: ..) famotidine [Pepcid] 20 mg Tablet 20 mg PO QAM PRN (Reason: Acid Reflux) bupropion HCl [Wellbutrin XL] 150 mg Tablet Extended Release 24 Hr 150 mg PO QAM Vyvanse 70 mg Capsule 70 mg PO QAM trazodone 50 mg Tablet 75 mg PO HS omeprazole 20 mg Tablet,Disintegrat, Delay Rel 20 mg PO QAM escitalopram oxalate 5 mg tablet 5 mg PO QAM Referrals Referrals: Ema Green DO [Primary Care Provider] -
[2022-06-06 11:24] LABS: Basophils # (auto) 0.03 K/uL (0-0.2); Basophils % (auto) 0.4 %; Eosinophils # (auto) 0.15 K/uL (0-0.50); Eosinophils % (auto) 1.8 %; Hemoglobin 14.4 g/dl (12.0-16.0); Immature Granulocytes # (auto) 0.01 K/uL (0.01-0.20); Immature Granulocytes % (auto) 0.1 %; Lymphocytes # (auto) 2.52 K/uL (1.2-3.4); Lymphocytes % (auto) 29.8 %; Mean Corpuscular Hemoglobin 30.5 pg (25.0-34.0); Mean Corpuscular Hgb Conc 35.1 g/dL (32.0-36.0); Mean Corpuscular Volume 86.9 fL (80.0-100.0); Mean Platelet Volume 9.8 fL (9.4-12.4); Monocytes # (auto) 0.63 K/uL (0.11-0.59); Monocytes % (auto) 7.5 %; Neutrophils # (auto) 5.11 K/uL (1.40-6.50); Neutrophils % (auto) 60.4 %; Platelet Count 224 K/uL (130-400); RDW Coefficient of Variation 11.8 % (11.5-14.5); RDW Standard Deviation 37.2 fL (36.4-46.3); Red Blood Count 4.72 M/uL (4.20-5.40); White Blood Count 8.45 K/ul (4.8-10.8)
[2022-06-06 11:42] LABS: Calcium 9.8 mg/dl (8.5-10.1); Creatinine Clr Calc Pharmacy 100.2 ml/min; Est GFR (African American) 103.7 ml/min; Est GFR (Non-African American) 89.5 ml/min; Potassium 4.4 mmol/L (3.5-5.1)
--- NOTE | 2022-06-06 11:52 | XRay Report ---
XR thoracic spine 3V routine CLINICAL HISTORY: mid back pain TECHNIQUE: 3 views of the thoracic spine were obtained. Comparison: Comparison is made to CT abdomen pelvis 10/25/2021 FINDINGS: Old T11 compression deformity is noted, unchanged from prior exam. Degenerative changes are seen in t he thoracic spine. Alignment appears unremarkable. Prevertebral soft tissues are within normal limits . IMPRESSION: Degenerative changes as above without acute fracture or subluxation. Old T11 compression deformity. N o acute fractures are seen. ACT 112: Negative or not required by law. Electronically signed by: Tyler Hernadez M.D. 06/06/2022 11:50 AM
[2022-06-06] MEDS ORDERED: ACETAMINOPHEN 1,000 MG/100 ML VIAL IV STA (12:39)
--- NOTE | 2022-06-06 13:09 | History & Physical Report ---
Date of Service June 06, 2022 Assessment & Plan (1) Back pain: Plan: - Admit to med surg - Appears muscular with radiculopathic nerve pain from compression fx. Does not sound cardiac in nature (but will check EKG) as her pain is reproducible on palpation around the T10-T12 area. Old compression fracture is seen on T11 on thoracic spine xray. Radicular pain highly likely considering HPI with injury to the area, and muscular spasm. -In the ER patient has received MS 8 mg IV, Toradol 10 mg IV, diazepam 7 mg IV, Tylenol 1000mg IV. -Ordered dose of Flexeril p.o. now, 0.5 mg IV Dilaudid prior to CT scan-continue with muscle relaxant and Dilaudid pending how she tolerates -CT thoracic, lumbar spine, chest x-ray 2 view ordered at bedside -Started on scheduled Colace, and MiraLAX as needed -Pending imaging results will consider consultation with Dr. Barbosa, spinal surgery -Ordered PT and OT consults tomorrow (2) History of gastric restrictive surgery: Plan: -History of such in 2019 -Bowel regimen ordered, pending imaging studies will allow diet today if no plans for surgical intervention or needs for transfer (3) ADHD: Plan: -May continue Vyvanse, Zenzedi (4) Depression: Plan: -Continue Lexapro, Wellbutrin DVT PPx: - teds, scds, mechanical prophylaxis only for now CODE: Full code Dispo: From home, likely to remain in the hospital x 1-2 days A total of 65 minutes were spent with greater than 50% of that time face to face with the patient, personally reviewing all current laboratories, imaging studies, past medication reconciliation, outpatient chart review, and discussion with specialists to collaborate care for the patient with attending. Please see attending documentation for corrections and/or additions. History of Present Illness Chief Complaint: Back pain Primary Care Provider: Ema Green, This is a 41-year-old female with PMHx of ureteral stones, ADHD, depression, sleeve gastrectomy in 2019, who presents with severe back pain in the right upper thoracic region. She reports that this has been ongoing since around April 23 when she was walking her dog, who ripped through the leash cutting one of her fingers, and then she had to lean over and walk/restrain him on the way home for about 0.25 miles. Then on Apr 30 she was called by her step sterling barnett, and her grandmother had stopped breathing and so she quickly drove there, and performed CPR on this woman until EMS arrived. This morning she woke up in extreme pain, Left upper shoulder blader region with muscle spasms moving to the right. She had difficulty moving at all. Pt notes she walk nearly unable to walk to her car, and drove to the ER. Her pain was physically unbearable rating 10/10. PT had to use wheelchair to come into the ER. She denies shortness of breath, chest pain, neuropathy, gu issues, no saddle anesthesia, no peripheral weakness. Pt notes hx of constipation due to previous gastric sleeve surgery. She typically is very active. Pt has a son who is 7 yo, weighs 70 lbs, and is autistic who requires much help at times. She is an employee of this hospital. Pt does not smoke. Had 1 glass of chardonnay last evening as it was her 1 year wedding anniversary. So far in the ER patient has received MS 8 mg IV, Toradol 10 mg IV, diazepam 7 mg IV, Tylenol 1000mg IV. Allergies Allergy/AdvReac Type Severity Reaction Status Date / Time Penicillins Allergy Severe ANAPHYLAXIS Verified 06/06/22 12:16 promethazine Allergy Severe TORTICOLLIS Verified 06/06/22 12:16 cefaclor Allergy Intermediate Hives,nausea,vomiting Verified 06/06/22 12:16 diarrhea codeine Allergy Intermediate FULL BODY Verified 06/06/22 12:16 ITCHING latex Allergy Intermediate Itching Verified 06/06/22 12:16 levofloxacin [From Levaquin] Allergy Mild mild rash Verified 06/06/22 12:16 to extremity being infused on Home Medications Medication Instructions Recorded Confirmed Type bupropion HCl 150 mg 24 hr tablet, 150 mg PO QAM 10/04/20 06/06/22 History extended release (Wellbutrin XL) dextroamphetamine sulfate 10 mg 10 mg PO QAM PRN .. 10/04/20 06/06/22 History tablet (Zenzedi) famotidine 20 mg tablet (Pepcid) 20 mg PO QAM PRN Acid Reflux 10/04/20 06/06/22 History lisdexamfetamine 70 mg capsule 70 mg PO QAM 10/04/20 06/06/22 History (Vyvanse) multivitamin 1 tab PO UD 10/04/20 06/06/22 History escitalopram oxalate 5 mg tablet 5 mg PO QAM 09/26/21 06/06/22 History omeprazole 20 mg delayed 20 mg PO QAM 09/26/21 06/06/22 History release,disintegrating tablet trazodone 50 mg tablet 75 mg PO HS 09/26/21 06/06/22 History Past Med/Surg History Medical History Acid reflux ADHD Anxiety Depression Hx of pyelonephritis Insomnia SVT (supraventricular tachycardia) during ; (NSR per 12/14/2019 ECG) Surgical History H/O lithotripsy H/O tubal ligation H/O: hysterectomy 2021: Robotic TLH/Salp/Cysto for menorrhagia, retains ovaries History of anesthesia reaction urinary retention post op History of appendectomy History of cholecystectomy History of cystoscopy History of dilation and curettage History of gastric restrictive surgery gastric sleeve History of wisdom tooth extraction Hx of section x3 Nausea and vomiting after administration of anesthetic agent Family History Father Gallbladder cancer Diabetes Grandmother (Maternal) Breast cancer Family/Other Colorectal cancer maternal great aunt Other Cancer Hypertension No family history of adverse response to anesthesia Denies family history of Ovarian cancer Social History Smoking Status: Never smoker Second Hand Exposure: No; Hx Alcohol Use: Yes Alcohol type: wine Hx Substance Use: No Preferred Language: Maori Communication Ability: Effective Visual Impairment: No Limitations Hearing Ability: Normal Sample Case Porter Required: No Beliefs That Will Affect Care: None marital status: Current Living Situation: Spouse and Family Current Living Situation Comment: at home with sig other /children Feels Safe at Home: Yes Assistive Devices: Contacts and Glasses Review of Systems Review of Systems: Constitutional: No fever, sweats or chills Eyes: No diplopia, no worsening or blurred vision ENT: normal hearing, no trouble swallowing Respiratory: No cough, sputum, dyspnea at rest or on exertion Cardiovascular: No chest pain, tightness or palpitations Back : as per HPI with Left upper back pain with radiation to the right, muscle spasms Abdomen: No pain, nausea, vomiting, diarrhea , +constipation Musculoskeletal: No joint pain, calf pain, swelling Neurologic: No weakness, numbness/tingling, or balance problems Psychiatric: + ADHD, +anxiety and depression on medication Skin: No rash or itch Physical Exam Physical Exam: General: awake, alert, no apparent distress, appears as if she's been crying Head: Normocephalic, atraumatic ENT: PERRL, EOMI, no pharyngeal exudate, mucous membranes moist Chest: Clear to auscultation, on room air, no adventitious breath sounds Cardiac: Regular rate and rhythm, no murmur, no JVD, normal peripheral pulses, good capillary refill Back: Tenderness is reproducible over left sided T10-T12 dermatomes specifically tender the the left of T11 spinal process. Abdominal: NABS x 4 quadrants, soft, nondistended, nontender to palpation, no rebound or guarding Extremities: Normal inspection, no peripheral edema or erythema, calfs nontender to palpation Psych: + Normal mood and affect for current level of pain Neuro: AAO x 3, strength intact bilaterally and rated 5/5, no motor deficits, speech is clear, no peripheral sensory deficits Results & Data Results & Data ([facility]) Vital Signs (Past 12 Hours) Vital Signs Temp Pulse Pulse Resp BP BP Pulse Ox 06/06/22 11:59 67 18 126/92 97 06/06/22 10:05 36.6 C 108 H 18 116/75 99 O2 Del Method 06/06/22 11:59 Room Air 06/06/22 10:05 Room Air Laboratory Results 06/06/22 06/06/22 06/06/22 13:10 10:50 10:50 WBC 8.45 RBC 4.72 Hgb 14.4 Hct 41.0 MCV 86.9 MCH 30.5 MCHC 35.1 RDW Std Deviation 37.2 RDW Coeff of Dylan 11.8 Plt Count 224 MPV 9.8 Immature Gran % (Auto) 0.1 Neut % (Auto) 60.4 Lymph % (Auto) 29.8 [place] % (Auto) 7.5 Eos % (Auto) 1.8 Baso % (Auto) 0.4 Neut # (Auto) 5.11 Lymph # (Auto) 2.52 [place] # (Auto) 0.63 H Eos # (Auto) 0.15 Baso # (Auto) 0.03 Immature Gran # (Auto) 0.01 Sodium 137 Potassium 4.4 Chloride 104 Carbon Dioxide 28 Anion Gap 5 BUN 32 H Creatinine 0.82 Est Cr Clr Drug Dosing 100.2 Est GFR ( Amer) 103.7 Est GFR (Non-Af Amer) 89.5 BUN/Creatinine Ratio 39.0 H Glucose 121 H Calcium 9.8 SARS-CoV-2, RNA, NAAT NEGATIVE Diagnostic Findings Thoracic Spine X-Ray 06/06/22 10:17 XR thoracic spine 3V routine CLINICAL HISTORY: mid back pain TECHNIQUE: 3 views of the thoracic spine were obtained. Comparison: Comparison is made to CT abdomen pelvis 10/25/2021 FINDINGS: Old T11 compression deformity is noted, unchanged from prior exam. Degenerative changes are seen in the thoracic spine. Alignment appears unremarkable. Prevertebral soft tissues are within normal limits. IMPRESSION: Degenerative changes as above without acute fracture or subluxation. Old T11 compression deformity. No acute fractures are seen. ACT 112: Negative or not required by law. Electronically signed by: Tyler Hernadez M.D. 06/06/2022 11:50 AM Code Status & VTE Plan Code Status Full code - discussed with the patient at bedside Supervising Physician Co-Signing Physician Notes History and physical exam performed by me History notable for 41 year old woman with h/o anxiety, ADHD who presents with worsening central back pain. Reported upper central back pain for over a month that started after an incident with her dog during which she had walk for about 0.25mile while leaning to restrain him. Worsened after performing CPR on her step mother's grandma shortly after. Woke up this morning with worsened pain with spasms Denied any neurological deficits such numbness, limb weakness Exam notable for tenderness over lower thoracic spine and adjacent left paraspinal muscles No neurological deficits on exam of UE and LE Labs are unremarkable Thoracic XR noted old T11 compression deformity Get CT thoracolumbar spine Pain control Start flexeril Will get PT/OT Get Vit D level Other plans as detailed by Maude Salazar PA-C (1) Back pain Back pain laterality: unspecified Back pain location: back pain in unspecified location Chronicity: unspecified Qualified Code(s): M54.9 - Dorsalgia, unspecified
[2022-06-06] MEDS ORDERED: CYCLOBENZAPRINE HCL 10 MG TAB PO STA (13:33)
[2022-06-06] MEDS ORDERED: POLYETHYLENE (MIRALAX) 17 GM PACK PO PRN (13:37)
[2022-06-06] MEDS ORDERED: HYDROmorphone INJ 0.5 MG/0.5 ML SYR IV STA (13:40)
--- NOTE | 2022-06-06 15:10 | CT Scan Report ---
CT thoracic spine wo con CLINICAL HISTORY: Eval T11, back pain TECHNIQUE: Multidetector row helical CT of the thoracic spine was performed without administration of intravenous contrast. Coronal and sagittal reformations were obtained. Automated dose lowering techn iques and/or adjustment according to patient size were utilized for this exam. CT DOSE: 9.28 mGy.cm Comparison: Comparison is made to thoracic spine radiograph 05/17/[address] abdomen pelvis 10/25/2021 FINDINGS: No acute fractures are identified. Mild degenerative changes are seen. Chronic anterior compression d eformity of T11 is again seen. Vertebral body alignment is within normal limits. Surrounding soft tis sues are unremarkable. IMPRESSION: No acute fractures are seen. Old compression deformity of T11 again noted. ACT 112: Negative or not required by law. Electronically signed by: Tyler Hernadez M.D. 06/06/2022 3:09 PM
--- NOTE | 2022-06-06 15:26 | CT Scan Report ---
CT SCAN OF THE LUMBAR SPINE WITHOUT IV CONTRAST CLINICAL HISTORY: Back pain. COMPARISON STUDY: MRI of the lumbar spine dated 01/17/2019. Abdominal CT dated 10/25/2021. TECHNIQUE: CT scan of the lumbar spine is performed from the lower thoracic spine to the sacrum. Imag es are reviewed in the axial, sagittal, and coronal planes. IV contrast was not administered for this examination. A dose lowering technique was utilized adhering to the principles of ALARA. FINDINGS: The skeletal structures are well mineralized. There is no evidence of fracture or malalignm ent involving the lumbar spine. A mild chronic superior endplate compression deformity of T11 is unch anged from prior examinations. Vertebral body height and alignment are maintained throughout the lumb ar spine. The transverse and spinous processes are intact. There is no spondylolysis. Small anterior and lateral marginal osteophytes are seen throughout. No lytic or blastic lesion is seen. Mild facet arthropathy seen in the lower lumbar region. There is no CT evidence of large disc herniation or high -grade central canal stenosis. The visualized sacrum and bony pelvis appear intact. The paraspinous s oft tissues are normal as visualized. No retroperitoneal lymphadenopathy is seen. A 2.6 cm follicle i s noted in the right ovary. Bilateral nonobstructing renal calculi measure up to 4 mm. Postsurgical c hange is noted in the stomach. IMPRESSION: 1. There is no evidence of fracture or malalignment involving the lumbar spine. 2. The mild chronic superior endplate compression deformity of T11 is unchanged from prior studies. 3. Bilateral nephrolithiasis. ACT 112: Negative or not required by law. Dictated: 06/06/2022 3:02 PM Transcribed: 06/06/2022 3:13 PM Felipa [id number] [email or web address]_Halliee Electronically signed by: Mayo Beltran M.D. 06/06/2022 3:24 PM
[2022-06-06] MEDS ORDERED: FAMOTIDINE 20 MG TAB PO PRN (15:38)
[2022-06-06] MEDS ORDERED: ACETAMINOPHEN 325 MG TAB PO PRN (15:38)
[2022-06-06] MEDS ORDERED: ONDANSETRON INJ 2 MG/ML 2 ML VIAL IV PRN (15:38)
[2022-06-06] MEDS: MULTIVITAMIN TAB PO SCH (16:44)
[2022-06-06] MEDS: HYDROmorphone INJ 1 MG/ML SYRINGE IV PRN ×2 (16:50→22:48)
--- NOTE | 2022-06-06 17:11 | Electrocardiogram Report ---
Test Reason : Blood Pressure : / mmHG Vent. Rate : 078 BPM Atrial Rate : 078 BPM P-R Int : 168 ms QRS Dur : 090 ms QT Int : 396 ms P-R-T Axes : 001 003 039 degrees QTc Int : 451 ms Normal sinus rhythm When compared with ECG of 26-SEP-2021 23:23, No significant change was found Confirmed by Trung Gaspar ([id number]) on 06/06/2022 5:11:34 PM Referred By: REFERRED SELF Confirmed By:William Gaspar
--- NOTE | 2022-06-06 17:20 | XRay Report ---
TWO VIEW CHEST CLINICAL HISTORY: Thoracic back pain. FINDINGS: PA and lateral chest radiographs are compared to study dated 12/14/2019. The cardiomediastina l silhouette is unremarkable. The lungs and pleural spaces are clear. There is no pneumothorax. The bony thorax appears intact. There is a mild chronic compression deformity of T11. This is unchanged f rom prior studies. Cholecystectomy clips are noted in the right upper quadrant. IMPRESSION: No active disease in the chest. ACT 112: Negative or not required by law. Electronically signed by: Mayo Beltran M.D. 06/06/2022 5:19 PM
[2022-06-06] MEDS: CYCLOBENZAPRINE HCL 10 MG TAB PO PRN (19:31)
[2022-06-06] MEDS: traZODone HCL 50 MG TAB PO SCH (21:52)
[2022-06-06] MEDS: DOCUSATE SODIUM 100 MG CAP PO SCH (21:52)
[2022-06-07] MEDS: HYDROmorphone INJ 1 MG/ML SYRINGE IV PRN ×3 (04:40→22:55)
[2022-06-07] MEDS: CYCLOBENZAPRINE HCL 10 MG TAB PO PRN ×3 (04:40→23:13)
[2022-06-07 07:32] LABS: Hematocrit (blood only) 34.6 % (37.0-47.0); Hemoglobin 12.2 g/dl (12.0-16.0); Mean Corpuscular Hemoglobin 30.8 pg (25.0-34.0); Mean Corpuscular Hgb Conc 35.3 g/dL (32.0-36.0); Mean Corpuscular Volume 87.4 fL (80.0-100.0); Mean Platelet Volume 9.8 fL (9.4-12.4); Platelet Count 203 K/uL (130-400); RDW Coefficient of Variation 11.8 % (11.5-14.5); RDW Standard Deviation 37.8 fL (36.4-46.3); Red Blood Count 3.96 M/uL (4.20-5.40); White Blood Count 6.04 K/ul (4.8-10.8)
[2022-06-07 07:36] LABS: BUN Creatinine Ratio 29.9 (10-20); Calcium 8.7 mg/dl (8.5-10.1); Creatinine Clr Calc Pharmacy 106.7 ml/min; Est GFR (African American) 111.9 ml/min; Est GFR (Non-African American) 96.6 ml/min
[2022-06-07] MEDS: ESCITALOPRAM OXALATE 10 MG TAB PO SCH (08:48)
[2022-06-07] MEDS: DOCUSATE SODIUM 100 MG CAP PO SCH ×2 (08:49→20:36)
[2022-06-07] MEDS: PANTOprazole 40 MG TAB PO SCH (08:49)
[2022-06-07] MEDS: buPROPion XL 150 MG TABCR PO SCH (08:49)
[2022-06-07] MEDS: ACETAMINOPHEN 500 MG TAB PO SCH ×2 (09:18→20:36)
[2022-06-07] MEDS: LIDOCAINE 5% 1 PATCH TD SCH (09:18)
[2022-06-07] MEDS: KETOROLAC 30 MG/ML VIAL IV PRN (10:21)
[2022-06-07] MEDS ORDERED: dexAMETHasone 6 MG in SYRINGE 0 ML IV ONE (13:00)
[2022-06-07] MEDS ORDERED: LORazepam 0.5 MG TAB PO ONE ×2 (13:30→17:00)
[2022-06-07] MEDS ORDERED: HYDROmorphone INJ 0.5 MG/0.5 ML SYR IV STA (16:49)
--- NOTE | 2022-06-07 17:31 | Hospitalist Progress Note ---
Date of Service June 07, 2022 Assessment & Plan (1) Back pain: Plan: Per admitting service notes with addendum: - Admit to med surg - Appears muscular with radiculopathic nerve pain from compression fx. Does not sound cardiac in nature (but will check EKG) as her pain is reproducible on palpation around the T10-T12 area. Old compression fracture is seen on T11 on thoracic spine xray. Radicular pain highly likely considering HPI with injury to the area, and muscular spasm. -In the ER patient has received MS 8 mg IV, Toradol 10 mg IV, diazepam 7 mg IV, Tylenol 1000mg IV. -Ordered dose of Flexeril p.o. now, 0.5 mg IV Dilaudid prior to CT scan-continue with muscle relaxant and Dilaudid pending how she tolerates -CT thoracic, lumbar spine, chest x-ray 2 view ordered at bedside -Started on scheduled Colace, and MiraLAX as needed -Pending imaging results will consider consultation with Dr. Barbosa, spinal surgery -Ordered PT and OT consults tomorrow 06/07 MRI of the lumbar and thoracic spine ordered Dilaudid increased to 1 mg IV every 4 hours as needed Toradol 30 mg every 6 hours as needed ordered Continue with Flexeril twice daily Tylenol 1 g every 8 hours We will consult spine orthopedic surgery service (2) History of gastric restrictive surgery: Plan: No problems with tolerating food (3) ADHD: Plan: -May continue Vyvanse Zenzedi (4) Depression: Plan: -Continue Lexapro, Wellbutrin DVT PPx: - teds, scds, mechanical prophylaxis only for now CODE: Full code Dispo: Pending PT and OT evaluation in progress Admission and Anticipated Discharge Date Admission Date: June 06, 2022 Subjective Follow-up for intractable back pain, etc. Seen sitting up in bed, uncomfortable secondary to ongoing pain Reports pain is mostly in the mid back radiating to the left lower rib region Also reporting right-sided buttock pain radiating to the right leg No weakness or numbness Has extreme difficulty with movement secondary to severe pain Review of Systems Review of Systems: all noted and negative except for above Physical Exam Physical Exam: General- oriented x 3, not in distress, speaks in sentences with no effort or accessory muscle use Eyes- anicteric Neck- no JVD Lungs- clear breath sounds bilaterally, no rales/wheezes Heart- normal rate, regular rhythm; no murmurs Abdomen- normal bowel sounds, nondistended, soft, nontender Back-positive significant tenderness to the mid back Extremities- no pretibial edema, no calf tenderness Neuro- alert, oriented x 3; no gross focal neurologic deficits Skin- warm & dry Results & Data Results & Data ([facility]) Vital Signs (Past 12 Hours) Vital Signs Temp Pulse Resp BP Pulse Ox O2 Del Method 06/07/22 14:30 36.8 C 82 16 119/83 96 Room Air 06/07/22 08:41 36.4 C L 73 16 109/75 99 Room Air 06/07/22 07:33 36.5 C 61 16 90/62 L 100 Room Air all noted and reviewed including below (1) Back pain Back pain laterality: unspecified Back pain location: back pain in unspecified location Chronicity: unspecified Qualified Code(s): M54.9 - Dorsalgia, unspecified
--- NOTE | 2022-06-07 18:42 | Magnetic Resonance Report ---
THORACIC SPINE MRI HISTORY: severe back pain TECHNIQUE: Multiplanar multisequence MRI of the thoracic spine was performed without the use of contr ast. COMPARISON: Thoracic spine CT 06/06/2022. FINDINGS: There is again noted old mild anterior wedge-shaped compression deformity at T11. No marrow edema to suggest an acute injury. No acute fractures or subluxation within the thoracic spine. Mild disc space narrowing within the mid to lower thoracic spine consistent with degenerative change. Paravertebral soft tissues are unremarkable. No significant central canal or neural foraminal narrowing. The thorac ic spinal cord is normal in course, caliber, and signal intensity. No epidural fluid collections are noted. Mild endplate degenerative changes at T12. IMPRESSION: 1. No acute fractures or subluxation within the thoracic spine. 2. There is an old mild anterior wedge-shaped compression deformity at T11. ACT 112: Negative or not required by law. Electronically signed by: Kai Masterson M.D. 06/07/2022 6:40 PM
--- NOTE | 2022-06-07 19:12 | Magnetic Resonance Report ---
LUMBAR SPINE MRI HISTORY: severe back pain TECHNIQUE: Multiplanar multisequence MRI of the lumbar spine was performed without the use of contras t. COMPARISON: Lumbar spine CT 06/06/2022. FINDINGS: For the purpose of the report the L5-S1 disc space will be located on axial image 27 of 30. Mild anterior wedging at T12 which is chronic. No acute fracture or subluxation within the lumbar spi ne. The visualized sacrum is intact. The conus terminates at the L1-L2 disc space level. Mild endplat e degenerative changes at T12 are noted. Mild disc space narrowing at T12-L1. No significant disc spa ce narrowing within the lumbar spine. Mild facet degenerative changes within the lower lumbar spine. Paravertebral soft tissues are unremarkable. No disc herniations. L1-L2: No significant central canal or neural foraminal narrowing. L2-L3: No significant central canal or neural foraminal narrowing. L3-L4: No significant central canal or neural foraminal narrowing. L4-L5: No significant central canal or neural foraminal narrowing. L5-S1: No significant central canal or neural foraminal narrowing. IMPRESSION: 1. There is an old mild anterior wedge-shaped compression deformity at T11. 2. No acute fracture or subluxation within the lumbar spine. 3. No disc herniations. No significant central canal or neural foraminal narrowing. 4. Mild facet degenerative changes within the lower lumbar spine. ACT 112: Negative or not required by law. Electronically signed by: Kai Masterson M.D. 06/07/2022 7:11 PM
[2022-06-07] MEDS: SODIUM CHLORIDE 0.9% 1000ML 1,000 ML IV SCH (20:37)
[2022-06-07] MEDS: traZODone HCL 50 MG TAB PO SCH (20:37)
[2022-06-08] MEDS: ACETAMINOPHEN 500 MG TAB PO SCH ×2 (01:15→08:34)
[2022-06-08] MEDS: SODIUM CHLORIDE 0.9% 1000ML 1,000 ML IV SCH ×2 (02:16→08:38)
[2022-06-08] MEDS: KETOROLAC 30 MG/ML VIAL IV PRN ×2 (08:25→14:30)
[2022-06-08] MEDS: CYCLOBENZAPRINE HCL 10 MG TAB PO PRN ×2 (08:27→14:31)
[2022-06-08] MEDS: DOCUSATE SODIUM 100 MG CAP PO SCH (08:32)
[2022-06-08] MEDS: buPROPion XL 150 MG TABCR PO SCH (08:33)
[2022-06-08] MEDS: ESCITALOPRAM OXALATE 10 MG TAB PO SCH (08:33)
[2022-06-08] MEDS: PANTOprazole 40 MG TAB PO SCH (08:33)
[2022-06-08] MEDS: MULTIVITAMIN TAB PO SCH (08:33)
[2022-06-08] MEDS: LIDOCAINE 5% 1 PATCH TD SCH (08:37)
[2022-06-08] MEDS: HYDROmorphone INJ 1 MG/ML SYRINGE IV PRN (10:43)
--- NOTE | 2022-06-08 16:01 | Hospitalist Progress Note ---
Date of Service June 08, 2022 Assessment & Plan (1) Back pain: Plan: Per admitting service notes with addendum: - Admit to med surg - Appears muscular with radiculopathic nerve pain from compression fx. Does not sound cardiac in nature (but will check EKG) as her pain is reproducible on palpation around the T10-T12 area. Old compression fracture is seen on T11 on thoracic spine xray. Radicular pain highly likely considering HPI with injury to the area, and muscular spasm. -In the ER patient has received MS 8 mg IV, Toradol 10 mg IV, diazepam 7 mg IV, Tylenol 1000mg IV. -Ordered dose of Flexeril p.o. now, 0.5 mg IV Dilaudid prior to CT scan-continue with muscle relaxant and Dilaudid pending how she tolerates -CT thoracic, lumbar spine, chest x-ray 2 view ordered at bedside -Started on scheduled Colace, and MiraLAX as needed -Pending imaging results will consider consultation with Dr. Barbosa, spinal surgery -Ordered PT and OT consults tomorrow 06/07 MRI of the lumbar and thoracic spine ordered Dilaudid increased to 1 mg IV every 4 hours as needed Toradol 30 mg every 6 hours as needed ordered Continue with Flexeril twice daily Tylenol 1 g every 8 hours We will consult spine orthopedic surgery service 06/08 Thoracic and Lumbar spine MRI: COMPARISON: Thoracic spine CT 06/06/2022. FINDINGS: There is again noted old mild anterior wedge-shaped compression deformity at T11. No marrow edema to suggest an acute injury. No acute fractures or subluxation within the thoracic spine. Mild disc space narrowing within the mid to lower thoracic spine consistent with degenerative change. Paravertebral soft tissues are unremarkable. No significant central canal or neural foraminal narrowing. The thoracic spinal cord is normal in course, caliber, and signal intensity. No epidural fluid collections are noted. Mild endplate degenerative changes at T12. IMPRESSION: 1. No acute fractures or subluxation within the thoracic spine. 2. There is an old mild anterior wedge-shaped compression deformity at T11. ACT 112: Negative or not required by law. pain more manageable would like to try to go home today discharge plan: Oxycodone-Acetaminophen 5/325mg q4-q6h PRN for moderate to severe pain Flexeril 10 mg 3 times daily as needed for muscle spasms Mobic 15 mg daily x 3 to 5 days only Follow-up with PCP in 1 week If without improvement, follow-up with Dr. Barbosa (2) History of gastric restrictive surgery: Plan: No GI symptoms (3) ADHD: Plan: -May continue VyvanseKjzedi (4) Depression: Plan: -Continue Lexapro, Wellbutrin DVT PPx: - teds, scds, mechanical prophylaxis only for now CODE: Full code Dispo: Discharge to home Follow-up with PCP in 1 week Admission and Anticipated Discharge Date Admission Date: June 07, 2022 Subjective ff up for intractable back pain, etc seen resting in bed, sitting up states pain is more manageable today 6/10 back spasms continue to improve still having right buttock pain, radiating to the right leg no weakness/numbness no other symptoms would like to try to go home today Review of Systems Review of Systems: all noted and negative except for above Physical Exam Physical Exam: General- oriented x 3, not in distress, speaks in sentences with no effort or accessory muscle use Eyes- anicteric Neck- no JVD Lungs- clear breath sounds bilaterally, no rales/wheezes Heart- normal rate, regular rhythm; no murmurs Abdomen- normal bowel sounds, nondistended, soft, nontender Back- no tenderness Extremities- no pretibial edema, no calf tenderness Neuro- alert, oriented x 3; no gross focal neurologic deficits Skin- warm & dry Results & Data Results & Data ([facility]) Vital Signs (Past 12 Hours) Vital Signs Temp Pulse Resp BP Pulse Ox O2 Del Method 06/08/22 15:44 37 C 74 16 116/77 95 06/08/22 14:41 37 C 74 16 116/77 95 Room Air 06/08/22 07:18 36.5 C 67 16 113/78 95 Room Air all noted and reviewed including below (1) Back pain Back pain laterality: unspecified Back pain location: back pain in unspecified location Chronicity: unspecified Qualified Code(s): M54.9 - Dorsalgia, unspecified
--- NOTE | 2022-06-08 16:11 | Discharge Summary ---
Discharge Summary Date of Service June 08, 2022 Notes For Next Care Provider Medication Changes From Visit Percocet 5/325 mg every 4 hours every 6 hours as needed Flexeril 10 mg 3 times daily as needed Meloxicam 15 mg daily x3 to 5 days Admission HPI Per Admitting Provider This is a 41-year-old female with PMHx of ureteral stones, ADHD, depression, sleeve gastrectomy in 2019, who presents with severe back pain in the right upper thoracic region. She reports that this has been ongoing since around April 23 when she was walking her dog, who ripped through the leash cutting one of her fingers, and then she had to lean over and walk/restrain him on the way home for about 0.25 miles. Then on Apr 30 she was called by her step daughter, and her grandmother had stopped breathing and so she quickly drove there, and performed CPR on this woman until EMS arrived. This morning she woke up in extreme pain, Left upper shoulder blader region with muscle spasms moving to the right. She had difficulty moving at all. Pt notes she walk nearly unable to walk to her car, and drove to the ER. Her pain was physically unbearable rating 10/10. PT had to use wheelchair to come into the ER. She denies shortness of breath, chest pain, neuropathy, gu issues, no saddle anesthesia, no peripheral weakness. Pt notes hx of constipation due to previous gastric sleeve surgery. She typically is very active. Pt has a son who is 7 yo, weighs 70 lbs, and is autistic who requires much help at times. She is an employee of this hospital. Pt does not smoke. Had 1 glass of chardonnay last evening as it was her 1 year wedding anniversary. So far in the ER patient has received MS 8 mg IV, Toradol 10 mg IV, diazepam 7 mg IV, Tylenol 1000mg IV. Admission Exam Per Admitting Provider General: awake, alert, no apparent distress, appears as if she's been crying Head: Normocephalic, atraumatic ENT: PERRL, EOMI, no pharyngeal exudate, mucous membranes moist Chest: Clear to auscultation, on room air, no adventitious breath sounds Cardiac: Regular rate and rhythm, no murmur, no JVD, normal peripheral pulses, good capillary refill Back: Tenderness is reproducible over left sided T10-T12 dermatomes specifically tender the the left of T11 spinal process. Abdominal: NABS x 4 quadrants, soft, nondistended, nontender to palpation, no rebound or guarding Extremities: Normal inspection, no peripheral edema or erythema, calfs nontender to palpation Psych: + Normal mood and affect for current level of pain Neuro: AAO x 3, strength intact bilaterally and rated 5/5, no motor deficits, speech is clear, no peripheral sensory deficits Principal Dx & Hospital Course #1 = Principal Diagnosis (1) Back pain: INTRACTABLE BACK PAIN LIKELY SECONDARY TO MUSCULAR STRAIN POSSIBLE RIGHT-SIDED SPACE SCIATICA MRI of the lumbar and thoracic spine ordered Dilaudid increased to 1 mg IV every 4 hours as needed Toradol 30 mg every 6 hours as needed ordered Continue with Flexeril 3 times daily as needed Tylenol 1 g every 8 hours consult spine orthopedic surgery service-Dr. Barbosa on vacation until next week as per MOHAN Vee 06/08 Thoracic and Lumbar spine MRI: COMPARISON: Thoracic spine CT 06/06/2022. FINDINGS: There is again noted old mild anterior wedge-shaped compression deformity at T11. No marrow edema to suggest an acute injury. No acute fractures or subluxation within the thoracic spine. Mild disc space narrowing within the mid to lower thoracic spine consistent with degenerative change. Paravertebral soft tissues are unremarkable. No significant central canal or neural foraminal narrowing. The thoracic spinal cord is normal in course, caliber, and signal intensity. No epidural fluid collections are noted. Mild endplate degenerative changes at T12. IMPRESSION: 1. No acute fractures or subluxation within the thoracic spine. 2. There is an old mild anterior wedge-shaped compression deformity at T11. ACT 112: Negative or not required by law. --Back spasms more manageable Still having some right buttock pain radiating to the right leg but no weakness or numbness Patient would like to try to go home today discharge plan: Oxycodone-Acetaminophen 5/325mg q4-q6h PRN for moderate to severe pain Flexeril 10 mg 3 times daily as needed for muscle spasms Mobic 15 mg daily x 3 to 5 days only Follow-up with PCP in 1 week If without improvement, consider follow-up with orthopedic social insurance specialist Dr. Barbosa (2) History of gastric restrictive surgery: No GI symptoms (3) ADHD: -May continue Vyvanse Zenzedi (4) Depression: -Continue Lexapro, Wellbutrin DVT PPx: - teds, scds, mechanical prophylaxis only for now CODE: Full code Dispo: Discharge to home Follow-up with PCP in 1 week Discharge Exam General- oriented x 3, not in distress, speaks in sentences with no effort or accessory muscle use Eyes- anicteric Neck- no JVD Lungs- clear breath sounds bilaterally, no rales/wheezes Heart- normal rate, regular rhythm; no murmurs Abdomen- normal bowel sounds, nondistended, soft, nontender Back- no tenderness Extremities- no pretibial edema, no calf tenderness Neuro- alert, oriented x 3; no gross focal neurologic deficits Skin- warm & dry Updated Medication List Medication Instructions Recorded Confirmed Type bupropion HCl 150 mg 24 hr tablet, 150 mg PO QAM 10/04/20 06/06/22 History extended release (Wellbutrin XL) dextroamphetamine sulfate 10 mg 10 mg PO QAM PRN .. 10/04/20 06/06/22 History tablet (Zenzedi) famotidine 20 mg tablet (Pepcid) 20 mg PO QAM PRN Acid Reflux 10/04/20 06/06/22 History lisdexamfetamine 70 mg capsule 70 mg PO QAM 10/04/20 06/06/22 History (Vyvanse) multivitamin 1 tab PO UD 10/04/20 06/06/22 History escitalopram oxalate 5 mg tablet 5 mg PO QAM 09/26/21 06/06/22 History omeprazole 20 mg delayed 20 mg PO QAM 09/26/21 06/06/22 History release,disintegrating tablet trazodone 50 mg tablet 75 mg PO HS 09/26/21 06/06/22 History cyclobenzaprine 10 mg tablet 10 mg PO TID PRN muscle spasm #21 06/08/22 Rx tabs meloxicam 15 mg tablet 15 mg PO DAILY #5 tabs 06/08/22 Rx oxycodone-acetaminophen 5 mg-325 1 tab PO .q4-q6h PRN moderate to 06/08/22 Rx mg tablet (Percocet) severe pain #15 tabs Hospital Stay Data Consultations 06/06/22 13:05 ED Decision to Admit Stat 06/08/22 07:58 Consult Orthopedic Surgery Routine Diagnostic Imagining Performed 06/06/22 13:39 CT lumbar spine wo con Stat CT thoracic spine wo con Stat 06/07/22 12:48 MRI Lumbar Spine [MR lumbar spine wo con] Urgent MRI Thoracic [MR thoracic spine wo con] Urgent Discharge Instructions Given to Patient (Per Discharging Provider) PLEASE REFER TO YOUR NEW MEDICATION LIST AND FOLLOW INSTRUCTIONS CAREFULLY. YOUR NEW MEDICATIONS INCLUDE: Mondovi- as needed for severe pain Meloxicam- for 5 days only, always take with a full stomach Flexeril- for 1 week PLEASE CALL YOUR PRIMARY CARE PHYSICIAN OR RETURN TO THE ER IF WITH WORSENING OF SYMPTOMS, INCLUDING WORSENING BACK PAIN, LEG WEAKNESS/NUMBNESS, ETC FOLLOW UP WITH PRIMARY CARE PHYSICIAN IN 1 WEEK. [facility] CALLING YOU SOON FOR AN APPOINTMENT SCHEDULE. TAKE CARE. Total Time Total Time Spent Total Time Spent (In Minutes): > 30 minutes
== END 2022-06-08 16:44 | disposition home or self-care (01) | DRG 552 ==
LOC: 3W 09:59 → ED 09:59 → SUATTDRO 13:12 → 3W 15:29